=== PATIENT | male | born 1960 | race Caucasian/White ===

== ENCOUNTER 2023-06-22 14:09 | Outpatient (OUT) | payer OTHER, SELFPAY ==
--- NOTE | 2023-06-22 | XR_ITS ---
The [address] [address] Patient Name: DELBERT SANTOS MRN: [id number] date: 1960 Sex: M Assigned Patient Location: [facility] Current Patient Location: Accession/Order Number: [id number] Exam Date: 06/22/2023 14:00 Report Date: 06/25/2023 06:06 At the request of: DEANGELO MARTINEZ Procedure: XR foot LT min 3V PROCEDURE: XR foot LT min 3V, XR ankle LT min 3V HISTORY: LEFT FOOT PAIN COMPARISON: XR foot left 05/27/2022 FINDINGS: BONES:Prior mechanical fusion of the hindfoot and proximal midfoot. No evidence of hardware fracture or loosening. No bone fracture dislocation. Prior bone marrow harvesting from distal tibia. SOFT TISSUES:Mild distal dorsal soft tissue swelling. Atherosclerotic disease. EFFUSION:None visible. OTHER: Negative. XR/XR foot LT min 3V IMPRESSION: 1. Stable surgical changes without evidence of hardware failure or change in alignment. Electronically authenticated by: MOSHE MATTHEW Date: 06/25/2023 06:06
--- NOTE | 2023-06-22 | XR_ITS ---
The [address] [address] Patient Name: DELBERT SANTOS MRN: [id number] date: 1960 Sex: M Assigned Patient Location: [facility] Current Patient Location: Accession/Order Number: [id number] Exam Date: 06/22/2023 14:00 Report Date: 06/25/2023 06:06 At the request of: DEANGELO MARTINEZ Procedure: XR ankle LT min 3V PROCEDURE: XR foot LT min 3V, XR ankle LT min 3V HISTORY: LEFT FOOT PAIN COMPARISON: XR foot left 05/27/2022 FINDINGS: BONES:Prior mechanical fusion of the hindfoot and proximal midfoot. No evidence of hardware fracture or loosening. No bone fracture dislocation. Prior bone marrow harvesting from distal tibia. SOFT TISSUES:Mild distal dorsal soft tissue swelling. Atherosclerotic disease. EFFUSION:None visible. OTHER: Negative. XR/XR ankle LT min 3V IMPRESSION: 1. Stable surgical changes without evidence of hardware failure or change in alignment. Electronically authenticated by: MOSHE MATTHEW Date: 06/25/2023 06:06
== END 2023-06-22 14:10 | disposition home or self-care (01) ==
PROVIDERS: Visit Provider Podiatrist Foot & Ankle Surgery
DX: M79.672 Pain in left foot (principal); M25.572 Pain in left ankle and joints of left foot
CPT/HCPCS: 73610; 73630

== ENCOUNTER 2023-11-11 10:27 | Outpatient (OUT) | payer SELFPAY ==
--- OUTSIDE RECORDS SUMMARY | 2023-11-11 10:57 | XMS_ITS | CCD ---
Author Organization [facility] Care Team Providers Care Nurse Practitioner Per Diem Name Role Phone Hema Pratt Unavailable Unavailable Unavailable Primary Care Provider Unavailabl Aidan Medina MD Unavailable [phone] James HUSTON-Willow LAWRENCE Unavailable Alice Waters MD Unavailable Bj Hodge MD Unavailable Hema Pratt MD Primary Care Provider Bj Hodge MD Unavailable Dr. Kemar Lee Primary Care Provider Dr. Tien Peter Attending Provider DR MOSHE MATTHEW Consulting Unavailable DEANGELO MARTINEZ Attending Unavailable DEANGELO MARTINEZ Admitting Unavailable DEANGELO MARTINEZ Consulting Unavailable Dr. Kemar Lee Primary Care Provider Dr. Kemar Lee Referring Provider Dr. Tien Peter Attending Provider Aidan Pedro MD Unavailable [phone] Willow Whitney Unavailable Evelin HILL, Alice L Unavailable Bj Hodge MD Unavailable Hema Pratt MD Primary Care Provider Aidan Pedro MD Unavailable Willow Whitney Unavailable Evelin HILL, Alice L Unavailable [phone] Ayesha HILL, Bj M Unavailable Hema Pratt MD Primary Care Provider Kemar Lee MD Primary Care Provider KEMAR LEE Primary Care Unavailable KEMAR NAVARRO Attending Unavailable KEMAR NAVARRO Referring Unavailable HEMA PRATT Primary Care Unavailable LYNNETTE ANGELO Attending Unavailable LYNNETTE ANGELO Referring Unavailable BENSON GOTTLIEB Referring Unavailable HEMA PRATT Primary Care Unavailable LYNNETTE ANGELO Attending Unavailable ROSA, KEMAR Colón Primary Care Unavailable SELF, SELF Referring Unavailable AKASH, LUCRECIA Mitchell Attending Unavailable LEE, KEMAR Colón Primary Care Unavailable AKASH, LUCRECIA Mitchell Attending Unavailable LUCRECIA BUSTOS Referring Unavailable HEMA PRATT Primary Care Unavailable SELF, SELF Referring Unavailable LUCRECIA BUSTOS Attending Unavailable LEE, KEMAR Colón Primary Care Unavailable AKASH, LUCRECIA Mitchell Attending Unavailable AKASHLUCRECIA CARTER Referring Unavailable LEE, KEMAR Colón Primary Care Unavailable SELF, SELF Referring Unavailable AKASH, LUCRECIA Mitchell Attending Unavailable LEE, KEMAR Colón Primary Care Unavailable SELF, SELF Referring Unavailable LUCRECIA BUSTOS S Attending Unavailable LEE, KEMAR Colón Primary Care Unavailable HARDYTONY Attending Unavailable CONSULT, CARDIOLOGY Consulting Unavailable SELF, SELF Referring Unavailable ROSA, KEMAR Colón Primary Care Unavailable KEMAR NAVARRO Attending Unavailable Lee, Kemar Primary Care Unavailable Vellanki, Alice Attending Unavailable Vellanki, Alice Referring Unavailable Lee, Kemar Primary Care Unavailable Vellanki, Alice Attending Unavailable Lee, Kemar Primary Care Unavailable Vellanki, Alice Attending Unavailable Vellanobie, Alice Referring Unavailable Lee, Kemar Primary Care Unavailable Rosa, Kemar Consulting Unavailable Vellanki, Alice Attending Unavailable Vellanki, Alice Referring Unavailable Vellanki, Alice Consulting Unavailable Lee, Kemar Primary Care Unavailable Lee, Kemar Attending Unavailable Lee, Kemar Referring Unavailable Allergies Allergy Classification Reported Allergen(s) Allergy Type Date of Onset Reaction(s) Facility (6 sources) Penicillin V Drug Allergy 4 Unknown [facility] (6 sources) Penicillins Propensity to adverse reactions 06-02-200 9 [facility] (1 source) Penicillins Drug allergy (disorder) 7 [facility] (7 sources) Penicillins Propensity to adverse reactions to drug 1 [facility] (1 source) Penicillin Drug Allergy 4 [facility] Medications Current Medications Medication Drug Class(es) Dates Sig (Normalized) Sig (Original) acetaminophen 325 mg / oxyCODONE hydrochloride 5 mg oral tablet (6 sources) Opioid Agonist Start: 05-29-2014 take 1 tablet by mouth every four hours as needed Oxycodone-Acetamin ophen Active 1 - 2 TABLET PO EVERY 4 HOURS NEEDED 60 May 28, 2014 11:00pm Mild to moderate pain atorvastatin 40 mg oral tablet (19 sources) HMG-CoA Reductase Inhibitor Start: 04-04-2019 End: 06-24-2023 take 1 tablet by mouth once daily atorvastatin 40 MG Tab tablet Take 1 tablet by mouth daily. 90 tablet 3 04/04/2019 Active Start: 05-28-2014 take 20 mg by mouth every other day Atorvastatin Active 20 MG PO EVERY OTHER DAY May 27, 2014 11:00pm 12 hr buPROPion hydrochloride 90 mg / naltrexone hydrochloride 8 mg extended release oral tablet (4 sources) Opioid Antagonist, Aminoketone take 2 tablets by mouth twice daily Naltrexone-buPROPion HCl ER (Contrave) 8-90 MG Tab SR 12 HR Take 2 tablets by mouth 2 times daily. 0 Active carvedilol 6.25 mg oral tablet (7 sources) alpha-Adrenergic Jyoti, beta-Adrenergic Jyoti Start: 2022 End: 2023 take 1 tablet by mouth twice daily at mealtime carveDILOL 6.25 MG tablet Indications: 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, unspecified whether shoalwater or transplanted heart , Essential hypertension , Hyperlipidemia, unspecified hyperlipidemia type , Aortic root dilatation Take 1 tablet by mouth 2 times daily with meals. 180 tablet 3 08/05/2023 Active diclofenac sodium 75 mg delayed release oral tablet (6 sources) Nonsteroidal Anti-inflammatory Drug Start: 2022 take 1 tablet by mouth twice daily diclofenac EC [address] tablet Take 1 tablet by mouth 2 times daily. 60 tablet 3 05/18/2023 Active docusate sodium 100 mg oral capsule (6 sources) Start: 2013 take 1 capsule by mouth twice daily Docusate Sodium (Dok) 100 MG capsule Active 100 MG PO TWICE A DAY May 28, 2014 11:00pm 0.4 ml enoxaparin sodium 100 mg/ml prefilled syringe (6 sources) Low Molecular Weight Heparin Start: 2013 Enoxaparin Active 40 MG SC DAILY@0600 May 28, 2014 11:00pm Begin AM of 05/30/14 esomeprazole 20 mg delayed release oral capsule (6 sources) Proton Pump Inhibitor Start: 2013 take 1 capsule by mouth once daily Esomeprazole Magnesium (Nexium) 20 MG capsule Active 20 MG PO DAILY May 27, 2014 11:00pm Fluticasone Propion-Salmeterol (14 sources) Corticosteroid, beta2-Adrenergic Agonist Start: 2013 take 1 puff(s) by inhalation once daily Fluticasone Propion-Salmeterol (Advair Diskus) 1 PUFF inhaler Active 1 PUFF INHALATION DAILY May 28, 2014 2:28pm Start: 05-28-2014 take 1 puff(s) by in halation once daily Fluticasone Propion-Salmeterol (Advair Diskus) 1 PUFF inhaler Active 1 PUFF INHALATION DAILY May 27, 2014 11:00pm Start: 05-28-2014 take 1 puff(s) by in halation once daily Fluticasone Propion-Salmeterol (Advair Diskus) 1 PUFF inhaler Active 1 PUFF INHALATION DAILY May 28, 2014 12:00am End: 06-23-2023 take 1 puff(s) by inhalation once daily fluticasone-salmeterol 100-50 MCG/DOSE Aerosol Powder, breath activated inhaler take 1 Puff by inhalation daily. 0 06/23/2023 Discontinued folic acid 1 mg oral tablet (9 sources) Start: 04-30-2022 take 2 tablets by mouth once daily folic acid 1 MG tablet Take 2 tablets by mouth daily. 0 04/30/2022 Active Start: 04-30-2022 folic acid 1 M G tablet gabapentin 300 mg oral capsule (12 sources) Anti-epileptic Agent Start: 05-28-2014 End: 05-29-2014 take 300 mg by mouth three times daily at mealtime Gabapentin Active 300 MG PO 3 TIMES DAILY WITH MEALS May 29, 2014 10:06am HYDROmorphone hydrochloride 2 mg oral tablet (6 sources) Opioid Agonist Start: 05-29-2014 take 2 mg by mouth every four hours as needed Hydromorphone Active 2 MG PO EVERY 4 HOURS NEEDED May 28, 2014 11:00pm losartan potassium 50 mg oral tablet (19 sources) Angiotensin 2 Receptor Jyoti Start: 07-08-2018 take 1.5 tablets by mouth once daily losartan (COZAAR) 50 MG Tab tablet Take 1.5 tablets by mouth daily. 135 tablet 3 07/08/2018 Active Start: 05-28-2014 End: 06-24-2023 Losartan (COZAAR) tablet 50 mg methotrexate 2.5 mg oral tablet (9 sources) Folate Analog Metabolic Inhibitor Start: 04-30-2022 methotrexate 2.5 MG tablet Take 7 tablets by mouth every 7 days. 0 04/30/2022 Active Start: 04-30-2022 methotrexate 2 .5 MG tablet predniSONE 10 mg oral tablet (12 sources) Start: 01-28-2022 predniSONE 10 MG tablet prn 0 01/28/2022 Active terazosin 2 mg oral capsule (19 sources) alpha-Adrenergic Jyoti Start: 05-28-2014 take 2 mg by mouth once daily Terazosin Active 2 MG PO DAILY May 27, 2014 11:00pm Start: 02-12-2012 End: 06-24-2023 take 1 capsule by mouth twice daily terazosin 2 MG PO CAPS Indications: Edema , Vasospasm take 1 Cap by mouth 2 times daily. 180 Cap 3 02/12/2012 Active Completed/Discontinued Medications Medication Drug Class(es) Dates Sig (Normalized) Sig (Original) acetaminophen 325 mg oral tablet (1 source) Start: 06-23-2023 End: 06-24-2023 take 1 tablet by mouth every six hours as needed Acetaminophen (TYLENOL) tablet 650 mg acetaminophen 325 mg / HYDROcodone bitartrate 5 mg oral tablet (6 sources) Opioid Agonist Start: 05-14-2014 End: 05-29-2014 take 1 tablet by mouth every four hours as needed Hydrocodone-Acetam inophen Discontinued 1 TABLET PO EVERY 4 HOURS NEEDED May 13, 2014 11:00pm May 29, 2014 10:06am aluminum hydroxide 40 mg/ml / magnesium hydroxide 40 mg/ml / simethicone 4 mg/ml oral suspension (1 source) Start: 06-23-2023 End: 06-24-2023 take 30 mL by mouth every six hours as needed alum/mag hydrox.-simethicon e oral suspension 30 mL amLODIPine 10 mg / benazepril hydrochloride 20 mg oral capsule (1 source) Dihydropyridine Calcium Channel Jyoti, Angiotensin Converting Enzyme Inhibitor Start: 12-27-2009 amlodipine besylate/benazepri l(LOTREL 10 MG-20 MG CAP) Indications: Unspecified essential hypertension Take one(1) tablet daily. 90 3 12/27/2009 Active Comment on above: Take one(1) tablet d aily. aspirin 81 mg chewable tablet (13 sources) Platelet Aggregation Inhibitor, Nonsteroidal Anti-inflammatory Drug Start: 06-24-2023 End: 06-24-2023 aspirin chewable tablet 81 mg Start: 06-23-2023 End: 06-23-2023 aspirin chewable tablet 243 mg Start: 05-28-2014 take 81 mg by mouth once daily Aspirin Active 81 MG PO DAILY@0800 May 27, 2014 11:00pm Start: 01-01-2009 aspirin(ASPIR- LOW 81 MG TAB) Take two (2) tablets every morning. 0 01/01/2009 Active Comment on above: Take two (2) tablets every morning. 10 ml atropine sulfate 0.1 mg/ml prefilled syringe (1 source) Anticholinergic, Cholinergic Muscarinic Antagonist Start: 2022 End: 2022 Atropine injection 0.5 mg 250 ml DOBUTamine 1 mg/ml injection (1 source) beta-Adrenergic Agonist Start: 2022 End: 2022 DOBUTamine (DOBUTREX) 1 MG/ML premix infusion hydroCHLOROthiazide 25 mg oral tablet (9 sources) Thiazide Diuretic Start: 2022 End: 2022 take 25 mg by mouth once daily 25 mg, Oral, DAILY, First dose on Wed06/23/23 at 1315, Until Discontinued hydroxychloroquine sulfate 200 mg oral tablet (13 sources) Antimalarial, Antirheumatic Agent Start: 2022 End: 2022 Hydroxychloroquine (PLAQUENIL) tablet 200 mg magnesium oxide 400 mg oral tablet (1 source) Start: 2022 End: 2022 magnesium oxide (MAG-OX) tablet 400 mg meloxicam 15 mg oral tablet (5 sources) Nonsteroidal Anti-inflammatory Drug Start: 2019 End: 2022 take 1 tablet by mouth once daily meloxicam 15 MG Tab tablet Take 1 tablet by mouth daily. Please provide capsules rather than tablets. 30 tablet 3 09/01/2019 09/17/2022 Discontinued (Therapy completed) Perflutren Lipid Microsphere (DEFINITY) 1.5 mL in Normal saline flush 0.9% 8.5 mL (2 sources) Start: 2023 End: 2023 Perflutren Lipid Microsphere (DEFINITY) 1.5 mL in Normal saline flush 0.9% 8.5 mL Start: 06-23-2023 End: 06-23-2023 Perflutren Lipid Microsphere (DEFINITY) 1.5 mL in Normal saline flush 0.9% 8.5 mL 1000 ml sodium chloride 9 mg /ml injection (1 source) Start: 06-23-2023 End: 06-24-2023 Sodium chloride 0.9% IV solution Problems Active Problems Problem Classification Problem Date Documented Da te Episodic/Chronic Acquired foot deformities (3 sources) Hammer toe; Translations: [Other hammer toe(s) (acquired), left foot] Onset: 09-16-2023 05-18-2023 Chronic Aortic; peripheral; and visceral artery aneurysms (8 sources) Aortic root dilatation; Translations: [Thoracic aortic ectasia] Onset: 08-05-2023 08-05-2023 Chronic Coronary atherosclerosis and other heart disease (16 sources) Coronary atherosclerosis; Translations: [Atherosclerotic heart disease of [place] coronary artery without angina pectoris] Onset: 05-02-2018 05-02-2018 Chronic Disorders of lipid metabolism (9 sources) Hyperlipidemia; Translations: [Hyperlipidemia, unspecified] Onset: 01-01-2009 04-04-2009 Chronic Essential hypertension (9 sources) Essential hypertension; Translations: [Essential (primary) hypertension] Onset: 01-01-2009 01-01-2009 Chronic Fracture of lower limb (10 sources) Closed fracture calcaneus, intra-articular ; Translations: [Displaced intraarticular fracture of left calcaneus, initial encounter for closed fracture] Onset: 09-16-2023 Episodic Immunizations and screening for infectious disease (13 sources) Scl 70 antibody positive; Translations: [Other specified abnormal immunological findings in serum] Onset: 08-24-2011 08-24-2011 Episodic Joint disorders and dislocations; trauma-related (8 sources) Traumatic arthropathy of the ankle and/or foot; Translations: [Traumatic arthropathy, left ankle and foot] Onset: 05-27-2022 Chronic Osteoarthritis (7 sources) Traumatic arthropathy-ankle; Translations: [Post-traumatic osteoarthritis, left ankle and foot] Onset: 09-16-2023 Chronic Other aftercare (1 source) Other snf (current) drug therapy; Translations: [Other exterminator termite (current) drug therapy] Onset: 11-10-2023 Episodic Other bone disease and musculoskeletal deformities (3 sources) Segmental and somatic dysfunction; Translations: [Segmental and somatic dysfunction of thoracic region] Episodic Other circulatory disease (12 sources) Raynaud's disease; Translations: [Raynaud's syndrome without gangrene] Onset: 01-23-2011 01-23-2011 Chronic Other ear and sense organ disorders (1 source) Asymmetrical hearing loss; Translations: [Other specified hearing loss, unspecified ear] Chronic Other ear and sense organ disorders (16 sources) Sensorineural hearing loss, bilateral; Translations: [Sensorineural hearing loss, bilateral] Onset: 10-25-2013 10-25-2013 Chronic Other ear and sense organ disorders (1 source) Sensorineural hearing loss, bilateral; Translations: [Sensorineural hearing loss, bilateral] Onset: 10-25-2013 Chronic Other nutritional; endocrine; and metabolic disorders (1 source) Obesity; Translations: [Obesity, unspecified] Onset: 01-01-2009 01-01-2009 Chronic Other nutritional; endocrine; and metabolic disorders (12 sources) Body mass index 40+ - severely obese; Translations: [Morbid (severe) obesity due to excess calories] Onset: 07-02-2017 07-02-2017 Chronic Other nutritional; endocrine; and metabolic disorders (12 sources) Severe obesity; Translations: [Morbid (severe) obesity due to excess calories] Onset: 05-01-2018 05-01-2018 Chronic Other upper respiratory disease (1 source) Allergic rhinitis; Translations: [Allergic rhinitis, unspecified] Onset: 01-01-2009 01-01-2009 Chronic Residual codes; unclassified (12 sources) Obstructive sleep apnea syndrome; Translations: [Obstructive sleep apnea (adult) (pediatric)] Onset: 07-03-2013 07-03-2013 Chronic Rheumatoid arthritis and related disease (9 sources) Rheumatoid arthritis of multiple joints; Translations: [Rheumatoid arthritis, unspecified] Onset: 06-23-2023 Chronic Unclassified (1 source) Unknown / UNK(Unknown) Onset: 08-23-2017 Unclassified (12 sources) Reflux; Translations: [Reflux] Onset: 01-15-2012 01-15-2012 Past or Other Problems Problem Classification Problem Date Documented Da te Episodic/Chronic Nonspecific chest pain (18 sources) Chest pain; Translations: [Chest pain, unspecified] Onset: 04-30-2018 04-30-2018 Episodic Other connective tissue disease (12 sources) Swelling of finger ; Translations: [Other specified soft tissue disorders] Onset: 01-23-2011 01-23-2011 Episodic Other connective tissue disease (12 sources) Full thickness rotator cuff tear; Translations: [Complete rotator cuff tear or rupture of unspecified shoulder, not specified as traumatic] Onset: 04-09-2014 04-09-2014 Episodic Other ear and sense organ disorders (12 sources) Presbycusis; Translations: [Presbycusis, unspecified ear] Onset: 10-19-2013 10-19-2013 Episodic Residual codes; unclassified (12 sources) Sleep apnea; Translations: [Sleep apnea, unspecified] Onset: 01-15-2012 Resolved: 06-20-2012 06-20-2012 Chronic Residual codes; unclassified (1 source) Edema; Translations: [Edema, unspecified] Onset: 12-27-2009 12-27-2009 Episodic Sprains and strains (3 sources) Sprain of left ankle; Translations: [Sprain of unspecified ligament of left ankle, initial encounter] Onset: 07-29-2023 05-18-2023 Episodic Unclassified (1 source) E78.00,I10 HYPERCHOLESTROLEMIA ,HYPERTENSIO Onset: 08-23-2017 Results Test Name Value Interpretation Reference Range Facility CBC W/Diff, Automatedon 10-31 Absolute Lymph 0.84 X10 3/uL Normal 0.83-4.51 [facility] Comment on above: Performed By: #### L [id number], L501.9985, L100.0100 #### [facility] [address] [place], [address] Absolute Neut 4.2 X10 3/uL Normal 2.0-7.7 [facility] Comment on above: Performed By: #### L [id number], [id number], L100.0100 #### [facility] [address] [place], [address] Basophils/100 WBC (Bld) 0.5 % Normal 0-1 [facility] Comment on above: Performed By: #### L 500.4050, [id number], L100.0100 #### [facility] [address] [place], [address] Eosinophils/100 WBC (Bld) 4.0 % Normal 0-5 [facility] Comment on above: Performed By: #### L 500.4050, [id number], L100.0100 #### [facility] [address] [place], [address] Erythrocyte distribution width (RBC) [Ratio] 12.2 % Normal 11.6-14.6 [facility] Comment on above: Performed By: #### L 500.4050, L501.9985, L100.0100 #### [facility] [address] [place], [address] Hematocrit (Bld) [Volume fraction] 41.6 % Normal 40-54 [facility] Comment on above: Performed By: #### L 500.4050, [id number], L100.0100 #### [facility] [address] [place], [address] Hemoglobin (Bld) [Mass/Vol] 14.2 g/dL Normal 13.0-16.5 [facility] Comment on above: Performed By: #### L 500.4050, [id number], L100.0100 #### [facility] [address] [place], [address] IG% 0.200 Normal 0.0-0.9 [facility] Comment on above: Result Comment: IG% - Immature Granulocytes (promyelocytes, myelocytes and metamyelocytes) > 1% indicates that a LEFT SHIFT is Present. Performed By: #### L 500.4050, L501.9985, L100.0100 #### [facility] [address] [place], [address] Lymphocytes/100 WBC (Bld) 14.6 % Low 19-41 [facility] Comment on above: Performed By: #### L 500.4050, [id number], L100.0100 #### [facility] [address] [place], [address] MCH (RBC) [Entitic mass] 33.3 pg High 27.0-32.0 [facility] Comment on above: Performed By: #### L 500.4050, [id number], L100.0100 #### [facility] [address] [place], [address] MCHC (RBC) [Mass/Vol] 34.1 g/dL Normal 32-36 [facility] Comment on above: Performed By: #### L 500.4050, [id number], L100.0100 #### [facility] [address] [place], [address] MCV (RBC) [Entitic vol] 97.7 fL High 80-94 [facility] Comment on above: Performed By: #### L 500.4050, [id number], L100.0100 #### [facility] [address] [place], [address] Monocytes/100 WBC (Bld) 7.3 % Normal 0-10 [facility] Comment on above: Performed By: #### L 500.4050, [id number], L100.0100 #### [facility] [address] [place], [address] Neutrophils/100 WBC (Bld) 73.4 % High 47-70 [facility] Comment on above: Performed By: #### L 500.4050, [id number], L100.0100 #### [facility] [address] [place], [address] Nucleated RBC (Bld) [#/Vol] 0 10*3/uL Normal 0-5 [facility] Comment on above: Performed By: #### L 500.4050, [id number], L100.0100 #### [facility] [address] [place], [address] Platelet mean volume (Bld) [Entitic vol] 11.5 fL Normal 6.2-12.0 [facility] Comment on above: Performed By: #### L 500.4050, [id number], L100.0100 #### [facility] [address] [place], [address] Platelets (Bld) [#/Vol] 155 10*3/uL Normal 150-450 [facility] Comment on above: Performed By: #### L 500.4050, [id number], L100.0100 #### [facility] [address] [place], [address] RBC (Bld) [#/Vol] 4.26 10*6/uL Low 4.6-6.2 [facility] Comment on above: Performed By: #### L 500.4050, [id number], L100.0100 #### [facility] [address] [place], [address] RDW SD 43.6 fl Normal 35.1-43.9 [facility] Comment on above: Performed By: #### L 500.4050, [id number], L100.0100 #### [facility] [address] [place], [address] WBC (Bld) [#/Vol] 5.8 10*3/uL Normal 4.4-11.0 [facility] Comment on above: Performed By: #### L 500.4050, [id number], L100.0100 #### [facility] [address] [place], [address] Comprehensive Metabolic Prof ilon 11-10-2023 Albumin [Mass/Vol] 3.4 g/dL Normal 3.2-5.0 [facility] Comment on above: Performed By: #### L 500.4050, [id number], L100.0100 #### [facility] [address] [place], [address] Albumin/Globulin [Mass ratio] 1.2 {ratio} Normal 0.9-2.4 [facility] Comment on above: Performed By: #### L 500.4050, [id number], L100.0100 #### [facility] [address] [place], [address] ALK P 59 U/L Normal 45-117 [facility] Comment on above: Performed By: #### L 500.4050, [id number], L100.0100 #### [facility] [address] [place], [address] ALT [Catalytic activity/Vol] 67 U/L High 16-61 [facility] Comment on above: Performed By: #### L 500.4050, [id number], L100.0100 #### [facility] [address] [place], [address] AST [Catalytic activity/Vol] 28 U/L Normal 15-37 [facility] Comment on above: Performed By: #### L 500.4050, [id number], L100.0100 #### [facility] [address] [place], [address] Bilirubin [Mass/Vol] 1.00 mg/dL Normal 0.20-1.00 [facility] Comment on above: Result Comment: For patients on eltrombopag therapy, use of Dimension [place] TBIL is not recommended. Performed By: #### L 500.4050, [id number], L100.0100 #### [facility] [address] [place], [address] BUN/CRE 15.2 RATIO Normal 10-20 [facility] Comment on above: Performed By: #### L 500.4050, [id number], L100.0100 #### [facility] [address] [place], [address] CA,Total 8.9 mg/dL Normal 8.5-10.1 [facility] Comment on above: Performed By: #### L 500.4050, [id number], L100.0100 #### [facility] [address] [place], [address] Chloride [Moles/Vol] 108 mmol/L High 98-107 [facility] Comment on above: Performed By: #### L 500.4050, [id number], L100.0100 #### [facility] [address] [place], [address] CO2 [Moles/Vol] 29.0 mmol/L Normal 21.0-32.0 [facility] Comment on above: Performed By: #### L 500.4050, [id number], L100.0100 #### [facility] [address] [place], [address] Creatinine [Mass/Vol] 0.99 mg/dL Normal 0.70-1.30 [facility] Comment on above: Result Comment: The validity of the calculated GFR GFRAA in patients over 70 years has not been determined. Clinical correlation is essential. Performed By: #### L 500.4050, [id number], L100.0100 #### [facility] [address] [place], [address] EST GFR - AA 98 mL/min Normal >60 [facility] Comment on above: Result Comment: Afri can Japanese GFR Calc Performed By: #### L 500.4050, [id number], L100.0100 #### [facility] [address] [place], [address] GAP 3 Low 5-15 [facility] System Comment on above: Performed By: #### L 500.4050, L501.9985, L100.0100 #### [facility] [address] [place], [address] GFR/1.73 sq M.predicted among non-blacks MDRD (S/P/Bld) [Vol rate/Area] 81 mL/min/{1.73_m2} Normal >60 [facility] Comment on above: Result Comment: Non- GFR Calc Performed By: #### L 500.4050, L501.9985, L100.0100 #### [facility] [address] [place], [address] Globulin (S) [Mass/Vol] 2.9 g/dL Normal 2.2-4.2 [facility] Comment on above: Performed By: #### L 500.4050, L501.9985, L100.0100 #### [facility] [address] [place], [address] Glucose [Mass/Vol] 125 mg/dL High 74-106 [facility] Comment on above: Result Comment: Fast ing Glucose result from 100 to 125 mg/dL suggests IMPAIRED HOMEOSTASIS per A.D.A. criteria. Performed By: #### L 500.4050, L501.9985, L100.0100 #### [facility] [address] [place], [address] Potassium [Moles/Vol] 4.2 mmol/L Normal 3.5-5.1 [facility] Comment on above: Performed By: #### L 500.4050, L501.9985, L100.0100 #### [facility] [address] [place], [address] Sodium [Moles/Vol] 140 mmol/L Normal 136-145 [facility] Comment on above: Performed By: #### L 500.4050, L501.9985, L100.0100 #### [facility] [address] [place], [address] T PROT 6.3 g/dL Low 6.4-8.2 [facility] Comment on above: Performed By: #### L 500.4050, L501.9985, L100.0100 #### [facility] [address] [place], [address] Urea nitrogen [Mass/Vol] 15 mg/dL Normal 7-18 [facility] Comment on above: Performed By: #### L 500.4050, L501.9985, L100.0100 #### [facility] [address] [place], [address] Cardiac echo study Procedure Ordered By: Rodrigue Pérez on 08-19-2023 Ao ASC index 1.48 cm/m2 [facility] Work Phone: Ao peak gera 1.20 m/s [facility] Work Phone: Ao SOV index 1.50 cm/m2 [facility] Work Phone: Ao STJ index 1.10 cm/m2 [facility] Work Phone: Ao VTI 24.21 cm [facility] Work Phone: Ascending [facility] 3.[facility] AV LVOT peak gradient 4 mmHg [facility] Work Phone: AV mean gradient 3 [facility] Work Phone: AV peak gradient 6 mmHG [facility] Work Phone: AV valve area 3.36 cm2 [facility] Work Phone: AV Velocity Ratio 0.79 [facility] Work Phone: VAMSHI (continuity Vmax) 3.37 cm2 [facility] Work Phone: VAMSHI (continuity VTI) 3.36 cm2 [facility] Work Phone: VAMSHI index (continuity Vmax) 1.29 m/s [facility] Work Phone: VAMSHI index (continuity VTI) 1.29 cm2/m2 [facility] Work Phone: Avg e' pk gera 0.06 m/s [facility] Work Phone: Avg E/e' ratio 10.79 [facility] Work Phone: Body surface area Derived from formula 2.61 m2 [facility] Work Phone: BP EF 55 % [facility] Work Phone: DI (Vmax) 0.79 [facility] Work Phone: DI (VTI) 0.79 m/2 [facility] Work Phone: E wave decelartion time 200.64 msec [facility] Work Phone: e' lateral pk gera 0.0694 m/s [facility] Work Phone: e' lateral pk gera 0.07 m/s [facility] Work Phone: e' septal pk gera 0.0518 m/s [facility] Work Phone: e' septal pk gera 0.05 m/s [facility] Work Phone: E/A ratio 0.80 [facility] Work Phone: E/e' lateral ratio 9.22 [facility] Work Phone: E/e' septal ratio 12.36 [facility] Work Phone: EF SP 2CH 57 [facility] Work Phone: EF SP 4[facility] Work [facility]: EST RAP 3.00 [facility] Work [facility]: FS 31 % 28 - 44 % [facility] Work Phone: IVC ostium 1.35 cm [facility] Work Phone: IVS 0.93 cm [facility] Work Phone: LA AREA 2CH 22.75 cm2 [facility] Work Phone: LA area 4CH 20.42 cm2 [facility] Work Phone: LA ESV BP (MOD) 60 mL [facility] Work Phone: LA ESV BP (MOD) index 23 mL/m2 [facility] Work Phone: LA ESV SP 2CH (MOD) 66 mL [facility] Work Phone: LA ESV SP 4CH (MOD) 54 [facility] Work Phone: LV EDV BP 134 [facility] Work Phone: LV EDV SP 2CH 118 [facility] Work Phone: LV EDV SP 4CH 146 [facility] Work Phone: LV ESV BP 60 mL [facility] Work Phone: LV ESV SP 2CH 51 mL [facility] Work Phone: LV ESV SP 4CH 66 mL [facility] Work Phone: LV mass 137.82 g [facility] Work Phone: LV Mass Index 52.8 g/m2 [facility] Work Phone: LV RWT 0.42 [facility] Work Phone: LV stroke volume BP (ml) 74 mL [facility] Work Phone: LV stroke volume index BP 28.35 mL/m2 [facility] Work Phone: LVIDD 4.48 cm [facility] Work Phone: LVIDS 3.08 cm [facility] Work Phone: LVOT area 4.26 cm2 [facility] Work Phone: LVOT diameter 2.33 cm [facility] Work Phone: LVOT peak gera 0.95 m/s [facility] Work Phone: LVOT peak VTI 19.10 cm [facility] Work Phone: LVOT stroke volume 81 cm3 [facility] Work Phone: LVOT stroke volume index 31.19 ml/m2 [facility] Work Phone: MV pk A gera 0.80 m/s [facility] Work Phone: MV pk E gera 0.64 m/s [facility] Work Phone: MV stenosis pressure 1/2 time 58.19 ms [facility] Work Phone: MV valve area p 1/2 method 3.78 cm2 [facility] Work Phone: [facility] AV VTI RATIO PRE STRESS 0.79 [facility] Work Phone: [facility] ECHO LV BIPLANE SYSTOLIC VOLUME INDEX 22.99 mL/m2 [facility] Work Phone: [facility] ECHO LV BP DIASTOLIC VOLUME INDEX 51.34 mL/m2 [facility] Work Phone: [facility] RVOT VTI RATIO 0.81 [facility] Work Phone: PV mean gradient 1 mmHg [facility] Work Phone: PV peak gradient 2 mmHg [facility] Work Phone: PV PK GERA 0.77 m/s [facility] Work Phone: PV VTI 17.32 cm [facility] Work Phone: PW 0.93 cm [facility] Work Phone: RA vol index 4CH (MOD) 21.46 mL/m2 [facility] Work Phone: Right atrium volume 4 chamber method of disks 56 mL [facility] Work Phone: RV Area diastolic 26.21 cm2 [facility] Work Phone: RV Area systolic 16.76 cm2 [facility] Work Phone: RV basal diam 5.14 cm [facility] Work Phone: RV Fractional area change 36.1 % [facility] Work Phone: RV long diam 8.17 cm [facility] Work Phone: RV mid diam 2.79 cm [facility] Work Phone: RV S' 10.76 cm/s [facility] Work Phone: RVOT peak gradient 2 mmHg [facility] Work Phone: RVOT peak gera 0.62 m/s [facility] Work Phone: RVOT peak VTI 13.97 cm [facility] Work Phone: Sinus 3.91 cm [facility] Work Phone: STJ 2.87 cm [facility] Work Phone: Stroke Volume 81 cm/mL [facility] Work Phone: Stroke volume index 31 [facility] Work Phone: TAPSE 2.24 cm [facility] Work Phone: [facility] Work Phone: Cardiac echo study Procedure on 08-19-2023 Technically difficul t study Left Ventricle: Chamber size is normal. Normal wall thickness. Ejection fraction is normal (55 - 60%). Right Ventricle: Chamber size is normal. Systolic function is normal. Left Atrium: Chamber size is normal. No significant valvular abnormality seen The aorta measures 3.9 cm at the SOV and 3.9 cm at the level of the ascending aorta Left Ventricle Chamber size is normal. Normal wall thickness. Ejection fraction is normal (55 - 60%). Diastolic function is normal for age. Right Ventricle Chamber size is normal. Systolic function is normal. Left Atrium Chamber size is normal. Right Atrium Chamber size is normal. IVC/SVC The inferior vena cava is normal in size. The inferior vena cava structure has a diameter <21 mm and decreases >50% during inspiration. Mitral Valve Normal appearing leaflets. Leaflet mobility is normal. No regurgitation. No valve stenosis. Tricuspid Valve Normal leaflets. Leaflet mobility is normal. Trace regurgitation. No stenosis. Aortic Valve Trileaflet valve. Leaflet mobility is normal. No regurgitation. No stenosis. Pulmonic Valve Normal structure. No regurgitation. No stenosis. Pericardium Appears normal. No pericardial effusion. Septum The atrial septum is normal. Aorta No dilation to extent seen. Study Details A complete 2D echocardiography study (including color flow Doppler, spectral Doppler and microbubbles) was performed. Contrast indication: evaluation of left ventricle contiguous segments. Study limitations include patient body habitus and technically difficult study. Imaging system used: Siemens. Indications Indications for study: chest pain, CAD and hypertension. [facility] Radiology Study observation (narrative) [facility] ECHOCARDIOGRAMon 08-19-2023 Echocardiography ? Technically diffic ult study ? Left Ventricle: Chamber size is normal. Normal wall thickness. Ejection fraction is normal (55 - 60%). ? Right Ventricle: Chamber size is normal. Systolic function is normal. ? Left Atrium: Chamber size is normal. ? No significant valvular abnormality seen ? The aorta measures 3.9 cm at the SOV and 3.9 cm at the level of the ascending aorta Table formatting from the original result was not included. Images from the original result were not included. Patient Information Patient Name Delbert Szymanski Legal Sex Male Indication for Exam Priority: Routine Dx: 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, unspecified whether shoalwater or transplanted heart [I25.10 (ICD-10-CM)]; Essential hypertension [I10 (ICD-10-CM)]; Hyperlipidemia, unspecified hyperlipidemia type [E78.5 (ICD-10-CM)]; Aortic root dilatation [I77.810 (ICD-10-CM)] Comments: Aortic Root Dilatation (echocardiogram: 2018) HTN; HLD Chest Pain Interpretation Summary ? Technically difficult study ? Left Ventricle: Chamber size is normal. Normal wall thickness. Ejection fraction is normal (55 - 60%). ? Right Ventricle: Chamber size is normal. Systolic function is normal. ? Left Atrium: Chamber size is normal. ? No significant valvular abnormality seen ? The aorta measures 3.9 cm at the SOV and 3.9 cm at the level of the ascending aorta Findings Left Ventricle Chamber size is normal. Normal wall thickness. Ejection fraction is normal (55 - 60%). Diastolic function is normal for age. Right Ventricle Chamber size is normal. Systolic function is normal. Left Atrium Chamber size is normal. Right Atrium Chamber size is normal. Septum The atrial septum is normal. Mitral Valve Normal appearing leaflets. Leaflet mobility is normal. No regurgitation. No valve stenosis. Aortic Valve Trileaflet valve. Leaflet mobility is normal. No regurgitation. No stenosis. Tricuspid Valve Normal leaflets. Leaflet mobility is normal. Trace regurgitation. No stenosis. Pulmonic Valve Normal structure. No regurgitation. No stenosis. Aorta No dilation to extent seen. Pericardium Appears normal. No pericardial effusion. IVC/SVC The inferior vena cava is normal in size. The inferior vena cava structure has a diameter <21 mm and decreases >50% during inspiration. Reading Providers Reading Role Read Date Rodrigue Pérez MD Echo [place], [employer] 08/19/2023 Left Heart Measurements LV - Systole LVIDD 4.48 cm IVS 0.93 cm LVIDS 3.08 cm PW 0.93 cm LV RWT 0.42 LV Mass Index 52.8 g/m2 LV EDV BP 134 mL LV ESV BP 60 mL BP EF 55 % LV stroke volume BP (ml) 74 mL LV stroke volume index BP 28.35 mL/m2 LV - Diastole MV pk E gera 0.64 m/s MV pk A gera 0.8 m/s E/A ratio 0.8 e' septal pk gera 0.05 m/s e' lateral pk gera 0.07 m/s Avg e' pk gera 0.06 m/s E/e' septal ratio 12.36 E/e' lateral ratio 9.22 Avg E/e' ratio 10.79 LV - HCM AV LVOT peak gradient 4 mmHg Left Atrium LA ESV SP 4CH (MOD) 54 mL LA ESV SP 2CH (MOD) 66 mL LA ESV BP (MOD) index 23 mL/m2 Right Heart Measurements RV - 2D RV basal diam 5.14 cm RV mid diam 2.79 cm RV long diam 8.17 cm RV Area diastolic 26.21 cm2 RV Area systolic 16.76 cm2 RV Fractional area change 36.1 % RV - Doppler TAPSE 2.24 cm RV S' 10.76 cm/s Right Atrium RA vol index 4CH (MOD) 21.46 mL/m2 EST RAP 3 mmHg [facility] Aortic Root - End Diastolic Sinus 3.91 cm STJ 2.87 cm Ascending aorta 3.87 cm Inferior Vena Cava IVC ostium 1.35 cm Doppler Measurements - Aortic Valve Stenosis LVOT diameter 2.33 cm LVOT area 4.26 cm2 LVOT peak gera 0.95 m/s LVOT peak VTI 19.1 cm Stroke Volume 81 cm/mL Stroke volume index 31 Ao peak gera 1.2 m/s Ao VTI 24.21 cm AV peak gradient 6 mmHG AV mean gradient 3 mmHg DI (VTI) 0.79 m/2 DI (Vmax) 0.79 VAMSHI (continuity Vmax) 3.37 cm2 VAMSHI index (continuity Vmax) 1.29 m/s VAMSHI (continuity VTI) 3.36 cm2 VAMSHI index (continuity VTI) 1.29 cm2/m2 LVOT stroke volume 81 cm3 LVOT stroke volume index 31.19 ml/m2 Doppler Measurements - Mitral Valve Stenosis MV pk E gera 0.64 m/s MV pk A gera 0.8 m/s E/A ratio 0.8 MV stenosis pressure 1/2 time 58.19 ms MV valve area p 1/2 method 3.78 cm2 PISA-MS MV pk E gera 0.64 m/s Doppler Measurements - Tricuspid Valve Stenosis IVC ostium 1.35 cm Regurgitation EST RAP 3 mmHg Doppler Measurements - Pulmonic Valve Stenosis PV PK GERA 0.77 m/s PV VTI 17.32 cm PV peak gradient 2 mmHg PV mean gradient 1 mmHg RVOT peak gera 0.62 m/s RVOT peak VTI 13.97 cm RVOT peak gradient 2 mmHg (more content not included)... Normal [facility] CT ANKLE LEFT WITHOUT CONTRA STon 08-13-2023 CT ANKLE LEFT WITHOUT CONTRAST EXAM: CT ANKLE LEFT WITHOUT CONTRAST, CT FOOT LEFT WITHOUT CONTRAST, 08/13/2023 15:39 PM (accession [id number]), 08/13/2023 15:43 PM (accession [id number]) COMPARISON: No prior studies available for comparison. 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 ;;[facility] claim # [id number];DOI 05/14/14;(L ankle injury);C-9 dated 07/08/[address] of Left Ankle x 1 from 07/09/23 to 09/29/23. ;C-9 has been scanned into IHIS. ;Allowed condition(s): M19.172, S92.012A;POR is Dr Bustos at [facility] Occupational Medicine (non-clinical contact: demi vera TECHNIQUE: Contiguous 0.625 x 0.3125 mm transaxial images were performed through the ankle joint without the use of intravenous contrast. The images were then reconstructed in the coronal, sagittal, and axial planes at 2-2.5 mm intervals. FINDINGS: CT LEFT ANKLE: Effusion: There is no joint effusion. Soft Tissue: Soft tissue swelling is present laterally. Diffuse muscular atrophy. Bone: There is a rounded lucent lesion with a small anterior cortical defect of predominantly of fat at the distal tibial metaphysis which is likely a graft harvest site. Status post ORIF of remote comminuted calcaneal fracture. Fixation hardware includes 3 intact screws traversing the calcaneus into the talus. There is partial fusion at the posterior subtalar joint. There is fusion of the calcaneocuboid with intact screws. There is an intact dorsal fixation plate and screws traversing the talus and navicular with the joint fused. The middle navicular screw projects into the sinus tarsi. No evidence of loosening or hardware failure. Diffuse osteopenia is noted. Calcaneal enthesopathy at the insertion of the plantar fascia. Tarsus: There are portions of the anterior, middle, and posterior facets that are still visualized. The talonavicular and calcaneocuboid joints are completely fused. Joint: Osteoarthritic changes of the midfoot and first metatarsal joint. Additionally, there are osteoarthritic changes at the talonavicular joint. There is widening of the ankle mortise with associated intra-articular body. Remote ligamentous injury is noted at the medial and lateral malleoli. CT LEFT FOOT: Bones: No fractures, Diffuse osteopenia is noted. Cartilage: No chondral defects. No intra-articular bodies. First metatarsophalangeal joint: The tibial and fibular sesamoids are intact. The intersesamoid, sesamoid-phalangeal, and sesamoid-metatarsal ligaments are intact. Osteoarthritic changes at the first metatarsal joint. Tendons: Intact. Muscles: There is disc diffuse muscular atrophy. Soft tissues: No abnormality of the neurovascular structures. IMPRESSION: 1. Status post ORIF of a comminuted calcaneal fracture with intact hardware. 2. Status post subtalar fusion with portions of the joint still visualized 3. Talonavicular fusion with the middle navicular screw projecting into the sinus Tarsi 4. Status post calcaneocuboid fusion 5. 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 6. Remote ligamentous injury at the medial and lateral malleoli. 7. Chronic plantar fasciitis. 8. Diffuse muscle atrophy and osteopenia. I personally viewed and interpreted these images and I have reviewed and approved this report. Normal [facility] CT Ankle - left WO contrasto n 08-13-2023 Radiology Study observation (narrative) [facility] CT FOOT LEFT WITHOUT CONTRAS Ton 08-13-2023 CT FOOT LEFT WITHOUT CONTRAST EXAM: CT ANKLE LEFT WITHOUT CONTRAST, CT FOOT LEFT WITHOUT CONTRAST, 08/13/2023 15:39 PM (accession [id number]), 08/13/2023 15:43 PM (accession [id number]) COMPARISON: No prior studies available for comparison. 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 ;;[facility] claim # [id number];DOI 05/14/14;(L ankle injury);C-9 dated 07/08/[address] of Left Ankle x 1 from 07/09/23 to 09/29/23. ;C-9 has been scanned into IS. ;Allowed condition(s): M19.172, S92.012A;POR is Dr Bustos at [facility] Occupational Medicine (non-clinical contact: demi vera TECHNIQUE: Contiguous 0.625 x 0.3125 mm transaxial images were performed through the ankle joint without the use of intravenous contrast. The images were then reconstructed in the coronal, sagittal, and axial planes at 2-2.5 mm intervals. FINDINGS: CT LEFT ANKLE: Effusion: There is no joint effusion. Soft Tissue: Soft tissue swelling is present laterally. Diffuse muscular atrophy. Bone: There is a rounded lucent lesion with a small anterior cortical defect of predominantly of fat at the distal tibial metaphysis which is likely a graft harvest site. Status post ORIF of remote comminuted calcaneal fracture. Fixation hardware includes 3 intact screws traversing the calcaneus into the talus. There is partial fusion at the posterior subtalar joint. There is fusion of the calcaneocuboid with intact screws. There is an intact dorsal fixation plate and screws traversing the talus and navicular with the joint fused. The middle navicular screw projects into the sinus tarsi. No evidence of loosening or hardware failure. Diffuse osteopenia is noted. Calcaneal enthesopathy at the insertion of the plantar fascia. Tarsus: There are portions of the anterior, middle, and posterior facets that are still visualized. The talonavicular and calcaneocuboid joints are completely fused. Joint: Osteoarthritic changes of the midfoot and first metatarsal joint. Additionally, there are osteoarthritic changes at the talonavicular joint. There is widening of the ankle mortise with associated intra-articular body. Remote ligamentous injury is noted at the medial and lateral malleoli. CT LEFT FOOT: Bones: No fractures, Diffuse osteopenia is noted. Cartilage: No chondral defects. No intra-articular bodies. First metatarsophalangeal joint: The tibial and fibular sesamoids are intact. The intersesamoid, sesamoid-phalangeal, and sesamoid-metatarsal ligaments are intact. Osteoarthritic changes at the first metatarsal joint. Tendons: Intact. Muscles: There is disc diffuse muscular atrophy. Soft tissues: No abnormality of the neurovascular structures. IMPRESSION: 1. Status post ORIF of a comminuted calcaneal fracture with intact hardware. 2. Status post subtalar fusion with portions of the joint still visualized 3. Talonavicular fusion with the middle navicular screw projecting into the sinus Tarsi 4. Status post calcaneocuboid fusion 5. 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 6. Remote ligamentous injury at the medial and lateral malleoli. 7. Chronic plantar fasciitis. 8. Diffuse muscle atrophy and osteopenia. I personally viewed and interpreted these images and I have reviewed and approved this report. Normal [facility] CT Foot - left WO contraston 08-13-2023 Radiology Study observation (narrative) [facility] No Panel Informationon 08-13 IMPRESSION: 1. Status post ORIF of a comminuted calcaneal fracture with intact hardware. 2. Status post subtalar fusion with portions of the joint still visualized 3. Talonavicular fusion with the middle navicular screw projecting into the sinus Tarsi 4. Status post calcaneocuboid fusion 5. 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 6. Remote ligamentous injury at the medial and lateral malleoli. 7. Chronic plantar fasciitis. 8. Diffuse muscle atrophy and osteopenia. I personally viewed and interpreted these images and I have reviewed and approved this report. OLOGY EXAM: CT ANKLE LEFT WITHOUT CONTRAST, CT FOOT LEFT WITHOUT CONTRAST, 08/13/2023 15:39 PM (accession [id number]), 08/13/2023 15:43 PM (accession [id number]) COMPARISON: No prior studies available for comparison. 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 ;;[facility] claim # [id number];DOI 05/14/14;(L ankle injury);C-9 dated 07/08/[address] of Left Ankle x 1 from 07/09/23 to 09/29/23. ;C-9 has been scanned into IHIS. ;Allowed condition(s): M19.172, S92.012A;POR is Dr Bustos at [facility] Occupational Medicine (non-clinical contact: demi vera TECHNIQUE: Contiguous 0.625 x 0.3125 mm transaxial images were performed through the ankle joint without the use of intravenous contrast. The images were then reconstructed in the coronal, sagittal, and axial planes at 2-2.5 mm intervals. FINDINGS: CT LEFT ANKLE: Effusion: There is no joint effusion. Soft Tissue: Soft tissue swelling is present laterally. Diffuse muscular atrophy. Bone: There is a rounded lucent lesion with a small anterior cortical defect of predominantly of fat at the distal tibial metaphysis which is likely a graft harvest site. Status post ORIF of remote comminuted calcaneal fracture. Fixation hardware includes 3 intact screws traversing the calcaneus into the talus. There is partial fusion at the posterior subtalar joint. There is fusion of the calcaneocuboid with intact screws. There is an intact dorsal fixation plate and screws traversing the talus and navicular with the joint fused. The middle navicular screw projects into the sinus tarsi. No evidence of loosening or hardware failure. Diffuse osteopenia is noted. Calcaneal enthesopathy at the insertion of the plantar fascia. Tarsus: There are portions of the anterior, middle, and posterior facets that are still visualized. The talonavicular and calcaneocuboid joints are completely fused. Joint: Osteoarthritic changes of the midfoot and first metatarsal joint. Additionally, there are osteoarthritic changes at the talonavicular joint. There is widening of the ankle mortise with associated intra-articular body. Remote ligamentous injury is noted at the medial and lateral malleoli. CT LEFT FOOT: Bones: No fractures, Diffuse osteopenia is noted. Cartilage: No chondral defects. No intra-articular bodies. First metatarsophalangeal joint: The tibial and fibular sesamoids are intact. The intersesamoid, sesamoid-phalangeal, and sesamoid-metatarsal ligaments are intact. Osteoarthritic changes at the first metatarsal joint. Tendons: Intact. Muscles: There is disc diffuse muscular atrophy. Soft tissues: No abnormality of the neurovascular structures. RADIOLOGY Mercy Bonilla D O - 08/13/2023 EXAM: CT ANKLE LEFT WITHOUT CONTRAST, CT FOOT LEFT WITHOUT CONTRAST, 08/13/2023 15:39 PM (accession [id number]), 08/13/2023 15:43 PM (accession [id number]) COMPARISON: No prior studies available for comparison. 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 ;;[facility] claim # [id number];DOI 05/14/14;(L ankle injury);C-9 dated 07/08/[address] of Left Ankle x 1 from 07/09/23 to 09/29/23. ;C-9 has been scanned into IS. ;Allowed condition(s): M19.172, S92.012A;POR is Dr Bustos at [facility] Occup[facility] Medicine (non-clinical contact: demi vera TECHNIQUE: Contiguous 0.625 x 0.3125 mm transaxial images were performed through the ankle joint without the use of intravenous contrast. The images were then reconstructed in the coronal, sagittal, and axial planes at 2-2.5 mm intervals. FINDINGS: CT LEFT ANKLE: Effusion: There is no joint effusion. Soft Tissue: Soft tissue swelling is present laterally. Diffuse muscular atrophy. Bone: There is a rounded lucent lesion with a small anterior cortical defect of predominantly of fat at the distal tibial metaphysis which is likely a graft harvest site. Status post ORIF of remote comminuted calcaneal fracture. Fixation hardware includes 3 intact screws traversing the calcaneus into the talus. There is partial fusion at the posterior subtalar joint. There is fusion of the calcaneocuboid with intact screws. There is an intact dorsal fixation plate and screws traversing the talus and navicular with the joint fused. The middle navicular screw projects into the sinus tarsi. No evidence of loosening or hardware failure. Diffuse osteopenia is noted. Calcaneal enthesopathy at the insertion of the plantar fascia. Tarsus: There are portions of the anterior, middle, and posterior facets that are still visualized. The talonavicular and calcaneocuboid joints are completely fused. Joint: Osteoarthritic changes of the midfoot and first metatarsal joint. Additionally, there are osteoarthritic changes at the talonavicular joint. There is widening of the ankle mortise with associated intra-articular body. Remote ligamentous injury is noted at the medial and lateral malleoli. CT LEFT FOOT: Bones: No fractures, Diffuse osteopenia is noted. Cartilage: No chondral defects. No intra-articular bodies. First metatarsophalangeal joint: The tibial and fibular sesamoids are intact. The intersesamoid, sesamoid-phalangeal, and sesamoid-metatarsal ligaments are intact. Osteoarthritic changes at the first metatarsal joint. Tendons: Intact. Muscles: There is disc diffuse muscular atrophy. Soft tissues: No abnormality of the neurovascular structures. IMPRESSION IMPRESSION: 1. Status post ORIF of a comminuted calcaneal fracture with intact hardware. 2. Status post subtalar fusion with portions of the joint still visualized 3. Talonavicular fusion with the middle navicular screw projecting into the sinus Tarsi 4. Status post calcaneocuboid fusion 5. 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 6. Remote ligamentous injury at the medial and lateral malleoli. 7. Chronic plantar fasciitis. 8. Diffuse muscle atrophy and osteopenia. I personally viewed and interpreted these images and I have reviewed and approved this report. [facility] No Panel InformationOrdered By: Mercy Bonilla on 08-13-2023 [facility] Work Phone: Absolute lymphocyte countOrd ered By: Kemar Lee on 08-10-2023 Lymphocytes Auto (Unsp spec) [#/Vol] 0.76 10*3/uL 0.83-4.51 [facility] Basophil percentageOrdered B y: Kemar Lee on 08-10-2023 Basophils/100 WBC (Bld) 0.4 % 0-1 [facility] Bilirubin [Mass/Vol] 1.00 mg/dL 0.20-1.00 [facility] Comment on above: For patients on eltr ombopag therapy, use of Dimension [place] TBIL is not recommended. Chloride [Moles/Vol] 111 mmol/L 98-107 [facility] Eosinophils/100 WBC (Bld) 3.6 % 0-5 [facility] Glucose [Mass/Vol] 118 mg/dL 74-106 [facility] Comment on above: Fasting Glucose resu lt from 100 to 125 mg/dL suggests IMPAIRED HOMEOSTASIS per A.D.A. criteria. Neutrophils (Bld) [#/Vol] 3.9 10*3/uL 2.0-7.7 [facility] Neutrophils/100 WBC (Bld) 75.0 % 47-70 [facility] Potassium [Moles/Vol] 4.0 mmol/L 3.5-5.1 [facility] Protein [Mass/Vol] 6.6 g/dL 6.4-8.2 [facility] Sodium [Moles/Vol] 142 mmol/L 136-145 [facility] WBC (Bld) [#/Vol] 5.2 10*3/uL 4.4-11.0 [facility] Blood erythrocytes count (nu mber/volume)Ordered By: Kemar Lee on 08-10-2023 RBC (Bld) [#/Vol] 4.50 10*6/uL 4.6-6.2 [facility] Blood hemoglobin measurement (mass/volume)Ordered By: Kemar Lee on 08-10-2023 Hemoglobin (Bld) [Mass/Vol] 15.3 g/dL 13.0-16.5 [facility] Blood lymphocytes/100 leukoc ytesOrdered By: Kemar Lee on 08-10-2023 Lymphocytes/100 WBC (Bld) 14.5 % 19-41 [facility] Blood monocytes/100 leukocyt esOrdered By: Kemar Lee on 08-10-2023 Monocytes/100 WBC (Bld) 6.3 % 0-10 [facility] Blood platelet mean volumeOr dered By: Kemar Lee on 08-10-2023 Platelet mean volume (Bld) [Entitic vol] 11.1 fL 6.2-12.0 [facility] CBC W/Diff, Automatedon -0 Absolute Lymph 0.76 X10 3/uL Low 0.83-4.51 [facility] Comment on above: Performed By: #### L 500.4050, L501.9985, L100.0100 #### [facility] [address] [place], [address] Absolute Neut 3.9 X10 3/uL Normal 2.0-7.7 [facility] Comment on above: Performed By: #### L 500.4050, L501.9985, L100.0100 #### [facility] [address] [place], [address] Basophils/100 WBC (Bld) 0.4 % Normal 0-1 [facility] Comment on above: Performed By: #### L 500.4050, L501.9985, L100.0100 #### [facility] [address] [place], [address] Eosinophils/100 WBC (Bld) 3.6 % Normal 0-5 [facility] Comment on above: Performed By: #### L 500.4050, L501.9985, L100.0100 #### [facility] [address] [place], [address] Erythrocyte distribution width (RBC) [Ratio] 13.0 % Normal 11.6-14.6 [facility] Comment on above: Performed By: #### L 500.4050, L501.9985, L100.0100 #### [facility] [address] [place], [address] Hematocrit (Bld) [Volume fraction] 44.0 % Normal 40-54 [facility] Comment on above: Performed By: #### L 500.4050, L501.9985, L100.0100 #### [facility] [address] [place], [address] Hemoglobin (Bld) [Mass/Vol] 15.3 g/dL Normal 13.0-16.5 [facility] Comment on above: Performed By: #### L 500.4050, L501.9985, L100.0100 #### [facility] [address] [place], [address] IG% 0.200 Normal 0.0-0.9 [facility] Comment on above: Result Comment: IG% - Immature Granulocytes (promyelocytes, myelocytes and metamyelocytes) > 1% indicates that a LEFT SHIFT is Present. Performed By: #### L 500.4050, L501.9985, L100.0100 #### [facility] [address] [place], [address] Lymphocytes/100 WBC (Bld) 14.5 % Low 19-41 [facility] Comment on above: Performed By: #### L 500.4050, L501.9985, L100.0100 #### [facility] [address] [place], [address] MCH (RBC) [Entitic mass] 34.0 pg High 27.0-32.0 [facility] Comment on above: Performed By: #### L 500.4050, L501.9985, L100.0100 #### [facility] [address] [place], [address] MCHC (RBC) [Mass/Vol] 34.8 g/dL Normal 32-36 [facility] Comment on above: Performed By: #### L 500.4050, L501.9985, L100.0100 #### [facility] [address] [place], [address] MCV (RBC) [Entitic vol] 97.8 fL High 80-94 [facility] Comment on above: Performed By: #### L 500.4050, L501.9985, L100.0100 #### [facility] [address] [place], [address] Monocytes/100 WBC (Bld) 6.3 % Normal 0-10 [facility] Comment on above: Performed By: #### L 500.4050, L501.9985, L100.0100 #### [facility] [address] [place], [address] Neutrophils/100 WBC (Bld) 75.0 % High 47-70 [facility] Comment on above: Performed By: #### L 500.4050, L501.9985, L100.0100 #### [facility] [address] [place], [address] Nucleated RBC (Bld) [#/Vol] 0 10*3/uL Normal 0-5 [facility] Comment on above: Performed By: #### L 500.4050, L501.9985, L100.0100 #### [facility] [address] [place], [address] Platelet mean volume (Bld) [Entitic vol] 11.1 fL Normal 6.2-12.0 [facility] Comment on above: Performed By: #### L 500.4050, L501.9985, L100.0100 #### [facility] [address] [place], [address] Platelets (Bld) [#/Vol] 170 10*3/uL Normal 150-450 [facility] Comment on above: Performed By: #### L 500.4050, L501.9985, L100.0100 #### [facility] [address] [place], [address] RBC (Bld) [#/Vol] 4.50 10*6/uL Low 4.6-6.2 [facility] Comment on above: Performed By: #### L 500.4050, L501.9985, L100.0100 #### [facility] [address] [place], [address] RDW SD 46.3 fl High 35.1-43.9 [facility] Comment on above: Performed By: #### L 500.4050, L501.9985, L100.0100 #### [facility] [address] [place], [address] WBC (Bld) [#/Vol] 5.2 10*3/uL Normal 4.4-11.0 [facility] Comment on above: Performed By: #### L 500.4050, L501.9985, L100.0100 #### [facility] [address] [place], [address] Comprehensive Metabolic Prof [facility] 08-10-2023 Albumin [Mass/Vol] 3.7 g/dL Normal 3.2-5.0 [facility] Comment on above: Performed By: #### L 500.4050, L501.9985, L100.0100 #### [facility] [address] [place], [address] Albumin/Globulin [Mass ratio] 1.3 {ratio} Normal 0.9-2.4 [facility] Comment on above: Performed By: #### L 500.4050, L501.9985, L100.0100 #### [facility] [address] [place], [address] ALK P 68 U/L Normal 45-117 [facility] Comment on above: Performed By: #### L 500.4050, L501.9985, L100.0100 #### [facility] [address] [place], [address] ALT [Catalytic activity/Vol] 59 U/L Normal 16-61 [facility] Comment on above: Performed By: #### L 500.4050, L501.9985, L100.0100 #### [facility] [address] [place], [address] AST [Catalytic activity/Vol] 27 U/L Normal 15-37 [facility] Comment on above: Performed By: #### L 500.4050, L501.9985, L100.0100 #### [facility] [address] [place], [address] Bilirubin [Mass/Vol] 1.00 mg/dL Normal 0.20-1.00 [facility] Comment on above: Result Comment: For patients on eltrombopag therapy, use of Dimension [place] TBIL is not recommended. Performed By: #### L 500.4050, L501.9985, L100.0100 #### [facility] [address] [place], [address] BUN/CRE 14.9 RATIO Normal 10-20 [facility] Comment on above: Performed By: #### L 500.4050, L501.9985, L100.0100 #### [facility] [address] [place], [address] CA,Total 8.7 mg/dL Normal 8.5-10.1 [facility] Comment on above: Performed By: #### L 500.4050, L501.9985, L100.0100 #### [facility] [address] [place], [address] Chloride [Moles/Vol] 111 mmol/L High 98-107 [facility] Comment on above: Performed By: #### L 500.4050, L501.9985, L100.0100 #### [facility] [address] [place], [address] CO2 [Moles/Vol] 26.0 mmol/L Normal 21.0-32.0 [facility] Comment on above: Performed By: #### L 500.4050, L501.9985, L100.0100 #### [facility] [address] [place], [address] Creatinine [Mass/Vol] 1.14 mg/dL Normal 0.70-1.30 [facility] Comment on above: Result Comment: The validity of the calculated GFR GFRAA in patients over 70 years has not been determined. Clinical correlation is essential. Performed By: #### L 500.4050, L501.9985, L100.0100 #### [facility] [address] [place], [address] EST GFR - AA 84 mL/min Normal >60 [facility] Comment on above: Result Comment: Afri can Japanese GFR Calc Performed By: #### L 500.4050, L501.9985, L100.0100 #### [facility] [address] [place], [address] GAP 5 Normal 5-15 [facility] Comment on above: Performed By: #### L 500.4050, L501.9985, L100.0100 #### [facility] [address] [place], [address] GFR/1.73 sq M.predicted among non-blacks MDRD (S/P/Bld) [Vol rate/Area] 69 mL/min/{1.73_m2} Normal >60 [facility] Comment on above: Result Comment: Non- GFR Calc Performed By: #### L 500.4050, L501.9985, L100.0100 #### [facility] [address] [place], [address] Globulin (S) [Mass/Vol] 2.9 g/dL Normal 2.2-4.2 [facility] Comment on above: Performed By: #### L 500.4050, L501.9985, L100.0100 #### [facility] [address] [place], [address] Glucose [Mass/Vol] 118 mg/dL High 74-106 [facility] Comment on above: Result Comment: Fast ing Glucose result from 100 to 125 mg/dL suggests IMPAIRED HOMEOSTASIS per A.D.A. criteria. Performed By: #### L 500.4050, L501.9985, L100.0100 #### [facility] [address] [place], [address] Potassium [Moles/Vol] 4.0 mmol/L Normal 3.5-5.1 [facility] Comment on above: Performed By: #### L 500.4050, L501.9985, L100.0100 #### [facility] [address] [place], [address] Sodium [Moles/Vol] 142 mmol/L Normal 136-145 [facility] Comment on above: Performed By: #### L 500.4050, L501.9985, L100.0100 #### [facility] [address] [place], [address] T PROT 6.6 g/dL Normal 6.4-8.2 [facility] Comment on above: Performed By: #### L 500.4050, L501.9985, L100.0100 #### [facility] [address] [place], [address] Urea nitrogen [Mass/Vol] 17 mg/dL Normal 7-18 [facility] Comment on above: Performed By: #### L 500.4050, L501.9985, L100.0100 #### [facility] [address] [place], [place], [address] Determination of erythrocyte mean corpuscular volume (MCV)Ordered By: Kemar Lee on 08-10-2023 MCV (RBC) [Entitic vol] 97.8 fL 80-94 [facility] Hematocrit Auto (Bld) [Volum e fraction]Ordered By: Kemar Lee on 08-10-2023 Hematocrit (Bld) [Volume fraction] 44.0 % 40-54 [facility] Hemoglobin A1con 08-10-2023 HbA1c (Bld) [Mass fraction] 5.2 % Normal 3.8-5.6 [facility] Comment on above: Result Comment: Norm al < 5.7 % Prediabetic 5.7 - 6.4 % Diabetic >or= 6.5 % Please note range changes. Performed By: #### L 500.4050, L501.9985, L100.0100 #### [facility] [address] [place], [address] Laboratory - Chemistry and C hemistry - challengeOrdered By: Kemar Lee on 08-10-2023 ALP [Catalytic activity/Vol] 68 U/L 45-117 [facility] ALT [Catalytic activity/Vol] 59 U/L 16-61 [facility] CO2 [Moles/Vol] 26.0 mmol/L 21.0-32.0 [facility] Globulin (S) [Mass/Vol] 2.9 g/dL 2.2-4.2 [facility] Urea nitrogen/Creatinine [Mass ratio] 14.9 mg/mg 10-20 [facility] - Hematology and Cell countsOrdered By: Kemar Lee on 08-10-2023 Erythrocyte distribution width (RBC) [Entitic vol] 46.3 fL 35.1-43.9 [facility] Erythrocyte distribution width (RBC) [Ratio] 13.0 % 11.6-14.6 [facility] Immature granulocytes/100 WBC (Bld) 0.200 % 0.0-0.9 [facility] Comment on above: IG% - Immature Granu locytes (promyelocytes, myelocytes and metamyelocytes) > 1% indicates that a LEFT SHIFT is Present. MCH (RBC) [Entitic mass] 34.0 pg 27.0-32.0 [facility] Nucleated RBC/100 WBC (Bld) [Ratio] 0 % 0-5 [facility] MCHC Auto (RBC) [Mass/Vol]Or dered By: Kemar Lee on 08-10-2023 MCHC (RBC) [Mass/Vol] 34.8 g/dL 32-36 [facility] No Panel InformationOrdered By: Kemar Lee on 08-10-2023 Estimated GFR (MDRD) Amer 84 mL/min >60 [facility] Comment on above: GFR Calc Estimated GFR (MDRD) Non-Af Amer 69 mL/min >60 [facility] Comment on above: Non- GFR Calc Platelets bldOrdered By: Comfort Lee on 08-10-2023 Platelets (Bld) [#/Vol] 170 10*3/uL 150-450 [facility] Serum or plasma albumin geovanna urement (mass/volume)Ordered By: Kemar Lee on 08-10-2023 Albumin [Mass/Vol] 3.7 g/dL 3.2-5.0 [facility] Serum or plasma albumin/glob ulin mass ratioOrdered By: Kemar Lee on 08-10-2023 Albumin/Globulin [Mass ratio] 1.3 {ratio} 0.9-2.4 [facility] Serum or plasma calcium geovanna urement (mass/volume)Ordered By: Kemar Lee on 08-10-2023 Calcium [Mass/Vol] 8.7 mg/dL 8.5-10.1 [facility] Serum or plasma creatinine m easurement (mass/volume)Ordered By: Kemar Lee on 08-10-2023 Creatinine [Mass/Vol] 1.14 mg/dL 0.70-1.30 [facility] Comment on above: The validity of the calculated GFR & GFRAA in patients over 70 years has not been determined. Clinical correlation is essential. Serum or plasma urea nitroge n measurement (mass/volume)Ordered By: Kemar Lee on 08-10-2023 Urea nitrogen [Mass/Vol] 17 mg/dL 7-18 [facility] Thin prep Papanicolaou smear with manual screeningOrdered By: Kemar Lee on 08-10-2023 Thin prep Papanicolaou smear with manual screening 27 U/L 15-37 [facility] Thin prep Papanicolaou smear with manual screening 5 5-15 [facility] Whole blood hemoglobin A1c/t otal hemoglobin ratio (mass fraction)Ordered By: Kemar Lee on 08-10-2023 HbA1c (Bld) [Mass fraction] 5.2 % 3.8-5.6 [facility] Comment on above: Normal < 5.7 % Predi abetic 5.7 - 6.4 % Diabetic >or= 6.5 % Please note range changes. LT BLUE TOP TUBEon [facility] B-TYPE NATRIURETIC PEPTIDE ( BRAIN)on 06-23-2023 Natriuretic peptide B (Bld) [Mass/Vol] 12 pg/mL Normal 0-100 [facility] Comment on above: Order Comment: If hi story of congestive heart failure. Performed By: #### B [employer] #### [facility] (DEFAULT) [address] [address] Interpretation and review of laboratory results Normal [facility] Natriuretic peptide B (Bld) [Mass/Vol] 12 pg/mL 0 - 100 pg/mL [facility] CALCIUMon 06-23-2023 Calcium [Mass/Vol] 9.2 mg/dL Normal 8.6-10.5 [facility] Comment on above: Performed By: #### I PB, LABHSTI1, CA, MGO, CHM7 #### [facility] (DEFAULT) [address] [address] Calcium [Mass/Vol] 9.2 mg/dL 8.6 - 10. 5 mg/dL [facility] CBC AND ELECTRONIC DIFFon Abs Baso Auto < Normal 0.00-0.09 [facility] Comment on above: Performed By: #### A 1CB, [id number] ####[facility] (DEFAULT)[address] [place] [address] Abs Eos Auto < Normal 0.00-0.48 [facility] Comment on above: Performed By: #### A 1CB, [id number] ####[facility] (DEFAULT)[address] [facility] [address] Basophils/100 WBC (Bld) 0.1 % Normal [facility] Comment on above: Performed By: #### A 1CB, [id number] ####[facility] (DEFAULT)[address] [facility] [place] [place] [address] DIFF STATUS Electronic Differential Normal [facility] Comment on above: Performed By: #### A 1CB, [id number] ####[facility] (DEFAULT)[address] [facility] [place] [address] Eosinophils/100 WBC (Bld) 0.0 % Normal [facility] Comment on above: Performed By: #### A 1CB, [id number] ####[facility] (DEFAULT)[address] [place] [address] Hematocrit (Bld) [Volume fraction] 45.0 % Normal 39.6-48.8 [facility] Comment on above: Performed By: #### A 1CB, [id number] ####[facility] (DEFAULT)[address] [place] [address] Hemoglobin (Bld) [Mass/Vol] 15.8 g/dL Normal 13.4-16.8 [facility] Comment on above: Performed By: #### A 1CB, [id number] ####[facility] (DEFAULT)[address] [facility] [place] [place] [address] Immature Grans % 0.3 % Normal [facility] Comment on above: Performed By: #### A 1CB, [id number] ####[facility] (DEFAULT)[address] [facility] [place] [place] [address] Immature Grans Absolute < Normal <=0.07 [facility] Comment on above: Performed By: #### A 1CB, [id number] ####[facility] (DEFAULT)[address] [place] [address] Lymphocytes (Bld) [#/Vol] 0.62 10*3/uL Low 0.83-3.57 [facility] Comment on above: Performed By: #### A 1CB, [id number] ####[facility] (DEFAULT)[address] [place] [address] Lymphocytes/100 WBC (Bld) 5.6 % Normal [facility] Comment on above: Performed By: #### A 1CB, [id number] ####[facility] (DEFAULT)[address] [facility] [place] [place] [address] MCV (RBC) [Entitic vol] 93.9 fL Normal 79.0-94.5 [facility] Comment on above: Performed By: #### A 1CB, [id number] ####[facility] (DEFAULT)[address] [facility] [place] [place] [address] Mean Cell Hgb 33.0 pg Normal 26.1-33.3 [facility] Comment on above: Performed By: #### A 1CB, [id number] ####[facility] (DEFAULT)[address] [facility] [place] [address] Mean Cell Hgb Conc 35.1 g/dL Normal 31.9-36.5 [facility] Comment on above: Performed By: #### A 1CB, [id number] ####[facility] (DEFAULT)[address] [facility] [place] [address] Monocytes (Bld) [#/Vol] 0.52 10*3/uL Normal 0.24-0.93 [facility] Comment on above: Performed By: #### A 1CB, [id number] ####[facility] (DEFAULT)[address] [facility] [place] [address] Monocytes/100 WBC (Bld) 4.7 % Normal [facility] Comment on above: Performed By: #### A 1CB, [id number] ####[facility] (DEFAULT)[address] [place] [address] Nucleated RBC 0.0 /100 WBC Normal <=0.2 [facility] Comment on above: Performed By: #### Khushbu SALAZAR, [id number] ####[facility] (DEFAULT)[address] [place] [address] Platelet mean volume (Bld) [Entitic vol] 11.1 fL Normal 8.7-12.3 [facility] Comment on above: Performed By: #### Khushbu SALAZAR, [id number] ####[facility] (DEFAULT)[address] [place] [address] Platelets (Bld) [#/Vol] 189 10*3/uL Normal 146-337 [facility] Comment on above: Performed By: #### Khushbu SALAZAR, [id number] ####[facility] (DEFAULT)[address] [facility] [place] [place] [address] RBC (Bld) [#/Vol] 4.79 10*6/uL Normal 4.38-5.83 [facility] Comment on above: Performed By: #### Khushbu SALAZAR, [id number] ####[facility] (DEFAULT)[address] [place] [address] RBC Distribution 11.6 % Normal 10.9-14.3 [facility] Comment on above: Performed By: #### Khushbu SALAZAR, [id number] ####[facility] (DEFAULT)[address] [place] [address] Segs + Bands Auto 89.3 % Normal [facility] Comment on above: Performed By: #### Khushbu SALAZAR, [id number] ####[facility] (DEFAULT)[address] [place] [address] Segs + Bands,Absolute Auto 9.82 K/uL High 1.57-6.19 [facility] Comment on above: Performed By: #### Khushbu SALAZAR, [id number] ####[facility] (DEFAULT)[address] [place] [address] WBC (Bld) [#/Vol] 11.00 10*3/uL High 3.73-10.10 [facility] Comment on above: Performed By: #### A 1CB, [id number] ####[facility] (DEFAULT)[address] [place] [address] Basophils (Bld) [#/Vol] K/uL 0.00 - 0.09 K/uL [facility] Basophils/100 WBC (Bld) 0.1 % [facility] Differential cell count method Nom (Bld) Electronic Differential [facility] Eosinophils (Bld) [#/Vol] K/uL 0.00 - 0.48 K/uL [facility] Eosinophils/100 WBC (Bld) 0.0 % [facility] Erythrocyte distribution width (RBC) [Ratio] 11.6 % 10.9 - 14.3 % [facility] Hematocrit (Bld) [Volume fraction] 45.0 % 39.6 - 48.8 % [facility] Hemoglobin (Bld) [Mass/Vol] 15.8 g/dL 13.4 - 16.8 g/dL [facility] Immature granulocytes (Bld) [#/Vol] K/uL NINF - 0.07 K/uL [facility] Immature granulocytes/100 WBC (Bld) 0.3 % [facility] Interpretation and review of laboratory results Abnormal [facility] Lymphocytes (Bld) [#/Vol] 0.62 10*3/uL Low 0.83 - 3.57 K/uL [facility] Lymphocytes/100 WBC (Bld) 5.6 % [facility] MCH (RBC) [Entitic mass] 33.0 pg 26.1 - 33.3 pg [facility] MCHC (RBC) [Mass/Vol] 35.1 g/dL 31.9 - 36.5 g/dL [facility] MCV (RBC) [Entitic vol] 93.9 fL 79.0 - 94.5 fL [facility] Monocytes (Bld) [#/Vol] 0.52 10*3/uL 0.24 - 0.93 K/uL [facility] Monocytes/100 WBC (Bld) 4.7 % [facility] Neutrophils (Bld) [#/Vol] 9.82 10*3/uL High 1.57 - 6.19 K/uL [facility] Nucleated RBC/100 WBC (Bld) [Ratio] 0.0 % NINF [facility] Platelet mean volume (Bld) [Entitic vol] 11.1 fL 8.7 - 12.3 fL [facility] Platelets (Bld) [#/Vol] 189 10*3/uL 146 - 337 K/uL [facility] RBC (Bld) [#/Vol] 4.79 10*6/uL [facility] Segmented neutrophils/100 WBC (Bld) 89.3 % [facility] WBC (Bld) [#/Vol] 11.00 10*3/uL High 3.73 - 10 .10 K/uL [facility] CHEM 7 (LYTES,BUN,CREA,GLUC) on 06-23-2023 Anion gap [Moles/Vol] 13 mmol/L Normal 7-17 [facility] Comment on above: Performed By: #### I PB, LABHSTI1, CA, MGO, CHM7 #### [facility] (DEFAULT) [address] [address] Chloride [Moles/Vol] 104 mmol/L Normal 98-108 [facility] Comment on above: Performed By: #### I PB, LABHSTI1, CA, MGO, CHM7 #### [facility] (DEFAULT) [address] [place] [address] CO2 [Moles/Vol] 25 mmol/L Normal 21-31 [facility] Comment on above: Performed By: #### I PB, LABHSTI1, CA, MGO, CHM7 #### [facility] (DEFAULT) [address] [place] [address] Creatinine [Mass/Vol] 0.93 mg/dL Normal 0.70-1.30 [facility] Comment on above: Performed By: #### I PB, LABHSTI1, CA, MGO, CHM7 #### [facility] (DEFAULT) [address] [place] [address] eGFR, CKD-EPI, Male > Normal >=60 [facility] Comment on above: Result Comment: Repo rted eGFR is based on the CKD-EPI 2020 equation using creatinine, age, and sex. Performed By: #### I PB, LABHSTI1, CA, MGO, CHM7 #### [facility] (DEFAULT) [address] [place] [address] Glucose [Mass/Vol] 158 mg/dL High 70-99 [facility] Comment on above: Performed By: #### I PB, LABHSTI1, CA, MGO, CHM7 #### [facility] (DEFAULT) [address] [place] [address] Osmolality [Osmolality] 293 mosm/kg Normal 278-305 [facility] Comment on above: Performed By: #### I PB, LABHSTI1, CA, MGO, CHM7 #### [facility] (DEFAULT) [address] [place] [address] Potassium [Moles/Vol] 3.7 mmol/L Normal 3.5-5.0 [facility] Comment on above: Performed By: #### I PB, LABHSTI1, CA, MGO, CHM7 #### [facility] (DEFAULT) [address] [place] [address] Sodium [Moles/Vol] 138 mmol/L Normal 135-145 [facility] Comment on above: Performed By: #### I PB, LABHSTI1, CA, MGO, CHM7 #### [facility] (DEFAULT) [address] [place] [address], [place] [address] Urea nitrogen [Mass/Vol] 16 mg/dL Normal 7-25 [facility] Comment on above: Performed By: #### I PB, LABHSTI1, CA, MGO, CHM7 #### [facility] (DEFAULT) [address] [place] [address] Urea nitrogen/Creatinine [Mass ratio] 17 mg/mg Normal [facility] Comment on above: Performed By: #### I PB, LABHSTI1, CA, MGO, CHM7 #### [facility] (DEFAULT) [address] [place] [address] Anion gap [Moles/Vol] 13 mmol/L 7 - 17 [facility]L [facility] Chloride [Moles/Vol] 104 mmol/L 98 - 10 8 mmol/L [facility] CO2 [Moles/Vol] 25 mmol/L 21 - 31 mmol/L [facility] Creatinine [Mass/Vol] 0.93 mg/dL 0.70 - 1.30 mg/dL [facility] eGFR, CKD-EPI, Male - PINF [facility] Comment on above: Reported eGFR is bas ed on the CKD-EPI 2020 equation using creatinine, age, and sex. Glucose [Mass/Vol] 158 mg/dL High 70 - 99 mg/dL [facility] Interpretation and review of laboratory results Abnormal [facility] Osmolality Calc [Osmolality] 293 [facility] Potassium [Moles/Vol] 3.7 mmol/L 3.5 - 5.0 mmol/L [facility] Sodium [Moles/Vol] 138 mmol/L 135 - 145 mmol/L [facility] Urea nitrogen [Mass/Vol] 16 mg/dL 7 - 25 mg/dL [facility] Urea nitrogen/Creatinine [Mass ratio] 17 mg/mg [facility] Cardiac echo study Procedure stress methodOrdered By: Aida Shields on 06-23-2023 % APHRMAX 97 % [facility] Work Phone: APHRMAX 158 bpm [facility] Work Phone: Baseline DBP 74 mmHg [facility] Work Phone: Baseline HR 81 bpm [facility] Work Phone: Baseline SBP 132 mmHg [facility] Work Phone: Body surface area Derived from formula 2.63 m2 [facility] Work Phone: Exercise duration (min) 8 min [facility] Work Phone: Exercise duration (sec) 30 sec [facility] Work Phone: Peak DBP 56 mmHg [facility] Work Phone: Peak HR 153 bpm [facility] Work Phone: Peak SBP 157 mmHg [facility] Work Phone: Rate Pressure Product [phone] [facility] Work Phone: [facility] Work Phone: Cardiac echo study Procedure stress methodon 06-23-2023 Impression: Normal dobutamine stress echocardiogram without evidence of ischemia. Echocardiographic portion of the exam: Rest echocardiogram demonstrated normal left ventricular size and systolic function. Estimated ejection fraction 60-65%. Stress echocardiogram demonstrated appropriate augmentation of LV function. Estimated ejection fraction >70%. No regional wall abnormalities detected at rest or with stress. Unable to estimate RVSP due to poor TR jet. ECG portion of the exam: Baseline ECG: sinus rhythm Pharmacologic stress induced with dobutamine 20 mcg/kg/min. He achieved peak heart rate 153 and reached 96% of age-predicted maximum heart rate. He denied chest pain. There were no diagnostic ST changes to indicate ischemia. No significant arrhythmias. Frequent PVCs with stress. Left Ventricle Chamber size is normal. End-diastolic volume is normal and end-systolic volume is normal. Normal global systolic function. Regional wall motion is normal. Ejection fraction is normal (60 - 65%). Diastolic function is normal. Left Ventricle - Stress End-diastolic volume is decreased and end-systolic volume is decreased. Normal global systolic function. Regional wall motion is normal. Ejection fraction normal (65 - 70%). Left Ventricle - Peak Stress Chamber size is normal. End-diastolic volume is decreased and end-systolic volume is decreased. Normal global systolic function. Regional wall motion is normal. Ejection fraction is hyperdynamic (>70%). Diastolic function is normal. LV Response to Stress - Low-Dose Normal contractility to all segments. . Cavity size appropriately decreases with stress. LV Response to Stress - Peak-Dose Normal contractility to all segments. Cavity size appropriately decreases with stress. Study Details A stress echocardiography study (Including limited spectral Doppler) was performed. Overall study quality was good. Contrast indication: evaluation of left ventricle contiguous segments. Contrast was administered. Indications for study: chest pain. Stress Findings A pharmacological stress test was performed using dobutamine. The patient reported no symptoms prior to the stress test. The patient reported no symptoms during the stress test. The patient achieved the target heart rate. ECG Baseline ECG is normal with normal sinus rhythm. QRS duration is normal (80-100ms). Stress ECG is unchanged from baseline. There was no ST segment deviation noted during stress. Arrhythmias during stress: frequent premature ventricular contractions.Stress QRS duration is normal (80-100ms). Recovery ECG returned to baseline. Arrhythmias during recovery: rare premature ventricular contractions. Recovery QRS duration is normal (80-100ms). Negative pharm stress test. Arrhythmias were not significant. Wall Scoring Resting Score Index: 1.00 The left ventricular wall motion is normal. Wall Scoring Stress Score Index: 1.00 The left ventricular wall motion is globally hyperkinetic. [facility] Radiology Study observation (narrative) [facility] ECHOCARDIOGRAM PHARMACOLOGIC AL STRESS TESTon 06-23-2023 ECHOCARDIOGRAM PHARMACOLOGICAL STRESS TEST Impression: Normal dobutamine stress echocardiogram without evidence of ischemia. Echocardiographic portion of the exam: Rest echocardiogram demonstrated normal left ventricular size and systolic function. Estimated ejection fraction 60-65%. Stress echocardiogram demonstrated appropriate augmentation of LV function. Estimated ejection fraction >70%. No regional wall abnormalities detected at rest or with stress. Unable to estimate RVSP due to poor TR jet. ECG portion of the exam: Baseline ECG: sinus rhythm Pharmacologic stress induced with dobutamine 20 mcg/kg/min. He achieved peak heart rate 153 and reached 96% of age-predicted maximum heart rate. He denied chest pain. There were no diagnostic ST changes to indicate ischemia. No significant arrhythmias. Frequent PVCs with stress. Table formatting from the original result was not included. Images from the original result were not included. Facility [facility] Patient Information Patient Name Delbert Szymanski Legal Sex Male Indication for Exam Priority: Routine Dx: Atypical chest pain [R07.89 (ICD-10-CM)] Order Question Reason for Exam cp Interpretation Summary Impression: Normal dobutamine stress echocardiogram without evidence of ischemia. Echocardiographic portion of the exam: Rest echocardiogram demonstrated normal left ventricular size and systolic function. Estimated ejection fraction 60-65%. Stress echocardiogram demonstrated appropriate augmentation of LV function. Estimated ejection fraction >70%. No regional wall abnormalities detected at rest or with stress. Unable to estimate RVSP due to poor TR jet. ECG portion of the exam: Baseline ECG: sinus rhythm Pharmacologic stress induced with dobutamine 20 mcg/kg/min. He achieved peak heart rate 153 and reached 96% of age-predicted maximum heart rate. He denied chest pain. There were no diagnostic ST changes to indicate ischemia. No significant arrhythmias. Frequent PVCs with stress. Stress Findings ECG Baseline ECG is normal with normal sinus rhythm. QRS duration is normal (80-100ms). Stress ECG is unchanged from baseline. There was no ST segment deviation noted during stress. Arrhythmias during stress: frequent premature ventricular contractions.Stress QRS duration is normal (80-100ms). Recovery ECG returned to baseline. Arrhythmias during recovery: rare premature ventricular contractions. Recovery QRS duration is normal (80-100ms). Negative pharm stress test. Arrhythmias were not significant. Stress Findings A pharmacological stress test was performed using dobutamine. The patient reported no symptoms prior to the stress test. The patient reported no symptoms during the stress test. The patient achieved the target heart rate. Resting Echo Findings Left Ventricle Chamber size is normal. End-diastolic volume is normal and end-systolic volume is normal. Normal global systolic function. Regional wall motion is normal. Ejection fraction is normal (60 - 65%). Diastolic function is normal. Low-Dose Stress Echo Findings Left Ventricle - Stress End-diastolic volume is decreased and end-systolic volume is decreased. Normal global systolic function. Regional wall motion is normal. Ejection fraction normal (65 - 70%). LV Response to Stress - Low-Dose Normal contractility to all segments. . Cavity size appropriately decreases with stress. Peak Stress Echo Findings Left Ventricle - Peak Stress Chamber size is normal. End-diastolic volume is decreased and end-systolic volume is decreased. Normal global systolic function. Regional wall motion is normal. Ejection fraction is hyperdynamic (>70%). Diastolic function is normal. LV Response to Stress - Peak-Dose Normal contractility to all segments. Cavity size appropriately decreases with stress. Reading Providers Reading Role Read Date Josue Chapman MD Fellow - Performing, Fellow - Reading 06/23/2023 Evert Lozano MD Fellow - Performing, Fellow - Reading 06/23/2023 Aida Shields DO Echo [place], Test [employer] 06/23/2023 Stress Measurements Baseline Vitals-Supine Baseline HR 81 bpm Baseline SBP 132 mmHg Baseline DBP 74 mmHg Peak Stress Vitals Peak HR 153 bpm Peak SBP 157 mmHg Peak DBP 56 mmHg Rate Pressure Product 24,021 Exercise Data APHRMAX 158 bpm % APHRMAX 97 % Exercise duration (min) 8 min Exercise duration (sec) 30 sec Wall Scoring Resting Score Index: 1.00 The left ventricular wall motion is normal. Stress Score Index: 1.00 The left ventricular wall motion is globally hyperkinetic. Stage Data 1 2 3 4 5 Stage Stress Stress Recovery Recovery Recovery Stage Details 1 2 1 2 3 Time in stage (min:sec) 3:30 5:00 1:00 3:00 5:00 Heart Rate 90 153 137 115 100 Blood Pressure 129/61 157/56 137/52 152/62 132/57 O2 Sat % Metabolic Equivalents RPE Cox Dobutamine (mc (more content not included)... Normal [facility] HEMOGLOBIN A1Con 06-23-2023 Average glucose Estimated from glycated hemoglobin (Bld) [Mass/Vol] 114 mg/dL [facility] HbA1c (Bld) [Mass fraction] 5.6 % 4.7 - 5.6 % [facility] Glucose [Mass/Vol] 114 mg/dL Normal [facility] Comment on above: Performed By: #### A 1CB, [id number] ####[facility] (DEFAULT)[address] [place] [address] Hemoglobin A1C HPLC 5.6 % Normal 4.7-5.6 [facility] Comment on above: Performed By: #### A 1CB, [id number] ####[facility] (DEFAULT)[address] [place] [address] HIGH SENSITIVITY TROPONIN I - SINGLE ORDERon 06-23-2023 hs-Troponin I 4 ng/L Normal <53 [facility] Comment on above: Order Comment: Acute Coronary Syndrome (ACS): Initial Evaluation and Management: [email or web address] Performed By: #### H MARCELLA, LABHSTI1 #### [facility] (DEFAULT) [address] [place] [address] Interpretation and review of laboratory results Normal [facility] Troponin I.cardiac High sensitivity method [Mass/Vol] 4 ng/L NINF - 53 ng/L [facility] hs-Troponin I 3 ng/L Normal <53 [facility] Comment on above: Order Comment: Acute Coronary Syndrome (ACS): Initial Evaluation and Management: [email or web address] Performed By: #### I PB, LABHSTI1, CA, MGO, CHM7 #### [facility] (DEFAULT) [address] [place] [address] Interpretation and review of laboratory results Normal [facility] Troponin I.cardiac High sensitivity method [Mass/Vol] 3 ng/L NINF - 53 ng/L [facility] LIPID PANEL W CALCULATED LDL on 06-23-2023 Cholesterol [Mass/Vol] 134 mg/dL NINF - 200 mg/dL [facility] Comment on above: [<200 mg/dL: Desirab le] [200-239 mg/dL: Borderline High] [>239 mg/dL: High] Cholesterol in HDL [Mass/Vol] 55 mg/dL 40 - PINF mg/dL [facility] Comment on above: [<40 mg/dL: Low (Hig h Risk)] [>59 mg/dL: High (Low Risk)] Cholesterol in HDL [Mass/Vol] 79 mg/dL NINF - 130 mg/dL [facility] Cholesterol in LDL [Mass/Vol] 66 mg/dL 0 - 99 mg/dL [facility] Comment on above: [<100 mg/dL: Optimal ] [100-129 mg/dL: Near Optimal] [130-159 mg/dL: Borderline High] [160-189 mg/dL: High] [>189 mg/dL: Very High] Cholesterol.total/Chol esterol in HDL [Mass ratio] 2.4 {ratio} NINF - 4.5 [facility] Interpretation and review of laboratory results Normal [facility] Triglyceride [Mass/Vol] 66 mg/dL NINF - 150 mg/dL [facility] Comment on above: [<150 mg/dL: Desirab le] [150-199 mg/dL: Borderline] [200-499 mg/dL: High] [>500 mg/dL: Very High] [facility] Calculated LDL Cholesterol 66 mg/dL Normal 0-99 [facility] Comment on above: Result Comment: [<10 0 mg/dL: Optimal] [100-129 mg/dL: Near Optimal] [130-159 mg/dL: Borderline High] [160-189 mg/dL: High] [>189 mg/dL: Very High] Performed By: #### H MARCELLA, LABHSTI1 ####[facility] (DEFAULT)[address] [place] [address] Cholesterol [Mass/Vol] 134 mg/dL Normal <200 [facility] Comment on above: Result Comment: [<20 0 mg/dL: Desirable] [200-239 mg/dL: Borderline High] [>239 mg/dL: High] Performed By: #### H MARCELLA, LABHSTI1 ####[facility] (DEFAULT)[address] [place] [address] Cholesterol in HDL [Mass/Vol] 55 mg/dL Normal >=40 [facility] Comment on above: Result Comment: [<40 mg/dL: Low (High Risk)] [>59 mg/dL: High (Low Risk)] Performed By: #### H MARCELLA, LABHSTI1 ####[facility] (DEFAULT)[address] [place] [address] Non HDL Cholesterol 79 mg/dL Normal <130 [facility] Comment on above: Performed By: #### H MARCELLA, LABHSTI1 ####[facility] (DEFAULT)[address] [place] [address] Total Cholesterol/HDL Ratio 2.4 Normal <4.5 [facility] Comment on above: Performed By: #### H MARCELLA, LABHSTI1 ####[facility] (DEFAULT)[address] [place] [address] Triglyceride [Mass/Vol] 66 mg/dL Normal <150 [facility] Comment on above: Result Comment: [<15 0 mg/dL: Desirable] [150-199 mg/dL: Borderline] [200-499 mg/dL: High] [>500 mg/dL: Very High] Performed By: #### H MARCELLA, LABHSTI1 ####[facility] (DEFAULT)[address] [place] [address] MAGNESIUMon 06-23-2023 Magnesium [Mass/Vol] 1.8 mg/dL Normal 1.6-2.6 [facility] Comment on above: Performed By: #### I PB, LABHSTI1, CA, MGO, CHM7 #### [facility] (DEFAULT) [address] [place] [address] Magnesium [Mass/Vol] 1.8 mg/dL 1.6 - 2 .6 mg/dL [facility] No Panel Informationon 06-23 Interpretation and review of laboratory results Normal [facility] PHOSPHATE, INORGANICon 06-23 Phosphorous 2.5 mg/dL Normal 2.2-4.6 [facility] Comment on above: Performed By: #### I PB, LABHSTI1, CA, MGO, CHM7 #### [facility] (DEFAULT) [address] [place] [address] Phosphate [Mass/Vol] 2.5 mg/dL 2.2 - 4 .6 mg/dL [facility] XR CHEST PA AND LATERALon XR CHEST PA AND LATERAL EXAM: XR CHEST PA AND LATERAL, 06/23/2023 10:58 AM COMPARISON: Chest radiograph, April 30, 2018. CLINICAL INDICATIONS: patient with chest pain FINDINGS: (Adequate technique) Implanted Devices: None Lungs: Stable blunting of the right costophrenic angle. Similar reticular interstitial lung markings in the bilateral central, mid, and lower lung zones Pleural Spaces: No pleural effusion. No pneumothorax. Mediastinum and Chayo: Normal Cardiac silhouette and great vessels: Normal heart size. Unremarkable aorta. Chest Wall: Prominent pericardial fat pad. IMPRESSION: 1. No acute cardiopulmonary abnormality. 2. Similar scarring and interstitial changes throughout the lungs without new focal opacity or consolidation. I personally viewed and interpreted these images and I have reviewed and approved this report. Normal [facility] XR Chest PA and Lateralon IMPRESSION: 1. No acute cardiopulmonary abnormality. 2. Similar scarring and interstitial changes throughout the lungs without new focal opacity or consolidation. I personally viewed and interpreted these images and I have reviewed and approved this report. OLOGY EXAM: XR CHEST PA AN D LATERAL, 06/23/2023 10:58 AM COMPARISON: Chest radiograph, April 30, 2018. CLINICAL INDICATIONS: patient with chest pain FINDINGS: (Adequate technique) Implanted Devices: None Lungs: Stable blunting of the right costophrenic angle. Similar reticular interstitial lung markings in the bilateral central, mid, and lower lung zones Pleural Spaces: No pleural effusion. No pneumothorax. Mediastinum and Chayo: Normal Cardiac silhouette and great vessels: Normal heart size. Unremarkable aorta. Chest Wall: Prominent pericardial fat pad. RADIOLOGY Angela Fisher M D - 06/23/2023 EXAM: XR CHEST PA AND LATERAL, 06/23/2023 10:58 AM COMPARISON: Chest radiograph, April 30, 2018. CLINICAL INDICATIONS: patient with chest pain FINDINGS: (Adequate technique) Implanted Devices: None Lungs: Stable blunting of the right costophrenic angle. Similar reticular interstitial lung markings in the bilateral central, mid, and lower lung zones Pleural Spaces: No pleural effusion. No pneumothorax. Mediastinum and Chayo: Normal Cardiac silhouette and great vessels: Normal heart size. Unremarkable aorta. Chest Wall: Prominent pericardial fat pad. IMPRESSION IMPRESSION: 1. No acute cardiopulmonary abnormality. 2. Similar scarring and interstitial changes throughout the lungs without new focal opacity or consolidation. I personally viewed and interpreted these images and I have reviewed and approved this report. [facility] Radiology Study observation (narrative) [facility] XR Chest PA and LateralOrder ed By: Angela Fisher on 06-23-2023 [facility] Work Phone: Absolute lymphocyte countOrd ered By: Alice Waters on 04-28-2023 Lymphocytes Auto (Unsp spec) [#/Vol] 1.07 10*3/uL 0.83-4.51 [facility] Basophil percentageOrdered B y: Alice Waters on 04-28-2023 Basophils/100 WBC (Bld) 0.4 % 0-1 [facility] Bilirubin [Mass/Vol] 0.90 mg/dL 0.20-1.00 [facility] Comment on above: For patients on eltr ombopag therapy, use of Dimension [place] TBIL is not recommended. Chloride [Moles/Vol] 108 mmol/L 98-107 [facility] Cholesterol [Mass/Vol] 106 mg/dL <200 [facility] Comment on above: <200 mg/dL Desirable 200-240 mg/dL Borderline >240 mg/dL High Risk Eosinophils/100 WBC (Bld) 3.6 % 0-5 [facility] Glucose [Mass/Vol] 131 mg/dL 74-106 [facility] Comment on above: Fasting Glucose resu lt greater than or equal to 126 mg/dL suggests DIABETES MELLITUS per A.D.A. criteria. Neutrophils (Bld) [#/Vol] 3.8 10*3/uL 2.0-7.7 [facility] Neutrophils/100 WBC (Bld) 68.1 % 47-70 [facility] Potassium [Moles/Vol] 3.6 mmol/L 3.5-5.1 [facility] Protein [Mass/Vol] 6.5 g/dL 6.4-8.2 [facility] Sodium [Moles/Vol] 140 mmol/L 136-145 [facility] Triglyceride [Mass/Vol] 59 mg/dL <199 [facility] Comment on above: The drugs N-Acetylcy steine and Metamizole may falsely depress this assay.Serum Triglycerides Reference Interval Normal <150 mg/dL Borderline high 150 - 199 mg/dL High 200 - 499 mg/dL Very High > or = 500 mg/dL WBC (Bld) [#/Vol] 5.5 10*3/uL 4.4-11.0 [facility] Blood erythrocytes count (nu mber/volume)Ordered By: Alice Waters on 04-28-2023 RBC (Bld) [#/Vol] 4.41 10*6/uL 4.6-6.2 [facility] Blood hemoglobin measurement (mass/volume)Ordered By: Alice Waters on 04-28-2023 Hemoglobin (Bld) [Mass/Vol] 14.6 g/dL 13.0-16.5 [facility] Blood lymphocytes/100 leukoc ytesOrdered By: Alice Waters on 04-28-2023 Lymphocytes/100 WBC (Bld) 19.4 % 19-41 [facility] Blood monocytes/100 leukocyt esOrdered By: Alice Waters on 04-28-2023 Monocytes/100 WBC (Bld) 8.3 % 0-10 [facility] Blood platelet mean volumeOr dered By: Alice Waters on 04-28-2023 Platelet mean volume (Bld) [Entitic vol] 11.6 fL 6.2-12.0 [facility] CBC W/Diff, Automatedon 09-2 -2022 Absolute Lymph 1.07 X10 3/uL Normal 0.83-4.51 [facility] Comment on above: Order Comment: DR. Shahbaz BOOTH GETS CBCD AND CMP DR. BURTON GETS CMP AND LIPID Performed By: #### L 500.4100, L500.4050, L100.0100 #### [facility] [address] [place], [address] Absolute Neut 3.8 X10 3/uL Normal 2.0-7.7 [facility] Comment on above: Order Comment: DR. Shahbaz BOOTH GETS CBCD AND CMP DR. BURTON GETS CMP AND LIPID Performed By: #### L 500.4100, L500.4050, L100.0100 #### [facility] [address] [place], [address] Basophils/100 WBC (Bld) 0.4 % Normal 0-1 [facility] Comment on above: Order Comment: DR. Shahbaz BOOTH GETS CBCD AND CMP DR. BURTON GETS CMP AND LIPID Performed By: #### L 500.4100, L500.4050, L100.0100 #### [facility] [address] [place], [address] Eosinophils/100 WBC (Bld) 3.6 % Normal 0-5 [facility] Comment on above: Order Comment: DR. Shahbaz BOOTH GETS CBCD AND CMP DR. BURTON GETS CMP AND LIPID Performed By: #### L 500.4100, L500.4050, L100.0100 #### [facility] [address] [place], [address] Erythrocyte distribution width (RBC) [Ratio] 12.0 % Normal 11.6-14.6 [facility] Comment on above: Order Comment: DR. Shahbaz BOOTH GETS CBCD AND CMP DR. BURTON GETS CMP AND LIPID Performed By: #### L 500.4100, L500.4050, L100.0100 #### [facility] [address] [place], [address] Hematocrit (Bld) [Volume fraction] 43.1 % Normal 40-54 [facility] Comment on above: Order Comment: DR. Shahbaz BOOTH GETS CBCD AND CMP DR. BURTON GETS CMP AND LIPID Performed By: #### L 500.4100, L500.4050, L100.0100 #### [facility] [address] [place], [address] Hemoglobin (Bld) [Mass/Vol] 14.6 g/dL Normal 13.0-16.5 [facility] Comment on above: Order Comment: DR. Shahbaz BOOTH GETS CBCD AND CMP DR. BURTON GETS CMP AND LIPID Performed By: #### L 500.4100, L500.4050, L100.0100 #### [facility] [address] [place], [address] IG% 0.200 Normal 0.0-0.9 [facility] Comment on above: Order Comment: DR. Shahbaz BOOTH GETS CBCD AND CMP DR. BURTON GETS CMP AND LIPID Result Comment: IG% - Immature Granulocytes (promyelocytes, myelocytes and metamyelocytes) > 1% indicates that a LEFT SHIFT is Present. Performed By: #### L 500.4100, L500.4050, L100.0100 #### [facility] [address] [place], [address] Lymphocytes/100 WBC (Bld) 19.4 % Normal 19-41 [facility] Comment on above: Order Comment: DR. Shahbaz BOOTH GETS CBCD AND CMP DR. BURTON GETS CMP AND LIPID Performed By: #### L 500.4100, L500.4050, L100.0100 #### [facility] [address] [place], [address] MCH (RBC) [Entitic mass] 33.1 pg High 27.0-32.0 [facility] Comment on above: Order Comment: DR. Shahbaz BOOTH GETS CBCD AND CMP DR. BURTON GETS CMP AND LIPID Performed By: #### L 500.4100, L500.4050, L100.0100 #### [facility] [address] [place], [address] MCHC (RBC) [Mass/Vol] 33.9 g/dL Normal 32-36 [facility] Comment on above: Order Comment: DR. Shahbaz BOOTH GETS CBCD AND CMP DR. BURTON GETS CMP AND LIPID Performed By: #### L 500.4100, L500.4050, L100.0100 #### [facility] [address] [place], [address] MCV (RBC) [Entitic vol] 97.7 fL High 80-94 [facility] Comment on above: Order Comment: DR. Shahbaz BOOTH GETS CBCD AND CMP DR. BURTON GETS CMP AND LIPID Performed By: #### L 500.4100, L500.4050, L100.0100 #### [facility] [address] [place], [address] Monocytes/100 WBC (Bld) 8.3 % Normal 0-10 [facility] Comment on above: Order Comment: DR. Shahbaz BOOTH GETS CBCD AND CMP DR. BURTON GETS CMP AND LIPID Performed By: #### L 500.4100, L500.4050, L100.0100 #### [facility] [address] [place], [address] Neutrophils/100 WBC (Bld) 68.1 % Normal 47-70 [facility] Comment on above: Order Comment: DR. Shahbaz BOOTH GETS CBCD AND CMP DR. BURTON GETS CMP AND LIPID Performed By: #### L 500.4100, L500.4050, L100.0100 #### [facility] [address] [place], [address] Nucleated RBC (Bld) [#/Vol] 0 10*3/uL Normal 0-5 [facility] Comment on above: Order Comment: DR. Shahbaz BOOTH GETS CBCD AND CMP DR. BURTON GETS CMP AND LIPID Performed By: #### L 500.4100, L500.4050, L100.0100 #### [facility] [address] [place], [address] Platelet mean volume (Bld) [Entitic vol] 11.6 fL Normal 6.2-12.0 [facility] Comment on above: Order Comment: DR. Shahbaz BOOTH GETS CBCD AND CMP DR. BURTON GETS CMP AND LIPID Performed By: #### L 500.4100, L500.4050, L100.0100 #### [facility] [address] [place], [address] Platelets (Bld) [#/Vol] 165 10*3/uL Normal 150-450 [facility] Comment on above: Order Comment: DR. Shahbaz BOOTH GETS CBCD AND CMP DR. BURTON GETS CMP AND LIPID Performed By: #### L 500.4100, L500.4050, L100.0100 #### [facility] [address] [place], [address] RBC (Bld) [#/Vol] 4.41 10*6/uL Low 4.6-6.2 [facility] Comment on above: Order Comment: DR. Shahbaz BOOTH GETS CBCD AND CMP DR. BURTON GETS CMP AND LIPID Performed By: #### L 500.4100, L500.4050, L100.0100 #### [facility] [address] [place], [address] RDW SD 42.8 fl Normal 35.1-43.9 [facility] Comment on above: Order Comment: DR. Shahbaz BOOTH GETS CBCD AND CMP DR. BURTON GETS CMP AND LIPID Performed By: #### L 500.4100, L500.4050, L100.0100 #### [facility] [address] [place], [address] WBC (Bld) [#/Vol] 5.5 10*3/uL Normal 4.4-11.0 [facility] Comment on above: Order Comment: DR. Shahbaz BOOTH GETS CBCD AND CMP DR. BURTON GETS CMP AND LIPID Performed By: #### L 500.4100, L500.4050, L100.0100 #### [facility] [address] [place], [address] Comprehensive Metabolic Prof ilon 04-28-2023 Albumin [Mass/Vol] 3.5 g/dL Normal 3.2-5.0 [facility] Comment on above: Order Comment: DR. Shahbaz BOOTH GETS CBCD AND CMP DR. BURTON GETS CMP AND LIPID Performed By: #### L 500.4100, L500.4050, L100.0100 #### [facility] [address] [place], [address] Albumin/Globulin [Mass ratio] 1.2 {ratio} Normal 0.9-2.4 [facility] Comment on above: Order Comment: DR. Shahbaz BOOTH GETS CBCD AND CMP DR. BURTON GETS CMP AND LIPID Performed By: #### L 500.4100, L500.4050, L100.0100 #### [facility] [address] [place], [address] ALK P 73 U/L Normal 45-117 [facility] Comment on above: Order Comment: DR. Shahbaz BOOTH GETS CBCD AND CMP DR. BURTON GETS CMP AND LIPID Performed By: #### L 500.4100, L500.4050, L100.0100 #### [facility] [address] [place], [address] ALT [Catalytic activity/Vol] 59 U/L Normal 16-61 [facility] Comment on above: Order Comment: DR. Shahbaz BOOTH GETS CBCD AND CMP DR. BURTON GETS CMP AND LIPID Performed By: #### L 500.4100, L500.4050, L100.0100 #### [facility] [address] [place], [address] AST [Catalytic activity/Vol] 24 U/L Normal 15-37 [facility] Comment on above: Order Comment: DR. Shahbaz BOOTH GETS CBCD AND CMP DR. BURTON GETS CMP AND LIPID Performed By: #### L 500.4100, L500.4050, L100.0100 #### [facility] [address] [place], [address] Bilirubin [Mass/Vol] 0.90 mg/dL Normal 0.20-1.00 [facility] Comment on above: Order Comment: DR. Shahbaz BOOTH GETS CBCD AND CMP DR. BURTON GETS CMP AND LIPID Result Comment: For patients on eltrombopag therapy, use of Dimension [place] TBIL is not recommended. Performed By: #### L 500.4100, L500.4050, L100.0100 #### [facility] [address] [place], [address] BUN/CRE 16.4 RATIO Normal 10-20 [facility] Comment on above: Order Comment: DR. Shahbaz BOOTH GETS CBCD AND CMP DR. BURTON GETS CMP AND LIPID Performed By: #### L 500.4100, L500.4050, L100.0100 #### [facility] [address] [place], [address] CA,Total 8.7 mg/dL Normal 8.5-10.1 [facility] Comment on above: Order Comment: DR. Shahbaz BOOTH GETS CBCD AND CMP DR. BURTON GETS CMP AND LIPID Performed By: #### L 500.4100, L500.4050, L100.0100 #### [facility] [address] [place], [address] Chloride [Moles/Vol] 108 mmol/L High 98-107 [facility] Comment on above: Order Comment: DR. Shahbaz BOOTH GETS CBCD AND CMP DR. BURTON GETS CMP AND LIPID Performed By: #### L 500.4100, L500.4050, L100.0100 #### [facility] [address] [place], [address] CO2 [Moles/Vol] 26.0 mmol/L Normal 21.0-32.0 [facility] Comment on above: Order Comment: DR. Shahbaz BOOTH GETS CBCD AND CMP DR. BURTON GETS CMP AND LIPID Performed By: #### L 500.4100, L500.4050, L100.0100 #### [facility] [address] [place], [address] Creatinine [Mass/Vol] 0.86 mg/dL Normal 0.70-1.30 [facility] Comment on above: Order Comment: DR. Shahbaz BOOTH GETS CBCD AND CMP DR. BURTON GETS CMP AND LIPID Result Comment: The validity of the calculated GFR GFRAA in patients over 70 years has not been determined. Clinical correlation is essential. Performed By: #### L 500.4100, L500.4050, L100.0100 #### [facility] [address] [place], [address] EST GFR - AA 116 mL/min Normal >60 [facility] Comment on above: Order Comment: DR. Shahbaz BOOTH GETS CBCD AND CMP DR. BURTON GETS CMP AND LIPID Result Comment: Afri can Japanese GFR Calc Performed By: #### L 500.4100, L500.4050, L100.0100 #### [facility] [address] [place], [address] GAP 6 Normal 5-15 [facility] Comment on above: Order Comment: DR. Shahbaz BOOTH GETS CBCD AND CMP DR. BURTON GETS CMP AND LIPID Performed By: #### L 500.4100, L500.4050, L100.0100 #### [facility] [address] [place], [address] GFR/1.73 sq M.predicted among non-blacks MDRD (S/P/Bld) [Vol rate/Area] 96 mL/min/{1.73_m2} Normal >60 [facility] Comment on above: Order Comment: DR. Shahbaz BOOTH GETS CBCD AND CMP DR. BURTON GETS CMP AND LIPID Result Comment: Non- GFR Calc Performed By: #### L 500.4100, L500.4050, L100.0100 #### [facility] [address] [place], [address] Globulin (S) [Mass/Vol] 3.0 g/dL Normal 2.2-4.2 [facility] Comment on above: Order Comment: DR. Shahbaz BOOTH GETS CBCD AND CMP DR. BURTON GETS CMP AND LIPID Performed By: #### L 500.4100, L500.4050, L100.0100 #### [facility] [address] [place], [address] Glucose [Mass/Vol] 131 mg/dL High 74-106 [facility] Comment on above: Order Comment: DR. Shahbaz BOOTH GETS CBCD AND CMP DR. BURTON GETS CMP AND LIPID Result Comment: Fast ing Glucose result greater than or equal to 126 mg/dL suggests DIABETES MELLITUS per A.D.A. criteria. Performed By: #### L 500.4100, L500.4050, L100.0100 #### [facility] [address] [place], [address] Potassium [Moles/Vol] 3.6 mmol/L Normal 3.5-5.1 [facility] Comment on above: Order Comment: DR. Shahbaz BOOTH GETS CBCD AND CMP DR. BURTON GETS CMP AND LIPID Performed By: #### L 500.4100, L500.4050, L100.0100 #### [facility] [address] [place], [address] Sodium [Moles/Vol] 140 mmol/L Normal 136-145 [facility] Comment on above: Order Comment: DR. Shahbaz BOOTH GETS CBCD AND CMP DR. BURTON GETS CMP AND LIPID Performed By: #### L 500.4100, L500.4050, L100.0100 #### [facility] [address] [place], [address] T PROT 6.5 g/dL Normal 6.4-8.2 [facility] Comment on above: Order Comment: DR. Shahbaz BOOTH GETS CBCD AND CMP DR. BURTON GETS CMP AND LIPID Performed By: #### L 500.4100, L500.4050, L100.0100 #### [facility] [address] [place], [address] Urea nitrogen [Mass/Vol] 14 mg/dL Normal 7-18 [facility] Comment on above: Order Comment: DR. Shahbaz BOOTH GETS CBCD AND CMP DR. BURTON GETS CMP AND LIPID Performed By: #### L 500.4100, L500.4050, L100.0100 #### [facility] [address] [place], [address] Determination of erythrocyte mean corpuscular volume (MCV)Ordered By: Alice Waters on 04-28-2023 MCV (RBC) [Entitic vol] 97.7 fL 80-94 [facility] Hematocrit Auto (Bld) [Volum e fraction]Ordered By: Alice Waters on 04-28-2023 Hematocrit (Bld) [Volume fraction] 43.1 % 40-54 [facility] - Chemistry and C hemistry - challengeOrdered By: Alice Waters on 04-28-2023 ALP [Catalytic activity/Vol] 73 U/L 45-117 [facility] ALT [Catalytic activity/Vol] 59 U/L 16-61 [facility] CO2 [Moles/Vol] 26.0 mmol/L 21.0-32.0 [facility] Globulin (S) [Mass/Vol] 3.0 g/dL 2.2-4.2 [facility] Urea nitrogen/Creatinine [Mass ratio] 16.4 mg/mg 10-20 [facility] - Hematology and Cell countsOrdered By: Alice Waters on 04-28-2023 Erythrocyte distribution width (RBC) [Entitic vol] 42.8 fL 35.1-43.9 [facility] Erythrocyte distribution width (RBC) [Ratio] 12.0 % 11.6-14.6 [facility] Immature granulocytes/100 WBC (Bld) 0.200 % 0.0-0.9 [facility] Comment on above: IG% - Immature Granu locytes (promyelocytes, myelocytes and metamyelocytes) > 1% indicates that a LEFT SHIFT is Present. MCH (RBC) [Entitic mass] 33.1 pg 27.0-32.0 [facility] Nucleated RBC/100 WBC (Bld) [Ratio] 0 % 0-5 [facility] Lipid Profileon 04-28-2023 Cholesterol [Mass/Vol] 106 mg/dL Normal 200 [facility] Comment on above: Order Comment: DR. Shahbaz BOOTH GETS CBCD AND CMP DR. BURTON GETS CMP AND LIPID Result Comment: <200 mg/dL Desirable 200-240 mg/dL Borderline >240 mg/dL High Risk Performed By: #### L 500.4100, L500.4050, L100.0100 #### [facility] [address] [place], [address] Cholesterol in HDL [Mass/Vol] 63 mg/dL Normal [facility] Comment on above: Order Comment: DR. Shahbaz BOOTH GETS CBCD AND CMP DR. BURTON GETS CMP AND LIPID Result Comment: The drugs N-Acetylcysteine and Metamizole may falsely depress this assay. Reference Range HDL <40 mg/dL Low HDL Cholesterol HDL >or= 60 mg/dL High HDL Cholesterol Performed By: #### L 500.4100, L500.4050, L100.0100 #### [facility] [address] [place], [address] Cholesterol in LDL [Mass/Vol] 31 mg/dL Normal 0-130 [facility] Comment on above: Order Comment: DR. Shahbaz BOOTH GETS CBCD AND CMP DR. BURTON GETS CMP AND LIPID Performed By: #### L 500.4100, L500.4050, L100.0100 #### [facility] [address] [place], [address] Cholesterol in VLDL [Mass/Vol] 12 mg/dL Normal 5-40 [facility] Comment on above: Order Comment: DR. Shahbaz BOOTH GETS CBCD AND CMP DR. BURTON GETS CMP AND LIPID Performed By: #### L 500.4100, L500.4050, L100.0100 #### [facility] [address] [place], [address] Triglyceride [Mass/Vol] 59 mg/dL Normal [facility] Comment on above: Order Comment: DR. Shahbaz BOOTH GETS CBCD AND CMP DR. BURTON GETS CMP AND LIPID Result Comment: The drugs N-Acetylcysteine and Metamizole may falsely depress this assay. Serum Triglycerides Reference Interval Normal <150 mg/dL Borderline high 150 - 199 mg/dL High 200 - 499 mg/dL Very High > or = 500 mg/dL Performed By: #### L 500.4100, L500.4050, L100.0100 #### [facility] [address] [place], [address] MCHC Auto (RBC) [Mass/Vol]Or dered By: Alice Waters on 04-28-2023 MCHC (RBC) [Mass/Vol] 33.9 g/dL 32-36 [facility] No Panel InformationOrdered By: Alice Waters on 04-28-2023 Estimated GFR (MDRD) Amer 116 mL/min >60 [facility] Comment on above: GFR Calc Estimated GFR (MDRD) Non-Af Amer 96 mL/min >60 [facility] Comment on above: Non- GFR Calc Platelets bldOrdered By: Barney Waters on 04-28-2023 Platelets (Bld) [#/Vol] 165 10*3/uL 150-450 [facility] Serum or plasma albumin geovanna urement (mass/volume)Ordered By: Alice Waters on 04-28-2023 Albumin [Mass/Vol] 3.5 g/dL 3.2-5.0 [facility] Serum or plasma albumin/glob ulin mass ratioOrdered By: Alice Waters on 04-28-2023 Albumin/Globulin [Mass ratio] 1.2 {ratio} 0.9-2.4 [facility] Serum or plasma calcium geovanna urement (mass/volume)Ordered By: Alice Waters on 04-28-2023 Calcium [Mass/Vol] 8.7 mg/dL 8.5-10.1 [facility] Serum or plasma cholesterol in HDL measurement (mass/volume)Ordered By: Alice Waters on 04-28-2023 Cholesterol in HDL [Mass/Vol] 63 mg/dL >40 [facility] Comment on above: The drugs N-Acetylcy steine and Metamizole may falsely depress this assay. Reference Range HDL <40 mg/dL Low HDL Cholesterol HDL >or= 60 mg/dL High HDL Cholesterol Serum or plasma cholesterol in VLDL measurement (mass/volume)Ordered By: Alice Waters on 04-28-2023 Cholesterol in VLDL [Mass/Vol] 12 mg/dL 5-40 [facility] Serum or plasma creatinine m easurement (mass/volume)Ordered By: Alice Waters on 04-28-2023 Creatinine [Mass/Vol] 0.86 mg/dL 0.70-1.30 [facility] Comment on above: The validity of the calculated GFR & GFRAA in patients over 70 years has not been determined. Clinical correlation is essential. Serum or plasma low density lipoprotein (LDL) cholesterol measurement (mass/volume)Ordered By: Alice Waters on 04-28-2023 Cholesterol in LDL [Mass/Vol] 31 mg/dL 0-130 [facility] Serum or plasma urea nitroge n measurement (mass/volume)Ordered By: Alice Waters on 04-28-2023 Urea nitrogen [Mass/Vol] 14 mg/dL 7-18 [facility] Thin prep Papanicolaou smear with manual screeningOrdered By: Alice Waters 04-28-2023 Thin prep Papanicolaou smear with manual screening 24 U/L 15-37 [facility] Thin prep Papanicolaou smear with manual screening 6 5-15 [facility] CBC W/Diff, Automatedon 07-2 0-2023 Absolute Lymph 1.08 X10 3/uL Normal 0.83-4.51 [facility] Comment on above: Performed By: #### L 100.0100, L500.4050 #### [facility] [address] [place], [address] Absolute Neut 4.8 X10 3/uL Normal 2.0-7.7 [facility] Comment on above: Performed By: #### L 100.0100, L500.4050 #### [facility] [address] [place], [address] Basophils/100 WBC (Bld) 0.6 % Normal 0-1 [facility] Comment on above: Performed By: #### L 100.0100, L500.4050 #### [facility] [address] [place], [address] Eosinophils/100 WBC (Bld) 2.5 % Normal 0-5 [facility] Comment on above: Performed By: #### L 100.0100, L500.4050 #### [facility] [address] [place], [address] Erythrocyte distribution width (RBC) [Ratio] 12.4 % Normal 11.6-14.6 [facility] Comment on above: Performed By: #### L 100.0100, L500.4050 #### [facility] [address] [place], [address] Hematocrit (Bld) [Volume fraction] 42.4 % Normal 40-54 [facility] Comment on above: Performed By: #### L 100.0100, L500.4050 #### [facility] [address] [place], [address] Hemoglobin (Bld) [Mass/Vol] 14.2 g/dL Normal 13.0-16.5 [facility] Comment on above: Performed By: #### L 100.0100, L500.4050 #### [facility] [address] [place], [address] IG% 0.200 Normal 0.0-0.9 [facility] Comment on above: Result Comment: IG% - Immature Granulocytes (promyelocytes, myelocytes and metamyelocytes) > 1% indicates that a LEFT SHIFT is Present. Performed By: #### L 100.0100, L500.4050 #### [facility] [address] [place], [address] Lymphocytes/100 WBC (Bld) 16.5 % Low 19-41 [facility] Comment on above: Performed By: #### L 100.0100, L500.4050 #### [facility] [address] [place], [address] MCH (RBC) [Entitic mass] 32.2 pg High 27.0-32.0 [facility] Comment on above: Performed By: #### L 100.0100, L500.4050 #### [facility] [address] [place], [address] MCHC (RBC) [Mass/Vol] 33.5 g/dL Normal 32-36 [facility] Comment on above: Performed By: #### L 100.0100, L500.4050 #### [facility] [address] [place], [address] MCV (RBC) [Entitic vol] 96.1 fL High 80-94 [facility] Comment on above: Performed By: #### L 100.0100, L500.4050 #### [facility] [address] [place], [address] Monocytes/100 WBC (Bld) 6.9 % Normal 0-10 [facility] Comment on above: Performed By: #### L 100.0100, L500.4050 #### [facility] [address] [place], [address] Neutrophils/100 WBC (Bld) 73.3 % High 47-70 [facility] Comment on above: Performed By: #### L 100.0100, L500.4050 #### [facility] [address] [place], [address] Nucleated RBC (Bld) [#/Vol] 0 10*3/uL Normal 0-5 [facility] Comment on above: Performed By: #### L 100.0100, L500.4050 #### [facility] [address] [place], [address] Platelet mean volume (Bld) [Entitic vol] 11.2 fL Normal 6.2-12.0 [facility] Comment on above: Performed By: #### L 100.0100, L500.4050 #### [facility] [address] [place], [address] Platelets (Bld) [#/Vol] 186 10*3/uL Normal 150-450 [facility] Comment on above: Performed By: #### L 100.0100, L500.4050 #### [facility] [address] [place], [address] RBC (Bld) [#/Vol] 4.41 10*6/uL Low 4.6-6.2 [facility] Comment on above: Performed By: #### L 100.0100, L500.4050 #### [facility] [address] [place], [address] RDW SD 42.9 fl Normal 35.1-43.9 [facility] Comment on above: Performed By: #### L 100.0100, L500.4050 #### [facility] [address] [place], [address] WBC (Bld) [#/Vol] 6.5 10*3/uL Normal 4.4-11.0 [facility] Comment on above: Performed By: #### L 100.0100, L500.4050 #### [facility] [address] [place], [address] Comprehensive Metabolic Prof ilon 02-18-2023 Albumin [Mass/Vol] 3.5 g/dL Normal 3.2-5.0 [facility] Comment on above: Performed By: #### L 100.0100, L500.4050 #### [facility] [address] [place], [address] Albumin/Globulin [Mass ratio] 1.2 {ratio} Normal 0.9-2.4 [facility] Comment on above: Performed By: #### L 100.0100, L500.4050 #### [facility] [facility] [address] [place], [address] ALK P 79 U/L Normal 45-117 [facility] Comment on above: Performed By: #### L 100.0100, L500.4050 #### [facility] [address] [place], [address] ALT [Catalytic activity/Vol] 64 U/L High 16-61 [facility] Comment on above: Performed By: #### L 100.0100, L500.4050 #### [facility] [address] [place], [address] AST [Catalytic activity/Vol] 22 U/L Normal 15-37 [facility] Comment on above: Performed By: #### L 100.0100, L500.4050 #### [facility] [address] [place], [address] Bilirubin [Mass/Vol] 0.60 mg/dL Normal 0.20-1.00 [facility] Comment on above: Result Comment: For patients on eltrombopag therapy, use of Dimension [place] TBIL is not recommended. Performed By: #### L 100.0100, L500.4050 #### [facility] [address] [place], [address] BUN/CRE 14.9 RATIO Normal 10-20 [facility] Comment on above: Performed By: #### L 100.0100, L500.4050 #### [facility] [address] [place], [address] CA,Total 8.9 mg/dL Normal 8.5-10.1 [facility] Comment on above: Performed By: #### L 100.0100, L500.4050 #### [facility] [address] [place], [address] Chloride [Moles/Vol] 108 mmol/L High 98-107 [facility] Comment on above: Performed By: #### L 100.0100, L500.4050 #### [facility] [address] [place], [address] CO2 [Moles/Vol] 28.0 mmol/L Normal 21.0-32.0 [facility] Comment on above: Performed By: #### L 100.0100, L500.4050 #### [facility] [address] [place], [address] Creatinine [Mass/Vol] 1.01 mg/dL Normal 0.70-1.30 [facility] Comment on above: Result Comment: The validity of the calculated GFR GFRAA in patients over 70 years has not been determined. Clinical correlation is essential. Performed By: #### L 100.0100, L500.4050 #### [facility] [address] [place], [address] EST GFR - AA 96 mL/min Normal >60 [facility] Comment on above: Result Comment: Afri can Japanese GFR Calc Performed By: #### L 100.0100, L500.4050 #### [facility] [address] [place], [address] GAP 5 Normal 5-15 [facility] Comment on above: Performed By: #### L 100.0100, L500.4050 #### [facility] [address] [place], [address] GFR/1.73 sq M.predicted among non-blacks MDRD (S/P/Bld) [Vol rate/Area] 80 mL/min/{1.73_m2} Normal >60 [facility] Comment on above: Result Comment: Non- GFR Calc Performed By: #### L 100.0100, L500.4050 #### [facility] [address] [place], [address] Globulin (S) [Mass/Vol] 2.9 g/dL Normal 2.2-4.2 [facility] Comment on above: Performed By: #### L 100.0100, L500.4050 #### [facility] [address] [place], [address] Glucose [Mass/Vol] 132 mg/dL High 74-106 [facility] Comment on above: Result Comment: Fast ing Glucose result greater than or equal to 126 mg/dL suggests DIABETES MELLITUS per A.D.A. criteria. Performed By: #### L 100.0100, L500.4050 #### [facility] [address] [place], [address] Potassium [Moles/Vol] 3.9 mmol/L Normal 3.5-5.1 [facility] Comment on above: Performed By: #### L 100.0100, L500.4050 #### [facility] [address] [place], [address] Sodium [Moles/Vol] 141 mmol/L Normal 136-145 [facility] Comment on above: Performed By: #### L 100.0100, L500.4050 #### [facility] [address] [place], [address] T PROT 6.4 g/dL Normal 6.4-8.2 [facility] Comment on above: Performed By: #### L 100.0100, L500.4050 #### [facility] [address] [place], [address] Urea nitrogen [Mass/Vol] 15 mg/dL Normal 7-18 [facility] Comment on above: Performed By: #### L 100.0100, L500.4050 #### [facility] [address] [place], [address] CBC W/Diff, Automatedon 05- Absolute Lymph 1.16 X10 3/uL Normal 0.83-4.51 [facility] Comment on above: Performed By: #### L 100.0100, L500.4050 #### [facility] [address] [place], [address] Absolute Neut 4.5 X10 3/uL Normal 2.0-7.7 [facility] Comment on above: Performed By: #### L 100.0100, L500.4050 #### [facility] [address] [place], [address] Basophils/100 WBC (Bld) 0.5 % Normal 0-1 [facility] Comment on above: Performed By: #### L 100.0100, L500.4050 #### [facility] [address] [place], [address] Eosinophils/100 WBC (Bld) 1.7 % Normal 0-5 [facility] Comment on above: Performed By: #### L 100.0100, L500.4050 #### [facility] [address] [place], [address] Erythrocyte distribution width (RBC) [Ratio] 12.0 % Normal 11.6-14.6 [facility] Comment on above: Performed By: #### L 100.0100, L500.4050 #### [facility] [address] [place], [address] Hematocrit (Bld) [Volume fraction] 43.0 % Normal 40-54 [facility] Comment on above: Performed By: #### L 100.0100, L500.4050 #### [facility] [address] [place], [address] Hemoglobin (Bld) [Mass/Vol] 14.9 g/dL Normal 13.0-16.5 [facility] Comment on above: Performed By: #### L 100.0100, L500.4050 #### [facility] [address] [place], [address] IG% 0.300 Normal 0.0-0.9 [facility] Comment on above: Result Comment: IG% - Immature Granulocytes (promyelocytes, myelocytes and metamyelocytes) > 1% indicates that a LEFT SHIFT is Present. Performed By: #### L 100.0100, L500.4050 #### [facility] [address] [place], [address] Lymphocytes/100 WBC (Bld) 17.9 % Low 19-41 [facility] Comment on above: Performed By: #### L 100.0100, L500.4050 #### [facility] [address] [place], [address] MCH (RBC) [Entitic mass] 33.3 pg High 27.0-32.0 [facility] Comment on above: Performed By: #### L 100.0100, L500.4050 #### [facility] [address] [place], [address] MCHC (RBC) [Mass/Vol] 34.7 g/dL Normal 32-36 [facility] Comment on above: Performed By: #### L 100.0100, L500.4050 #### [facility] [address] [place], [address] MCV (RBC) [Entitic vol] 96.0 fL High 80-94 [facility] Comment on above: Performed By: #### L 100.0100, L500.4050 #### [facility] [address] [place], [address] Monocytes/100 WBC (Bld) 9.6 % Normal 0-10 [facility] Comment on above: Performed By: #### L 100.0100, L500.4050 #### [facility] [address] [place], [address] Neutrophils/100 WBC (Bld) 70.0 % Normal 47-70 [facility] Comment on above: Performed By: #### L 100.0100, L500.4050 #### [facility] [address] [place], [address] Nucleated RBC (Bld) [#/Vol] 0 10*3/uL Normal 0-5 [facility] Comment on above: Performed By: #### L 100.0100, L500.4050 #### [facility] [address] [place], [address] Platelet mean volume (Bld) [Entitic vol] 11.4 fL Normal 6.2-12.0 [facility] Comment on above: Performed By: #### L 100.0100, L500.4050 #### [facility] [address] [place], [address] Platelets (Bld) [#/Vol] 185 10*3/uL Normal 150-450 [facility] Comment on above: Performed By: #### L 100.0100, L500.4050 #### [facility] [address] [place], [address] RBC (Bld) [#/Vol] 4.48 10*6/uL Low 4.6-6.2 [facility] Comment on above: Performed By: #### L 100.0100, L500.4050 #### [facility] [address] [place], [address] RDW SD 42.1 fl Normal 35.1-43.9 [facility] Comment on above: Performed By: #### L 100.0100, L500.4050 #### [facility] [address] [place], [address] WBC (Bld) [#/Vol] 6.5 10*3/uL Normal 4.4-11.0 [facility] Comment on above: Performed By: #### L 100.0100, L500.4050 #### [facility] [address] [place], [address] Comprehensive Metabolic Prof [facility] 12-16-2022 Albumin [Mass/Vol] 3.7 g/dL Normal 3.2-5.0 [facility] Comment on above: Performed By: #### L 100.0100, L500.4050 #### [facility] [address] [place], [address] Albumin/Globulin [Mass ratio] 1.2 {ratio} Normal 0.9-2.4 [facility] Comment on above: Performed By: #### L 100.0100, L500.4050 #### [facility] [address] [place], [address] ALK P 74 U/L Normal 45-117 [facility] Comment on above: Performed By: #### L 100.0100, L500.4050 #### [facility] [address] [place], [address] ALT [Catalytic activity/Vol] 60 U/L Normal 16-61 [facility] Comment on above: Performed By: #### L 100.0100, L500.4050 #### [facility] [address] [place], [address] AST [Catalytic activity/Vol] 32 U/L Normal 15-37 [facility] Comment on above: Performed By: #### L 100.0100, L500.4050 #### [facility] [address] [place], [address] Bilirubin [Mass/Vol] 0.70 mg/dL Normal 0.20-1.00 [facility] Comment on above: Result Comment: For patients on eltrombopag therapy, use of Dimension [place] TBIL is not recommended. Performed By: #### L 100.0100, L500.4050 #### [facility] [address] [place], [address] BUN/CRE 12.9 RATIO Normal 10-20 [facility] Comment on above: Performed By: #### L 100.0100, L500.4050 #### [facility] [address] [place], [address] CA,Total 9.3 mg/dL Normal 8.5-10.1 [facility] Comment on above: Performed By: #### L 100.0100, L500.4050 #### [facility] [address] [place], [address] Chloride [Moles/Vol] 106 mmol/L Normal 98-107 [facility] Comment on above: Performed By: #### L 100.0100, L500.4050 #### [facility] [address] [place], [address] CO2 [Moles/Vol] 26.0 mmol/L Normal 21.0-32.0 [facility] Comment on above: Performed By: #### L 100.0100, L500.4050 #### [facility] [address] [place], [address] Creatinine [Mass/Vol] 1.01 mg/dL Normal 0.70-1.30 [facility] Comment on above: Result Comment: The validity of the calculated GFR GFRAA in patients over 70 years has not been determined. Clinical correlation is essential. Performed By: #### L 100.0100, L500.4050 #### [facility] [address] [place], [address] EST GFR - AA 96 mL/min Normal >60 [facility] Comment on above: Result Comment: Afri can Japanese GFR Calc Performed By: #### L 100.0100, L500.4050 #### [facility] [address] [place], [address] GAP 7 Normal 5-15 [facility] Comment on above: Performed By: #### L 100.0100, L500.4050 #### [facility] [address] [place], [address] GFR/1.73 sq M.predicted among non-blacks MDRD (S/P/Bld) [Vol rate/Area] 80 mL/min/{1.73_m2} Normal >60 [facility] Comment on above: Result Comment: Non- GFR Calc Performed By: #### L 100.0100, L500.4050 #### [facility] [address] [place], [address] Globulin (S) [Mass/Vol] 3.2 g/dL Normal 2.2-4.2 [facility] Comment on above: Performed By: #### L 100.0100, L500.4050 #### [facility] [address] [place], [address] Glucose [Mass/Vol] 96 mg/dL Normal 74-106 [facility] Comment on above: Performed By: #### L 100.0100, L500.4050 #### [facility] [address] [place], [address] Potassium [Moles/Vol] 3.6 mmol/L Normal 3.5-5.1 [facility] Comment on above: Performed By: #### L 100.0100, L500.4050 #### [facility] [address] [place], [address] Sodium [Moles/Vol] 139 mmol/L Normal 136-145 [facility] Comment on above: Performed By: #### L 100.0100, L500.4050 #### [facility] [address] [place], [address] T PROT 6.9 g/dL Normal 6.4-8.2 [facility] Comment on above: Performed By: #### L 100.0100, L500.4050 #### [facility] [address] [place], [address] Urea nitrogen [Mass/Vol] 13 mg/dL Normal 7-18 [facility] Comment on above: Performed By: #### L 100.0100, L500.4050 #### [facility] [address] [place], [address] Absolute lymphocyte countOrd ered By: Dr. Waters on 09-16-2022 Lymphocytes Auto (Unsp spec) [#/Vol] 1.12 10*3/uL 0.83-4.51 [facility] Basophil percentageOrdered B y: Dr. Waters on 09-16-2022 Basophils/100 WBC (Bld) 0.4 % 0-1 [facility] Bilirubin [Mass/Vol] 0.80 mg/dL 0.20-1.00 [facility] Comment on above: For patients on eltr ombopag therapy, use of Dimension [place] TBIL is not recommended. Chloride [Moles/Vol] 108 mmol/L 98-107 [facility] Eosinophils/100 WBC (Bld) 1.5 % 0-5 [facility] Glucose [Mass/Vol] 153 mg/dL 74-106 [facility] Comment on above: Fasting Glucose resu lt greater than or equal to 126 mg/dL suggests DIABETES MELLITUS per A.D.A. criteria. Neutrophils (Bld) [#/Vol] 5.3 10*3/uL 2.0-7.7 [facility] Neutrophils/100 WBC (Bld) 74.7 % 47-70 [facility] Potassium [Moles/Vol] 3.7 mmol/L 3.5-5.1 [facility] Protein [Mass/Vol] 6.2 g/dL 6.4-8.2 [facility] Sodium [Moles/Vol] 143 mmol/L 136-145 [facility] WBC (Bld) [#/Vol] 7.1 10*3/uL 4.4-11.0 [facility] Blood erythrocytes count (nu mber/volume)Ordered By: Dr. Waters on 09-16-2022 RBC (Bld) [#/Vol] 4.29 10*6/uL 4.6-6.2 [facility] Blood hemoglobin measurement (mass/volume)Ordered By: Dr. Waters on 09-16-2022 Hemoglobin (Bld) [Mass/Vol] 14.1 g/dL 13.0-16.5 [facility] Blood lymphocytes/100 leukoc ytesOrdered By: Dr. Waters on 09-16-2022 Lymphocytes/100 WBC (Bld) 15.8 % 19-41 [facility] Blood monocytes/100 leukocyt esOrdered By: Dr. Waters on 09-16-2022 Monocytes/100 WBC (Bld) 7.3 % 0-10 [facility] Blood platelet mean volumeOr dered By: Dr. Waters on 09-16-2022 Platelet mean volume (Bld) [Entitic vol] 10.9 fL 6.2-12.0 [facility] Determination of erythrocyte mean corpuscular volume (MCV)Ordered By: Dr. Waters on 09-16-2022 MCV (RBC) [Entitic vol] 96.0 fL 80-94 [facility] Hematocrit Auto (Bld) [Volum e fraction]Ordered By: Dr. Waters on 09-16-2022 Hematocrit (Bld) [Volume fraction] 41.2 % 40-54 [facility] - Chemistry and C hemistry - challengeOrdered By: Dr. Waters on 09-16-2022 ALP [Catalytic activity/Vol] 70 U/L 45-117 [facility] ALT [Catalytic activity/Vol] 47 U/L 16-61 [facility] CO2 [Moles/Vol] 27.0 mmol/L 21.0-32.0 [facility] Globulin (S) [Mass/Vol] 2.8 g/dL 2.2-4.2 [facility] Urea nitrogen/Creatinine [Mass ratio] 15.6 mg/mg 10-20 [facility] - Hematology and Cell countsOrdered By: Dr. Waters on 09-16-2022 Erythrocyte distribution width (RBC) [Entitic vol] 42.5 fL 35.1-43.9 [facility] Erythrocyte distribution width (RBC) [Ratio] 12.1 % 11.6-14.6 [facility] Immature granulocytes/100 WBC (Bld) 0.300 % 0.0-0.9 [facility] Comment on above: IG% - Immature Granu locytes (promyelocytes, myelocytes and metamyelocytes) > 1% indicates that a LEFT SHIFT is Present. MCH (RBC) [Entitic mass] 32.9 pg 27.0-32.0 [facility] Nucleated RBC/100 WBC (Bld) [Ratio] 0 % 0-5 [facility] MCHC Auto (RBC) [Mass/Vol]Or dered By: Dr. Waters on 09-16-2022 MCHC (RBC) [Mass/Vol] 34.2 g/dL 32-36 [facility] No Panel InformationOrdered By: Dr. Waters on 09-16-2022 Estimated GFR (MDRD) Amer 88 mL/min >60 [facility] Comment on above: GFR Calc Estimated GFR (MDRD) Non-Af Amer 73 mL/min >60 [facility] Comment on above: Non- GFR Calc Platelets bldOrdered By: Dr. Waters on 09-16-2022 Platelets (Bld) [#/Vol] 163 10*3/uL 150-450 [facility] Serum or plasma albumin geovanna urement (mass/volume)Ordered By: Dr. Waters on 09-16-2022 Albumin [Mass/Vol] 3.4 g/dL 3.2-5.0 [facility] Serum or plasma albumin/glob ulin mass ratioOrdered By: Dr. Waters on 09-16-2022 Albumin/Globulin [Mass ratio] 1.2 {ratio} 0.9-2.4 [facility] Serum or plasma calcium geovanna urement (mass/volume)Ordered By: Dr. Waters on 09-16-2022 Calcium [Mass/Vol] 8.7 mg/dL 8.5-10.1 [facility] Serum or plasma creatinine m easurement (mass/volume)Ordered By: Dr. Waters on 09-16-2022 Creatinine [Mass/Vol] 1.09 mg/dL 0.70-1.30 [facility] Comment on above: The validity of the calculated GFR & GFRAA in patients over 70 years has not been determined. Clinical correlation is essential. Serum or plasma urea nitroge n measurement (mass/volume)Ordered By: Dr. Waters on 09-16-2022 Urea nitrogen [Mass/Vol] 17 mg/dL 7-18 [facility] Thin prep Papanicolaou smear with manual screeningOrdered By: Dr. Waters on 09-16-2022 Thin prep Papanicolaou smear with manual screening 18 U/L 15-37 [facility] Thin prep Papanicolaou smear with manual screening 8 5-15 [facility] Absolute lymphocyte countOrd ered By: Dr. Waters on 07-22-2022 Lymphocytes Auto (Unsp spec) [#/Vol] 1.21 10*3/uL 0.83-4.51 [facility] Basophil percentageOrdered B y: Dr. Waters on 07-22-2022 Basophils/100 WBC (Bld) 0.3 % 0-1 [facility] Bilirubin [Mass/Vol] 0.60 mg/dL 0.20-1.00 [facility] Comment on above: For patients on eltr ombopag therapy, use of Dimension [place] TBIL is not recommended. Chloride [Moles/Vol] 105 mmol/L 98-107 [facility] Eosinophils/100 WBC (Bld) 2.0 % 0-5 [facility] Glucose [Mass/Vol] 106 mg/dL 74-106 [facility] Comment on above: Fasting Glucose resu lt from 100 to 125 mg/dL suggests IMPAIRED HOMEOSTASIS per A.D.A. criteria. Neutrophils (Bld) [#/Vol] 5.8 10*3/uL 2.0-7.7 [facility] Neutrophils/100 WBC (Bld) 73.7 % 47-70 [facility] Potassium [Moles/Vol] 3.8 mmol/L 3.5-5.1 [facility] Protein [Mass/Vol] 6.3 g/dL 6.4-8.2 [facility] Sodium [Moles/Vol] 140 mmol/L 136-145 [facility] WBC (Bld) [#/Vol] 7.9 10*3/uL 4.4-11.0 [facility] Blood erythrocytes count (nu mber/volume)Ordered By: Dr. Waters on 07-22-2022 RBC (Bld) [#/Vol] 4.50 10*6/uL 4.6-6.2 [facility] Blood hemoglobin measurement (mass/volume)Ordered By: Dr. Waters on 07-22-2022 Hemoglobin (Bld) [Mass/Vol] 15.1 g/dL 13.0-16.5 [facility] Blood lymphocytes/100 leukoc ytesOrdered By: Dr. Waters on 07-22-2022 Lymphocytes/100 WBC (Bld) 15.4 % 19-41 [facility] Blood monocytes/100 leukocyt esOrdered By: Dr. Waters on 07-22-2022 Monocytes/100 WBC (Bld) 8.3 % 0-10 [facility] Blood platelet mean volumeOr dered By: Dr. Waters on 07-22-2022 Platelet mean volume (Bld) [Entitic vol] 11.6 fL 6.2-12.0 [facility] Determination of erythrocyte mean corpuscular volume (MCV)Ordered By: Dr. Waters on 07-22-2022 MCV (RBC) [Entitic vol] 92.9 fL 80-94 [facility] Hematocrit Auto (Bld) [Volum e fraction]Ordered By: Dr. Waters on 07-22-2022 Hematocrit (Bld) [Volume fraction] 41.8 % 40-54 [facility] - Chemistry and C hemistry - challengeOrdered By: Dr. Waters on 07-22-2022 ALP [Catalytic activity/Vol] 76 U/L 45-117 [facility] ALT [Catalytic activity/Vol] 49 U/L 16-61 [facility] CO2 [Moles/Vol] 28.0 mmol/L 21.0-32.0 [facility] Globulin (S) [Mass/Vol] 2.6 g/dL 2.2-4.2 [facility] Urea nitrogen/Creatinine [Mass ratio] 13.5 mg/mg 10-20 [facility] - Hematology and Cell countsOrdered By: Dr. Waters on 07-22-2022 Erythrocyte distribution width (RBC) [Entitic vol] 40.8 fL 35.1-43.9 [facility] Erythrocyte distribution width (RBC) [Ratio] 11.9 % 11.6-14.6 [facility] Immature granulocytes/100 WBC (Bld) 0.300 % 0.0-0.9 [facility] Comment on above: IG% - Immature Granu locytes (promyelocytes, myelocytes and metamyelocytes) > 1% indicates that a LEFT SHIFT is Present. MCH (RBC) [Entitic mass] 33.6 pg 27.0-32.0 [facility] Nucleated RBC/100 WBC (Bld) [Ratio] 0 % 0-5 [facility] MCHC Auto (RBC) [Mass/Vol]Or dered By: Dr. Waters on 07-22-2022 MCHC (RBC) [Mass/Vol] 36.1 g/dL 32-36 [facility] No Panel InformationOrdered By: Dr. Waters on 07-22-2022 Estimated GFR (MDRD) Amer 102 mL/min >60 [facility] Comment on above: GFR Calc Estimated GFR (MDRD) Non-Af Amer 84 mL/min >60 [facility] Comment on above: Non- GFR Calc Platelets bldOrdered By: Dr. Waters on 07-22-2022 Platelets (Bld) [#/Vol] 166 10*3/uL 150-450 [facility] Serum or plasma albumin geovanna urement (mass/volume)Ordered By: Dr. Waters on 07-22-2022 Albumin [Mass/Vol] 3.7 g/dL 3.2-5.0 [facility] Serum or plasma albumin/glob ulin mass ratioOrdered By: Dr. Waters on 07-22-2022 Albumin/Globulin [Mass ratio] 1.4 {ratio} 0.9-2.4 [facility] Serum or plasma calcium geovanna urement (mass/volume)Ordered By: Dr. Waters on 07-22-2022 Calcium [Mass/Vol] 8.9 mg/dL 8.5-10.1 [facility] Serum or plasma creatinine m easurement (mass/volume)Ordered By: Dr. Waters on 07-22-2022 Creatinine [Mass/Vol] 0.96 mg/dL 0.70-1.30 [facility] Comment on above: The validity of the calculated GFR & GFRAA in patients over 70 years has not been determined. Clinical correlation is essential. Serum or plasma urea nitroge n measurement (mass/volume)Ordered By: Dr. Waters on 07-22-2022 Urea nitrogen [Mass/Vol] 13 mg/dL 7-18 [facility] Thin prep Papanicolaou smear with manual screeningOrdered By: Dr. Waters on 07-22-2022 Thin prep Papanicolaou smear with manual screening 19 U/L 15-37 [facility] Thin prep Papanicolaou smear with manual screening 7 5-15 [facility] Absolute lymphocyte counton 05-19-2022 Lymphocytes Auto (Unsp spec) [#/Vol] 0.97 10*3/uL 0.83-4.51 [facility] Work Phone: Basophil percentageon 2021 Basophils/100 WBC (Bld) 0.3 % 0-1 [facility] Work Phone: Bilirubin [Mass/Vol] 1.00 mg/dL 0.20-1.00 [facility] Work Phone: [phone] Comment on above: For patients on eltr ombopag therapy, use of Dimension [place] TBIL is not recommended. Chloride [Moles/Vol] 107 mmol/L 98-107 [facility] Work Phone: [phone] Eosinophils/100 WBC (Bld) 1.9 % 0-5 [facility] Work Phone: [phone] Glucose [Mass/Vol] 129 mg/dL 74-106 [facility] Work Phone: Comment on above: Fasting Glucose resu lt greater than or equal to 126 mg/dL suggests DIABETES MELLITUS per A.D.A. criteria. Neutrophils (Bld) [#/Vol] 4.3 10*3/uL 2.0-7.7 [facility] Work Phone: [phone] Neutrophils/100 WBC (Bld) 73.9 % 47-70 [facility] Work Phone: [phone] Potassium [Moles/Vol] 3.7 mmol/L 3.5-5.1 [facility] Work Phone: [phone] Protein [Mass/Vol] 6.4 g/dL 6.4-8.2 [facility] Work Phone: [phone] Sodium [Moles/Vol] 141 mmol/L 136-145 [facility] Work Phone: WBC (Bld) [#/Vol] 5.8 10*3/uL 4.4-11.0 [facility] Work Phone: [phone] Blood erythrocytes count (nu mber/volume)on 05-19-2022 RBC (Bld) [#/Vol] 4.65 10*6/uL 4.6-6.2 [facility] Work Phone: [phone] Blood hemoglobin measurement (mass/volume)on 05-19-2022 Hemoglobin (Bld) [Mass/Vol] 15.0 g/dL 13.0-16.5 [facility] Work Phone: [phone] Blood lymphocytes/100 leukoc yteson 05-19-2022 Lymphocytes/100 WBC (Bld) 16.8 % 19-41 [facility] Work Phone: Blood monocytes/100 leukocyt eson 05-19-2022 Monocytes/100 WBC (Bld) 7.1 % 0-10 [facility] Work Phone: Blood platelet mean volumeon 05-19-2022 Platelet mean volume (Bld) [Entitic vol] 11.3 fL 6.2-12.0 [facility] Work Phone: Determination of erythrocyte mean corpuscular volume (MCV)on 05-19-2022 MCV (RBC) [Entitic vol] 93.5 fL 80-94 [facility] Work Phone: Hematocrit Auto (Bld) [Volum e fraction]on 05-19-2022 Hematocrit (Bld) [Volume fraction] 43.5 % 40-54 [facility] Work Phone: Laboratory - Chemistry and C hemistry - challengeon 05-19-2022 ALP [Catalytic activity/Vol] 75 U/L 45-117 [facility] Work Phone: ALT [Catalytic activity/Vol] 51 U/L 16-61 [facility] Work Phone: CO2 [Moles/Vol] 28.0 mmol/L 21.0-32.0 [facility] Work Phone: Globulin (S) [Mass/Vol] 2.9 g/dL 2.2-4.2 [facility] Work Phone: Urea nitrogen/Creatinine [Mass ratio] 14.4 mg/mg 10-20 [facility] Work Phone: Laboratory - Hematology and Cell countson 05-19-2022 Erythrocyte distribution width (RBC) [Entitic vol] 40.9 fL 35.1-43.9 [facility] Work Phone: Erythrocyte distribution width (RBC) [Ratio] 11.9 % 11.6-14.6 [facility] Work Phone: Immature granulocytes/100 WBC (Bld) 0.000 % 0.0-0.9 [facility] Work Phone: Comment on above: IG% - Immature Granu locytes (promyelocytes, myelocytes and metamyelocytes) > 1% indicates that a LEFT SHIFT is Present. MCH (RBC) [Entitic mass] 32.3 pg 27.0-32.0 [facility] Work Phone: Nucleated RBC/100 WBC (Bld) [Ratio] 0 % 0-5 [facility] Work Phone: MCHC Auto (RBC) [Mass/Vol]on 05-19-2022 MCHC (RBC) [Mass/Vol] 34.5 g/dL 32-36 [facility] Work Phone: No Panel Informationon 05-19 Estimated GFR (MDRD) Amer 101 mL/min >60 [facility] Work Phone: Comment on above: GFR Calc Estimated GFR (MDRD) Non-Af Amer 84 mL/min >60 [facility] Work Phone: Comment on above: Non- GFR Calc Platelets bldon 05-19-2022 Platelets (Bld) [#/Vol] 168 10*3/uL 150-450 [facility] Work Phone: Serum or plasma albumin geovanna urement (mass/volume)on 05-19-2022 Albumin [Mass/Vol] 3.5 g/dL 3.2-5.0 [facility] Work Phone: Serum or plasma albumin/glob ulin mass ratioon 05-19-2022 Albumin/Globulin [Mass ratio] 1.2 {ratio} 0.9-2.4 [facility] Work Phone: Serum or plasma calcium geovanna urement (mass/volume)on 05-19-2022 Calcium [Mass/Vol] 8.9 mg/dL 8.5-10.1 [facility] Work Phone: Serum or plasma creatinine m easurement (mass/volume)on 05-19-2022 Creatinine [Mass/Vol] 0.97 mg/dL 0.70-1.30 [facility] Work Phone: Comment on above: The validity of the calculated GFR & GFRAA in patients over 70 years has not been determined. Clinical correlation is essential. Serum or plasma urea nitroge n measurement (mass/volume)on 05-19-2022 Urea nitrogen [Mass/Vol] 14 mg/dL - [facility] Work Phone: Thin prep Papanicolaou smear with manual screeningon 05-19-2022 Thin prep Papanicolaou smear with manual screening 26 U/L 15-37 [facility] Work Phone: Thin prep Papanicolaou smear with manual screening 6 5-15 [facility] Work Phone: Absolute lymphocyte counton 03-24-2022 Lymphocytes Auto (Unsp spec) [#/Vol] 1.25 10*3/uL 0.83-4.51 [facility] Work Phone: Basophil percentageon 2021 Basophils/100 WBC (Bld) 0.4 % 0-1 [facility] Work Phone: Bilirubin [Mass/Vol] 0.50 mg/dL 0.20-1.00 [facility] Work Phone: Comment on above: For patients on eltr ombopag therapy, use of Dimension [place] TBIL is not recommended. Chloride [Moles/Vol] 108 mmol/L 98-107 [facility] Work Phone: Eosinophils/100 WBC (Bld) 2.7 % 0-5 [facility] Work Phone: Glucose [Mass/Vol] 95 mg/dL 74-106 [facility] Work Phone: Neutrophils (Bld) [#/Vol] 5.2 10*3/uL 2.0-7.7 [facility] Work Phone: Neutrophils/100 WBC (Bld) 70.5 % 47-70 [facility] Work Phone: Potassium [Moles/Vol] 4.0 mmol/L 3.5-5.1 [facility] Work [facility]: Protein [Mass/Vol] 6.8 g/dL 6.4-8.2 [facility]: [phone] Sodium [Moles/Vol] 142 mmol/L 136-145 [facility] Work Phone: WBC (Bld) [#/Vol] 7.3 10*3/uL 4.4-11.0 [facility] Work Phone: Blood erythrocytes count (nu mber/volume)on 03-24-2022 RBC (Bld) [#/Vol] 4.65 10*6/uL 4.6-6.2 [facility]: Blood hemoglobin measurement (mass/volume)on 03-24-2022 Hemoglobin (Bld) [Mass/Vol] 15.0 g/dL 13.0-16.5 [facility] Work Phone: Blood lymphocytes/100 leukoc yteson 03-24-2022 Lymphocytes/100 WBC (Bld) 17.1 % 19-41 [facility] Work Phone: Blood monocytes/100 leukocyt eson 03-24-2022 Monocytes/100 WBC (Bld) 9.0 % 0-10 [facility] Work Phone: Blood platelet mean volumeon 03-24-2022 Platelet mean volume (Bld) [Entitic vol] 12.0 fL 6.2-12.0 [facility] Work Phone: Determination of erythrocyte mean corpuscular volume (MCV)on 03-24-2022 MCV (RBC) [Entitic vol] 93.1 fL 80-94 [facility] Work Phone: Hematocrit Auto (Bld) [Volum e fraction]on 03-24-2022 Hematocrit (Bld) [Volume fraction] 43.3 % 40-54 [facility] Work Phone: Laboratory - Chemistry and C hemistry - challengeon 03-24-2022 ALP [Catalytic activity/Vol] 69 U/L 45-117 [facility] Work Phone: [phone] ALT [Catalytic activity/Vol] 53 U/L 16-61 [facility] Work Phone: [phone] CO2 [Moles/Vol] 29.0 mmol/L 21.0-32.0 [facility] Work Phone: [phone] Globulin (S) [Mass/Vol] 3.1 g/dL 2.2-4.2 [facility] Work Phone: [phone] Urea nitrogen/Creatinine [Mass ratio] 15.2 mg/mg 10-20 [facility] Work Phone: [phone] Laboratory - Hematology and Cell countson 03-24-2022 Erythrocyte distribution width (RBC) [Entitic vol] 38.9 fL 35.1-43.9 [facility] Work Phone: [phone] Erythrocyte distribution width (RBC) [Ratio] 11.6 % 11.6-14.6 [facility] Work Phone: [phone] Immature granulocytes/100 WBC (Bld) 0.300 % 0.0-0.9 [facility] Work Phone: Comment on above: IG% - Immature Granu locytes (promyelocytes, myelocytes and metamyelocytes) > 1% indicates that a LEFT SHIFT is Present. MCH (RBC) [Entitic mass] 32.3 pg 27.0-32.0 [facility] Work Phone: [phone] Nucleated RBC/100 WBC (Bld) [Ratio] 0 % 0-5 [facility] Work Phone: [phone] MCHC Auto (RBC) [Mass/Vol]on 03-24-2022 MCHC (RBC) [Mass/Vol] 34.6 g/dL 32-36 [facility] Work Phone: No Panel Informationon 03-24 Estimated GFR (MDRD) Amer 92 mL/min >60 [facility] Work Phone: Comment on above: GFR Calc Estimated GFR (MDRD) Non-Af Amer 76 mL/min >60 [facility] Work Phone: Comment on above: Non- GFR Calc Platelets bldon 03-24-2022 Platelets (Bld) [#/Vol] 177 10*3/uL 150-450 [facility] Work Phone: Serum or plasma albumin geovanna urement (mass/volume)on 03-24-2022 Albumin [Mass/Vol] 3.7 g/dL 3.2-5.0 [facility] Work Phone: Serum or plasma albumin/glob ulin mass ratioon 03-24-2022 Albumin/Globulin [Mass ratio] 1.2 {ratio} 0.9-2.4 [facility] Work Phone: Serum or plasma calcium geovanna urement (mass/volume)on 03-24-2022 Calcium [Mass/Vol] 8.9 mg/dL 8.5-10.1 [facility] Work Phone: Serum or plasma creatinine m easurement (mass/volume)on 03-24-2022 Creatinine [Mass/Vol] 1.05 mg/dL 0.70-1.30 [facility] Work Phone: Comment on above: The validity of the calculated GFR & GFRAA in patients over 70 years has not been determined. Clinical correlation is essential. Serum or plasma urea nitroge n measurement (mass/volume)on 03-24-2022 Urea nitrogen [Mass/Vol] 16 mg/dL 7-18 [facility] Work Phone: Thin prep Papanicolaou smear with manual screeningon 03-24-2022 Thin prep Papanicolaou smear with manual screening 25 U/L 15-37 [facility] Work Phone: Thin prep Papanicolaou smear with manual screening 5 5-15 [facility] Work Phone: [phone] Absolute lymphocyte counton 01-07-2022 Lymphocytes Auto (Unsp spec) [#/Vol] 1.71 10*3/uL 0.83-4.51 [facility] Work Phone: Basophil percentageon 2021 Basophils/100 WBC (Bld) 0.2 % 0-1 [facility] Work Phone: [phone] Bilirubin [Mass/Vol] 0.60 mg/dL 0.20-1.00 [facility] Work Phone: Comment on above: For patients on eltr ombopag therapy, use of Dimension [place] TBIL is not recommended. Chloride [Moles/Vol] 105 mmol/L 98-107 [facility] Work Phone: [phone] Eosinophils/100 WBC (Bld) 2.1 % 0-5 [facility] Work Phone: Glucose [Mass/Vol] 108 mg/dL 74-106 [facility] Work Phone: Comment on above: Fasting Glucose resu lt from 100 to 125 mg/dL suggests IMPAIRED HOMEOSTASIS per A.D.A. criteria. Neutrophils (Bld) [#/Vol] 5.4 10*3/uL 2.0-7.7 [facility] Work Phone: [phone] Neutrophils/100 WBC (Bld) 67.2 % 47-70 [facility] Work Phone: [phone] Potassium [Moles/Vol] 3.7 mmol/L 3.5-5.1 [facility] Work Phone: [phone] Protein [Mass/Vol] 7.0 g/dL 6.4-8.2 [facility] Work Phone: [phone] Sodium [Moles/Vol] 139 mmol/L 136-145 [facility] Work Phone: [phone] WBC (Bld) [#/Vol] 8.0 10*3/uL 4.4-11.0 [facility] Work Phone: Blood erythrocytes count (nu mber/volume)on 01-07-2022 RBC (Bld) [#/Vol] 4.79 10*6/uL 4.6-6.2 [facility] Work [facility]: Blood hemoglobin measurement (mass/volume)on 01-07-2022 Hemoglobin (Bld) [Mass/Vol] 15.2 g/dL 13.0-16.5 [facility] Work Phone: Blood lymphocytes/100 leukoc yteson 01-07-2022 Lymphocytes/100 WBC (Bld) 21.3 % 19-41 [facility] Work Phone: Blood monocytes/100 leukocyt eson 01-07-2022 Monocytes/100 WBC (Bld) 9.0 % 0-10 [facility] Work Phone: Blood platelet mean volumeon 01-07-2022 Platelet mean volume (Bld) [Entitic vol] 11.3 fL 6.2-12.0 [facility] Work Phone: Determination of erythrocyte mean corpuscular volume (MCV)on 01-07-2022 MCV (RBC) [Entitic vol] 91.4 fL 80-94 [facility] Work Phone: Erythrocyte sedimentation ra shana 01-07-2022 ESR (Bld) [Velocity] 3 mm/h 0-20 [facility] Work Phone: Hematocrit Auto (Bld) [Volum e fraction]on 01-07-2022 Hematocrit (Bld) [Volume fraction] 43.8 % 40-54 [facility] Work Phone: Laboratory - Chemistry and C hemistry - challengeon 01-07-2022 ALP [Catalytic activity/Vol] 65 U/L 45-117 [facility] Work Phone: ALT [Catalytic activity/Vol] 59 U/L 16-61 [facility] Work Phone: CO2 [Moles/Vol] 29.0 mmol/L 21.0-32.0 [facility] Work Phone: Globulin (S) [Mass/Vol] 3.1 g/dL 2.2-4.2 [facility] Work Phone: Urea nitrogen/Creatinine [Mass ratio] 19.0 mg/mg 10-20 [facility] Work Phone: Laboratory - Hematology and Cell countson 01-07-2022 Erythrocyte distribution width (RBC) [Entitic vol] 39.8 fL 35.1-43.9 [facility] Work Phone: Erythrocyte distribution width (RBC) [Ratio] 11.8 % 11.6-14.6 [facility] Work Phone: Immature granulocytes/100 WBC (Bld) 0.200 % 0.0-0.9 [facility] Work Phone: Comment on above: IG% - Immature Granu locytes (promyelocytes, myelocytes and metamyelocytes) > 1% indicates that a LEFT SHIFT is Present. MCH (RBC) [Entitic mass] 31.7 pg 27.0-32.0 [facility] Work Phone: Nucleated RBC/100 WBC (Bld) [Ratio] 0 % 0-5 [facility] Work Phone: MCHC Auto (RBC) [Mass/Vol]on 01-07-2022 MCHC (RBC) [Mass/Vol] 34.7 g/dL 32-36 [facility] Work Phone: No Panel Informationon 01-07 Estimated GFR (MDRD) Amer 104 mL/min >60 [facility] Work Phone: Comment on above: GFR Calc Estimated GFR (MDRD) Non-Af Amer 86 mL/min >60 [facility] Work Phone: Comment on above: Non- GFR Calc Platelets bldon 01-07-2022 Platelets (Bld) [#/Vol] 175 10*3/uL 150-450 [facility] Work Phone: Serum or plasma C reactive p rotein measurement (mass/volume)on 01-07-2022 CRP [Mass/Vol] mg/L 0.0-3.0 [facility] Work Phone: Comment on above: C-Reactive Protein ( CRP) provides useful information for thediagnosis, therapy and monitoring of inflammatory processesand associated diseases. For the evaluation of Relative Riskfor Cardiovascular Disease, a High Sensitivity CRP (HSCRP)should be ordered. Serum or plasma albumin geovanna urement (mass/volume)on 01-07-2022 Albumin [Mass/Vol] 3.9 g/dL 3.2-5.0 [facility] Work Phone: Serum or plasma albumin/glob ulin mass ratioon 01-07-2022 Albumin/Globulin [Mass ratio] 1.3 {ratio} 0.9-2.4 [facility] Work Phone: Serum or plasma calcium geovanna urement (mass/volume)on 01-07-2022 Calcium [Mass/Vol] 9.2 mg/dL 8.5-10.1 [facility] Work Phone: Serum or plasma creatinine m easurement (mass/volume)on 01-07-2022 Creatinine [Mass/Vol] 0.95 mg/dL 0.70-1.30 [facility] Work Phone: Comment on above: The validity of the calculated GFR & GFRAA in patients over 70 years has not been determined. Clinical correlation is essential. Serum or plasma urea nitroge n measurement (mass/volume)on 01-07-2022 Urea nitrogen [Mass/Vol] 18 mg/dL 7-18 [facility] Work Phone: Thin prep Papanicolaou smear with manual screeningon 01-07-2022 Thin prep Papanicolaou smear with manual screening 25 U/L 15-37 [facility] Work Phone: Thin prep Papanicolaou smear with manual screening 5 5-15 [facility] Work Phone: BMPon 08-23-2017 Anion gap 8 mmol/L Normal 5-16 [facility] Comment on above: Performed By: #### L 500.95348, L500.56455, L500.94903, L500.25548 ####[facility] [id number] [place], [place] [address]Er# [phone] BUN/Creatinine Ratio 12 mg/mg Low 15-24 [facility] Comment on above: Performed By: #### L 500.07951, L500.10428, L500.13707, L500.06339 ####[facility] [id number] [place], [place] [address]Qc# [phone] Calcium 8.8 mg/dL Normal 8.5-10.1 [facility] Comment on above: Performed By: #### L 500.81979, L500.86501, L500.75365, L500.50008 ####[facility] [id number] [place], [place] [address]Yo# [phone] Chloride 107 mmol/L Normal 98-107 [facility] Comment on above: Performed By: #### L 500.57016, L500.91131, L500.22334, L500.38840 ####[facility] [id number] [place], [place] [address]Wa# [phone] CO2 28 mmol/L Normal 21-32 [facility] Comment on above: Performed By: #### L 500.45618, L500.75112, L500.75590, L500.63317 ####[facility] [id number] [place], [place] [address]Ih# [phone] Creatinine 0.882 mg/dL Normal 0.670-1.170 [facility] Comment on above: Result Comment: Freda ents receiving either N-Acetylcysteine (NAC) orMetamizole prior to venipuncture, may have falsely depressedresults. Performed By: #### L 500.37279, L500.05633, L500.22302, L500.58537 ####[facility] [id number] [place], [place] [address]Tx# [phone] Glucose mass conc 104 mg/dL High 70-100 [facility] Comment on above: Result Comment: 70-1 00- Normal Fasting; 100-125 Impaired Fasting; greaterthan 126 on more than one result- Diabetes. ADA guidelines.Results may be falsely elevated after the administration ofSulfapyridine.Results may be falsely depressed after the administration ofSulfasalazine. Performed By: #### L 500.05973, L500.68133, L500.36914, L500.80764 ####[facility] [id number] [place], [place] [address]Du# [phone] Potassium molar conc 4.4 mmol/L Normal 3.5-5.1 [facility] Comment on above: Performed By: #### L 500.34994, L500.15794, L500.43994, L500.43276 ####[facility] [id number] [place], [place] [address]Bc# [phone] Sodium 143 mmol/L Normal 136-145 [facility] Comment on above: Performed By: #### L 500.06239, L500.47412, L500.67045, L500.97273 ####[facility] [id number] [place], [place] [address]Vv# [phone] Urea nitrogen 11 mg/dL Normal 7-26 [facility] Comment on above: Performed By: #### L 500.68271, L500.23372, L500.23367, L500.58020 ####[facility] [id number] [place], [place] [address]Td# [phone] GFR ESTon 08-23-2017 IF AMER Greater than 60 Normal [facility] Comment on above: Performed By: #### L 500.37769, L500.03127, L500.55634, L500.69602 ####[facility] [id number] [place], [place] [address]Kh# [phone] IF non-AFR AMER Greater than 60 Normal [facility] Comment on above: Performed By: #### L 500.83457, L500.46095, L500.98279, L500.70159 ####[facility] [id number] [place], [place] [address]Mz# [phone] LIPIDon 08-23-2017 Cholesterol 129 mg/dL Normal 0-199 [facility] Comment on above: Performed By: #### L 500.81751, L500.44970, L500.85392, L500.49386 ####[facility] [id number] [place], [place] [address]Al# [phone] HDL Cholesterol 51 mg/dL Normal [place] 40 [facility] Comment on above: Result Comment: Freda ents receiving Metamizole prior to venipuncture, mayhave falsely depressed results. Performed By: #### L 500.04735, L500.19213, L500.72110, L500.09497 ####[facility] [id number] [place], [place] [address]Uu# [phone] LDL Cholesterol 60 MG/DL Normal 0-129 [facility] Comment on above: Result Comment: ___C HOLESTEROL/HDL RATIO RISK___ CHD RISK = Total CHOL LDL HDL (CHOL/HDL) -------Recommended <200 <130 >35 <3.4 -Borderline 200-239 130-159 3.4-4.99 -----High >240 >160 >5.0 - Performed By: #### L 500.24764, L500.78359, L500.63625, L500.81748 ####[facility] [id number] [place], [place] [address]Fb# [phone] Triglyceride 92 mg/dL Normal 30-149 [facility] Comment on above: Result Comment: Freda ents receiving either N-Acetylcysteine (NAC) orMetamizole prior to venipuncture, may have falsely depressedresults. Performed By: #### L 500.83236, L500.63711, L500.77574, L500.97650 ####[facility] [id number] [place], [place] [address]Rd# [phone] LIVERon 08-23-2017 Alanine aminotransferase (ALT) 40 U/L Normal 13-61 [facility] Comment on above: Result Comment: RESU LTS MAY BE FALSELY DEPRESSED AFTER THE ADMINISTRATION OFSULFASALAZINE AND/OR SULFAPYRIDINE. Performed By: #### L 500.48804, L500.24627, L500.70070, L500.96363 ####[facility] [id number] [place], [place] [address]Hu# [phone] Albumin 3.9 g/dL Normal 3.2-5.0 [facility] Comment on above: Performed By: #### L 500.22614, L500.89743, L500.33460, L500.10164 ####[facility] [id number] [place], [place] [address]Nk# [phone] Albumin/Globulin Ratio 1.4 {ratio} Normal 0.8-2.0 [facility] Comment on above: Performed By: #### L 500.07817, L500.58197, L500.56202, L500.91266 ####[facility] [id number] [place] [id number]# [phone] ALK PHOS 65 U/L Normal 45-117 [facility] Comment on above: Performed By: #### L 500.98263, L500.31018, L500.36022, L500.06676 ####[facility] [id number] [place] [id number]# [phone] BILI DIRECT 0.13 MG/DL Normal 0.00-0.20 [facility] Comment on above: Performed By: #### L 500.76966, L500.16067, L500.92144, L500.33675 ####[facility] [id number] [place] [id number]# [phone] BILI TOTAL 0.4 MG/DL Normal 0.2-1.0 [facility] Comment on above: Performed By: #### L 500.08171, L500.08946, L500.42810, L500.92552 ####[facility] [id number] [place], [place] [address]Hd# [phone] Globulin 2.8 g/dL Normal 2.2-4.2 [facility] Comment on above: Performed By: #### L 500.43550, L500.91574, L500.02983, L500.53428 ####[facility] [id number] [place], [place] [address]So# [phone] Protein 6.7 g/dL Normal 6.0-8.5 [facility] Comment on above: Performed By: #### L 500.68367, L500.46954, L500.71975, L500.48045 ####[facility] [id number] [place] [id number]# [phone] SGOT (AST) 17 U/L Normal 8-34 [facility] Comment on above: Result Comment: RESU LTS MAY BE FALSELY DEPRESSED AFTER THE ADMINISTRATION OFSULFASALAZINE AND/OR SULFAPYRIDINE. Performed By: #### L 500.30086, L500.06771, L500.91755, L500.38041 ####[facility] [id number] [place], [place] [address]Yh# [phone] Vital Signs Date Time Vital Sign Value Performing Clinician Faci lity 08-19-2023 11:50-0500 Body height 182.9 cm Kemar Navarro MD Work Phone: [facility] 08-19-2023 11:50-0500 Body mass index (BMI) [Ratio] 43.53 kg/m2 Kemar Navarro MD Work Phone: [phone] [address] 08-19-2023 11:50-0500 Body weight 145.6 kg Kemar Navarro MD Work Phone: [phone] [address] 08-19-2023 11:50-0500 Diastolic blood pressure 90 mm[Hg] Kemar Navarro MD Work Phone: [facility] 08-19-2023 11:50-0500 Systolic blood pressure 150 mm[Hg] Kemar Navarro MD Work Phone: [facility] 08-05-2023 09:39-0500 Body height 182.9 cm Kemar Navarro MD Work Phone: [facility] 08-05-2023 09:39-0500 Body mass index (BMI) [Ratio] 43.55 kg/m2 Kemar Navarro MD Work Phone: [facility] 08-05-2023 09:39-0500 Body weight 145.65 kg Kemar Navarro MD Work Phone: [facility] 08-05-2023 09:39-0500 Diastolic blood pressure 90 mm[Hg] Kemar Navarro MD Work Phone: [facility] 08-05-2023 09:39-0500 Heart rate 72 /min Kemar Navarro MD Work Phone: [facility] 08-05-2023 09:39-0500 Systolic blood pressure 150 mm[Hg] Kemar Navarro MD Work Phone: [facility] 06-24-2023 10:50-0500 Diastolic blood pressure 57 mm[Hg] Jesse Trent MD Work Phone: [facility] 06-24-2023 10:50-0500 Heart rate 81 /min Jesse Trent MD Work Phone: [facility] 06-24-2023 10:50-0500 Respiratory rate 18 /min Jesse Trent MD Work Phone: [phone] [place] [address] 06-24-2023 10:50-0500 SaO2% (BldA) [Mass fraction] 94 % Jesse Trent MD Work Phone: [phone] [place] [address] 06-24-2023 10:50-0500 Systolic blood pressure 119 mm[Hg] Jesse Trent MD Work Phone: [facility] 06-24-2023 06:48-0500 Body temperature 97.7 [degF] Jesse Trent MD Work Phone: [phone] [place] [address] 06-23-2023 10:24-0500 Body height 182.9 cm Jesse Trent MD Work Phone: [phone] [address] 06-23-2023 10:24-0500 Body mass index (BMI) [Ratio] 44.35 kg/m2 Jesse Trent MD Work Phone: [facility] 06-23-2023 10:24-0500 Body weight 148.33 kg Jesse Trent MD Work Phone: [facility] 05-18-2023 14:06-0400 Body height 182.9 cm Lucrecia Bustos MD Work Phone: [facility] 05-18-2023 14:06-0400 Body mass index (BMI) [Ratio] 44.35 kg/m2 Lucrecia Bustos MD Work Phone: [facility] 05-18-2023 14:06-0400 Body temperature 98.6 [degF] Lucrecia Bustos MD Work Phone: [facility] 05-18-2023 14:06-0400 Body weight 148.33 kg Lucrecia Bustos MD Work Phone: [facility] 05-18-2023 14:06-0400 Diastolic blood pressure 74 mm[Hg] Lucrecia Bustos MD Work Phone: [facility] 05-18-2023 14:06-0400 Heart rate 88 /min Lucrecia Bustos MD Work Phone: [facility] 05-18-2023 14:06-0400 Respiratory rate 16 /min Lucrecia Bustos MD Work Phone: [facility] 05-18-2023 14:06-0400 Systolic blood pressure 157 mm[Hg] Lucrecia Bustos MD Work Phone: [facility] 09-17-2022 11:28-0500 Body height 182.9 cm Hema Batista DO Work Phone: [facility] 09-17-2022 11:28-0500 Body mass index (BMI) [Ratio] 43.4 kg/m2 Hema Pongonis DO Work Phone: [facility] 09-17-2022 11:28-0500 Body weight 145.15 kg Hema Pongonis DO Work Phone: [facility] 05-01-2022 11:16-0400 Body height 182.9 cm Lucrecia Bustos MD Work Phone: [facility] 05-01-2022 11:16-0400 Body mass index (BMI) [Ratio] 44.35 kg/m2 Lucrecia Bustos MD Work Phone: [facility] 05-01-2022 11:16-0400 Body temperature 98.4 [degF] Lucrecia Bustos MD Work Phone: [facility] 05-01-2022 11:16-0400 Body weight 148.33 kg Lucrecia Bustos MD Work Phone: [facility] 05-01-2022 11:16-0400 Diastolic blood pressure 70 mm[Hg] Lucrecia Bustos MD Work Phone: [facility] 05-01-2022 11:16-0400 Heart rate 72 /min Lucrecia Bustos MD Work Phone: [facility] 05-01-2022 11:16-0400 Respiratory rate 16 /min Lucrecia Bustos MD Work Phone: [facility] 05-01-2022 11:16-0400 Systolic blood pressure 112 mm[Hg] Lucrecia Bustos MD Work Phone: [facility] 02-09-2022 10:06-0400 Body height 182.9 cm Tom Polk MD Work Phone: [facility] 02-09-2022 10:06-0400 Body mass index (BMI) [Ratio] 45.43 kg/m2 Tom Polk MD Work Phone: [facility] 02-09-2022 10:06-0400 Body weight 151.96 kg Tom Polk MD Work Phone: [facility] 02-09-2022 10:06-0400 Heart rate 68 /min Tom Polk MD Work Phone: [facility] 02-09-2022 10:06-0400 SaO2% (BldA) [Mass fraction] 94 % Tom Polk MD Work Phone: [facility] Encounters Encounter Date Encounter Type Care Provider Facility Start: 11-10-2023 ambulatory Kemar Lee Facility:[facility] Start: 10-28-2023 ambulatory KEMAR LEE Facility :[facility] Start: 09-16-2023 ambulatory KEMAR LEE Facility :[facility] Start: 08-19-2023 ambulatory KEMAR LEE Facility :[facility] Start: 08-19-2023 End: 08-19-2023 Subsequent hospital visit by physician Kemar Navarro MD Work Phone: [facility] [place] Start: 08-13-2023 ambulatory KEMAR LEE Facility :[facility] Start: 08-13-2023 End: 08-13-2023 Subsequent hospital visit by physician Lucrecia Bustos MD Work Phone: [facility] Comment on above: Arrived Start: 08-10-2023 End: 08-10-2023 ambulatory [facility] Work Phone: Start: 08-10-2023 End: 08-10-2023 Patient encounter procedure [facility] Work Phone: Start: 08-05-2023 ambulatory SELF SELF Facility:[facility] Start: 08-05-2023 End: 08-05-2023 Office outpatient visit 25 minutes Kemar Navarro MD Work Phone: [facility] [place] Comment on above: 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 Start: 06-23-2023 End: 06-24-2023 ambulatory KEMAR LEE Facility:[facility] Start: 06-23-2023 End: 06-24-2023 Emergency department patient visit Jesse Trent MD Work Phone: [facility] Comment on above: Rheumatoid arthritis involving multiple sites with positive rheumatoid factor Start: 05-18-2023 ambulatory HEMA Mills y:[facility] Start: 05-18-2023 End: 05-18-2023 Office outpatient visit 25 minutes Lucrecia Bustos MD Work Phone: Occupational Medicine [facility] Comment on above: Post-traumatic arthr itis of ankle, left (Primary Dx); Closed displaced intra-articular fracture of left calcaneus, initial encounter; Displaced fracture of body of left calcaneus, sequela; Hammer toe of second toe of left foot; Traumatic arthropathy, left ankle and foot; Sprain of left ankle, unspecified ligament, initial encounter Start: 04-28-2023 End: 04-28-2023 ambulatory Kemar Lee Facility:[facility] Start: 04-28-2023 End: 04-28-2023 Patient encounter procedure [facility] [place] Work Phone: Start: 03-12-2023 ambulatory HEMA [place] y:[facility] Start: 03-12-2023 End: 03-12-2023 Patient encounter procedure Lynnette Ryan Luciensujit Cher Work Phone: [facility] [place] Comment on above: Sensorineural hearin g loss, bilateral (Primary Dx) Start: 02-19-2023 ambulatory BENSON GOTTLIEB Facility: [facility] Start: 02-18-2023 End: 02-18-2023 ambulatory Kemar Lee Facility:[facility] Start: 12-16-2022 End: 12-16-2022 ambulatory Kemar Lee Facility:[facility] Start: 09-17-2022 End: 09-17-2022 Office outpatient visit 15 minutes Hema Batista DO Work Phone: [facility] [place] Comment on above: Rheumatoid arthritis involving multiple sites, unspecified whether rheumatoid factor present (Primary Dx); Segmental and somatic dysfunction of thoracic region; Segmental and somatic dysfunction of lumbar region; Segmental and somatic dysfunction of sacral region Start: 09-16-2022 End: 09-16-2022 ambulatory [facility] Work Phone: Start: 09-16-2022 End: 09-16-2022 Patient encounter procedure [facility] Start: 07-22-2022 End: 07-22-[address] Kemar Lee Work Phone: [facility] Work Phone: Start: 07-22-2022 End: 07-22-[address] Kemar Lee Work Phone: [facility] Start: 05-27-2022 End: 05-28-[address] MOSHE MATTHEW Facility: Start: 05-19-2022 Non-patient / Non-visit Dr. Ravinder Lee Work Phone: [facility] Start: 05-19-2022 End: 05-19-[address] Kemar Lee Work Phone: [facility] Work Phone: Start: 05-19-2022 End: 05-19-[address] Kemar Lee Work Phone: [facility] Start: 05-01-2022 End: 05-01-2022 Office outpatient visit 15 minutes Lucrecia Bustos MD Work Phone: Occupational Medicine [facility] Comment on above: Post-traumatic arthr itis of ankle, left (Primary Dx); Closed displaced intra-articular fracture of left calcaneus, initial encounter; Displaced fracture of body of left calcaneus, sequela; Traumatic degenerative joint disease of foot, left; Traumatic arthropathy, left ankle and foot Start: 04-17-2022 End: 04-17-2022 Patient encounter procedure Lynnette Kwon Work Phone: [facility] [place] Comment on above: Sensorineural hearin g loss, bilateral (Primary Dx) Start: 04-03-2022 End: 04-03-2022 Patient encounter procedure Lynnette Angelo Cher Work Phone: [facility] [place] Comment on above: Sensorineural hearin g loss, bilateral (Primary Dx) Start: 03-24-2022 End: 03-24-2022 ambulatory [facility] Work Phone: Start: 03-24-2022 End: 03-24-2022 Patient encounter procedure [facility] Start: 02-09-2022 Patient encounter procedure [facility] Provider [facility] Start: 02-09-2022 End: 02-09-2022 Office outpatient new 30 minutes Tom Polk MD Work Phone: [facility] [place] Comment on above: Asymmetrical hearing loss (Primary Dx) Start: 01-07-2022 End: 01-07-2022 Patient encounter procedure [facility] Start: 08-23-2017 Ambulatory Hema Pratt Facilit y:[facility] Procedures Date Procedure Procedure Detail Performing Clinician Start: 08-19-2023 Echo tthrc r-t 2d w/wom-mode compl spec&colr d Kemar Navarro MD Work Phone: Start: 08-13-2023 End: 08-13-2023 Ct lower extremity w/o contrast material Lucrecia Bustos MD Work Phone: Start: 06-23-2023 Echo tthrc r-t 2d w/ wo m-mode complete rest&st Estrella Flores [employer]ELOPER[employer] V[employer]OR Work Phone: Start: 06-23-2023 Assay of troponin quantitative Jesse Trent MD Work Phone: Start: 06-23-2023 Lipid panel Estrella murphy [employer] DEVELOPER[employer]ER VENDOR Work Phone: Start: 06-23-2023 Radiologic exam ches t 2 views Rainer Burns MD Work Phone: Start: 06-23-2023 CBC AND ELECTRONIC DIFF Rainer Burns MD Work Phone: Start: 06-23-2023 Complete blood count with white cell differential, automated Rainer Burns MD Work Phone: Start: 06-23-2023 Hemoglobin glycosyla rubens a1c Estrella Flores JAVA XML DEVELOPER-NEWSPAPER VENDOR Work Phone: Start: 06-23-2023 LT BLUE TOP TUBE Shelia Burns MD Work Phone: Start: 06-23-2023 MINT GREEN TOP TUBE Dominic anabella Burns MD Work Phone: Start: 06-23-2023 Lipid 1996 panel - S demetrius or Plasma Jesse Trent MD Work Phone: Plan of Treatment Date Care Activity Detail Author Start: 09-28-2028 Tetanus vaccination TETANUS [facility] Start: 06-23-2028 Lipid panel LIPID SCREENING [facility] Start: 06-23-2024 Potassium [Moles/volume] in Serum or Plasma POTASSIUM [facility] Start: 02-08-2024 End: 02-08-2024 Patient encounter procedure 02/08/2024 1:30 PM EDT Office Visit [facility] [address] [address] Kemar Navarro MD [address] [place] [id number] [facility] [place] Start: 08-19-2023 End: 08-19-2023 Patient encounter procedure 08/19/2023 11:00 AM EST Appointment [facility] [address] [address] Kemar Navarro MD [address] [place] [id number] [facility] [place] Start: 08-13-2023 End: 08-13-2023 Patient encounter procedure [facility] Start: 08-05-2023 End: 08-05-2024 Echocardiography ECHOCARDIOGRAM Echocardiography Routine 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, unspecified whether shoalwater or transplanted heart Essential hypertension Hyperlipidemia, unspecified hyperlipidemia type Aortic root dilatation Expected: 08/05/2023, Expires: 08/05/2024 [facility] Comment on above: Expected: 08/05/2023, Expires: Start: 04-02-2023 COVID-19 VACCINE () COVID-19 VACCINE () [facility] Start: 04-02-2023 Influenza vaccination INFLUENZA VACCINE (#1) [facility] Start: 04-17-2022 End: 04-17-2022 Patient encounter procedure 04/17/2022 Office Visit Audiology Lynnette Angelo, AuD [address] [facility] [address] [place] [id number] [facility] [place] Start: 04-02-2022 Influenza vaccination [facility] Start: 02-23-2022 End: 02-23-2022 Patient encounter procedure 02/23/2022 Office Visit Audiology Bing Bonilla, AuD [address] [address] [facility] [place] Start: 10-31-2021 COVID-19 VACCINE (4 - Booster for Pfizer series) COVID-19 VACCINE (4 - Booster for Pfizer series) [facility] Start: 08-27-2021 COVID-19 VACCINE (4 - Booster for Pfizer series) COVID-19 VACCINE (4 - Booster for Pfizer series) [facility] Start: 08-27-2021 COVID-19 VACCINE (4 - Pfizer series) COVID-19 VACCINE (4 - Pfizer series) [facility] Start: 05-02-2019 Potassium [Moles/volume] in Serum or Plasma POTASSIUM [facility] Start: 01-01-2019 Urine microalbumin profile DTAP,TDAP,TD (2 - Td or Tdap) [facility] Start: 01-10-2016 PROSTATE CANCER SCREENING DISCUSSION PROSTATE CANCER SCREENING DISCUSSION [facility] Start: 01-01-2014 LIPID SCREEN LIPID SCREEN [facility] Start: 01-02-2012 DIABETES SCREEN DIABETES SCREEN [facility] Start: 2011 Prostate specific antigen measurement PROSTATE CANCER SCREENING DISCUSSION [facility] Start: 2011 SHINGRIX VACCINE (1 of 2) SHINGRIX VACCINE (1 of 2) [facility] Start: 2011 Zoster vaccine hzv live for subcutaneous use ZOSTER (SHINGLES) VACCINE (1 of 2) [facility] Start: 2006 COLOGUARD (FIT-DNA) COLOGUARD (FIT-DNA) [facility] Start: 2006 Colonoscopy [facility] Start: 2006 COLORECTAL CANCER SCREENING COLORECTAL CANCER SCREENING [facility] Start: [address] COLONOGRAPHY [facility] Start: 2006 FECAL OCCULT BLOOD FECAL OCCULT BLOOD [facility] Start: 2006 Screening for malignant neoplasm of colon COLORECTAL CANCER SCREENING DISCUSSION [facility] Start: 2006 SIGMOIDOSCOPY SIGMOIDOSCOPY [facility] Start: 2001 Fasting lipid profile LIPID SCREENING [facility] Start: 2001 Lipid panel LIPID SCREENING [facility] Start: 01-10-1980 Third diphtheria, tetanus and acellular pertussis (DTaP) vaccination TDAP (ADULT) [facility] Start: 1979 HEPATITIS C SCREENING HEPATITIS C SCREENING [facility] Start: 1979 HIV SCREENING HIV SCREENING [facility] Start: 1979 Tetanus vaccination TETANUS [facility] Start: 01-10-1976 HIV screening HIV SCREENING DISCUSSION [facility] Start: 1973 Adult depression screening assessment DEPRESSION SCREENING [facility] Start: 1967 PNEUMOCOCCAL VACCINE SERIES (1 - PCV) PNEUMOCOCCAL VACCINE SERIES (1 - PCV) [facility] Start: 1961 COVID-19 VACCINE (#1) COVID-19 VACCINE (#1) [facility] End: 06-23-2023 GOLD TOP TUBE [facility] Comment on above: Once for 1 Occurrences starting 06/23/20 until 06/23/2023 End: 06-23-2023 LAVENDER TOP TUBE [facility] Comment on above: Once for 1 Occurrences starting 06/23/20 until 06/23/2023 Osteopathic manipula tive tx 1-2 body regions VT OSTEOPATHIC MANIP,1-2 BODY REGN VT Charge Routine Segmental and somatic dysfunction of thoracic region Segmental and somatic dysfunction of lumbar region Segmental and somatic dysfunction of sacral region Ordered: 09/17/2022 [facility] Comment on above: Ordered: 09/17/2022 End: 06-23-2023 RAINBOW DRAW [facility] Work Phone: Comment on above: One Time for 1 Occurrences starting 06/03 until 06/23/2023 End: 06-23-2023 Standard ECG ECG ECG STAT One Time for 1 Occurrences starting 06/23/2023 until 06/23/2023 [facility] Comment on above: One Time for 1 Occurrences starting 06/03 until 06/23/2023 Immunizations Immunization Date Immunization Notes Care Provider Ashleigh villa 05-12-2022 influenza virus vaccine, unspecified formulation Lynnette Kwon Work Phone: [facility] 05-02-2021 influenza virus vaccine, unspecified formulation Tom Polk MD Work Phone: [facility] 05-01-2018 influenza, injectabl e, quadrivalent, preservative free Tom Polk MD Work Phone: [facility] 07-06-2016 influenza, injectabl e, quadrivalent, contains preservative Tom Polk MD Work Phone: [facility] 07-02-2014 influenza, seasonal, injectable Tom Polk MD Work Phone: [facility] 07-03-2013 influenza virus vaccine, whole virus Tom Polk MD Work Phone: [facility] 01-01-2009 tetanus toxoid, redu lin diphtheria toxoid, and acellular pertussis vaccine, adsorbed [facility] Provider [facility] Payers Date Payer Category Payer Self-pay [id number] 2022 Unknown [id number] 2014 Unknown [id number] 2012 Unknown [id number] 2012 Unknown [id number] 2008 Unknown [employer] BENEFITS [id number] 2008-Present [address] [place] [address] Indemnity [id number] 1961 Unknown [id number] 1961 Unknown [id number] 1961 Unknown [id number] [id number] 1961 Unknown [id number] 1961 Unknown [id number] [id number] 1961 Unknown [id number] 1961 Unknown [id number] 1961 Unknown [id number] [id number] 1961 Unknown [id number] [id number] 1961 Unknown [id number] [id number] 1961 Unknown [id number] 1961 Unknown [id number] 1959 Unknown [id number] SI Unknown [id number] Unknown [id number] Unknown [id number] Unknown [id number] Unknown [id number] Social History Date Type Detail Facility Start: 05-28-2014 End: 05-28-2014 Tobacco smoking status NYIS Unknown if ever smoked [facility] Start: 1960 Sex Assigned At Male [facility] End: 08-02-1998 History of tobacco use Chews Tobacco [facility] Start: 12-27-2009 End: 08-05-2023 Alcohol intake Current drinker of alcohol (finding) [facility] Start: 12-27-2009 End: 08-05-2023 Alcohol intake [facility] Start: 1960 Sex Assigned At Not on file [facility] Start: 01-16-2011 End: 08-05-2023 Tobacco smoking status NHIS Never smoked tobacco [facility] Start: 01-16-2011 End: 08-05-2023 Tobacco use and exposure Former smokeless tobacco user [facility] Start: 09-07-2022 End: 09-17-2022 Exposure to SARS-CoV-2 (event) Not sure [facility] Start: 09-17-2022 End: 08-05-2023 Tobacco use panel [facility] Gender identity Identifies as pritesh oliveira gender (finding) [facility] Start: 08-05-2023 Tobacco Comment chewed loose l eaf years ago [facility] Medical Equipment Procedure Code Equipment Code Equipment Origin al Text Equipment Identifier Dates Suture [place] [employer] Pushlock 4.5 X28mm [id number] Start: 10-05-2013 Clinical Notes 02-09-2022 to 08-19-2023 Isamar Iverson RN - 08/19/2023 11:00 AM ESTAssessment & Plan Note - Kemar Navarro MD - 08/05/2023 12:46 PM ESTAssessment & Plan Note - Kemar Navarro MD - 08/05/2023 12:46 PM EST Note Date & Type Note Facility 08-19-2023 History of Present illness Narrative Definity Risk Screening: Explained Definity use to patient including potential side effects with emphasis on patient informing the RN/technologist if they develop any symptoms after administration. status: N/A Medication list reviewed. Known sensitivity to Perflutren or Polyethylene Glycol (PEG-containing products such as bowel preparations or laxatives): No Definity dose: 1.5 ml diluted with 8.5 ml saline (start with 1-2 ml, additional doses as needed) Total dose given: 3 ml After administration of Definity contrast, the patient experienced no side effects and was without complaints. IV removed and intact. Adequate hemostasis achieved. documented in this encounter [facility] 08-05-2023 Evaluation + Plan note Associated Problem(s): Hyperlipidemia He will continue his atorvastatin at the 40 mg p.o. q.day at this time. He states that his primary care physician has been monitoring this. [facility] 08-05-2023 Evaluation + Plan note Associated Problem(s): Essential hypertension Again he states his blood pressure is usually better than what it is in the office today. He was asked to continue his medical therapy and monitor his blood pressure. If his blood pressure trends are found to be elevating over time then he may need further adjustment of his antihypertensive regimen. [facility] 08-05-2023 Miscellaneous Notes Associated Problem(s): Hyperlipidemia He will continue his atorvastatin at the 40 mg p.o. q.day at this time. He states that his primary care physician has been monitoring this. Associated Problem(s): Essential hypertension Again he states his blood pressure is usually better than what it is in the office today. He was asked to continue his medical therapy and monitor his blood pressure. If his blood pressure trends are found to be elevating over time then he may need further adjustment of his antihypertensive regimen. Associated Problem(s): Aortic root dilatation His previous echocardiogram suggested an element of aortic root dilatation-mild. Thus would be prudent to obtain a formal echocardiogram to reassess his aortic root size, etc. and how it needs to be further followed over time. 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 This has been evaluated in the past noninvasively with additional cardiovascular studies such as stress myocardial perfusion studies and his recent dobutamine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 Procedures CT ANKLE LEFT WITHOUT CONTRAST VT CT SCAN,LOWER EXTREMITY,W/O CONTRAST Lucrecia Bustos MD [address] [place] [address] Referral ID Status Reason Start Date Expiration Date Visits Re quested Visits Authorized [id number] Closed 07/29/2023 08/22/2024 1 1 Specialty Diagnoses / Procedures Referred By Ramana t Referred To Contact Diagnoses 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, unspecified whether shoalwater or transplanted heart Essential hypertension Hyperlipidemia, unspecified hyperlipidemia type Aortic root dilatation Procedures ECHOCARDIOGRAM VT ECHO HEART XTHORACIC,COMPLETE W DOPPLER Kemar Navarro MD [address] [facility] [address] [place] [address] Referral ID Status Reason Start Date Expiration Date Visits Re quested Visits Authorized [id number] Closed 08/05/2023 08/29/2024 1 1 Care Teams (unrecognized sec tion and content) Nurse Practitioner Per Diem Relationship Specialty Start Date End Date Aidan Pedro MD PCP - Referring 1 Pulmonary Disease 05/02/18 Willow Ramirez, JAVA XML DEVELOPER-NEWSPAPER VENDOR [address] [facility] [address] [place] [address] PCP - Referring 2 Certified Nurse Practitioner 05/02/18 Alice Waters MD [address] [facility] [address] [place] [address] PCP - Referring 3 Rheumatology 05/02/18 Bj Hodge MD [address] [place] [phone] PCP - Referring 4 Cardiovascular Medicine 05/02/18 Hema Pratt MD [address] [place] [address] PCP - General Family Medicine 05/02/18 Nurse Practitioner Per Diem Relationship Specialty Start Date End Date Aidan Pedro MD PCP - Referring 1 Pulmonary Disease 05/02/18 Willow Ramirez, JAVA XML DEVELOPER-NEWSPAPER VENDOR [address] [facility] [address] [place] [address] PCP - Referring 2 Certified Nurse Practitioner 05/02/18 Alice Watres MD [address] [facility] [address] [place] [phone] PCP - Referring 3 Rheumatology 05/02/18 Bj Hodge MD [address] [place] [phone] PCP - Referring 4 Cardiovascular Disease 05/02/18 Hema Pratt MD [address] [place] [phone] PCP - General Family Medicine 05/02/18 Nurse Practitioner Per Diem Relationship Specialty Start Date End Date Aidan Pedro MD PCP - Referring 1 Pulmonary Disease 05/02/18 Willow Ramirez, JAVA XML DEVELOPER-NEWSPAPER VENDOR [address] [facility] [address] [place] [address] PCP - Referring 2 Certified Nurse Practitioner 05/02/18 Alice Waters MD [address] [facility] [address] [place] [address] PCP - Referring 3 Rheumatology 05/02/18 Bj Hodge MD [address] [place] [phone] PCP - Referring 4 Cardiovascular Disease 05/02/18 Hema Pratt MD [address] [place] [phone] PCP - General Family Medicine 05/02/18 Nurse Practitioner Per Diem Relationship Specialty Start Date End Date Aidan Pedro MD PCP - Referring 1 Pulmonary Disease 05/02/18 Willow Ramirez, JAVA XML DEVELOPER-NEWSPAPER VENDOR 2049 [facility] [address] [place] [phone] PCP - Referring 2 Certified Nurse Practitioner 05/02/18 Alice Waters MD [address] [facility] [address] [place] [address] PCP - Referring 3 Rheumatology 05/02/18 Bj Hodge MD [address] [place] [phone] PCP - Referring 4 Cardiovascular Disease 05/02/18 Hema Pratt MD [address] [place] [phone] PCP - General Family Medicine 05/02/18 Nurse Practitioner Per Diem Relationship Specialty Start Date End Date Aidan Pedro MD PCP - Referring 1 Pulmonary Disease 05/02/18 Willow Ramirez, JAVA XML DEVELOPER-NEWSPAPER VENDOR [address] [facility] [address] [place] [address] PCP - Referring 2 Certified Nurse Practitioner 05/02/18 Alice Waters MD [address] [facility] [address] [place] [address] PCP - Referring 3 Rheumatology 05/02/18 Bj Hodeg MD [address] [place] [address] PCP - Referring 4 Cardiovascular Disease 05/02/18 Hema Pratt MD [address] [place] [address] PCP - General Family Medicine 05/02/18 Team Status: Active Member Role Status Dates Dr. Kemar Lee MD Family Provider Active Dr. Kemar Lee MD Primary Care Provider Active Team Status: Inactive Member Role Status Dates Dr. Kemar Lee MD Primary Care Provider Active Dr. Alice Waters MD Attending Provider Active Nurse Practitioner Per Diem Relationship Specialty Start Date End Date Aidan Pedro MD PCP - Referring 1 Pulmonary Disease 05/02/18 Willow Ramirez, JAVA XML DEVELOPER-NEWSPAPER VENDOR 2049 [facility] [address] [place] [phone] PCP - Referring 2 Certified Nurse Practitioner 05/02/18 Alice Waters MD [address] [facility] [address] [place] [phone] PCP - Referring 3 Rheumatology 05/02/18 Bj Hodge MD [address] [place] [address] PCP - Referring 4 Cardiovascular Disease 05/02/18 Hema Pratt MD [address] [place] [phone] PCP - General Family Medicine 05/02/18 Nurse Practitioner Per Diem Relationship Specialty Start Date End Date Aidan Pedro MD PCP - Referring 1 Pulmonary Disease 05/02/18 Willow Ramirez APRN-NEWSPAPER VENDOR 2049 [facility] [address] [place] [address] PCP - Referring 2 Certified Nurse Practitioner 05/02/18 Alice Waters MD [address] [facility] [address] [place] [address] PCP - Referring 3 Rheumatology 05/02/18 Bj oHdge MD [address] [place] [address] PCP - Referring 4 Cardiovascular Disease 05/02/18 Hema Pratt MD [address] [place] [address] PCP - General Family Medicine 05/02/18 Nurse Practitioner Per Diem Relationship Specialty Start Date End Date Aidan Pedro MD PCP - Referring 1 Pulmonary Disease 05/02/18 Willow Ramirez JAVA XML DEVELOPER-NEWSPAPER VENDOR [address]49 [facility] [facility] [address] [place] [address] PCP - Referring 2 Certified Nurse Practitioner 05/02/18 Alice Waters MD [address] [place] [phone] PCP - Referring 3 Rheumatology 05/02/18 Bj Hodge MD [address] [place] [address] PCP - Referring 4 Cardiovascular Disease 05/02/18 Kemar Lee MD [address] [place], [place] [phone] PCP - General Family Medicine 06/23/23 Nurse Practitioner Per Diem Relationship Specialty Start Date End Date Aidan Pedro MD PCP - Referring 1 Pulmonary Disease 05/02/18 Willow Ramirez, JAVA XML DEVELOPER-NEWSPAPER VENDOR 2049 [facility] [address] [place] [address] PCP - Referring 2 Certified Nurse Practitioner 05/02/18 Alice Waters MD [address] [place] [address] PCP - Referring 3 Rheumatology 05/02/18 Bj Hodge MD [address] [facility] [address] PCP - Referring 4 Cardiovascular Disease 05/02/18 Kemar Lee MD [address] [place], [place] [phone] PCP - General Family Medicine 06/23/23 Team Status: Inactive Member Role Status Dates Dr. Kemar Lee MD Primary Care Provi donovan, Attending Provider, Referring Provider Active Dr. Alice Waters MD Other Provider Active Team Status: Inactive Member Role Status Dates Dr. Kemar Lee MD Primary Care Provider, Other Pro vider Active Dr. Alice Waters MD Attending Provider, Referring Provider Active Nurse Practitioner Per Diem Relationship Specialty Start Date End Date Aidan Pedro MD PCP - Referring 1 Pulmonary Disease 05/02/18 Willow Ramirez, JAVA XML DEVELOPER-[facility] 0 [facility] [address] [place] [address] PCP - Referring 2 Certified Nurse Practitioner 05/02/18 Alice Waters MD [address] [facility] [address] [place] [phone] PCP - Referring 3 Rheumatology 05/02/18 Bj Hodge MD [address] [place] [address] PCP - Referring 4 Cardiovascular Disease 05/02/18 Kemar Lee MD [address] [facility] [address] [place], [place] [phone] PCP - General Family Medicine 06/23/23 Nurse Practitioner Per Diem Relationship Specialty Start Date End Date Aidan Pedro MD PCP - Referring 1 Pulmonary Disease 05/02/18 Willow Ramirez, JAVA XML DEVELOPER-NEWSPAPER VENDOR [address] [facility] [address] [place] [address] PCP - Referring 2 Certified Nurse Practitioner 05/02/18 Alice Waters MD [address] [facility] [address] [place] [address] PCP - Referring 3 Rheumatology 05/02/18 Bj Hodge MD [address] [place] [address] PCP - Referring 4 Cardiovascular Disease 05/02/18 Kemar Lee MD [address] [place], [place] [phone] PCP - General Family Medicine 06/23/23 Scheduled Active and Recently Administ ered Medications (unrecognized section and content) Medication Order 06/22/2023 06/23/2023 06/24/2023 aspirin chewable tablet 243 mg (COMPLETED) 243 mg, Oral, ONCE, 1 dose, On Wed06/23/23 at 1245 1244 (Given - Provider: Princess Lew RN) aspirin chewable tablet 81 mg 81 mg, Oral, DAILY, First dose on Wed06/24/23 at 0900, Until Discontinued 813 (Given - Provid er: Princess Lew RN) Atorvastatin (LIPITOR) tablet 40 mg 40 mg, Oral, DAILY AT BEDTIME, First dose (after last modification) on Wed06/23/23 at 2100, Until Discontinued 2008 (Given - Provider: Gabriela Ray RN) hydroCHLOROthiazide (HYDRODIURIL) tablet 25 mg 25 mg, Oral, DAILY, First dose on Wed06/23/23 at 1315, Until Discontinued 1244 (Not Given - Provider: Princess Lew RN - Reason: Other) 0814 (Given - Provider: Princess Lew RN) Hydroxychloroquine (PLAQUENIL) tablet 200 mg 200 mg, Oral, 2 TIMES DAILY, First dose (after last modification) on Wed06/23/23 at 2015, Until Discontinued 2102 (Given - Provider: Gabriela Ray RN) 814 (Given - Provider: Princess Lew RN) Losartan (COZAAR) tablet 50 mg 50 mg, Oral, DAILY, First dose (after last modification) on Wed06/24/23 at 0900, Until Discontinued 813 (Given - Provid er: Princess Lew RN) magnesium oxide (MAG-OX) tablet 400 mg (COMPLETED) 400 mg, Oral, ONCE, 1 dose, On Wed06/23/23 at 1830 1839 (Given - Provider: Princess Lew RN) Perflutren Lipid Microsphere (DEFINITY) 1.5 mL in Normal saline flush 0.9% 8.5 mL (COMPLETED) 1-10 mL, Intravenous, ONCE, 1 dose, On Wed06/23/23 at 1430, FOR ECHO PROCEDURE ONLY Dilute 1.3 mL of Definity with 8.7 mL of 0.9% sodium chloride and draw up in a 10 mL syringe. Administration during procedure as directed by physician. Recorded MAR dose is cumulative amount given during procedure., Echo Procedure 1416 (Given - Radiology - Provider: Carlene Hart RN - Comment: lot#[id number] exp 06/2024) Terazosin (HYTRIN) capsule 2 mg 2 mg, Oral, 2 TIMES DAILY, First dose (after last reorder) on Wed06/23/23 at 2100, Until Discontinued 2102 (Given - Provider: Gabriela Ray RN) 814 (Given - Provider: Princess Lew RN) Continuous Medication Order 06/22/2023 06/23/2023 06/24/2023 DOBUTamine (DOBUTREX) 1 MG/ML premix infusion 10-40 mcg/kg/min 148.3 kg Order-specific weight (88.98-355.92 mL/hr, rounded to 89-355.9 mL/hr), Intravenous, CONTINUOUS, Starting on Wed06/23/23 at 1415, Until Wed06/24/23 at 1359, Initiate at 10mcg/kg/min and titrate to increase by 10 mcg/kg/min every 3 minutes to a maximum dose of 40 mcg/kg/min as directed by physician. , Intra-op/Intra-Proc 1408 ($$New Bag$$ - Provider : Carlene Hart, JEANNETTE)1412 (Rate/Dose Change - Provider: Carlene Hart, RN)1417 (Stopped - Provider: Carlene Hart, RN) Sodium chloride 0.9% IV solution Intravenous, at 20 mL/hr, CONTINUOUS, Starting on Wed06/23/23 at 1415, Until Aileen 06/24/23 at 1359, Pre-op/Pre-Proc 1401 ($$New Bag$$ - Provider : Carlene Hatr, JEANNETTE)1424 (Stopped - Provider: Carlene Hart RN) PRN Medication Order 06/22/2023 06/23/2023 06/24/2023 Acetaminophen (TYLENOL) tablet 650 mg 650 mg, Oral, EVERY 6 HOURS NEEDED, Starting on Wed06/23/23 at 1733, Until Aileen 06/24/23 at 1359, Mild Pain, Oral temp > 100.4 F, Maximum dose of acetaminophen is 4000 mg from all sources in 24 hours. alum/mag hydrox.-simethicone oral suspension 30 mL 30 mL, Oral, EVERY 6 HOURS NEEDED, Starting on Wed06/23/23 at 1733, Until Aileen 06/24/23 at 1359, Indigestion, Per 5 mL is equivalent to: (Alum-Mag Hydroxide 200-225 mg and Simethicone 20 mg) and (Alum-Mag Hydroxide 200-200 mg and Simethicone 20 mg) Atropine injection 0.5 mg 0.5 mg, Intravenous, ADMINISTER DIRECTED, 4 doses, Starting on Wed06/23/23 at 1400, Until Aileen 06/24/23 at 1359, Bradycardia, Up to maximum dose of 2 mg., Intra-op/Intra-Proc FOR RECORDS PERTAINING TO PATIENTS WHO ARE OR HAVE BEEN ENROLLED IN A CHEMICAL DEPENDENCY/SUBSTANCEABUSE PROGRAM, SOME INFORMATION MAY BE OMITTED. This clinical summary was aggregated from multiple sources. Caution should be exercised in using it in the provision of clinical care. This summary normalizes information from multiple sources, and as a consequence, information in this document may materially change the coding, format and clinical context of patient data. In addition, data may be omitted in some cases. CLINICAL DECISIONS SHOULD BE BASED ON THE PRIMARY CLINICAL RECORDS. [facility] [employer] [facility]. provides no warranty or guarantee of the accuracy or completeness of information in this document.
--- NOTE | 2023-11-11 11:48 | P.GSHP_ITS ---
History of Present Illness History of Present Illness Chief complaint: post traumatic arthritis left ankle Narrative: Patient presents for preadmission testing. The patient has a long history of left foot and ankle pain. He underwent ORIF of calcaneal fracture in 2013, followed by subtalar joint arthrodesis and talonavicular and calcaneocuboid joint fusions. The patient states he continues to have discomfort in the ankle and he also has a diagnosis of Rheumatoid arthritis. The patient states his pain is worse when he walks on uneven surfaces. He does take meloxicam which helps give some relief. He denies numbness, tingling, weakness, or any other complaints. Review of Systems ROS Narrative REVIEW OF SYSTEMS: Negative except as stated in HPI, ten or more systems reviewed. Constitutional: No fever , chills, weakness ENT: No sore throat or epistaxis Cardiovascular: No edema, chest pain, palpitations, or activity intolerance Respiratory: No shortness of breath, cough, or wheezing Gastrointestinal: No abdominal pain, constipation, diarrhea, or vomiting Genitourinary: No dysuria or hematuria Neurological: No numbness, tingling, weakness, or headache Psychiatric: No mood changes [facility] Medical History (Updated 11/11/23 @ 11:46 by Malinda Blankenship NP) Arthritis of ankle joint ?M19.079 - Primary osteoarthritis, unspecified ankle and foot (ICD-10) Ankle instability ?M25.373 - Other instability, unspecified ankle (ICD-10) Calcaneal fracture ?S92.009A - Unspecified fracture of unspecified calcaneus, initial encounter for closed fracture (ICD-10) Post-traumatic arthritis of left ankle ?M19.172 - Post-traumatic osteoarthritis, left ankle and foot (ICD-10) Back pain ?M54.9 - Dorsalgia, unspecified (ICD-10) Arthritis ?M19.90 - Unspecified osteoarthritis, unspecified site (ICD-10) Sleep apnea ?G47.30 - Sleep apnea, unspecified (ICD-10) Rheumatoid arthritis ?M06.9 - Rheumatoid arthritis, unspecified (ICD-10) High cholesterol ?E78.00 - Pure hypercholesterolemia, unspecified (ICD-10) Hypertension ?I10 - Essential (primary) hypertension (ICD-10) Surgical History (Updated 11/11/23 @ 11:23 by Malinda Blankenship, FIRE TRUCK DRIVER) History of ankle surgery ?Z98.890 - Other specified postprocedural states (ICD-10) History of ankle surgery ?Z98.890 - Other specified postprocedural states (ICD-10) History of wisdom tooth extraction ?K08.409 - Partial loss of teeth, unspecified cause, unspecified class (ICD- 10) History of arthroscopy of knee ?Z98.890 - Other specified postprocedural states (ICD-10) History of repair of rotator cuff ?Z98.890 - Other specified postprocedural states (ICD-10) History of ankle surgery ?Z98.890 - Other specified postprocedural states (ICD-10) Family History (Updated 11/11/23 @ 11:23 by Malinda Blankenship NP) Other Family history of myocardial infarction Family history of stroke Sepsis Social History (Updated 11/11/23 @ 11:14 by Malinda Blankenship NP) Within the past year, how often did you have a drink containing alcohol: 4 or more times a week Within the past year, how many standard drinks containing alcohol did you have on a typical day: 3 or 4 Smoking status: Never smoker Non-prescribed substance use: denies use Previous occupational history: Instructor [employer] Highest level of school completed/degree received: Master's degree Meds Home Medications and Allergies Home Medications ?Medication ?Instructions ?Recorded ?Confirmed ?Type aspirin 81 mg tablet,delayed 81 mg PO DAILY 11/11/23 11/11/23 History release (Adult Aspirin Regimen) atorvastatin 40 mg tablet 40 mg PO DAILY 11/11/23 11/11/23 History carvedilol 6.25 mg tablet 6.25 mg PO Q12H 11/11/23 11/11/23 History folic acid 1 mg tablet 2 mg PO DAILY 11/11/23 11/11/23 History hydroxychloroquine 200 mg tablet 200 mg PO BID 11/11/23 11/11/23 History losartan 50 mg tablet 75 mg PO DAILY 11/11/23 11/11/23 History meloxicam 15 mg tablet 15 mg PO DAILY 11/11/23 11/11/23 History methotrexate sodium 2.5 mg tablet 17.5 mg PO QWEEK 11/11/23 11/11/23 History terazosin 2 mg capsule 2 mg PO Q12H 11/11/23 11/11/23 History Allergies Allergy/AdvReac Type Severity Reaction Status Date / Time Penicillins Allergy Unknown Verified 11/11/23 11:04 Exam Narrative Exam Narrative: Constitutional: Awake, alert, comfortable, well-appearing, nontoxic, interactive, vital signs as charted Head: Normocephalic, atraumatic Neck: Supple, normal appearance, normal range of motion, no meningeal signs, no lymphadenopathy Respiratory: No respiratory distress, breath sounds clear Cardiovascular: Regular rate and rhythm, strong and regular heart tones Musculoskeletal: Ambulates with an antalgic gait, diffuse left ankle tenderness with palpation, limited range of motion, good capillary refill, sensation intact Skin: No rashes or induration, no lesions, only visible skin inspected Neuro: No neurological deficits, normal sensation Psychiatric: Oriented ?3, normal affect Assessment and Plan Assessment and Plan (1) Post-traumatic arthritis of left ankle: (2) Calcaneal fracture: (3) Ankle instability: (4) Arthritis of ankle joint: Plan Left ankle arthroscopy with lateral gutter debridement and possible arthroplasty, stress exam under fluoroscopy, lateral ankle stabilization, hardware removal, peroneal tendon repair scheduled with Dr. Rea 12/02/2023.
== END 2023-11-11 10:28 | disposition home or self-care (01) ==
LOC: PST 10:31
PROVIDERS: Visit Provider Podiatrist Foot & Ankle Surgery
DX: Z01.812 Encounter for preprocedural laboratory examination (principal); Z01.818 Encounter for other preprocedural examination; M19.172 Post-traumatic osteoarthritis, left ankle and foot; S72.012A Unspecified intracapsular fracture of left femur, initial encounter for closed fracture
CPT/HCPCS: 80048; G0463

== ENCOUNTER 2023-12-02 06:12 | Day surgery (SDC) | payer OTHER, SELFPAY ==
[2023-11-11 11:43] VITALS: BP 166/99; PULSE 71; TEMP 36.5; O2SAT 96; BMI 44.0
[2023-12-02] VITALS (14 sets, daily range): BP systolic 139–154; BP diastolic 77–95; PULSE 73–89; TEMP 36.1–36.9; O2SAT 91–97
--- NOTE | 2023-12-02 | FL_ITS ---
[address] [address] Patient Name: DELBERT SANTOS MRN: [id number] date: 1960 Sex: M Assigned Patient Location: [facility] Current Patient Location: Accession/Order Number: [id number] Exam Date: 12/02/2023 09:28 Report Date: 12/06/2023 10:05 At the request of: DEANGELO MARTINEZ Procedure: FL fluoroscopy <1hr NON-READ EXAM: FL fluoroscopy <1hr NON-READ HISTORY: TECHNIQUE: FINDINGS: Please see Operative Report. Electronically authenticated by: RADIOLOGIST NO Date: 12/06/2023 10:05
--- OUTSIDE RECORDS SUMMARY | 2023-12-02 06:16 | XMS_ITS | CCD ---
Author Organization [facility] Care Team Providers Care Ship Worker Name Role Phone Hema Pratt Unavailable Unavailable Unavailable Primary Care Provider Unavailabl Aidan Medina MD Unavailable [phone] James HUSTON-Willow LAWRENCE Unavailable Alice Waters MD Unavailable Bj Hodge MD Unavailable [phone] Hema Pratt MD Primary Care Provider [phone] Bj Hodge MD Unavailable Dr. Kemar Lee Primary Care Provider Dr. Tien Peter Attending Provider DR MOSHE MATTHEW Consulting Unavailable DEANGELO MARTINEZ Attending Unavailable DEANGELO MARTINEZ Admitting Unavailable DEANGELO MARTINEZ Consulting Unavailable Dr. Kemar Lee Primary Care Provider Dr. Kemar Lee Referring Provider Dr. Tien Peter Attending Provider Aidan Pedro MD Unavailable [phone] Willow Whitney Unavailable Evelin HILL, Alice L Unavailable [phone] Bj Hodge MD Unavailable [phone] Hema Pratt MD Primary Care Provider Aidan Pedro MD Unavailable Willow Whitney Unavailable Evelin HILL, Alice L Unavailable [phone] Ayesha HILL, Bj M Unavailable Hema Pratt MD Primary Care Provider Kemar Lee MD Primary Care Provider KEMAR LEE Primary Care Unavailable KEMAR NAVARRO Attending Unavailable KEMAR NAVARRO Referring Unavailable HEMA PRATT Primary Care Unavailable LYNNETTE ANGELO Attending Unavailable LYNNETTE ANGELO Referring Unavailable BENSON GOTTLIEB Referring Unavailable HEMA PRATT Primary Care Unavailable LYNNETTE ANGELO Attending Unavailable ROSE, KEMAR Colón Primary Care Unavailable SELF, SELF [...] CARDIOLOGY Consulting Unavailable SELF, SELF Referring Unavailable LEE, KEMAR Colón Primary Care Unavailable KEMAR NAVARRO Attending Unavailable Lee, Kemar Primary Care Unavailable Lee, Kemar Consulting Unavailable Vellanki, Alice Attending Unavailable Vellanki, Alice Referring Unavailable Lee, Kemar Primary Care Unavailable Lee, Kemar Attending Unavailable Lee, Kemar Referring Unavailable Vellanki, Alice Consulting Unavailable Lee, Kemar Primary Care Unavailable Vellanki, Alice Referring Unavailable Vellanki, Alice Attending Unavailable Lee, Kemar Primary Care Unavailable Vellanki, Alice Attending Unavailable Vellanki, Alice Referring Unavailable Lee, Kemar Primary Care Unavailable Vellanki, Alice Referring Unavailable Vellanki, Alice Attending Unavailable Lee, Kemar Primary Care Unavailable Vellanki, Alice Attending Unavailable Allergies Allergy Classification Reported Allergen(s) Allergy Type Date of Onset Reaction(s) Facility (8 sources) Penicillin V Drug Allergy 4 Unknown [facility] (6 sources) Penicillins Propensity to adverse reactions 9 [facility] (1 source) Penicillins Drug allergy (disorder) 7 [facility] (8 sources) Penicillins Propensity to adverse reactions to drug 1 [facility] (1 source) Penicillin Drug Allergy 4 [facility] Medications Current Medications Medication Drug Class(es) Dates Sig (Normalized) Sig (Original) acetaminophen 325 mg / oxyCODONE hydrochloride 5 mg oral tablet (8 sources) Opioid Agonist Start: 05-29-2014 take 1 tablet by mouth every four hours as needed Oxycodone-Acetamin ophen Active 1 - 2 TABLET PO EVERY 4 HOURS NEEDED 60 May 29, 2014 12:00am Mild to moderate pain atorvastatin 40 mg oral tablet (20 sources) HMG-CoA Reductase Inhibitor Start: 04-04-2019 End: 06-24-2023 take 1 tablet by mouth once daily atorvastatin 40 MG Tab tablet Take 1 tablet by mouth daily. 90 tablet 3 04/04/2019 Active Start: 05-28-2014 take 20 mg by mouth every other day Atorvastatin Active 20 MG PO EVERY OTHER DAY May 28, 2014 12:00am 12 hr buPROPion hydrochloride 90 mg / naltrexone hydrochloride 8 mg extended release oral tablet (5 sources) Opioid Antagonist, Aminoketone take 2 tablets by mouth twice daily Naltrexone-buPROPion HCl ER (Contrave) 8-90 MG Tab SR 12 HR Take 2 tablets by mouth 2 times daily. Active carvedilol 6.25 mg oral tablet (8 sources) alpha-Adrenergic Jyoti, beta-Adrenergic Jyoti Start: 2022 End: 2023 take 1 tablet by mouth twice daily at mealtime carveDILOL 6.25 MG tablet Indications: 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, unspecified whether [place] or transplanted heart , Essential hypertension , [...] Active docusate sodium 100 mg oral capsule (8 sources) Start: 2013 take 1 capsule by mouth twice daily Docusate Sodium (Dok) 100 MG capsule Active 100 MG PO TWICE A DAY May 29, 2014 12:00am 0.4 ml enoxaparin sodium 100 mg/ml prefilled syringe (8 sources) Low Molecular Weight Heparin Start: 2013 Enoxaparin Active 40 MG SC DAILY@0600 May 29, 2014 12:00am Begin AM of 05/30/14 esomeprazole 20 mg delayed release oral capsule (8 sources) Proton Pump Inhibitor Start: 2013 take 1 capsule by mouth once daily Esomeprazole Magnesium (Nexium) 20 MG capsule Active 20 MG PO DAILY May 28, 2014 12:00am Fluticasone Propion-Salmeterol (16 sources) Corticosteroid, beta2-Adrenergic Agonist Start: 2013 take [...] Discontinued folic acid 1 mg oral tablet (10 sources) Start: 04-30-2022 take 2 tablets by mouth once daily folic acid 1 MG tablet Take 2 tablets by mouth daily. 04/30/2022 Active Start: 04-30-2022 folic acid 1 M G tablet gabapentin 300 mg oral capsule (16 sources) Anti-epileptic Agent Start: 05-28-2014 End: 05-29-2014 take 300 mg by mouth three times daily at mealtime Gabapentin Active 300 MG PO 3 TIMES DAILY WITH MEALS May 29, 2014 11:06am HYDROmorphone hydrochloride 2 mg oral tablet (8 sources) Opioid Agonist Start: 05-29-2014 take 2 mg by mouth every four hours as needed Hydromorphone Active 2 MG PO EVERY 4 HOURS NEEDED May 29, 2014 12:00am losartan potassium 50 mg oral tablet (20 sources) Angiotensin 2 Receptor Jyoti Start: 07-08-2018 take 1.5 tablets by mouth once daily losartan (COZAAR) 50 MG Tab tablet Take 1.5 tablets by mouth daily. 135 tablet 3 07/08/2018 Active Start: 05-28-2014 End: 06-24-2023 take 50 mg by mouth once daily Losartan Active 50 MG P O DAILY May 28, 2014 12:00am meloxicam 15 mg oral tablet (6 sources) Nonsteroidal Anti-inflammatory Drug Start: 09-16-2023 take 1 tablet by mouth once daily Meloxicam 15 MG tablet Take 1 tablet by mouth daily. 30 tablet 3 09/16/2023 Active Start: 09-01-2019 End: 09-17-2022 take 1 tablet by mouth once daily meloxicam 15 MG Tab tablet Take 1 tablet by mouth daily. Please provide capsules rather than tablets. 30 tablet 3 09/01/2019 09/17/2022 Discontinued (Therapy completed) methotrexate 2.5 mg oral tablet (10 sources) Folate Analog Metabolic Inhibitor Start: 04-30-2022 methotrexate 2.5 MG tablet Take 7 tablets by mouth every 7 days. 04/30/2022 Active Start: 04-30-2022 methotrexate 2 .5 MG tablet predniSONE 10 mg oral tablet (13 sources) Start: 01-28-2022 predniSONE 10 MG tablet prn 01/28/2022 Active terazosin 2 mg oral capsule (20 sources) alpha-Adrenergic Jyoti Start: 05-28-2014 take 2 mg by mouth once daily Terazosin Active 2 MG PO DAILY May 28, 2014 12:00am Start: 02-12-2012 End: 06-24-2023 take 1 capsule [...] / HYDROcodone bitartrate 5 mg oral tablet (8 sources) Opioid Agonist Start: 05-14-2014 End: 05-29-2014 take 1 tablet by mouth every four hours as needed Hydrocodone-Acetam inophen Discontinued 1 TABLET PO EVERY 4 HOURS NEEDED May 14, 2014 12:00am May 29, 2014 11:06am aluminum hydroxide 40 mg/ml / magnesium hydroxide [...] d aily. aspirin 81 mg chewable tablet (16 sources) Platelet Aggregation Inhibitor, Nonsteroidal Anti-inflammatory Drug Start: 06-24-2023 End: 06-24-2023 aspirin chewable tablet 81 mg Start: 06-23-2023 End: 06-23-2023 aspirin chewable tablet 243 mg Start: 05-28-2014 take 81 mg by mouth once daily Aspirin Active 81 MG PO DAILY@0800 May 28, 2014 12:00am Start: 01-01-2009 aspirin(ASPIR- LOW 81 MG TAB) [...] Discontinued hydroxychloroquine sulfate 200 mg oral tablet (14 sources) Antimalarial, Antirheumatic Agent Start: 2022 End: 2022 Hydroxychloroquine (PLAQUENIL) tablet 200 mg magnesium oxide 400 mg oral tablet (1 source) Start: 2022 End: 2022 magnesium oxide (MAG-OX) tablet 400 mg Perflutren Lipid Microsphere (DEFINITY) 1.5 mL in [...] Chronic Aortic; peripheral; and visceral artery aneurysms (9 sources) Aortic root dilatation; Translations: [Thoracic aortic ectasia] Onset: 08-05-2023 08-05-2023 Chronic Coronary atherosclerosis and other heart disease (17 sources) Coronary atherosclerosis; Translations: [Atherosclerotic heart disease of [place] coronary artery without angina pectoris] Onset: 05-02-2018 05-02-2018 Chronic Disorders of lipid metabolism (10 sources) Hyperlipidemia; Translations: [Hyperlipidemia, unspecified] Onset: 01-01-2009 04-04-2009 Chronic Essential hypertension (10 sources) Essential hypertension; Translations: [Essential (primary) hypertension] Onset: 01-01-2009 01-01-2009 Chronic Fracture of lower limb (10 sources) Closed fracture calcaneus, intra-articular ; Translations: [Displaced intraarticular fracture of left calcaneus, initial encounter for closed fracture] Onset: 09-16-2023 Episodic Joint disorders and dislocations; trauma-related (8 sources) Traumatic arthropathy of the ankle and/or foot; Translations: [Traumatic arthropathy, left ankle and foot] Onset: 05-27-2022 Chronic Osteoarthritis (7 sources) Traumatic arthropathy-ankle; Translations: [Post-traumatic osteoarthritis, left ankle and foot] Onset: 09-16-2023 Chronic Other aftercare (1 source) Other senior living (current) drug therapy; Translations: [Other marine oil terminal superintendent (current) drug therapy] Onset: 11-25-2023 Episodic Other bone disease and musculoskeletal deformities (3 sources) Segmental and somatic dysfunction; Translations: [Segmental and somatic dysfunction of thoracic region] Episodic Other circulatory disease (13 sources) Raynaud's disease; Translations: [Raynaud's syndrome without gangrene] Onset: 01-23-2011 01-23-2011 Chronic Other ear and sense organ disorders (1 source) Asymmetrical hearing loss; Translations: [Other specified hearing loss, unspecified ear] Chronic Other ear and sense organ disorders (17 sources) Sensorineural hearing loss, bilateral; Translations: [Sensorineural hearing loss, bilateral] Onset: 10-25-2013 10-25-2013 Chronic Other ear and sense organ disorders (1 source) Sensorineural hearing loss, bilateral; Translations: [Sensorineural hearing loss, bilateral] Onset: 10-25-2013 Chronic Other nutritional; endocrine; and metabolic disorders (1 source) Obesity; Translations: [Obesity, unspecified] Onset: 01-01-2009 01-01-2009 Chronic Other nutritional; endocrine; and metabolic disorders (13 sources) Body mass index 40+ - severely obese; Translations: [Morbid (severe) obesity due to excess calories] Onset: 07-02-2017 07-02-2017 Chronic Other nutritional; endocrine; and metabolic disorders (13 sources) Severe obesity; Translations: [Morbid (severe) obesity due to excess calories] Onset: 05-01-2018 05-01-2018 Chronic Other upper respiratory disease (1 source) Allergic rhinitis; Translations: [Allergic rhinitis, unspecified] Onset: 01-01-2009 01-01-2009 Chronic Residual codes; unclassified (13 sources) Obstructive sleep apnea syndrome; Translations: [Obstructive sleep apnea (adult) (pediatric)] Onset: 07-03-2013 07-03-2013 Chronic Rheumatoid arthritis and related disease (10 sources) Rheumatoid arthritis of multiple joints; Translations: [Rheumatoid arthritis, unspecified] Onset: 06-23-2023 Chronic Unclassified (1 source) Unknown / UNK(Unknown) Onset: 08-23-2017 Unclassified (13 sources) Reflux; Translations: [Reflux] Onset: 01-15-2012 01-15-2012 Past or Other Problems Problem Classification Problem Date Documented Date Episodic/Chronic Immunizations and screening for infectious disease (13 sources) Scl 70 antibody positive; Translations: [Other specified abnormal immunological findings in serum] Onset: 08-24-2011 08-24-2011 Episodic Nonspecific chest pain (19 sources) Chest pain; Translations: [Chest pain, unspecified] Onset: 04-30-2018 04-30-2018 Episodic Other connective tissue disease (13 sources) Swelling of finger ; Translations: [Other specified soft tissue disorders] Onset: 01-23-2011 01-23-2011 Episodic Other connective tissue disease (13 sources) Full thickness rotator cuff tear; Translations: [Complete rotator cuff tear or rupture of unspecified shoulder, not specified as traumatic] Onset: 04-09-2014 04-09-2014 Episodic Other ear and sense organ disorders (13 sources) Presbycusis; Translations: [Presbycusis, unspecified ear] Onset: 10-19-2013 10-19-2013 Episodic Residual codes; unclassified (13 sources) Sleep apnea; Translations: [Sleep apnea, unspecified] Onset: 01-15-2012 Resolved: 06-20-2012 06-20-2012 Chronic Residual codes; unclassified (1 source) Edema; Translations: [Edema, unspecified] Onset: 12-27-2009 12-27-2009 Episodic Sprains and strains (3 sources) Sprain of left ankle; Translations: [Sprain of unspecified ligament of left ankle, initial encounter] Onset: 07-29-2023 05-18-2023 Episodic Unclassified (1 source) E78.00,I10 HYPERCHOLESTROLEMIA, HYPERTENSIO Onset: 08-23-2017 Results Test Name Value Interpretation Reference Range Facility [facility] 11-25-2023 Liver [facility] Imaging Services [address] [place] [address] Liver MR#: [id number] Acct: [id number] Name: DELBERT SZYMANSKI Rep #: [id number] : 1960 M 63 From: Rene Grace DO PCP: Dr. Kemar Lee MD Status: REG CLI Study: Liver Date of Exam: 11/25/23 Exam# [id number] Ordering [place]: [place] [id number] INDICATION: ELEVATED LIVER ENZYMES EXAMINATION: Ultrasound US Abdomen Limited (quadrant) TECHNIQUE: Rodriguez scale and color doppler imaging was performed of the right upper quadrant. COMPARISON: FINDINGS: LIVER: There is fatty echotexture measuring 17.6 cm. No focal hepatic lesion. There is no free fluid. GALLBLADDER AND BILIARY TREE: Cholelithiasis. No pericholecystic fluid or gallbladder wall thickening is demonstrated. The proximal common bile duct measures 4.0 mm, which is within normal limits for the patient''s age. Songraphic Jeffers''s sign: Negative. PANCREAS: Limited visualization of the pancreas. No pancreatic ductal dilatation. RIGHT KIDNEY: 13.5 x 5.9 x 5.0 cm. The cortex is 14 mm. No hydronephrosis. No shadowing calculi. US/Liver IMPRESSION: Fatty liver. Cholelithiasis. Electronically Signed: Rene Grace DO at 19:23 EDT , CC: Dr. Alice Waters MD; Dr. Kemar Lee MD Renewable Energy Project Manager: Signed Normal [facility] Absolute lymphocyte countOrd ered By: Alice Waters on 11-10-2023 Lymphocytes Auto (Unsp spec) [#/Vol] 0.84 10*3/uL 0.83-4.51 [facility] Automated lymphocyte count a s percentage of total leukocytesOrdered By: Alice Waters on 11-10-2023 Lymphocytes/100 WBC Auto (Unsp spec) 14.6 % 19-41 [facility] Basophil percentageOrdered B y: Alice Waters on 11-10-2023 Basophils/100 WBC (Bld) 0.5 % 0-1 [facility] Bilirubin [Mass/Vol] 1.00 mg/dL 0.20-1.00 [facility] Comment on above: For patients on eltr ombopag therapy, use of Dimension [place] TBIL is not recommended. Chloride [Moles/Vol] 108 mmol/L 98-107 [facility] Eosinophils/100 WBC (Bld) 4.0 % 0-5 [facility] Glucose [Mass/Vol] 125 mg/dL 74-106 [facility] Comment on above: Fasting Glucose resu lt from 100 to 125 mg/dL suggests IMPAIRED HOMEOSTASIS per A.D.A. criteria. Hemoglobin (Bld) [Mass/Vol] 14.2 g/dL 13.0-16.5 [facility] Monocytes/100 WBC (Bld) 7.3 % 0-10 [facility] Neutrophils (Bld) [#/Vol] 4.2 10*3/uL 2.0-7.7 [facility] Neutrophils/100 WBC (Bld) 73.4 % 47-70 [facility] Potassium [Moles/Vol] 4.2 mmol/L 3.5-5.1 [facility] Protein [Mass/Vol] 6.3 g/dL 6.4-8.2 [facility] Sodium [Moles/Vol] 140 mmol/L 136-145 [facility] WBC (Bld) [#/Vol] 5.8 10*3/uL 4.4-11.0 [facility] CBC W/Diff, Automatedon 10-31 Absolute Lymph 0.84 X10 3/uL Normal 0.83-4.51 [facility] Comment on above: Performed By: #### L 500.4050, L100.0100 #### [facility] [address] [place], [address] Absolute Neut 4.2 X10 3/uL Normal 2.0-7.7 [facility] Comment on above: Performed By: #### L 500.4050, L100.0100 #### [facility] [address] [place], [address] Basophils/100 WBC (Bld) 0.5 % Normal 0-1 [facility] Comment on above: Performed By: #### L 500.4050, L100.0100 #### [facility] [address] [place], [address] Eosinophils/100 WBC (Bld) 4.0 % Normal 0-5 [facility] Comment on above: Performed By: #### L 500.4050, L100.0100 #### [facility] [address] [place], [address] Erythrocyte distribution width (RBC) [Ratio] 12.2 % Normal 11.6-14.6 [facility] Comment on above: Performed By: #### L 500.4050, L100.0100 #### [facility] [address] [place], [address] Hematocrit (Bld) [Volume fraction] 41.6 % Normal 40-54 [facility] Comment on above: Performed By: #### L 500.4050, L100.0100 #### [facility] [address] [place], [address] Hemoglobin (Bld) [Mass/Vol] 14.2 g/dL Normal 13.0-16.5 [facility] Comment on above: Performed By: #### L 500.4050, L100.0100 #### [facility] [address] [place], [address] IG% 0.200 Normal 0.0-0.9 [facility] Comment on above: Result Comment: IG% - Immature Granulocytes (promyelocytes, myelocytes and metamyelocytes) > 1% indicates that a LEFT SHIFT is Present. Performed By: #### L 500.4050, L100.0100 #### [facility] [address] [place], [address] Lymphocytes/100 WBC (Bld) 14.6 % Low 19-41 [facility] Comment on above: Performed By: #### L 500.4050, L100.0100 #### [facility] [address] [place], [address] MCH (RBC) [Entitic mass] 33.3 pg High 27.0-32.0 [facility] Comment on above: Performed By: #### L 500.4050, L100.0100 #### [facility] [address] [place], [address] MCHC (RBC) [Mass/Vol] 34.1 g/dL Normal 32-36 [facility] Comment on above: Performed By: #### L 500.4050, L100.0100 #### [facility] [address] [place], [address] MCV (RBC) [Entitic vol] 97.7 fL High 80-94 [facility] Comment on above: Performed By: #### L 500.4050, L100.0100 #### [facility] [address] [place], [address] Monocytes/100 WBC (Bld) 7.3 % Normal 0-10 [facility] Comment on above: Performed By: #### L 500.4050, L100.0100 #### [facility] [address] [place], [address] Neutrophils/100 WBC (Bld) 73.4 % High 47-70 [facility] Comment on above: Performed By: #### L 500.4050, L100.0100 #### [facility] [address] [place], [address] Nucleated RBC (Bld) [#/Vol] 0 10*3/uL Normal 0-5 [facility] Comment on above: Performed By: #### L 500.4050, L100.0100 #### [facility] [address] [place], [address] Platelet mean volume (Bld) [Entitic vol] 11.5 fL Normal 6.2-12.0 [facility] Comment on above: Performed By: #### L 500.4050, L100.0100 #### [facility] [address] [place], [address] Platelets (Bld) [#/Vol] 155 10*3/uL Normal 150-450 [facility] Comment on above: Performed By: #### L 500.4050, L100.0100 #### [facility] [address] [place], [address] RBC (Bld) [#/Vol] 4.26 10*6/uL Low 4.6-6.2 [facility] Comment on above: Performed By: #### L 500.4050, L100.0100 #### [facility] [address] [place], [address] RDW SD 43.6 fl Normal 35.1-43.9 [facility] Comment on above: Performed By: #### L 500.4050, L100.0100 #### [facility] [address] [place], [address] WBC (Bld) [#/Vol] 5.8 10*3/uL Normal 4.4-11.0 [facility] Comment on above: Performed By: #### L 500.4050, L100.0100 #### [facility] [address] [place], [address] Comprehensive Metabolic Prof ilon 11-10-2023 Albumin [Mass/Vol] 3.4 g/dL Normal 3.2-5.0 [facility] Comment on above: Performed By: #### L 500.4050, L100.0100 #### [facility] [address] [place], [address] Albumin/Globulin [Mass ratio] 1.2 {ratio} Normal 0.9-2.4 [facility] Comment on above: Performed By: #### L 500.4050, L100.0100 #### [facility] [address] [place], [address] ALK P 59 U/L Normal 45-117 [facility] Comment on above: Performed By: #### L 500.4050, L100.0100 #### [facility] [address] [place], [address] ALT [Catalytic activity/Vol] 67 U/L High 16-61 [facility] Comment on above: Performed By: #### L 500.4050, L100.0100 #### [facility] [address] [place], [address] AST [Catalytic activity/Vol] 28 U/L Normal 15-37 [facility] Comment on above: Performed By: #### L 500.4050, L100.0100 #### [facility] [address] [place], [address] Bilirubin [Mass/Vol] 1.00 mg/dL Normal 0.20-1.00 [facility] Comment on above: Result Comment: For patients on eltrombopag therapy, use of Dimension [place] TBIL is not recommended. Performed By: #### L 500.4050, L100.0100 #### [facility] [address] [place], [address] BUN/CRE 15.2 RATIO Normal 10-20 [facility] Comment on above: Performed By: #### L 500.4050, L100.0100 #### [facility] [address] [place], [address] CA,Total 8.9 mg/dL Normal 8.5-10.1 [facility] Comment on above: Performed By: #### L 500.4050, L100.0100 #### [facility] [address] [place], [address] Chloride [Moles/Vol] 108 mmol/L High 98-107 [facility] Comment on above: Performed By: #### L 500.4050, L100.0100 #### [facility] [address] [place], [address] CO2 [Moles/Vol] 29.0 mmol/L Normal 21.0-32.0 [facility] Comment on above: Performed By: #### L 500.4050, L100.0100 #### [facility] [address] [place], [address] Creatinine [Mass/Vol] 0.99 mg/dL Normal 0.70-1.30 [facility] Comment on above: Result Comment: The validity of the calculated GFR GFRAA in patients over 70 years has not been determined. Clinical correlation is essential. Performed By: #### L 500.4050, L100.0100 #### [facility] [address] [place], [address] EST GFR - AA 98 mL/min Normal >60 [facility] Comment on above: Result Comment: Afri can [place] GFR Calc Performed By: #### L 500.4050, L100.0100 #### [facility] [address] [place], [address] GAP 3 Low 5-15 [facility] Comment on above: Performed By: #### L 500.4050, L100.0100 #### [facility] [address] [place], [address] GFR/1.73 sq M.predicted among non-blacks MDRD (S/P/Bld) [Vol rate/Area] 81 mL/min/{1.73_m2} Normal >60 [facility] Comment on above: Result Comment: Non- GFR Calc Performed By: #### L 500.4050, L100.0100 #### [facility] [address] [place], [address] Globulin (S) [Mass/Vol] 2.9 g/dL Normal 2.2-4.2 [facility] Comment on above: Performed By: #### L 500.4050, L100.0100 #### [facility] [address] [place], [address] Glucose [Mass/Vol] 125 mg/dL High 74-106 [facility] Comment on above: Result Comment: Fast ing Glucose result from 100 to 125 mg/dL suggests IMPAIRED HOMEOSTASIS per A.D.A. criteria. Performed By: #### L 500.4050, L100.0100 #### [facility] [address] [place], [address] Potassium [Moles/Vol] 4.2 mmol/L Normal 3.5-5.1 [facility] Comment on above: Performed By: #### L 500.4050, L100.0100 #### [facility] [address] [place], [address] Sodium [Moles/Vol] 140 mmol/L Normal 136-145 [facility] Comment on above: Performed By: #### L 500.4050, L100.0100 #### [facility] [address] [place], [address] T PROT 6.3 g/dL Low 6.4-8.2 [facility] Comment on above: Performed By: #### L 500.4050, L100.0100 #### [facility] [address] [place], [place], [id number] Urea nitrogen [Mass/Vol] 15 mg/dL Normal 7-18 [facility] Comment on above: Performed By: #### L 500.4050, L100.0100 #### [facility] [address] [place], [address] Determination of erythrocyte mean corpuscular volume (MCV)Ordered By: Alice Waters on 11-10-2023 MCV (RBC) [Entitic vol] 97.7 fL 80-94 [facility] Erythrocyte distribution wid th ratioOrdered By: Alice Waters on 11-10-2023 Erythrocyte distribution width (RBC) [Ratio] 12.2 % 11.6-14.6 [facility] Erythrocyte distribution wid th standard deviationOrdered By: Alice Waters on 11-10-2023 Erythrocyte distribution width (RBC) [Entitic vol] 43.6 fL 35.1-43.9 [facility] Hematocrit Auto (Bld) [Volum e fraction]Ordered By: Alice Waters on 11-10-2023 Hematocrit (Bld) [Volume fraction] 41.6 % 40-54 [facility] Immature granulocytes/100 WB C Auto (Bld)Ordered By: Alice Waters on 11-10-2023 Immature granulocytes/100 WBC (Bld) 0.200 % 0.0-0.9 [facility] Comment on above: IG% - Immature Granu locytes (promyelocytes, myelocytes and metamyelocytes) > 1% indicates that a LEFT SHIFT is Present. Laboratory - Chemistry and C hemistry - challengeOrdered By: Alice Waters on 11-10-2023 Albumin/Globulin [Mass ratio] 1.2 {ratio} 0.9-2.4 [facility] ALP [Catalytic activity/Vol] 59 U/L 45-117 [facility] ALT [Catalytic activity/Vol] 67 U/L 16-61 [facility] CO2 [Moles/Vol] 29.0 mmol/L 21.0-32.0 [facility] Globulin (S) [Mass/Vol] 2.9 g/dL 2.2-4.2 [facility] Urea nitrogen/Creatinine [Mass ratio] 15.2 mg/mg 10-20 [facility] - Hematology and Cell countsOrdered By: Alice Waters on 11-10-2023 MCH (RBC) [Entitic mass] 33.3 pg 27.0-32.0 [facility] MCHC (RBC) [Mass/Vol] 34.1 g/dL 32-36 [facility] Nucleated RBC/100 WBC (Bld) [Ratio] 0 % 0-5 [facility] Platelet mean volume (Bld) [Entitic vol] 11.5 fL 6.2-12.0 [facility] Platelets (Bld) [#/Vol] 155 10*3/uL 150-450 [facility] No Panel InformationOrdered By: Alice Waters on 11-10-2023 Estimated GFR (MDRD) Amer 98 mL/min >60 [facility] Comment on above: GFR Calc Estimated GFR (MDRD) Non-Af Amer 81 mL/min >60 [facility] Comment on above: Non- GFR Calc RBC Auto (Bld) [#/Vol]Ordere d By: Alice Waters on 11-10-2023 RBC (Bld) [#/Vol] 4.26 10*6/uL 4.6-6.2 [facility] Serum or plasma calcium geovanna urement (mass/volume)Ordered By: Alice Waters on 11-10-2023 Calcium [Mass/Vol] 8.9 mg/dL 8.5-10.1 [facility] Serum or plasma creatinine m easurement (mass/volume)Ordered By: Alice Waters on 11-10-2023 Creatinine [Mass/Vol] 0.99 mg/dL 0.70-1.30 [facility] Comment on above: The validity of the calculated GFR & GFRAA in patients over 70 years has not been determined. Clinical correlation is essential. Serum or plasma urea nitroge n measurement (mass/volume)Ordered By: Alice Waters on 11-10-2023 Urea nitrogen [Mass/Vol] 15 mg/dL 7-18 [facility] Thin prep Papanicolaou smear with manual screeningOrdered By: Alice Waters on 11-10-2023 Thin prep Papanicolaou smear with manual screening 3.4 g/dL 3.2-5.0 [facility] Thin prep Papanicolaou smear with manual screening 28 U/L 15-37 [facility] Thin prep Papanicolaou smear with manual screening 3 5-15 [facility] Cardiac echo study Procedure Ordered By: Rodrigue Pérez on 08-19-2023 Ao ASC index 1.48 cm/m2 [facility] Work Phone: Ao peak gera 1.20 m/s [facility] Work Phone: Ao SOV index 1.50 cm/m2 [facility] Work Phone: Ao STJ index 1.10 cm/m2 [facility] Work Phone: Ao VTI 24.21 cm [facility] Work Phone: Ascending [facility] 3.[facility]: AV LVOT peak gradient 4 mmHg [facility] Work Phone: AV mean gradient 3 mmHg [facility] Work Phone: AV peak gradient 6 mmHG [facility] Work Phone: AV valve area 3.36 cm2 [facility] Work Phone: AV Velocity Ratio 0.79 [facility] Work Phone: VAMSHI (continuity Vmax) 3.37 cm2 [facility] Work Phone: VAMSHI (continuity VTI) 3.36 cm2 [facility] Work Phone: VAMSHI index (continuity Vmax) 1.29 m/s [facility] Work Phone: VAMSHI index (continuity VTI) 1.29 cm2/m2 [facility] Work Phone: Avg e' pk gera 0.06 m/s [facility] Work Phone: Avg E/e' ratio 10.79 [facility] Work Phone: Body surface area Derived from formula 2.61 m2 [facility] Work Phone: BP EF 55 % [facility] Work Phone: DI (Vmax) 0.79 [facility] Work Phone: DI (VTI) 0.79 m/2 [facility] Work Phone: E wave decelartion time 200.64 msec [facility] Work Phone: e' lateral pk gera 0.0694 m/s [facility] Work Phone: e' lateral pk gera 0.07 m/s [facility]: e' septal pk gera 0.0518 m/s [facility] Work Phone: e' septal pk gera 0.05 [facility]: E/A ratio 0.80 [facility] Work Phone: E/e' lateral ratio 9.22 [facility]: E/e' septal [facility] 12.36 [facility]: EF SP 2CH 57 [facility] Work Phone: EF SP 4CH 55 [facility] Work Phone: EST RAP 3.00 mmHg [facility] Work Phone: FS 31 % 28 - 44 % [facility] Work Phone: IVC ostium 1.35 cm [facility] Work Phone: IVS 0.93 cm [facility] Work Phone: LA AREA 2CH 22.75 cm2 [facility] Work Phone: LA area 4CH 20.42 cm2 [facility] Work Phone: LA ESV BP (MOD) 60 mL [facility] Work Phone: LA ESV BP (MOD) index 23 mL/m2 [facility] Work Phone: LA ESV SP 2CH (MOD) 66 [facility] Work [facility]: LA ESV SP 4CH (MOD) 54 mL [facility] Work Phone: LV EDV BP 134 mL [facility] Work Phone: LV EDV SP 2CH 118 mL [facility] Work Phone: LV EDV SP 4CH 146 mL [facility] Work Phone: LV ESV BP 60 mL [facility] Work Phone: LV ESV SP 2CH 51 mL [facility] Work Phone: LV ESV SP 4CH 66 mL [facility] Work Phone: LV mass 137.82 g [facility] Work Phone: LV Mass Index 52.8 g/m2 [facility] Work Phone: LV RWT 0.42 [facility] Work Phone: LV stroke volume BP (ml) 74 mL [facility] Work Phone: LV stroke volume index BP 28.35 mL/m2 [facility] Work Phone: LVIDD 4.48 cm [facility] Work Phone: LVIDS 3.08 cm [facility] Work Phone: LVOT area 4.26 cm2 [facility] Work Phone: LVOT diameter 2.33 cm [facility] Work Phone: LVOT peak gera 0.95 m/s [facility] Work Phone: LVOT peak VTI 19.10 cm [facility] Work Phone: LVOT stroke volume 81 cm3 [facility] Work Phone: LVOT stroke volume index 31.19 ml/m2 [facility] Work Phone: MV pk A gera 0.80 m/s [facility] Work Phone: MV pk E gera 0.64 m/s [facility] Work Phone: MV stenosis pressure 1/2 time 58.19 ms [facility] Work Phone: MV valve area p 1/2 method 3.78 cm2 [facility] Work Phone: [facility] AV VTI RATIO PRE STRESS 0.79 [facility] Work Phone: OSU ECHO LV BIPLANE SYSTOLIC VOLUME INDEX 22.99 mL/m2 [facility] Work Phone: OSU ECHO LV BP DIASTOLIC VOLUME INDEX 51.34 mL/m2 [facility] Work Phone: OSU RVOT VTI RATIO 0.81 [facility] Work Phone: PV mean gradient 1 mmHg [facility] Work Phone: PV peak gradient 2 mmHg [facility] Work Phone: PV PK GERA 0.77 m/s [facility] Work Phone: PV VTI 17.32 cm [facility] Work Phone: PW 0.93 cm [facility] Work Phone: RA vol index 4CH (MOD) 21.46 mL/m2 [facility] Work Phone: Right atrium volume 4 chamber method of disks 56 mL [facility] Work Phone: RV Area diastolic 26.[address] [facility] Work Phone: RV Area systolic 16.76 cm2 [facility] Work Phone: RV basal diam 5.14 cm [facility] Work Phone: RV Fractional area change 36.1 % [facility] Work Phone: RV long diam 8.17 cm [facility] Work Phone: RV mid diam 2.79 cm [facility] Work Phone: RV S' 10.76 cm/s [facility] Work Phone: RVOT peak gradient 2 mmHg [facility] Work Phone: RVOT peak gera 0.62 m/s [facility] Work Phone: RVOT peak VTI 13.97 cm [facility] Work Phone: Sinus 3.91 cm [facility] Work Phone: STJ 2.87 cm [facility] Work Phone: Stroke Volume 81 cm/mL [facility] Work Phone: Stroke volume index 31 [facility] Work Phone: TAPSE 2.24 cm [facility] Work Phone: [facility] Work Phone: Cardiac echo study Procedure [...] and technically difficult study. Imaging system used: StudyBlue. Indications Indications for study: chest pain, CAD and hypertension. [facility] Radiology Study observation (narrative) [facility] ECHOCARDIOGRAMon 08-19-2023 Echocardiography ? Technically diffic [...] for Exam Priority: Routine Dx: 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, unspecified whether [place] or transplanted heart [I25.10 (ICD-10-CM)]; Essential hypertension [...] Role Read Date Rodrigue Pérez MD Echo [place], [employer] Management Manager 08/19/2023 Left Heart Measurements LV - Systole [...] 2 mmHg (more content not included)... Normal [facility] CT ANKLE LEFT WITHOUT CONTRA STon 08-13-2023 CT ANKLE LEFT WITHOUT CONTRAST EXAM: CT ANKLE LEFT WITHOUT CONTRAST, CT FOOT LEFT WITHOUT CONTRAST, 08/13/2023 15:39 PM (accession [id number]), 08/13/2023 15:43 PM (accession [id number]) COMPARISON: No prior studies available for comparison. 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 ;;[facility] claim # [id number];DOI 05/14/14;(L ankle injury);C-9 dated 07/08/[address] of Left Ankle x 1 from 07/09/23 to 09/29/23. ;C-9 has been scanned into IS. ;Allowed condition(s): M19.172, S92.012A;POR is Dr Bustos at [facility] (non-clinical contact: demi vera TECHNIQUE: [...] have reviewed and approved this report. Normal [facility] CT Ankle - left WO contrasto n 08-13-2023 Radiology Study observation (narrative[facility]AS Ton 08-13-2023 CT FOOT LEFT WITHOUT CONTRAST EXAM: CT ANKLE LEFT WITHOUT CONTRAST, CT FOOT LEFT WITHOUT CONTRAST, 08/13/2023 15:39 PM (accession [id number]), 08/13/2023 15:43 PM (accession [id number]) COMPARISON: No prior studies available for comparison. 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 ;;[facility] claim # [id number];DOI 05/14/14;(L ankle injury);C-9 dated 07/08/[address] of Left Ankle x 1 from 07/09/23 to 09/29/23. ;C-9 has been scanned into IS. ;Allowed condition(s): M19.172, S92.012A;POR is Dr Bustos at [facility] Occupational Medicine (non-clinical contact: demi vera TECHNIQUE: [...] have reviewed and approved this report. Normal [facility] CT Foot - left WO contraston 08-13-2023 Radiology Study observation (narrative) [facility] No Panel Informationon 08-13 IMPRESSION: 1. Status [...] LEFT WITHOUT CONTRAST, 08/13/2023 15:39 PM (accession [id number]), 08/13/2023 15:43 PM (accession [id number]) COMPARISON: No prior studies available for comparison. 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 ;;[facility] claim # [id number];DOI 05/14/14;(L ankle injury);C-9 dated 07/08/[address] of Left Ankle x 1 from 07/09/23 to 09/29/23. ;C-9 has been scanned into IS. ;Allowed condition(s): M19.172, S92.012A;POR is Dr Bustos at [facility] Occupational Medicine (non-clinical contact: demi vera TECHNIQUE: [...] No abnormality of the neurovascular structures. RADIOLOGY Mecry Bonilla D O - 08/13/2023 EXAM: CT ANKLE LEFT WITHOUT CONTRAST, CT FOOT LEFT WITHOUT CONTRAST, 08/13/2023 15:39 PM (accession [id number]), 08/13/2023 15:43 PM (accession [id number]) COMPARISON: No prior studies available for comparison. 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 ;;[facility] claim # [id number];DOI 10/13/14;(L ankle injury);C-9 dated 07/08/[address] of Left Ankle x 1 from 07/09/23 to 09/29/23. ;C-9 has been scanned into [facility]. ;Allowed condition(s): M19.172, S92.012A;POR is Dr Bustos at [facility] Occupational Medicine (non-clinical contact: demi vera TECHNIQUE: [...] I have reviewed and approved this report. [facility] No Panel InformationOrdered By: Mercy Bonilla on 08-13-2023 [facility] Work Phone: Absolute lymphocyte countOrd ered By: Kemar Lee on 08-10-2023 Lymphocytes Auto (Unsp spec) [#/Vol] 0.76 10*3/uL 0.83-4.51 [facility] Basophil percentageOrdered B y: Kemar Lee on 08-10-2023 Basophils/100 WBC (Bld) 0.4 % 0-1 [facility] Bilirubin [Mass/Vol] 1.00 mg/dL 0.20-1.00 [facility] Comment on above: For patients on eltr ombopag therapy, use of Dimension [place] TBIL is not recommended. Chloride [Moles/Vol] 111 mmol/L 98-107 [facility] Eosinophils/100 WBC (Bld) 3.6 % 0-5 [facility] Glucose [Mass/Vol] 118 mg/dL 74-106 [facility] Comment on above: Fasting Glucose resu lt from 100 to 125 mg/dL suggests IMPAIRED HOMEOSTASIS per A.D.A. criteria. Neutrophils (Bld) [#/Vol] 3.9 10*3/uL 2.0-7.7 [facility] Neutrophils/100 WBC (Bld) 75.0 % 47-70 [facility] Potassium [Moles/Vol] 4.0 mmol/L 3.5-5.1 [facility] Protein [Mass/Vol] 6.6 g/dL 6.4-8.2 [facility] Sodium [Moles/Vol] 142 mmol/L 136-145 [facility] WBC (Bld) [#/Vol] 5.2 10*3/uL 4.4-11.0 [facility] Blood erythrocytes count (nu mber/volume)Ordered By: Kemar Lee on 08-10-2023 RBC (Bld) [#/Vol] 4.50 10*6/uL 4.6-6.2 [facility] Blood hemoglobin measurement (mass/volume)Ordered By: Kemar Lee on 08-10-2023 Hemoglobin (Bld) [Mass/Vol] 15.3 g/dL 13.0-16.5 [facility] Blood lymphocytes/100 leukoc ytesOrdered By: Kemar Lee on 08-10-2023 Lymphocytes/100 WBC (Bld) 14.5 % 19-41 [facility] Blood monocytes/100 leukocyt esOrdered By: Kemar Lee on 08-10-2023 Monocytes/100 WBC (Bld) 6.3 % 0-10 [facility] Blood platelet mean volumeOr dered By: Kemar Lee on 08-10-2023 Platelet mean volume (Bld) [Entitic vol] 11.1 fL 6.2-12.0 [facility] CBC W/Diff, Automatedon Absolute Lymph 0.76 X10 3/uL Low 0.83-4.51 [facility] Comment on above: Performed By: #### L 500.4050, L501.9985, L100.0100 #### [facility] [address] [place], [address] Absolute Neut 3.9 X10 3/uL Normal 2.0-7.7 [facility] Comment on above: Performed By: #### L 500.4050, L501.9985, L100.0100 #### [facility] [address] [place], [address] Basophils/100 WBC (Bld) 0.4 % Normal 0-1 [facility] Comment on above: Performed By: #### L 500.4050, L501.9985, L100.0100 #### [facility] [address] [place], [address] Eosinophils/100 WBC (Bld) 3.6 % Normal 0-5 [facility] Comment on above: Performed By: #### L 500.4050, L501.9985, L100.0100 #### [facility] [address] [place], [address] Erythrocyte distribution width (RBC) [Ratio] 13.0 % Normal 11.6-14.6 [facility] Comment on above: Performed By: #### L 500.4050, L501.9985, L100.0100 #### [facility] [address] [place], [address] Hematocrit (Bld) [Volume fraction] 44.0 % Normal 40-54 [facility] Comment on above: Performed By: #### L 500.4050, L501.9985, L100.0100 #### [facility] [address] [place], [address] Hemoglobin (Bld) [Mass/Vol] 15.3 g/dL Normal 13.0-16.5 [facility] Comment on above: Performed By: #### L 500.4050, L501.9985, L100.0100 #### [facility] [address] [place], [address] IG% 0.200 Normal 0.0-0.9 [facility] Comment on above: Result Comment: IG% - Immature Granulocytes (promyelocytes, myelocytes and metamyelocytes) > 1% indicates that a LEFT SHIFT is Present. Performed By: #### L 500.4050, L501.9985, L100.0100 #### [facility] [address] [place], [address] Lymphocytes/100 WBC (Bld) 14.5 % Low 19-41 [facility] Comment on above: Performed By: #### L 500.4050, L501.9985, L100.0100 #### [facility] [address] [place], [address] MCH (RBC) [Entitic mass] 34.0 pg High 27.0-32.0 [facility] Comment on above: Performed By: #### L 500.4050, L501.9985, L100.0100 #### [facility] [address] [place], [address] MCHC (RBC) [Mass/Vol] 34.8 g/dL Normal 32-36 [facility] Comment on above: Performed By: #### L 500.4050, L501.9985, L100.0100 #### [facility] [address] [place], [address] MCV (RBC) [Entitic vol] 97.8 fL High 80-94 [facility] Comment on above: Performed By: #### L 500.4050, L501.9985, L100.0100 #### [facility] [address] [place], [address] Monocytes/100 WBC (Bld) 6.3 % Normal 0-10 [facility] Comment on above: Performed By: #### L 500.4050, L501.9985, L100.0100 #### [facility] [address] [place], [address] Neutrophils/100 WBC (Bld) 75.0 % High 47-70 [facility] Comment on above: Performed By: #### L 500.4050, L501.9985, L100.0100 #### [facility] [address] [place], [address] Nucleated RBC (Bld) [#/Vol] 0 10*3/uL Normal 0-5 [facility] Comment on above: Performed By: #### L 500.4050, L501.9985, L100.0100 #### [facility] [address] [place], [address] Platelet mean volume (Bld) [Entitic vol] 11.1 fL Normal 6.2-12.0 [facility] Comment on above: Performed By: #### L 500.4050, L501.9985, L100.0100 #### [facility] [address] [place], [address] Platelets (Bld) [#/Vol] 170 10*3/uL Normal 150-450 [facility] Comment on above: Performed By: #### L 500.4050, L501.9985, L100.0100 #### [facility] [address] [place], [address] RBC (Bld) [#/Vol] 4.50 10*6/uL Low 4.6-6.2 [facility] Comment on above: Performed By: #### L 500.4050, L501.9985, L100.0100 #### [facility] [address] [place], [address] RDW SD 46.3 fl High 35.1-43.9 [facility] Comment on above: Performed By: #### L 500.4050, L501.9985, L100.0100 #### [facility] [address] [place], [address] WBC (Bld) [#/Vol] 5.2 10*3/uL Normal 4.4-11.0 [facility] Comment on above: Performed By: #### L 500.4050, L501.9985, L100.0100 #### [facility] [address] [place], [address] Comprehensive Metabolic Prof ilon 08-10-2023 Albumin [Mass/Vol] 3.7 g/dL Normal 3.2-5.0 [facility] Comment on above: Performed By: #### L 500.4050, L501.9985, L100.0100 #### [facility] [address] [place], [address] Albumin/Globulin [Mass ratio] 1.3 {ratio} Normal 0.9-2.4 [facility] Comment on above: Performed By: #### L 500.4050, L501.9985, L100.0100 #### [facility] [address] [place], [address] ALK P 68 U/L Normal 45-117 [facility] Comment on above: Performed By: #### L 500.4050, L501.9985, L100.0100 #### [facility] [address] [place], [address] ALT [Catalytic activity/Vol] 59 U/L Normal 16-61 [facility] Comment on above: Performed By: #### L 500.4050, L501.9985, L100.0100 #### [facility] [address] [place], [address] AST [Catalytic activity/Vol] 27 U/L Normal 15-37 [facility] Comment on above: Performed By: #### L 500.4050, L501.9985, L100.0100 #### [facility] [address] [place], [address] Bilirubin [Mass/Vol] 1.00 mg/dL Normal 0.20-1.00 [facility] Comment on above: Result Comment: For patients on eltrombopag therapy, use of Dimension [place] TBIL is not recommended. Performed By: #### L 500.4050, L501.9985, L100.0100 #### [facility] [address] [place], [address] BUN/CRE 14.9 RATIO Normal 10-20 [facility] Comment on above: Performed By: #### L 500.4050, L501.9985, L100.0100 #### [facility] [address] [place], [address] CA,Total 8.7 mg/dL Normal 8.5-10.1 [facility] Comment on above: Performed By: #### L 500.4050, L501.9985, L100.0100 #### [facility] [address] [place], [address] Chloride [Moles/Vol] 111 mmol/L High 98-107 [facility] Comment on above: Performed By: #### L 500.4050, L501.9985, L100.0100 #### [facility] [address] [place], [address] CO2 [Moles/Vol] 26.0 mmol/L Normal 21.0-32.0 [facility] Comment on above: Performed By: #### L 500.4050, L501.9985, L100.0100 #### [facility] [address] [place], [address] Creatinine [Mass/Vol] 1.14 mg/dL Normal 0.70-1.30 [facility] Comment on above: Result Comment: The validity of the calculated GFR GFRAA in patients over 70 years has not been determined. Clinical correlation is essential. Performed By: #### L 500.4050, L501.9985, L100.0100 #### [facility] [address] [place], [address] EST GFR - AA 84 mL/min Normal >60 [facility] Comment on above: Result Comment: Afri can [place] GFR Calc Performed By: #### L 500.4050, L501.9985, L100.0100 #### [facility] [address] [place], [address] GAP 5 Normal 5-15 [facility] Comment on above: Performed By: #### L 500.4050, L501.9985, L100.0100 #### [facility] [address] [place], [address] GFR/1.73 sq M.predicted among non-blacks MDRD (S/P/Bld) [Vol rate/Area] 69 mL/min/{1.73_m2} Normal >60 [facility] Comment on above: Result Comment: Non- GFR Calc Performed By: #### L 500.4050, L501.9985, L100.0100 #### [facility] [address] [place], [address] Globulin (S) [Mass/Vol] 2.9 g/dL Normal 2.2-4.2 [facility] Comment on above: Performed By: #### L 500.4050, L501.9985, L100.0100 #### [facility] [address] [place], [address] Glucose [Mass/Vol] 118 mg/dL High 74-106 [facility] Comment on above: Result Comment: Fast ing Glucose result from 100 to 125 mg/dL suggests IMPAIRED HOMEOSTASIS per A.D.A. criteria. Performed By: #### L 500.4050, L501.9985, L100.0100 #### [facility] [address] [place], [address] Potassium [Moles/Vol] 4.0 mmol/L Normal 3.5-5.1 [facility] Comment on above: Performed By: #### L 500.4050, L501.9985, L100.0100 #### [facility] [address] [place], [address] Sodium [Moles/Vol] 142 mmol/L Normal 136-145 [facility] Comment on above: Performed By: #### L 500.4050, L501.9985, L100.0100 #### [facility] [address] [place], [address] T PROT 6.6 g/dL Normal 6.4-8.2 [facility] Comment on above: Performed By: #### L 500.4050, L501.9985, L100.0100 #### [facility] [address] [place], [address] Urea nitrogen [Mass/Vol] 17 mg/dL Normal 7-18 [facility] Comment on above: Performed By: #### L 500.4050, L501.9985, L100.0100 #### [facility] [address] [place], [address] Determination of erythrocyte mean corpuscular volume (MCV)Ordered By: Kemar Lee on 08-10-2023 MCV (RBC) [Entitic vol] 97.8 fL 80-94 [facility] Hematocrit Auto (Bld) [Volum e fraction]Ordered By: Kemar Lee on 08-10-2023 Hematocrit (Bld) [Volume fraction] 44.0 % 40-54 [facility] Hemoglobin A1con 08-10-2023 HbA1c (Bld) [Mass fraction] 5.2 % Normal 3.8-5.6 [facility] Comment on above: Result Comment: Norm al < 5.7 % Prediabetic 5.7 - 6.4 % Diabetic >or= 6.5 % Please note range changes. Performed By: #### L 500.4050, L501.9985, L100.0100 #### [facility] [address] [place], [address] Laboratory - Chemistry and C hemistry - challengeOrdered By: Kemar Lee on 08-10-2023 ALP [Catalytic activity/Vol] 68 U/L 45-117 [facility] ALT [Catalytic activity/Vol] 59 U/L 16-61 [facility] CO2 [Moles/Vol] 26.0 mmol/L 21.0-32.0 [facility] Globulin (S) [Mass/Vol] 2.9 g/dL 2.2-4.2 [facility] Urea nitrogen/Creatinine [Mass ratio] 14.9 mg/mg 10-20 [facility] - Hematology and Cell countsOrdered By: Kemar Lee on 08-10-2023 Erythrocyte distribution width (RBC) [Entitic vol] 46.3 fL 35.1-43.9 [facility] Erythrocyte distribution width (RBC) [Ratio] 13.0 % 11.6-14.6 [facility] Immature granulocytes/100 WBC (Bld) 0.200 % 0.0-0.9 [facility] Comment on above: IG% - Immature Granu locytes (promyelocytes, myelocytes and metamyelocytes) > 1% indicates that a LEFT SHIFT is Present. MCH (RBC) [Entitic mass] 34.0 pg 27.0-32.0 [facility] Nucleated RBC/100 WBC (Bld) [Ratio] 0 % 0-5 [facility] MCHC Auto (RBC) [Mass/Vol]Or dered By: Kemar Lee on 08-10-2023 MCHC (RBC) [Mass/Vol] 34.8 g/dL 32-36 [facility] No Panel InformationOrdered By: Kemar Lee on 08-10-2023 Estimated GFR (MDRD) Amer 84 mL/min >60 [facility] Comment on above: GFR Calc Estimated GFR (MDRD) Non-Af Amer 69 mL/min >60 [facility] Comment on above: Non- GFR Calc Platelets bldOrdered By: Comfort Lee on 08-10-2023 Platelets (Bld) [#/Vol] 170 10*3/uL 150-450 [facility] Serum or plasma albumin geovanna urement (mass/volume)Ordered By: Kemar Lee on 08-10-2023 Albumin [Mass/Vol] 3.7 g/dL 3.2-5.0 [facility] Serum or plasma albumin/glob ulin mass ratioOrdered By: Kemar Lee on 08-10-2023 Albumin/Globulin [Mass ratio] 1.3 {ratio} 0.9-2.4 [facility] Serum or plasma calcium geovanna urement (mass/volume)Ordered By: Kemar Lee on 08-10-2023 Calcium [Mass/Vol] 8.7 mg/dL 8.5-10.1 [facility] Serum or plasma creatinine m easurement (mass/volume)Ordered By: Kemar Lee on 08-10-2023 Creatinine [Mass/Vol] 1.14 mg/dL 0.70-1.30 [facility] Comment on above: The validity of the calculated GFR & GFRAA in patients over 70 years has not been determined. Clinical correlation is essential. Serum or plasma urea nitroge n measurement (mass/volume)Ordered By: Kemar Lee on 08-10-2023 Urea nitrogen [Mass/Vol] 17 mg/dL 7-18 [facility] Thin prep Papanicolaou smear with manual screeningOrdered By: Kemar Lee on 08-10-2023 Thin prep Papanicolaou smear with manual screening 27 U/L 15-37 [facility] Thin prep Papanicolaou smear with manual screening 5 5-15 [facility] Whole blood hemoglobin A1c/t otal hemoglobin ratio (mass fraction)Ordered By: Kemar Lee on 08-10-2023 HbA1c (Bld) [Mass fraction] 5.2 % 3.8-5.6 [facility] Comment on above: Normal < 5.7 % Predi abetic 5.7 - 6.4 % Diabetic >or= 6.5 % Please note range changes. LT BLUE TOP TUBEon 3 [facility] B-TYPE NATRIURETIC PEPTIDE ( BRAIN)on 06-23-2023 Natriuretic peptide B (Bld) [Mass/Vol] 12 pg/mL Normal 0-100 [facility] Comment on above: Order Comment: If hi story of congestive heart failure. Performed By: #### B [employer] MERCHANDISER #### [facility] (DEFAULT) [address] [place] [address] Interpretation and review of laboratory results Normal [facility] Natriuretic peptide B (Bld) [Mass/Vol] 12 pg/mL 0 - 100 pg/mL [facility] CALCIUMon 06-23-2023 Calcium [Mass/Vol] 9.2 mg/dL Normal 8.6-10.5 [facility] Comment on above: Performed By: #### I PB, LABHSTI1, CA, MGO, CHM7 #### [facility] (DEFAULT) [address] [place] [address] Calcium [Mass/Vol] 9.2 mg/dL 8.6 - 10. 5 mg/dL [facility] CBC AND ELECTRONIC DIFFon Abs Baso Auto < Normal 0.00-0.09 [facility] Comment on above: Performed By: #### A 1CB, [id number] ####[facility] (DEFAULT)[address] [place] [address] Abs Eos Auto < Normal 0.00-0.48 [facility] Comment on above: Performed By: #### A 1CB, [id number] ####[facility] (DEFAULT)[address] [place] [address] Basophils/100 WBC (Bld) 0.1 % Normal [facility] Comment on above: Performed By: #### A 1CB, [id number] ####[facility] (DEFAULT)[address] [place] [address], [place] [address] DIFF STATUS Electronic Differential Normal [facility] Comment on above: Performed By: #### A 1CB, [id number] ####[facility] (DEFAULT)[address] [place] [address], [place] [address] Eosinophils/100 WBC (Bld) 0.0 % Normal [facility] Comment on above: Performed By: #### A 1CB, [id number] ####[facility] (DEFAULT)[address] [place] [address] Hematocrit (Bld) [Volume fraction] 45.0 % Normal 39.6-48.8 [facility] Comment on above: Performed By: #### Khushbu 1CB, [id number] ####[facility] (DEFAULT)[address] [place] [address] Hemoglobin (Bld) [Mass/Vol] 15.8 g/dL Normal 13.4-16.8 [facility] Comment on above: Performed By: #### Khushbu 1CB, [id number] ####[facility] (DEFAULT)[address] [place] [address] Immature Grans % 0.3 % Normal [facility] Comment on above: Performed By: #### Khushbu 1CB, [id number] ####[facility] (DEFAULT)[address] [place] [address] Immature Grans Absolute < Normal <=0.07 [facility] Comment on above: Performed By: #### Khushbu 1CEndy, [id number] ####[facility] (DEFAULT)[address] [place] [address] Lymphocytes (Bld) [#/Vol] 0.62 10*3/uL Low 0.83-3.57 [facility] Comment on above: Performed By: #### Khushbu 1CB, [id number] ####[facility] (DEFAULT)[address] [place] [address] Lymphocytes/100 WBC (Bld) 5.6 % Normal [facility] Comment on above: Performed By: #### Khushbu 1CB, [id number] ####[facility] (DEFAULT)[address] [place] [address] MCV (RBC) [Entitic vol] 93.9 fL Normal 79.0-94.5 [facility] Comment on above: Performed By: #### Khushbu 1CB, [id number] ####[facility] (DEFAULT)[address] [place] [address] Mean Cell Hgb 33.0 pg Normal 26.1-33.3 [facility] Comment on above: Performed By: #### A 1CB, [id number] ####[facility] (DEFAULT)[address] [place] [address] Mean Cell Hgb Conc 35.1 g/dL Normal 31.9-36.5 [facility] Comment on above: Performed By: #### Khushbu 1CB, [id number] ####[facility] (DEFAULT)[address] [place] [address] Monocytes (Bld) [#/Vol] 0.52 10*3/uL Normal 0.24-0.93 [facility] Comment on above: Performed By: #### Khushbu 1CB, [id number] ####[facility] (DEFAULT)[address] [place] [address] Monocytes/100 WBC (Bld) 4.7 % Normal [facility] Comment on above: Performed By: #### Khushbu 1CEndy, [id number] ####[facility] (DEFAULT)[address] [place] [address] Nucleated RBC 0.0 /100 WBC Normal <=0.2 [facility] Comment on above: Performed By: #### Khushbu 1CB, [id number] ####[facility] (DEFAULT)[address] [place] [address] Platelet mean volume (Bld) [Entitic vol] 11.1 fL Normal 8.7-12.3 [facility] Comment on above: Performed By: #### Khushbu 1CB, [id number] ####[facility] (DEFAULT)[address] [place] [address] Platelets (Bld) [#/Vol] 189 10*3/uL Normal 146-337 [facility] Comment on above: Performed By: #### Khushbu 1CB, [id number] ####[facility] (DEFAULT)[address] [place] [address] RBC (Bld) [#/Vol] 4.79 10*6/uL Normal 4.38-5.83 [facility] Comment on above: Performed By: #### A 1CB, [id number] ####[facility] (DEFAULT)[address] [place] [address] RBC Distribution 11.6 % Normal 10.9-14.3 [facility] Comment on above: Performed By: #### A 1CB, [id number] ####[facility] (DEFAULT)[address] [place] [address] Segs + Bands Auto 89.3 % Normal [facility] Comment on above: Performed By: #### A 1CB, [id number] ####[facility] (DEFAULT)[address] [place] [address] Segs + Bands,Absolute Auto 9.82 K/uL High 1.57-6.19 [facility] Comment on above: Performed By: #### A 1CB, [id number] ####[facility] (DEFAULT)[address] [place] [address] WBC (Bld) [#/Vol] 11.00 10*3/uL High 3.73-10.10 [facility] Comment on above: Performed By: #### Khushbu 1CB, [id number] ####[facility] (DEFAULT)[address] [place] [address] Basophils (Bld) [#/Vol] K/uL 0.00 - 0.09 K/uL [facility] Basophils/100 WBC (Bld) 0.1 % [facility] Differential cell count method Nom (Bld) Electronic Differential O [facility] Eosinophils (Bld) [#/Vol] K/uL 0.00 - 0.48 K/uL [facility] Eosinophils/100 WBC (Bld) 0.0 % [facility] Erythrocyte distribution width (RBC) [Ratio] 11.6 % 10.9 - 14.3 % [facility] Hematocrit (Bld) [Volume fraction] 45.0 % 39.6 - 48.8 % [facility] Hemoglobin (Bld) [Mass/Vol] 15.8 g/dL 13.4 - 16.8 g/dL [facility] Immature granulocytes (Bld) [#/Vol] K/uL NINF - 0.07 K/uL [facility] Immature granulocytes/100 WBC (Bld) 0.3 % [facility] Interpretation and review of laboratory results Abnormal [facility] Lymphocytes (Bld) [#/Vol] 0.62 10*3/uL Low 0.83 - 3.57 K/uL [facility] Lymphocytes/100 WBC (Bld) 5.6 % [facility] MCH (RBC) [Entitic mass] 33.0 pg 26.1 - 33.3 pg [facility] MCHC (RBC) [Mass/Vol] 35.1 g/dL 31.9 - 36.5 g/dL [facility] MCV (RBC) [Entitic vol] 93.9 fL 79.0 - 94.5 fL [facility] Monocytes (Bld) [#/Vol] 0.52 10*3/uL 0.24 - 0.93 K/uL [facility] Monocytes/100 WBC (Bld) 4.7 % [facility] Neutrophils (Bld) [#/Vol] 9.82 10*3/uL High 1.57 - 6.19 K/uL [facility] Nucleated RBC/100 WBC (Bld) [Ratio] 0.0 % [facility] Platelet mean volume (Bld) [Entitic vol] 11.1 fL 8.7 - 12.3 fL [facility] Platelets (Bld) [#/Vol] 189 10*3/uL 146 - 337 K/uL [facility] RBC (Bld) [#/Vol] 4.79 10*6/uL [facility] Segmented neutrophils/100 WBC (Bld) 89.3 % [facility] WBC (Bld) [#/Vol] 11.00 10*3/uL High 3.73 - 10 .10 K/uL [facility] CHEM 7 (LYTES,BUN,CREA,GLUC) on 06-23-2023 Anion gap [Moles/Vol] 13 mmol/L Normal 7-17 [facility] Comment on above: Performed By: #### I PB, LABHSTI1, CA, MGO, CHM7 #### [facility] (DEFAULT) [address] [place] [address] Chloride [Moles/Vol] 104 mmol/L Normal 98-108 [facility] Comment on above: Performed By: #### I PB, LABHSTI1, CA, MGO, CHM7 #### [facility] (DEFAULT) [address] [place] [address] CO2 [Moles/Vol] 25 mmol/L Normal 21-31 [facility] Comment on above: Performed By: #### I PB, LABHSTI1, CA, MGO, CHM7 #### [facility] (DEFAULT) [address] [place] [address] Creatinine [Mass/Vol] 0.93 mg/dL Normal 0.70-1.30 [facility] Comment on above: Performed By: #### I PB, LABHSTI1, CA, MGO, CHM7 #### [facility] (DEFAULT) [address] [place] [address] eGFR, CKD-EPI, Male > Normal >=60 [facility] Comment on above: Result Comment: Repo rted eGFR is based on the CKD-EPI 2020 equation using creatinine, age, and sex. Performed By: #### I PB, LABHSTI1, CA, MGO, CHM7 #### [facility] (DEFAULT) [address] [place] [address] Glucose [Mass/Vol] 158 mg/dL High 70-99 [facility] Comment on above: Performed By: #### I PB, LABHSTI1, CA, MGO, CHM7 #### [facility] (DEFAULT) [address] [place] [address] Osmolality [Osmolality] 293 mosm/kg Normal 278-305 [facility] Comment on above: Performed By: #### I PB, LABHSTI1, CA, MGO, CHM7 #### [facility] (DEFAULT) [address] [place] [address] Potassium [Moles/Vol] 3.7 mmol/L Normal 3.5-5.0 [facility] Comment on above: Performed By: #### I PB, LABHSTI1, CA, MGO, CHM7 #### [facility] (DEFAULT) [address] [place] [address] Sodium [Moles/Vol] 138 mmol/L Normal 135-145 [facility] Comment on above: Performed By: #### I PB, LABHSTI1, CA, MGO, CHM7 #### [facility] (DEFAULT) [address] [place] [address] Urea nitrogen [Mass/Vol] 16 mg/dL Normal 7-25 [facility] Comment on above: Performed By: #### I PB, LABHSTI1, CA, MGO, CHM7 #### [facility] (DEFAULT) [address] [place] [address] Urea nitrogen/Creatinine [Mass ratio] 17 mg/mg Normal [facility] Comment on above: Performed By: #### I PB, LABHSTI1, CA, MGO, CHM7 #### [facility] (DEFAULT) [address] [place] [address] Anion gap [Moles/Vol] 13 mmol/L 7 - 17 mmol/L [facility] Chloride [Moles/Vol] 104 mmol/L 98 - 10 8 mmol/L [facility] CO2 [Moles/Vol] 25 mmol/L 21 - 31 mmol/L [facility] Creatinine [Mass/Vol] 0.93 mg/dL 0.70 - 1.30 mg/dL [facility] eGFR, CKD-EPI, Male - PINF [facility] Comment on above: Reported eGFR is bas ed on the CKD-EPI 2020 equation using creatinine, age, and sex. Glucose [Mass/Vol] 158 mg/dL High 70 - 99 mg/dL [facility] Interpretation and review of laboratory results Abnormal [facility] Osmolality Calc [Osmolality] 293 [facility] Potassium [Moles/Vol] 3.7 mmol/L 3.5 - 5.0 mmol/L [facility] Sodium [Moles/Vol] 138 mmol/L 135 - 145 mmol/L [facility] Urea nitrogen [Mass/Vol] 16 mg/dL 7 - 25 mg/dL [facility] Urea nitrogen/Creatinine [Mass ratio] 17 mg/mg [facility] Cardiac echo study Procedure stress methodOrdered By: Aida Shields on 06-23-2023 % APHRMAX 97 % [facility] Work Phone: APHRMAX 158 bpm [facility] Work Phone: Baseline DBP 74 mmHg [facility] Work Phone: Baseline HR 81 bpm [facility] Work Phone: Baseline SBP 132 mmHg [facility] Work Phone: Body surface area Derived from formula 2.63 m2 [facility] Work Phone: Exercise duration (min) 8 min [facility] Work Phone: Exercise duration (sec) 30 sec [facility] Work Phone: Peak DBP 56 mmHg [facility] Work Phone: Peak HR 153 bpm [facility] Work Phone: Peak SBP 157 mmHg [facility] Work Phone: Rate Pressure Product [phone] [facility] Work Phone: [facility] Work Phone: Cardiac echo study Procedure [...] left ventricular wall motion is globally hyperkinetic. [facility] Radiology Study observation (narrative) [facility] ECHOCARDIOGRAM PHARMACOLOGIC AL STRESS TESTon 06-23-2023 ECHOCARDIOGRAM [...] the original result were not included. 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 Normal [facility] HEMOGLOBIN A1Con 06-23-2023 Average glucose Estimated from glycated hemoglobin (Bld) [Mass/Vol] 114 mg/dL [facility] HbA1c (Bld) [Mass fraction] 5.6 % 4.7 - 5.6 % [facility] Glucose [Mass/Vol] 114 mg/dL Normal [facility] Comment on above: Performed By: #### A 1CB, [id number] ####[facility] (DEFAULT)[address] [place] [address] Hemoglobin A1C HPLC 5.6 % Normal 4.7-5.6 [facility] Comment on above: Performed By: #### A 1CB, [id number] ####[facility] (DEFAULT)[address] [place] [address] HIGH SENSITIVITY TROPONIN I - SINGLE ORDERon 06-23-2023 hs-Troponin I 4 ng/L Normal <53 [facility] Comment on above: Order Comment: Acute Coronary Syndrome (ACS): Initial Evaluation and Management: [email or web address] Performed By: #### H MARCELLA, LABHSTI1 #### [facility] (DEFAULT) [address] [place] [address] Interpretation and review of laboratory results Normal [facility] Troponin I.cardiac High sensitivity method [Mass/Vol] 4 ng/L NINF - 53 ng/L [facility] hs-Troponin I 3 ng/L Normal <53 [facility] Comment on above: Order Comment: Acute Coronary Syndrome (ACS): Initial Evaluation and Management: [email or web address] Performed By: #### I PB, LABHSTI1, CA, MGO, CHM7 #### [facility] (DEFAULT) [address] [place] [address] Interpretation and review of laboratory results Normal [facility] Troponin I.cardiac High sensitivity method [Mass/Vol] 3 ng/L NINF - 53 ng/L [facility] LIPID PANEL W CALCULATED LDL on 06-23-2023 Cholesterol [Mass/Vol] 134 mg/dL NINF - 200 mg/dL [facility] Comment on above: [<200 mg/dL: Desirab le] [200-239 mg/dL: Borderline High] [>239 mg/dL: High] Cholesterol in HDL [Mass/Vol] 55 mg/dL 40 - PINF mg/dL [facility] Comment on above: [<40 mg/dL: Low (Hig h Risk)] [>59 mg/dL: High (Low Risk)] Cholesterol in HDL [Mass/Vol] 79 mg/dL NINF - 130 mg/dL [facility] Cholesterol in LDL [Mass/Vol] 66 mg/dL 0 - 99 mg/dL [facility] Comment on above: [<100 mg/dL: Optimal ] [100-129 mg/dL: Near Optimal] [130-159 mg/dL: Borderline High] [160-189 mg/dL: High] [>189 mg/dL: Very High] Cholesterol.total/Chol esterol in HDL [Mass ratio] 2.4 {ratio} NINF - 4.5 [facility] Interpretation and review of laboratory results Normal [facility] Triglyceride [Mass/Vol] 66 mg/dL NINF - 150 mg/dL [facility] Comment on above: [<150 mg/dL: Desirab le] [150-199 mg/dL: Borderline] [200-499 mg/dL: High] [>500 mg/dL: Very High] [facility] Calculated LDL Cholesterol 66 mg/dL Normal 0-99 [facility] Comment on above: Result Comment: [<10 0 mg/dL: Optimal] [100-129 mg/dL: Near Optimal] [130-159 mg/dL: Borderline High] [160-189 mg/dL: High] [>189 mg/dL: Very High] Performed By: #### H MARCELLA, LABHSTI1 ####[facility] (DEFAULT)[address] [place] [address] Cholesterol [Mass/Vol] 134 mg/dL Normal <200 [facility] Comment on above: Result Comment: [<20 0 mg/dL: Desirable] [200-239 mg/dL: Borderline High] [>239 mg/dL: High] Performed By: #### H MARCELLA, LABHSTI1 ####[facility] (DEFAULT)[address] [place] [address] Cholesterol in HDL [Mass/Vol] 55 mg/dL Normal >=40 [facility] Comment on above: Result Comment: [<40 mg/dL: Low (High Risk)] [>59 mg/dL: High (Low Risk)] Performed By: #### H MARCELLA, LABHSTI1 ####[facility] (DEFAULT)[address] [place] [address] Non HDL Cholesterol 79 mg/dL Normal <130 [facility] Comment on above: Performed By: #### H MARCELLA, LABHSTI1 ####[facility] (DEFAULT)[address] [place] [address], [place] [address] Total Cholesterol/HDL Ratio 2.4 Normal <4.5 [facility] Comment on above: Performed By: #### H MARCELLA, LABHSTI1 ####[facility] (DEFAULT)[address] [place] [address] Triglyceride [Mass/Vol] 66 mg/dL Normal <150 [facility] Comment on above: Result Comment: [<15 0 mg/dL: Desirable] [150-199 mg/dL: Borderline] [200-499 mg/dL: High] [>500 mg/dL: Very High] Performed By: #### H MARCELLA, LABHSTI1 ####[facility] (DEFAULT)[address] [place] [address] MAGNESIUMon 06-23-2023 Magnesium [Mass/Vol] 1.8 mg/dL Normal 1.6-2.6 [facility] Comment on above: Performed By: #### I PB, LABHSTI1, CA, MGO, CHM7 #### [facility] (DEFAULT) [address] [place] [address] Magnesium [Mass/Vol] 1.8 mg/dL 1.6 - 2 .6 mg/dL [facility] No Panel Informationon 06-23 Interpretation and review of laboratory results Normal [facility] PHOSPHATE, INORGANICon 06-23 Phosphorous 2.5 mg/dL Normal 2.2-4.6 [facility] Comment on above: Performed By: #### I PB, LABHSTI1, CA, MGO, CHM7 #### [facility] (DEFAULT) [address] [place] [address] [address] Phosphate [Mass/Vol] 2.5 mg/dL 2.2 - 4 .6 mg/dL [facility] XR CHEST PA AND LATERALon XR [...] have reviewed and approved this report. Normal [facility] XR Chest PA and Lateralon IMPRESSION: 1. [...] I have reviewed and approved this report. [facility] Radiology Study observation (narrative) [facility] XR Chest PA and LateralOrder ed By: Angela Fisher on 06-23-2023 [facility] Work Phone: Absolute lymphocyte countOrd ered By: Alice Waters on 04-28-2023 Lymphocytes Auto (Unsp spec) [#/Vol] 1.07 10*3/uL 0.83-4.51 [facility] Basophil percentageOrdered B y: Alice Waters on 04-28-2023 Basophils/100 WBC (Bld) 0.4 % 0-1 [facility] Bilirubin [Mass/Vol] 0.90 mg/dL 0.20-1.00 [facility] Comment on above: For patients on eltr ombopag therapy, use of Dimension [place] TBIL is not recommended. Chloride [Moles/Vol] 108 mmol/L 98-107 [facility] Cholesterol [Mass/Vol] 106 mg/dL <200 [facility] Comment on above: <200 mg/dL Desirable 200-240 mg/dL Borderline >240 mg/dL High Risk Eosinophils/100 WBC (Bld) 3.6 % 0-5 [facility] Glucose [Mass/Vol] 131 mg/dL 74-106 [facility] Comment on above: Fasting Glucose resu lt greater than or equal to 126 mg/dL suggests DIABETES MELLITUS per A.D.A. criteria. Neutrophils (Bld) [#/Vol] 3.8 10*3/uL 2.0-7.7 [facility] Neutrophils/100 WBC (Bld) 68.1 % 47-70 [facility] Potassium [Moles/Vol] 3.6 mmol/L 3.5-5.1 [facility] Protein [Mass/Vol] 6.5 g/dL 6.4-8.2 [facility] Sodium [Moles/Vol] 140 mmol/L 136-145 [facility] Triglyceride [Mass/Vol] 59 mg/dL <199 [facility] Comment on above: The drugs N-Acetylcy steine and Metamizole may falsely depress this assay.Serum Triglycerides Reference Interval Normal <150 mg/dL Borderline high 150 - 199 mg/dL High 200 - 499 mg/dL Very High > or = 500 mg/dL WBC (Bld) [#/Vol] 5.5 10*3/uL 4.4-11.0 [facility] Blood erythrocytes count (nu mber/volume)Ordered By: Alice Waters on 04-28-2023 RBC (Bld) [#/Vol] 4.41 10*6/uL 4.6-6.2 [facility] Blood hemoglobin measurement (mass/volume)Ordered By: Alice Waters on 04-28-2023 Hemoglobin (Bld) [Mass/Vol] 14.6 g/dL 13.0-16.5 [facility] Blood lymphocytes/100 leukoc ytesOrdered By: Alice Waters on 04-28-2023 Lymphocytes/100 WBC (Bld) 19.4 % 19-41 [facility] Blood monocytes/100 leukocyt esOrdered By: [facility] E[facility] on 04-28-2023 Monocytes/100 WBC (Bld) 8.3 % 0-10 [facility] Blood platelet mean volumeOr dered By: Alicepritesh Waters on 04-28-2023 Platelet mean volume (Bld) [Entitic vol] 11.6 fL 6.2-12.0 [facility] CBC W/Diff, Automatedon 04-03 Absolute Lymph 1.07 X10 3/uL Normal 0.83-4.51 [facility] Comment on above: Order Comment: DR. Shahbaz BOOTH GETS CBCD AND CMPDR. MICHEAL GETS CMP AND LIPID Performed By: #### L 500.4050, L100.0100 #### [facility] [address] [place], [address] Absolute Neut 3.8 X10 3/uL Normal 2.0-7.7 [facility] Comment on above: Order Comment: DR. Shahbaz BOOTH GETS CBCD AND CMPDRJagjit BURTON GETS CMP AND LIPID Performed By: #### L 500.4050, L100.0100 #### [facility] [address] [place], [address] Basophils/100 WBC (Bld) 0.4 % Normal 0-1 [facility] Comment on above: Order Comment: DR. Shahbaz BOOTH GETS CBCD AND CMPDRJagjit BURTON GETS CMP AND LIPID Performed By: #### L 500.4050, L100.0100 #### [facility] [address] [place], [address] Eosinophils/100 WBC (Bld) 3.6 % Normal 0-5 [facility] Comment on above: Order Comment: DR. Shahbaz BOOTH GETS CBCD AND CMPDR. MICHEAL GETS CMP AND LIPID Performed By: #### L 500.4050, L100.0100 #### [facility] [address] [place], [address] Erythrocyte distribution width (RBC) [Ratio] 12.0 % Normal 11.6-14.6 [facility] Comment on above: Order Comment: DR. Shahbaz BOOTH GETS CBCD AND CMPDR. MICHEAL GETS CMP AND LIPID Performed By: #### L 500.4050, L100.0100 #### [facility] [address] [place], [address] Hematocrit (Bld) [Volume fraction] 43.1 % Normal 40-54 [facility] Comment on above: Order Comment: DR. Shahbaz BOOTH GETS CBCD AND CMPDR. MICHEAL GETS CMP AND LIPID Performed By: #### L 500.4050, L100.0100 #### [facility] [address] [place], [address] Hemoglobin (Bld) [Mass/Vol] 14.6 g/dL Normal 13.0-16.5 [facility] Comment on above: Order Comment: DR. Shahbaz BOOTH GETS CBCD AND CMPDR. MICHEAL GETS CMP AND LIPID Performed By: #### L 500.4050, L100.0100 #### [facility] [address] [place], [address] IG% 0.200 Normal 0.0-0.9 [facility] Comment on above: Order Comment: DR. Shahbaz BOOTH GETS CBCD AND CMPDR. MICHEAL GETS CMP AND LIPID Result Comment: IG% - Immature Granulocytes (promyelocytes, myelocytes and metamyelocytes) > 1% indicates that a LEFT SHIFT is Present. Performed By: #### L 500.4050, L100.0100 #### [facility] [address] [place], [address] Lymphocytes/100 WBC (Bld) 19.4 % Normal 19-41 [facility] Comment on above: Order Comment: DR. Shahbaz BOOTH GETS CBCD AND CMPDR. MICHEAL GETS CMP AND LIPID Performed By: #### L 500.4050, L100.0100 #### [facility] [address] [place], [address] MCH (RBC) [Entitic mass] 33.1 pg High 27.0-32.0 [facility] Comment on above: Order Comment: DR. Shahbaz BOOTH GETS CBCD AND CMPDR. MICHEAL GETS CMP AND LIPID Performed By: #### L 500.4050, L100.0100 #### [facility] [address] [place], [address] MCHC (RBC) [Mass/Vol] 33.9 g/dL Normal 32-36 [facility] Comment on above: Order Comment: DR. Shahbaz BOOTH GETS CBCD AND CMPDR. MICHEAL GETS CMP AND LIPID Performed By: #### L 500.4050, L100.0100 #### [facility] [address] [place], [address] MCV (RBC) [Entitic vol] 97.7 fL High 80-94 [facility] Comment on above: Order Comment: DR. Shahbaz BOOTH GETS CBCD AND CMPDR. MICHEAL GETS CMP AND LIPID Performed By: #### L 500.4050, L100.0100 #### [facility] [address] [place], [address] Monocytes/100 WBC (Bld) 8.3 % Normal 0-10 [facility] Comment on above: Order Comment: DR. Shahbaz BOOTH GETS CBCD AND CMPDR. MICHEAL GETS CMP AND LIPID Performed By: #### L 500.4050, L100.0100 #### [facility] [address] [place], [address] Neutrophils/100 WBC (Bld) 68.1 % Normal 47-70 [facility] Comment on above: Order Comment: DR. Shahbaz BOOTH GETS CBCD AND CMPDR. MICHEAL GETS CMP AND LIPID Performed By: #### L 500.4050, L100.0100 #### [facility] [address] [place], [address] Nucleated RBC (Bld) [#/Vol] 0 10*3/uL Normal 0-5 [facility] Comment on above: Order Comment: DR. Shahbaz BOOTH GETS CBCD AND CMPDR. MICHEAL GETS CMP AND LIPID Performed By: #### L 500.4050, L100.0100 #### [facility] [address] [place], [address] Platelet mean volume (Bld) [Entitic vol] 11.6 fL Normal 6.2-12.0 [facility] Comment on above: Order Comment: DR. Shahbaz BOOTH GETS CBCD AND CMPDR. MICHEAL GETS CMP AND LIPID Performed By: #### L 500.4050, L100.0100 #### [facility] [address] [place], [address] Platelets (Bld) [#/Vol] 165 10*3/uL Normal 150-450 [facility] Comment on above: Order Comment: DR. Shahbaz BOOTH GETS CBCD AND CMPDR. MICHEAL GETS CMP AND LIPID Performed By: #### L 500.4050, L100.0100 #### [facility] [address] [place], [address] RBC (Bld) [#/Vol] 4.41 10*6/uL Low 4.6-6.2 [facility] Comment on above: Order Comment: DR. Shahbaz BOOTH GETS CBCD AND CMPDRJagjit BURTON GETS CMP AND LIPID Performed By: #### L 500.4050, L100.0100 #### [facility] [address] [place], [address] RDW SD 42.8 fl Normal 35.1-43.9 [facility] Comment on above: Order Comment: DR. Shahbaz BOOTH GETS CBCD AND CMPDR. MICHEAL GETS CMP AND LIPID Performed By: #### L 500.4050, L100.0100 #### [facility] [address] [place], [address] WBC (Bld) [#/Vol] 5.5 10*3/uL Normal 4.4-11.0 [facility] Comment on above: Order Comment: DR. Shahbaz BOOTH GETS CBCD AND CMPDR. MICHEAL GETS CMP AND LIPID Performed By: #### L 500.4050, L100.0100 #### [facility] [address] [place], [address] Comprehensive Metabolic Prof ilon 04-28-2023 Albumin [Mass/Vol] 3.5 g/dL Normal 3.2-5.0 [facility] Comment on above: Order Comment: DR. Shahbaz BOOTH GETS CBCD AND CMPDR. MICHEAL GETS CMP AND LIPID Performed By: #### L 500.4050, L100.0100 #### [facility] [address] [place], [address] Albumin/Globulin [Mass ratio] 1.2 {ratio} Normal 0.9-2.4 [facility] Comment on above: Order Comment: DR. Shahbaz BOOTH GETS CBCD AND CMPDR. MICHEAL GETS CMP AND LIPID Performed By: #### L 500.4050, L100.0100 #### [facility] [address] [place], [address] ALK P 73 U/L Normal 45-117 [facility] Comment on above: Order Comment: DR. Shahbaz BOOTH GETS CBCD AND CMPDR. IMCHEAL GETS CMP AND LIPID Performed By: #### L 500.4050, L100.0100 #### [facility] [address] [place], [address] ALT [Catalytic activity/Vol] 59 U/L Normal 16-61 [facility] Comment on above: Order Comment: DR. Shahbaz BOOTH GETS CBCD AND CMPDR. MICHEAL GETS CMP AND LIPID Performed By: #### L 500.4050, L100.0100 #### [facility] [address] [place], [address] AST [Catalytic activity/Vol] 24 U/L Normal 15-37 [facility] Comment on above: Order Comment: DR. Shahbaz BOOTH GETS CBCD AND CMPDR. MICHEAL GETS CMP AND LIPID Performed By: #### L 500.4050, L100.0100 #### [facility] [address] [place], [address] Bilirubin [Mass/Vol] 0.90 mg/dL Normal 0.20-1.00 [facility] Comment on above: Order Comment: DR. Shahbaz BOOTH GETS CBCD AND CMPDR. MICHEAL GETS CMP AND LIPID Result Comment: For patients on eltrombopag therapy, use of Dimension [place] TBIL is not recommended. Performed By: #### L 500.4050, L100.0100 #### [facility] [address] [place], [address] BUN/CRE 16.4 RATIO Normal 10-20 [facility] Comment on above: Order Comment: DR. Shahbaz BOOTH GETS CBCD AND CMPDR. MICHEAL GETS CMP AND LIPID Performed By: #### L 500.4050, L100.0100 #### [facility] [address] [place], [address] CA,Total 8.7 mg/dL Normal 8.5-10.1 [facility] Comment on above: Order Comment: DR. Shahbaz BOOTH GETS CBCD AND CMPDR. MICHEAL GETS CMP AND LIPID Performed By: #### L 500.4050, L100.0100 #### [facility] [address] [place], [address] Chloride [Moles/Vol] 108 mmol/L High 98-107 [facility] Comment on above: Order Comment: DR. Shahbaz BOOTH GETS CBCD AND CMPDR. MICHEAL GETS CMP AND LIPID Performed By: #### L 500.4050, L100.0100 #### [facility] [address] [place], [address] CO2 [Moles/Vol] 26.0 mmol/L Normal 21.0-32.0 [facility] Comment on above: Order Comment: DR. Shahbaz BOOTH GETS CBCD AND CMPDR. MICHEAL GETS CMP AND LIPID Performed By: #### L 500.4050, L100.0100 #### [facility] [address] [place], [address] Creatinine [Mass/Vol] 0.86 mg/dL Normal 0.70-1.30 [facility] Comment on above: Order Comment: DR. Shahbaz BOOTH GETS CBCD AND CMPDR. MICHEAL GETS CMP AND LIPID Result Comment: The validity of the calculated GFR GFRAA in patients over 70 years has not been determined. Clinical correlation is essential. Performed By: #### L 500.4050, L100.0100 #### [facility] [address] [place], [address] EST GFR - AA 116 mL/min Normal >60 [facility] Comment on above: Order Comment: DR. Shahbaz BOOTH GETS CBCD AND CMPDR. MICHEAL GETS CMP AND LIPID Result Comment: Afri can [place] GFR Calc Performed By: #### L 500.4050, L100.0100 #### [facility] [address] [place], [address] GAP 6 Normal 5-15 [facility] Comment on above: Order Comment: DR. Shahbaz BOOTH GETS CBCD AND CMPDR. MICHEAL GETS CMP AND LIPID Performed By: #### L 500.4050, L100.0100 #### [facility] [address] [place], [address] GFR/1.73 sq M.predicted among non-blacks MDRD (S/P/Bld) [Vol rate/Area] 96 mL/min/{1.73_m2} Normal >60 [facility] Comment on above: Order Comment: DR. Shahbaz BOOTH GETS CBCD AND CMPDR. MICHEAL GETS CMP AND LIPID Result Comment: Non- GFR Calc Performed By: #### L 500.4050, L100.0100 #### [facility] [address] [place], [address] Globulin (S) [Mass/Vol] 3.0 g/dL Normal 2.2-4.2 [facility] Comment on above: Order Comment: DR. Shahbaz BOOTH GETS CBCD AND CMPDR. MICHEAL GETS CMP AND LIPID Performed By: #### L 500.4050, L100.0100 #### [facility] [address] [place], [address] Glucose [Mass/Vol] 131 mg/dL High 74-106 [facility] Comment on above: Order Comment: DR. Shahbaz BOOTH GETS CBCD AND CMPDR. MICHEAL GETS CMP AND LIPID Result Comment: Fast ing Glucose result greater than or equal to 126 mg/dL suggests DIABETES MELLITUS per A.D.A. criteria. Performed By: #### L 500.4050, L100.0100 #### [facility] [address] [place], [address] Potassium [Moles/Vol] 3.6 mmol/L Normal 3.5-5.1 [facility] Comment on above: Order Comment: DR. Shahbaz BOOTH GETS CBCD AND CMPDR. MICHEAL GETS CMP AND LIPID Performed By: #### L 500.4050, L100.0100 #### [facility] [address] [place], [address] Sodium [Moles/Vol] 140 mmol/L Normal 136-145 [facility] Comment on above: Order Comment: DR. Shahbaz BOOTH GETS CBCD AND CMPDR. MICHEAL GETS CMP AND LIPID Performed By: #### L 500.4050, L100.0100 #### [facility] [address] [place], [address] T PROT 6.5 g/dL Normal 6.4-8.2 [facility] Comment on above: Order Comment: DR. Shahbaz BOOTH GETS CBCD AND CMPDR. MICHEAL GETS CMP AND LIPID Performed By: #### L 500.4050, L100.0100 #### [facility] [address] [place], [address] Urea nitrogen [Mass/Vol] 14 mg/dL Normal 7-18 [facility] Comment on above: Order Comment: DR. Shahbaz BOOTH GETS CBCD AND CMPDR. MICHEAL GETS CMP AND LIPID Performed By: #### L 500.4050, L100.0100 #### [facility] [address] [place], [address] Determination of erythrocyte mean corpuscular volume (MCV)Ordered By: Alice Waters on 04-28-2023 MCV (RBC) [Entitic vol] 97.7 fL 80-94 [facility] Hematocrit Auto (Bld) [Volum e fraction]Ordered By: Alice Waters on 04-28-2023 Hematocrit (Bld) [Volume fraction] 43.1 % 40-54 [facility] - Chemistry and C hemistry - challengeOrdered By: Alice Waters on 04-28-2023 ALP [Catalytic activity/Vol] 73 U/L 45-117 [facility] ALT [Catalytic activity/Vol] 59 U/L 16-61 [facility] CO2 [Moles/Vol] 26.0 mmol/L 21.0-32.0 [facility] Globulin (S) [Mass/Vol] 3.0 g/dL 2.2-4.2 [facility] Urea nitrogen/Creatinine [Mass ratio] 16.4 mg/mg 10-20 [facility] - Hematology and Cell countsOrdered By: Alice Waters on 04-28-2023 Erythrocyte distribution width (RBC) [Entitic vol] 42.8 fL 35.1-43.9 [facility] Erythrocyte distribution width (RBC) [Ratio] 12.0 % 11.6-14.6 [facility] Immature granulocytes/100 WBC (Bld) 0.200 % 0.0-0.9 [facility] Comment on above: IG% - Immature Granu locytes (promyelocytes, myelocytes and metamyelocytes) > 1% indicates that a LEFT SHIFT is Present. MCH (RBC) [Entitic mass] 33.1 pg 27.0-32.0 [facility] Nucleated RBC/100 WBC (Bld) [Ratio] 0 % 0-5 [facility] Lipid Profileon 04-28-2023 Cholesterol [Mass/Vol] 106 mg/dL Normal 200 [facility] Comment on above: Order Comment: DR. Shahbaz BOOTH GETS CBCD AND CMPDR. MICHEAL GETS CMP AND LIPID Result Comment: <200 mg/dL Desirable 200-240 mg/dL Borderline >240 mg/dL High Risk Performed By: #### L 500.4050, L100.0100 #### [facility] [address] [place], [address] Cholesterol in HDL [Mass/Vol] 63 mg/dL Normal [facility] Comment on above: Order Comment: DR. Shahbaz BOOTH GETS CBCD AND CMPDR. BURTON GETS CMP AND LIPID Result Comment: The drugs N-Acetylcysteine and Metamizole may falsely depress this assay. Reference Range HDL <40 mg/dL Low HDL Cholesterol HDL >or= 60 mg/dL High HDL Cholesterol Performed By: #### L 500.4050, L100.0100 #### [facility] [address] [place], [address] Cholesterol in LDL [Mass/Vol] 31 mg/dL Normal 0-130 [facility] Comment on above: Order Comment: DR. Shahbaz BOOTH GETS CBCD AND CMPDR. BURTON GETS CMP AND LIPID Performed By: #### L 500.4050, L100.0100 #### [facility] [address] [place], [address] Cholesterol in VLDL [Mass/Vol] 12 mg/dL Normal 5-40 [facility] Comment on above: Order Comment: DR. Shahbaz BOOTH GETS CBCD AND CMPDR. MICHEAL GETS CMP AND LIPID Performed By: #### L 500.4050, L100.0100 #### [facility] [address] [place], [address] Triglyceride [Mass/Vol] 59 mg/dL Normal [facility] Comment on above: Order Comment: DR. Shahbaz BOOTH GETS CBCD AND CMPDR. MICHEAL GETS CMP AND LIPID Result Comment: The drugs N-Acetylcysteine and Metamizole may falsely depress this assay. Serum Triglycerides Reference Interval Normal <150 mg/dL Borderline high 150 - 199 mg/dL High 200 - 499 mg/dL Very High > or = 500 mg/dL Performed By: #### L 500.4050, L100.0100 #### [facility] [address] [place], [address] MCHC Auto (RBC) [Mass/Vol]Or dered By: Alice Waters on 04-28-2023 MCHC (RBC) [Mass/Vol] 33.9 g/dL 32-36 [facility] No Panel InformationOrdered By: Alice Waters on 04-28-2023 Estimated GFR (MDRD) Amer 116 mL/min >60 [facility] Comment on above: GFR Calc Estimated GFR (MDRD) Non-Af Amer 96 mL/min >60 [facility] Comment on above: Non- GFR Calc Platelets bldOrdered By: Barney Waters on 04-28-2023 Platelets (Bld) [#/Vol] 165 10*3/uL 150-450 [facility] Serum or plasma albumin geovanna urement (mass/volume)Ordered By: Alice Waters on 04-28-2023 Albumin [Mass/Vol] 3.5 g/dL 3.2-5.0 [facility] Serum or plasma albumin/glob ulin mass ratioOrdered By: Alice Waters on 04-28-2023 Albumin/Globulin [Mass ratio] 1.2 {ratio} 0.9-2.4 [facility] Serum or plasma calcium geovanna urement (mass/volume)Ordered By: Alice Waters on 04-28-2023 Calcium [Mass/Vol] 8.7 mg/dL 8.5-10.1 [facility] Serum or plasma cholesterol in HDL measurement (mass/volume)Ordered By: Alice Waters on 04-28-2023 Cholesterol in HDL [Mass/Vol] 63 mg/dL >40 [facility] Comment on above: The drugs N-Acetylcy steine and Metamizole may falsely depress this assay. Reference Range HDL <40 mg/dL Low HDL Cholesterol HDL >or= 60 mg/dL High HDL Cholesterol Serum or plasma cholesterol in VLDL measurement (mass/volume)Ordered By: Alice Waters on 04-28-2023 Cholesterol in VLDL [Mass/Vol] 12 mg/dL 5-40 [facility] Serum or plasma creatinine m easurement (mass/volume)Ordered By: Alice Waters on 04-28-2023 Creatinine [Mass/Vol] 0.86 mg/dL 0.70-1.30 [facility] Comment on above: The validity of the calculated GFR & GFRAA in patients over 70 years has not been determined. Clinical correlation is essential. Serum or plasma low density lipoprotein (LDL) cholesterol measurement (mass/volume)Ordered By: Alice Waters on 04-28-2023 Cholesterol in LDL [Mass/Vol] 31 mg/dL 0-130 [facility] Serum or plasma urea nitroge n measurement (mass/volume)Ordered By: Alice Waters on 04-28-2023 Urea nitrogen [Mass/Vol] 14 mg/dL 7-18 [facility] Thin prep Papanicolaou smear with manual screeningOrdered By: Alice Waters on 04-28-2023 Thin prep Papanicolaou smear with manual screening 24 U/L 15-37 [facility] Thin prep Papanicolaou smear with manual screening 6 5-15 [facility] CBC W/Diff, Automatedon 07-2 Absolute Lymph 1.08 X10 3/uL Normal 0.83-4.51 [facility] Comment on above: Performed By: #### L 100.0100, L500.4050 #### [facility] [address] [place], [address] Absolute Neut 4.8 X10 3/uL Normal 2.0-7.7 [facility] Comment on above: Performed By: #### L 100.0100, L500.4050 #### [facility] [address] [place], [address] Basophils/100 WBC (Bld) 0.6 % Normal 0-1 [facility] Comment on above: Performed By: #### L 100.0100, L500.4050 #### [facility] [address] [place], [address] Eosinophils/100 WBC (Bld) 2.5 % Normal 0-5 [facility] Comment on above: Performed By: #### L 100.0100, L500.4050 #### [facility] [address] [place], [address] Erythrocyte distribution width (RBC) [Ratio] 12.4 % Normal 11.6-14.6 [facility] Comment on above: Performed By: #### L 100.0100, L500.4050 #### [facility] [address] [place], [address] Hematocrit (Bld) [Volume fraction] 42.4 % Normal 40-54 [facility] Comment on above: Performed By: #### L 100.0100, L500.4050 #### [facility] [address] [place], [address] Hemoglobin (Bld) [Mass/Vol] 14.2 g/dL Normal 13.0-16.5 [facility] Comment on above: Performed By: #### L 100.0100, L500.4050 #### [facility] [address] [place], [address] IG% 0.200 Normal 0.0-0.9 [facility] Comment on above: Result Comment: IG% - Immature Granulocytes (promyelocytes, myelocytes and metamyelocytes) > 1% indicates that a LEFT SHIFT is Present. Performed By: #### L 100.0100, L500.4050 #### [facility] [address] [place], [address] Lymphocytes/100 WBC (Bld) 16.5 % Low 19-41 [facility] Comment on above: Performed By: #### L 100.0100, L500.4050 #### [facility] [address] [place], [address] MCH (RBC) [Entitic mass] 32.2 pg High 27.0-32.0 [facility] Comment on above: Performed By: #### L 100.0100, L500.4050 #### [facility] [address] [place], [address] MCHC (RBC) [Mass/Vol] 33.5 g/dL Normal 32-36 [facility] Comment on above: Performed By: #### L 100.0100, L500.4050 #### [facility] [address] [place], [address] MCV (RBC) [Entitic vol] 96.1 fL High 80-94 [facility] Comment on above: Performed By: #### L 100.0100, L500.4050 #### [facility] [address] [place], [address] Monocytes/100 WBC (Bld) 6.9 % Normal 0-10 [facility] Comment on above: Performed By: #### L 100.0100, L500.4050 #### [facility] [address] [place], [address] Neutrophils/100 WBC (Bld) 73.3 % High 47-70 [facility] Comment on above: Performed By: #### L 100.0100, L500.4050 #### [facility] [address] [place], [address] Nucleated RBC (Bld) [#/Vol] 0 10*3/uL Normal 0-5 [facility] Comment on above: Performed By: #### L 100.0100, L500.4050 #### [facility] [address] [place], [address] Platelet mean volume (Bld) [Entitic vol] 11.2 fL Normal 6.2-12.0 [facility] Comment on above: Performed By: #### L 100.0100, L500.4050 #### [facility] [address] [place], [address] Platelets (Bld) [#/Vol] 186 10*3/uL Normal 150-450 [facility] Comment on above: Performed By: #### L 100.0100, L500.4050 #### [facility] [address] [place], [address] RBC (Bld) [#/Vol] 4.41 10*6/uL Low 4.6-6.2 [facility] Comment on above: Performed By: #### L 100.0100, L500.4050 #### [facility] [address] [place], [address] RDW SD 42.9 fl Normal 35.1-43.9 [facility] Comment on above: Performed By: #### L 100.0100, L500.4050 #### [facility] [address] [place], [address] WBC (Bld) [#/Vol] 6.5 10*3/uL Normal 4.4-11.0 [facility] Comment on above: Performed By: #### L 100.0100, L500.4050 #### [facility] [address] [place], [address] Comprehensive Metabolic Prof ilon 02-18-2023 Albumin [Mass/Vol] 3.5 g/dL Normal 3.2-5.0 [facility] Comment on above: Performed By: #### L 100.0100, L500.4050 #### [facility] [address] [place], [address] Albumin/Globulin [Mass ratio] 1.2 {ratio} Normal 0.9-2.4 [facility] Comment on above: Performed By: #### L 100.0100, L500.4050 #### [facility] [address] [place], [address] ALK P 79 U/L Normal 45-117 [facility] Comment on above: Performed By: #### L 100.0100, L500.4050 #### [facility] [address] [place], [address] ALT [Catalytic activity/Vol] 64 U/L High 16-61 [facility] Comment on above: Performed By: #### L 100.0100, L500.4050 #### [facility] [address] [place], [address] AST [Catalytic activity/Vol] 22 U/L Normal 15-37 [facility] Comment on above: Performed By: #### L 100.0100, L500.4050 #### [facility] [address] [place], [address] Bilirubin [Mass/Vol] 0.60 mg/dL Normal 0.20-1.00 [facility] Comment on above: Result Comment: For patients on eltrombopag therapy, use of Dimension [place] TBIL is not recommended. Performed By: #### L 100.0100, L500.4050 #### [facility] [address] [place], [address] BUN/CRE 14.9 RATIO Normal 10-20 [facility] Comment on above: Performed By: #### L 100.0100, L500.4050 #### [facility] [address] [place], [address] CA,Total 8.9 mg/dL Normal 8.5-10.1 [facility] Comment on above: Performed By: #### L 100.0100, L500.4050 #### [facility] [address] [place], [address] Chloride [Moles/Vol] 108 mmol/L High 98-107 [facility] Comment on above: Performed By: #### L 100.0100, L500.4050 #### [facility] [address] [place], [address] CO2 [Moles/Vol] 28.0 mmol/L Normal 21.0-32.0 [facility] Comment on above: Performed By: #### L 100.0100, L500.4050 #### [facility] [address] [place], [address] Creatinine [Mass/Vol] 1.01 mg/dL Normal 0.70-1.30 [facility] Comment on above: Result Comment: The validity of the calculated GFR GFRAA in patients over 70 years has not been determined. Clinical correlation is essential. Performed By: #### L 100.0100, L500.4050 #### [facility] [address] [place], [address] EST GFR - AA 96 mL/min Normal >60 [facility] Comment on above: Result Comment: Afri can [place] GFR Calc Performed By: #### L 100.0100, L500.4050 #### [facility] [address] [place], [address] GAP 5 Normal 5-15 [facility] Comment on above: Performed By: #### L 100.0100, L500.4050 #### [facility] [address] [place], [address] GFR/1.73 sq M.predicted among non-blacks MDRD (S/P/Bld) [Vol rate/Area] 80 mL/min/{1.73_m2} Normal >60 [facility] Comment on above: Result Comment: Non- GFR Calc Performed By: #### L 100.0100, L500.4050 #### [facility] [address] [place], [address] Globulin (S) [Mass/Vol] 2.9 g/dL Normal 2.2-4.2 [facility] Comment on above: Performed By: #### L 100.0100, L500.4050 #### [facility] [address] [place], [address] Glucose [Mass/Vol] 132 mg/dL High 74-106 [facility] Comment on above: Result Comment: Fast ing Glucose result greater than or equal to 126 mg/dL suggests DIABETES MELLITUS per A.D.A. criteria. Performed By: #### L 100.0100, L500.4050 #### [facility] [address] [place], [address] Potassium [Moles/Vol] 3.9 mmol/L Normal 3.5-5.1 [facility] Comment on above: Performed By: #### L 100.0100, L500.4050 #### [facility] [address] [place], [address] Sodium [Moles/Vol] 141 mmol/L Normal 136-145 [facility] Comment on above: Performed By: #### L 100.0100, L500.4050 #### [facility] [address] [place], [address] T PROT 6.4 g/dL Normal 6.4-8.2 [facility] Comment on above: Performed By: #### L 100.0100, L500.4050 #### [facility] [address] [place], [address] Urea nitrogen [Mass/Vol] 15 mg/dL Normal 7-18 [facility] Comment on above: Performed By: #### L 100.0100, L500.4050 #### [facility] [address] [place], [address] CBC W/Diff, Automatedon 05- Absolute Lymph 1.16 X10 3/uL Normal 0.83-4.51 [facility] Comment on above: Performed By: #### L 100.0100, L500.4050 #### [facility] [address] [place], [address] Absolute Neut 4.5 X10 3/uL Normal 2.0-7.7 [facility] Comment on above: Performed By: #### L 100.0100, L500.4050 #### [facility] [address] [place], [address] Basophils/100 WBC (Bld) 0.5 % Normal 0-1 [facility] Comment on above: Performed By: #### L 100.0100, L500.4050 #### [facility] [address] [place], [address] Eosinophils/100 WBC (Bld) 1.7 % Normal 0-5 [facility] Comment on above: Performed By: #### L 100.0100, L500.4050 #### [facility] [address] [place], [address] Erythrocyte distribution width (RBC) [Ratio] 12.0 % Normal 11.6-14.6 [facility] Comment on above: Performed By: #### L 100.0100, L500.4050 #### [facility] [address] [place], [address] Hematocrit (Bld) [Volume fraction] 43.0 % Normal 40-54 [facility] Comment on above: Performed By: #### L 100.0100, L500.4050 #### [facility] [address] [place], [address] Hemoglobin (Bld) [Mass/Vol] 14.9 g/dL Normal 13.0-16.5 [facility] Comment on above: Performed By: #### L 100.0100, L500.4050 #### [facility] [address] [place], [address] IG% 0.300 Normal 0.0-0.9 [facility] Comment on above: Result Comment: IG% - Immature Granulocytes (promyelocytes, myelocytes and metamyelocytes) > 1% indicates that a LEFT SHIFT is Present. Performed By: #### L 100.0100, L500.4050 #### [facility] [address] [place], [address] Lymphocytes/100 WBC (Bld) 17.9 % Low 19-41 [facility] Comment on above: Performed By: #### L 100.0100, L500.4050 #### [facility] [address] [place], [address] MCH (RBC) [Entitic mass] 33.3 pg High 27.0-32.0 [facility] Comment on above: Performed By: #### L 100.0100, L500.4050 #### [facility] [address] [place], [address] MCHC (RBC) [Mass/Vol] 34.7 g/dL Normal 32-36 [facility] Comment on above: Performed By: #### L 100.0100, L500.4050 #### [facility] [address] [place], [address] MCV (RBC) [Entitic vol] 96.0 fL High 80-94 [facility] Comment on above: Performed By: #### L 100.0100, L500.4050 #### [facility] [address] [place], [address] Monocytes/100 WBC (Bld) 9.6 % Normal 0-10 [facility] Comment on above: Performed By: #### L 100.0100, L500.4050 #### [facility] [address] [place], [address] Neutrophils/100 WBC (Bld) 70.0 % Normal 47-70 [facility] Comment on above: Performed By: #### L 100.0100, L500.4050 #### [facility] [address] [place], [address] Nucleated RBC (Bld) [#/Vol] 0 10*3/uL Normal 0-5 [facility] Comment on above: Performed By: #### L 100.0100, L500.4050 #### [facility] [address] [place], [address] Platelet mean volume (Bld) [Entitic vol] 11.4 fL Normal 6.2-12.0 [facility] Comment on above: Performed By: #### L 100.0100, L500.4050 #### [facility] [address] [place], [address] Platelets (Bld) [#/Vol] 185 10*3/uL Normal 150-450 [facility] Comment on above: Performed By: #### L 100.0100, L500.4050 #### [facility] [address] [place], [address] RBC (Bld) [#/Vol] 4.48 10*6/uL Low 4.6-6.2 [facility] Comment on above: Performed By: #### L 100.0100, L500.4050 #### [facility] [address] [place], [address] RDW SD 42.1 fl Normal 35.1-43.9 [facility] Comment on above: Performed By: #### L 100.0100, L500.4050 #### [facility] [address] [place], [address] WBC (Bld) [#/Vol] 6.5 10*3/uL Normal 4.4-11.0 [facility] Comment on above: Performed By: #### L 100.0100, L500.4050 #### [facility] [address] [place], [address] Comprehensive Metabolic Prof [facility] 12-16-2022 Albumin [Mass/Vol] 3.7 g/dL Normal 3.2-5.0 [facility] Comment on above: Performed By: #### L 100.0100, L500.4050 #### [facility] [address] [place], [address] Albumin/Globulin [Mass ratio] 1.2 {ratio} Normal 0.9-2.4 [facility] Comment on above: Performed By: #### L 100.0100, L500.4050 #### [facility] [address] [place], [address] ALK P 74 U/L Normal 45-117 [facility] Comment on above: Performed By: #### L 100.0100, L500.4050 #### [facility] [address] [place], [address] ALT [Catalytic activity/Vol] 60 U/L Normal 16-61 [facility] Comment on above: Performed By: #### L 100.0100, L500.4050 #### [facility] [address] [place], [address] AST [Catalytic activity/Vol] 32 U/L Normal 15-37 [facility] Comment on above: Performed By: #### L 100.0100, L500.4050 #### [facility] [address] [place], [address] Bilirubin [Mass/Vol] 0.70 mg/dL Normal 0.20-1.00 [facility] Comment on above: Result Comment: For patients on eltrombopag therapy, use of Dimension [place] TBIL is not recommended. Performed By: #### L 100.0100, L500.4050 #### [facility] [address] [place], [address] BUN/CRE 12.9 RATIO Normal 10-20 [facility] Comment on above: Performed By: #### L 100.0100, L500.4050 #### [facility] [address] [place], [address] CA,Total 9.3 mg/dL Normal 8.5-10.1 [facility] Comment on above: Performed By: #### L 100.0100, L500.4050 #### [facility] [address] [place], [address] Chloride [Moles/Vol] 106 mmol/L Normal 98-107 [facility] Comment on above: Performed By: #### L 100.0100, L500.4050 #### [facility] [address] [place], [address] CO2 [Moles/Vol] 26.0 mmol/L Normal 21.0-32.0 [facility] Comment on above: Performed By: #### L 100.0100, L500.4050 #### [facility] [address] [place], [address] Creatinine [Mass/Vol] 1.01 mg/dL Normal 0.70-1.30 [facility] Comment on above: Result Comment: The validity of the calculated GFR GFRAA in patients over 70 years has not been determined. Clinical correlation is essential. Performed By: #### L 100.0100, L500.4050 #### [facility] [address] [place], [address] EST GFR - AA 96 mL/min Normal >60 [facility] Comment on above: Result Comment: Afri can [place] GFR Calc Performed By: #### L 100.0100, L500.4050 #### [facility] [address] [place], [address] GAP 7 Normal 5-15 [facility] Comment on above: Performed By: #### L 100.0100, L500.4050 #### [facility] [address] [place], [address] GFR/1.73 sq M.predicted among non-blacks MDRD (S/P/Bld) [Vol rate/Area] 80 mL/min/{1.73_m2} Normal >60 [facility] Comment on above: Result Comment: Non- GFR Calc Performed By: #### L 100.0100, L500.4050 #### [facility] [address] [place], [address] Globulin (S) [Mass/Vol] 3.2 g/dL Normal 2.2-4.2 [facility] Comment on above: Performed By: #### L 100.0100, L500.4050 #### [facility] [address] [place], [address] Glucose [Mass/Vol] 96 mg/dL Normal 74-106 [facility] Comment on above: Performed By: #### L 100.0100, L500.4050 #### [facility] [address] [place], [address] Potassium [Moles/Vol] 3.6 mmol/L Normal 3.5-5.1 [facility] Comment on above: Performed By: #### L 100.0100, L500.4050 #### [facility] [address] [place], [address] Sodium [Moles/Vol] 139 mmol/L Normal 136-145 [facility] Comment on above: Performed By: #### L 100.0100, L500.4050 #### [facility] [address] [place], [address] T PROT 6.9 g/dL Normal 6.4-8.2 [facility] Comment on above: Performed By: #### L 100.0100, L500.4050 #### [facility] [address] [place], [address] Urea nitrogen [Mass/Vol] 13 mg/dL Normal 7-18 [facility] Comment on above: Performed By: #### L 100.0100, L500.4050 #### [facility] [address] [place], [address] Absolute lymphocyte countOrd ered By: Dr. Waters on 09-16-2022 Lymphocytes Auto (Unsp spec) [#/Vol] 1.12 10*3/uL 0.83-4.51 [facility] Basophil percentageOrdered B y: Dr. Waters on 09-16-2022 Basophils/100 WBC (Bld) 0.4 % 0-1 [facility] Bilirubin [Mass/Vol] 0.80 mg/dL 0.20-1.00 [facility] Comment on above: For patients on eltr ombopag therapy, use of Dimension [place] TBIL is not recommended. Chloride [Moles/Vol] 108 mmol/L 98-107 [facility] Eosinophils/100 WBC (Bld) 1.5 % 0-5 [facility] Glucose [Mass/Vol] 153 mg/dL 74-106 [facility] Comment on above: Fasting Glucose resu lt greater than or equal to 126 mg/dL suggests DIABETES MELLITUS per A.D.A. criteria. Neutrophils (Bld) [#/Vol] 5.3 10*3/uL 2.0-7.7 [facility] Neutrophils/100 WBC (Bld) 74.7 % 47-70 [facility] Potassium [Moles/Vol] 3.7 mmol/L 3.5-5.1 [facility] Protein [Mass/Vol] 6.2 g/dL 6.4-8.2 [facility] Sodium [Moles/Vol] 143 mmol/L 136-145 [facility] WBC (Bld) [#/Vol] 7.1 10*3/uL 4.4-11.0 [facility] Blood erythrocytes count (nu mber/volume)Ordered By: Dr. Waters on 09-16-2022 RBC (Bld) [#/Vol] 4.29 10*6/uL 4.6-6.2 [facility] Blood hemoglobin measurement (mass/volume)Ordered By: Dr. Waters on 09-16-2022 Hemoglobin (Bld) [Mass/Vol] 14.1 g/dL 13.0-16.5 [facility] Blood lymphocytes/100 leukoc ytesOrdered By: Dr. Waters on 09-16-2022 Lymphocytes/100 WBC (Bld) 15.8 % 19-41 [facility] Blood monocytes/100 leukocyt esOrdered By: Dr. Waters on 09-16-2022 Monocytes/100 WBC (Bld) 7.3 % 0-10 [facility] Blood platelet mean volumeOr dered By: Dr. Waters on 09-16-2022 Platelet mean volume (Bld) [Entitic vol] 10.9 fL 6.2-12.0 [facility] Determination of erythrocyte mean corpuscular volume (MCV)Ordered By: Dr. Waters on 09-16-2022 MCV (RBC) [Entitic vol] 96.0 fL 80-94 [facility] Hematocrit Auto (Bld) [Volum e fraction]Ordered By: Dr. Waters on 09-16-2022 Hematocrit (Bld) [Volume fraction] 41.2 % 40-54 [facility] - Chemistry and C hemistry - challengeOrdered By: Dr. Waters on 09-16-2022 ALP [Catalytic activity/Vol] 70 U/L 45-117 [facility] ALT [Catalytic activity/Vol] 47 U/L 16-61 [facility] CO2 [Moles/Vol] 27.0 mmol/L 21.0-32.0 [facility] Globulin (S) [Mass/Vol] 2.8 g/dL 2.2-4.2 [facility] Urea nitrogen/Creatinine [Mass ratio] 15.6 mg/mg 10-20 [facility] - Hematology and Cell countsOrdered By: Dr. Waters on 09-16-2022 Erythrocyte distribution width (RBC) [Entitic vol] 42.5 fL 35.1-43.9 [facility] Erythrocyte distribution width (RBC) [Ratio] 12.1 % 11.6-14.6 [facility] Immature granulocytes/100 WBC (Bld) 0.300 % 0.0-0.9 [facility] Comment on above: IG% - Immature Granu locytes (promyelocytes, myelocytes and metamyelocytes) > 1% indicates that a LEFT SHIFT is Present. MCH (RBC) [Entitic mass] 32.9 pg 27.0-32.0 [facility] Nucleated RBC/100 WBC (Bld) [Ratio] 0 % 0-5 [facility] MCHC Auto (RBC) [Mass/Vol]Or dered By: Dr. Waters on 09-16-2022 MCHC (RBC) [Mass/Vol] 34.2 g/dL 32-36 [facility] No Panel InformationOrdered By: Dr. Watres on 09-16-2022 Estimated GFR (MDRD) Amer 88 mL/min >60 [facility] Comment on above: GFR Calc Estimated GFR (MDRD) Non-Af Amer 73 mL/min >60 [facility] Comment on above: Non- GFR Calc Platelets bldOrdered By: Dr. Waters on 09-16-2022 Platelets (Bld) [#/Vol] 163 10*3/uL 150-450 [facility] Serum or plasma albumin geovanna urement (mass/volume)Ordered By: Dr. Waters on 09-16-2022 Albumin [Mass/Vol] 3.4 g/dL 3.2-5.0 [facility] Serum or plasma albumin/glob ulin mass ratioOrdered By: Dr. Waters on 09-16-2022 Albumin/Globulin [Mass ratio] 1.2 {ratio} 0.9-2.4 [facility] Serum or plasma calcium geovanna urement (mass/volume)Ordered By: Dr. Waters on 09-16-2022 Calcium [Mass/Vol] 8.7 mg/dL 8.5-10.1 [facility] Serum or plasma creatinine m easurement (mass/volume)Ordered By: Dr. Waters on 09-16-2022 Creatinine [Mass/Vol] 1.09 mg/dL 0.70-1.30 [facility] Comment on above: The validity of the calculated GFR & GFRAA in patients over 70 years has not been determined. Clinical correlation is essential. Serum or plasma urea nitroge n measurement (mass/volume)Ordered By: Dr. Waters on 09-16-2022 Urea nitrogen [Mass/Vol] 17 mg/dL 7-18 [facility] Thin prep Papanicolaou smear with manual screeningOrdered By: Dr. Waters on 09-16-2022 Thin prep Papanicolaou smear with manual screening 18 U/L 15-37 [facility] Thin prep Papanicolaou smear with manual screening 8 5-15 [facility] Absolute lymphocyte countOrd ered By: Dr. Waters on 07-22-2022 Lymphocytes Auto (Unsp spec) [#/Vol] 1.21 10*3/uL 0.83-4.51 [facility] Basophil percentageOrdered B y: Dr. Waters on 07-22-2022 Basophils/100 WBC (Bld) 0.3 % 0-1 [facility] Bilirubin [Mass/Vol] 0.60 mg/dL 0.20-1.00 [facility] Comment on above: For patients on eltr ombopag therapy, use of Dimension [place] TBIL is not recommended. Chloride [Moles/Vol] 105 mmol/L 98-107 [facility] Eosinophils/100 WBC (Bld) 2.0 % 0-5 [facility] Glucose [Mass/Vol] 106 mg/dL 74-106 [facility] Comment on above: Fasting Glucose resu lt from 100 to 125 mg/dL suggests IMPAIRED HOMEOSTASIS per A.D.A. criteria. Neutrophils (Bld) [#/Vol] 5.8 10*3/uL 2.0-7.7 [facility] Neutrophils/100 WBC (Bld) 73.7 % 47-70 [facility] Potassium [Moles/Vol] 3.8 mmol/L 3.5-5.1 [facility] Protein [Mass/Vol] 6.3 g/dL 6.4-8.2 [facility] Sodium [Moles/Vol] 140 mmol/L 136-145 [facility] WBC (Bld) [#/Vol] 7.9 10*3/uL 4.4-11.0 [facility] Blood erythrocytes count (nu mber/volume)Ordered By: Dr. Waters on 07-22-2022 RBC (Bld) [#/Vol] 4.50 10*6/uL 4.6-6.2 [facility] Blood hemoglobin measurement (mass/volume)Ordered By: Dr. Waters on 07-22-2022 Hemoglobin (Bld) [Mass/Vol] 15.1 g/dL 13.0-16.5 [facility] Blood lymphocytes/100 leukoc ytesOrdered By: Dr. Waters on 07-22-2022 Lymphocytes/100 WBC (Bld) 15.4 % 19-41 [facility] Blood monocytes/100 leukocyt esOrdered By: Dr. Waters on 07-22-2022 Monocytes/100 WBC (Bld) 8.3 % 0-10 [facility] Blood platelet mean volumeOr dered By: Dr. Waters on 07-22-2022 Platelet mean volume (Bld) [Entitic vol] 11.6 fL 6.2-12.0 [facility] Determination of erythrocyte mean corpuscular volume (MCV)Ordered By: Dr. Waters on 07-22-2022 MCV (RBC) [Entitic vol] 92.9 fL 80-94 [facility] Hematocrit Auto (Bld) [Volum e fraction]Ordered By: Dr. Waters on 07-22-2022 Hematocrit (Bld) [Volume fraction] 41.8 % 40-54 [facility] - Chemistry and C hemistry - challengeOrdered By: Dr. Waters on 07-22-2022 ALP [Catalytic activity/Vol] 76 U/L 45-117 [facility] ALT [Catalytic activity/Vol] 49 U/L 16-61 [facility] CO2 [Moles/Vol] 28.0 mmol/L 21.0-32.0 [facility] Globulin (S) [Mass/Vol] 2.6 g/dL 2.2-4.2 [facility] Urea nitrogen/Creatinine [Mass ratio] 13.5 mg/mg 10-20 [facility] - Hematology and Cell countsOrdered By: Dr. Waters on 07-22-2022 Erythrocyte distribution width (RBC) [Entitic vol] 40.8 fL 35.1-43.9 [facility] Erythrocyte distribution width (RBC) [Ratio] 11.9 % 11.6-14.6 [facility] Immature granulocytes/100 WBC (Bld) 0.300 % 0.0-0.9 [facility] Comment on above: IG% - Immature Granu locytes (promyelocytes, myelocytes and metamyelocytes) > 1% indicates that a LEFT SHIFT is Present. MCH (RBC) [Entitic mass] 33.6 pg 27.0-32.0 [facility] Nucleated RBC/100 WBC (Bld) [Ratio] 0 % 0-5 [facility] MCHC Auto (RBC) [Mass/Vol]Or dered By: Dr. Waters on 07-22-2022 MCHC (RBC) [Mass/Vol] 36.1 g/dL 32-36 [facility] No Panel InformationOrdered By: Dr. Waters on 07-22-2022 Estimated GFR (MDRD) Amer 102 mL/min >60 [facility] Comment on above: GFR Calc Estimated GFR (MDRD) Non-Af Amer 84 mL/min >60 [facility] Comment on above: Non- GFR Calc Platelets bldOrdered By: Dr. Waters on 07-22-2022 Platelets (Bld) [#/Vol] 166 10*3/uL 150-450 [facility] Serum or plasma albumin geovanna urement (mass/volume)Ordered By: Dr. Waters on 07-22-2022 Albumin [Mass/Vol] 3.7 g/dL 3.2-5.0 [facility] Serum or plasma albumin/glob ulin mass ratioOrdered By: Dr. Waters on 07-22-2022 Albumin/Globulin [Mass ratio] 1.4 {ratio} 0.9-2.4 [facility] Serum or plasma calcium geovanna urement (mass/volume)Ordered By: Dr. Waters on 07-22-2022 Calcium [Mass/Vol] 8.9 mg/dL 8.5-10.1 [facility] Serum or plasma creatinine m easurement (mass/volume)Ordered By: Dr. Waters on 07-22-2022 Creatinine [Mass/Vol] 0.96 mg/dL 0.70-1.30 [facility] Comment on above: The validity of the calculated GFR & GFRAA in patients over 70 years has not been determined. Clinical correlation is essential. Serum or plasma urea nitroge n measurement (mass/volume)Ordered By: Dr. Waters on 07-22-2022 Urea nitrogen [Mass/Vol] 13 mg/dL 7-18 [facility] Thin prep Papanicolaou smear with manual screeningOrdered By: Dr. Waters on 07-22-2022 Thin prep Papanicolaou smear with manual screening 19 U/L 15-37 [facility] Thin prep Papanicolaou smear with manual screening 7 5-15 [facility] Absolute lymphocyte counton 05-19-2022 Lymphocytes Auto (Unsp spec) [#/Vol] 0.97 10*3/uL 0.83-4.51 [facility] Work Phone: Basophil percentageon 2021 Basophils/100 WBC (Bld) 0.3 % 0-1 [facility] Work Phone: Bilirubin [Mass/Vol] 1.00 mg/dL 0.20-1.00 [facility] Work Phone: Comment on above: For patients on eltr ombopag therapy, use of Dimension [place] TBIL is not recommended. Chloride [Moles/Vol] 107 mmol/L 98-107 [facility]: Eosinophils/100 WBC (Bld) 1.9 % 0-5 [facility] Work Phone: [phone] Glucose [Mass/Vol] 129 mg/dL 74-106 [facility] Work Phone: Comment on above: Fasting Glucose resu lt greater than or equal to 126 mg/dL suggests DIABETES MELLITUS per A.D.A. criteria. Neutrophils (Bld) [#/Vol] 4.3 10*3/uL 2.0-7.7 [facility] Work Phone: [phone] Neutrophils/100 WBC (Bld) 73.9 % 47-70 [facility] Work Phone: [phone] Potassium [Moles/Vol] 3.7 mmol/L 3.5-5.1 [facility] Work Phone: [phone] Protein [Mass/Vol] 6.4 g/dL 6.4-8.2 [facility] Work Phone: Sodium [Moles/Vol] 141 mmol/L 136-145 [facility] Work Phone: [phone] WBC (Bld) [#/Vol] 5.8 10*3/uL 4.4-11.0 [facility] Work Phone: [phone] Blood erythrocytes count (nu mber/volume)on 05-19-2022 RBC (Bld) [#/Vol] 4.65 10*6/uL 4.6-6.2 [facility] Work Phone: Blood hemoglobin measurement (mass/volume)on 05-19-2022 Hemoglobin (Bld) [Mass/Vol] 15.0 g/dL 13.0-16.5 [facility] Work Phone: Blood lymphocytes/100 leukoc yteson 05-19-2022 Lymphocytes/100 WBC (Bld) 16.8 % 19-41 [facility] Work Phone: Blood monocytes/100 leukocyt eson 05-19-2022 Monocytes/100 WBC (Bld) 7.1 % 0-10 [facility] Work Phone: Blood platelet mean volumeon 05-19-2022 Platelet mean volume (Bld) [Entitic vol] 11.3 fL 6.2-12.0 [facility] Work Phone: Determination of erythrocyte mean corpuscular volume (MCV)on 05-19-2022 MCV (RBC) [Entitic vol] 93.5 fL 80-94 [facility] Work Phone: Hematocrit Auto (Bld) [Volum e fraction]on 05-19-2022 Hematocrit (Bld) [Volume fraction] 43.5 % 40-54 [facility] Work Phone: Laboratory - Chemistry and C hemistry - challengeon 05-19-2022 ALP [Catalytic activity/Vol] 75 U/L 45-117 [facility] Work Phone: ALT [Catalytic activity/Vol] 51 U/L 16-61 [facility] Work Phone: CO2 [Moles/Vol] 28.0 mmol/L 21.0-32.0 [facility] Work Phone: Globulin (S) [Mass/Vol] 2.9 g/dL 2.2-4.2 [facility] Work Phone: Urea nitrogen/Creatinine [Mass ratio] 14.4 mg/mg 10-20 [facility] Work Phone: Laboratory - Hematology and Cell countson 05-19-2022 Erythrocyte distribution width (RBC) [Entitic vol] 40.9 fL 35.1-43.9 [facility] Work Phone: Erythrocyte distribution width (RBC) [Ratio] 11.9 % 11.6-14.6 [facility] Work Phone: Immature granulocytes/100 WBC (Bld) 0.000 % 0.0-0.9 [facility] Work Phone: Comment on above: IG% - Immature Granu locytes (promyelocytes, myelocytes and metamyelocytes) > 1% indicates that a LEFT SHIFT is Present. MCH (RBC) [Entitic mass] 32.3 pg 27.0-32.0 [facility] Work Phone: Nucleated RBC/100 WBC (Bld) [Ratio] 0 % 0-5 [facility] Work Phone: MCHC Auto (RBC) [Mass/Vol]on 05-19-2022 MCHC (RBC) [Mass/Vol] 34.5 g/dL 32-36 [facility] Work Phone: No Panel Informationon 05-19 Estimated GFR (MDRD) Amer 101 mL/min >60 [facility] Work Phone: Comment on above: GFR Calc Estimated GFR (MDRD) Non-Af Amer 84 mL/min >60 [facility] Work Phone: Comment on above: Non- GFR Calc Platelets bldon 05-19-2022 Platelets (Bld) [#/Vol] 168 10*3/uL 150-450 [facility] Work Phone: Serum or plasma albumin geovanna urement (mass/volume)on 05-19-2022 Albumin [Mass/Vol] 3.5 g/dL 3.2-5.0 [facility] Work Phone: Serum or plasma albumin/glob ulin mass ratioon 05-19-2022 Albumin/Globulin [Mass ratio] 1.2 {ratio} 0.9-2.4 [facility] Work Phone: Serum or plasma calcium geovanna urement (mass/volume)on 05-19-2022 Calcium [Mass/Vol] 8.9 mg/dL 8.5-10.1 [facility] Work Phone: Serum or plasma creatinine m easurement (mass/volume)on 05-19-2022 Creatinine [Mass/Vol] 0.97 mg/dL 0.70-1.30 [facility] Work Phone: Comment on above: The validity of the calculated GFR & GFRAA in patients over 70 years has not been determined. Clinical correlation is essential. Serum or plasma urea nitroge n measurement (mass/volume)on 05-19-2022 Urea nitrogen [Mass/Vol] 14 mg/dL 7-18 [facility] Work Phone: Thin prep Papanicolaou smear with manual screeningon 05-19-2022 Thin prep Papanicolaou smear with manual screening 26 U/L 15-37 [facility] Work Phone: Thin prep Papanicolaou smear with manual screening 6 5-15 [facility] Work Phone: Absolute lymphocyte counton 03-24-2022 Lymphocytes Auto (Unsp spec) [#/Vol] 1.25 10*3/uL 0.83-4.51 [facility] Work Phone: Basophil percentageon 2021 Basophils/100 WBC (Bld) 0.4 % 0-1 [facility] Work Phone: Bilirubin [Mass/Vol] 0.50 mg/dL 0.20-1.00 [facility] Work Phone: Comment on above: For patients on eltr ombopag therapy, use of Dimension [place] TBIL is not recommended. Chloride [Moles/Vol] 108 mmol/L 98-107 [facility] Work Phone: Eosinophils/100 WBC (Bld) 2.7 % 0-5 [facility] Work Phone: [phone] Glucose [Mass/Vol] 95 mg/dL 74-106 [facility] Work Phone: Neutrophils (Bld) [#/Vol] 5.2 10*3/uL 2.0-7.7 [facility] Work Phone: Neutrophils/100 WBC (Bld) 70.5 % 47-70 [facility] Work Phone: Potassium [Moles/Vol] 4.0 mmol/L 3.5-5.1 [facility] Work [facility]: Protein [Mass/Vol] 6.8 g/dL 6.4-8.2 [facility]: Sodium [Moles/Vol] 142 mmol/L 136-145 [facility] Work Phone: WBC (Bld) [#/Vol] 7.3 10*3/uL 4.4-11.0 [facility] Work Phone: Blood erythrocytes count (nu mber/volume)on 03-24-2022 RBC (Bld) [#/Vol] 4.65 10*6/uL 4.6-6.2 [facility] Work Phone: Blood hemoglobin measurement (mass/volume)on 03-24-2022 Hemoglobin (Bld) [Mass/Vol] 15.0 g/dL 13.0-16.5 [facility] Work Phone: Blood lymphocytes/100 leukoc yteson 03-24-2022 Lymphocytes/100 WBC (Bld) 17.1 % 19-41 [facility] Work Phone: Blood monocytes/100 leukocyt eson 03-24-2022 Monocytes/100 WBC (Bld) 9.0 % 0-10 [facility] Work Phone: Blood platelet mean volumeon 03-24-2022 Platelet mean volume (Bld) [Entitic vol] 12.0 fL 6.2-12.0 [facility] Work Phone: Determination of erythrocyte mean corpuscular volume (MCV)on 03-24-2022 MCV (RBC) [Entitic vol] 93.1 fL 80-94 [facility] Work Phone: Hematocrit Auto (Bld) [Volum e fraction]on 03-24-2022 Hematocrit (Bld) [Volume fraction] 43.3 % 40-54 [facility] Work Phone: Laboratory - Chemistry and C hemistry - challengeon 03-24-2022 ALP [Catalytic activity/Vol] 69 U/L 45-117 [facility] Work Phone: ALT [Catalytic activity/Vol] 53 U/L 16-61 [facility] Work Phone: CO2 [Moles/Vol] 29.0 mmol/L 21.0-32.0 [facility] Work Phone: Globulin (S) [Mass/Vol] 3.1 g/dL 2.2-4.2 [facility] Work Phone: Urea nitrogen/Creatinine [Mass ratio] 15.2 mg/mg 10-20 [facility] Work Phone: Laboratory - Hematology and Cell countson 03-24-2022 Erythrocyte distribution width (RBC) [Entitic vol] 38.9 fL 35.1-43.9 [facility] Work Phone: Erythrocyte distribution width (RBC) [Ratio] 11.6 % 11.6-14.6 [facility] Work Phone: Immature granulocytes/100 WBC (Bld) 0.300 % 0.0-0.9 [facility] Work Phone: Comment on above: IG% - Immature Granu locytes (promyelocytes, myelocytes and metamyelocytes) > 1% indicates that a LEFT SHIFT is Present. MCH (RBC) [Entitic mass] 32.3 pg 27.0-32.0 [facility] Work Phone: Nucleated RBC/100 WBC (Bld) [Ratio] 0 % 0-5 [facility] Work Phone: MCHC Auto (RBC) [Mass/Vol]on 03-24-2022 MCHC (RBC) [Mass/Vol] 34.6 g/dL 32-36 [facility] Work Phone: No Panel Informationon 03-24 Estimated GFR (MDRD) Amer 92 mL/min >60 [facility] Work Phone: Comment on above: GFR Calc Estimated GFR (MDRD) Non-Af Amer 76 mL/min >60 [facility] Work Phone: Comment on above: Non- GFR Calc Platelets bldon 03-24-2022 Platelets (Bld) [#/Vol] 177 10*3/uL 150-450 [facility] Work Phone: Serum or plasma albumin geovanna urement (mass/volume)on 03-24-2022 Albumin [Mass/Vol] 3.7 g/dL 3.2-5.0 [facility] Work Phone: Serum or plasma albumin/glob ulin mass ratioon 03-24-2022 Albumin/Globulin [Mass ratio] 1.2 {ratio} 0.9-2.4 [facility] Work Phone: Serum or plasma calcium geovanna urement (mass/volume)on 03-24-2022 Calcium [Mass/Vol] 8.9 mg/dL 8.5-10.1 [facility] Work Phone: Serum or plasma creatinine m easurement (mass/volume)on 03-24-2022 Creatinine [Mass/Vol] 1.05 mg/dL 0.70-1.30 [facility] Work Phone: Comment on above: The validity of the calculated GFR & GFRAA in patients over 70 years has not been determined. Clinical correlation is essential. Serum or plasma urea nitroge n measurement (mass/volume)on 03-24-2022 Urea nitrogen [Mass/Vol] 16 mg/dL 7-18 [facility] Work Phone: Thin prep Papanicolaou smear with manual screeningon 03-24-2022 Thin prep Papanicolaou smear with manual screening 25 U/L 15-37 [facility] Work Phone: Thin prep Papanicolaou smear with manual screening 5 5-15 [facility] Work Phone: Absolute lymphocyte counton 01-07-2022 Lymphocytes Auto (Unsp spec) [#/Vol] 1.71 10*3/uL 0.83-4.51 [facility] Work Phone: Basophil percentageon 2021 Basophils/100 WBC (Bld) 0.2 % 0-1 [facility] Work Phone: [phone] Bilirubin [Mass/Vol] 0.60 mg/dL 0.20-1.00 [facility] Work Phone: [phone] Comment on above: For patients on eltr ombopag therapy, use of Dimension [place] TBIL is not recommended. Chloride [Moles/Vol] 105 mmol/L 98-107 [facility] Work Phone: [phone] Eosinophils/100 WBC (Bld) 2.1 % 0-5 [facility] Work Phone: Glucose [Mass/Vol] 108 mg/dL 74-106 [facility] Work Phone: Comment on above: Fasting Glucose resu lt from 100 to 125 mg/dL suggests IMPAIRED HOMEOSTASIS per A.D.A. criteria. Neutrophils (Bld) [#/Vol] 5.4 10*3/uL 2.0-7.7 [facility] Work Phone: [phone] Neutrophils/100 WBC (Bld) 67.2 % 47-70 [facility] Work Phone: [phone] Potassium [Moles/Vol] 3.7 mmol/L 3.5-5.1 [facility] Work Phone: Protein [Mass/Vol] 7.0 g/dL 6.4-8.2 [facility] Work Phone: [phone] Sodium [Moles/Vol] 139 mmol/L 136-145 [facility] Work Phone: [phone] WBC (Bld) [#/Vol] 8.0 10*3/uL 4.4-11.0 [facility] Work Phone: [phone] Blood erythrocytes count (nu mber/volume)on 01-07-2022 RBC (Bld) [#/Vol] 4.79 10*6/uL 4.6-6.2 [facility] Work Phone: Blood hemoglobin measurement (mass/volume)on 01-07-2022 Hemoglobin (Bld) [Mass/Vol] 15.2 g/dL 13.0-16.5 [facility] Work Phone: Blood lymphocytes/100 leukoc yteson 01-07-2022 Lymphocytes/100 WBC (Bld) 21.3 % 19-41 [facility] Work Phone: Blood monocytes/100 leukocyt eson 01-07-2022 Monocytes/100 WBC (Bld) 9.0 % 0-10 [facility] Work Phone: Blood platelet mean volumeon 01-07-2022 Platelet mean volume (Bld) [Entitic vol] 11.3 fL 6.2-12.0 [facility] Work Phone: Determination of erythrocyte mean corpuscular volume (MCV)on 01-07-2022 MCV (RBC) [Entitic vol] 91.4 fL 80-94 [facility] Work Phone: Erythrocyte sedimentation ra shana 01-07-2022 ESR (Bld) [Velocity] 3 mm/h 0-20 [facility] Work Phone: Hematocrit Auto (Bld) [Volum e fraction]on 01-07-2022 Hematocrit (Bld) [Volume fraction] 43.8 % 40-54 [facility] Work Phone: Laboratory - Chemistry and C hemistry - challengeon 01-07-2022 ALP [Catalytic activity/Vol] 65 U/L 45-117 [facility] Work Phone: ALT [Catalytic activity/Vol] 59 U/L 16-61 [facility] Work Phone: CO2 [Moles/Vol] 29.0 mmol/L 21.0-32.0 [facility] Work Phone: Globulin (S) [Mass/Vol] 3.1 g/dL 2.2-4.2 [facility] Work Phone: Urea nitrogen/Creatinine [Mass ratio] 19.0 mg/mg 10-20 [facility] Work Phone: Laboratory - Hematology and Cell countson 01-07-2022 Erythrocyte distribution width (RBC) [Entitic vol] 39.8 fL 35.1-43.9 [facility] Work Phone: Erythrocyte distribution width (RBC) [Ratio] 11.8 % 11.6-14.6 [facility] Work Phone: Immature granulocytes/100 WBC (Bld) 0.200 % 0.0-0.9 [facility] Work Phone: Comment on above: IG% - Immature Granu locytes (promyelocytes, myelocytes and metamyelocytes) > 1% indicates that a LEFT SHIFT is Present. MCH (RBC) [Entitic mass] 31.7 pg 27.0-32.0 [facility] Work Phone: Nucleated RBC/100 WBC (Bld) [Ratio] 0 % 0-5 [facility] Work Phone: MCHC Auto (RBC) [Mass/Vol]on 01-07-2022 MCHC (RBC) [Mass/Vol] 34.7 g/dL 32-36 [facility] Work Phone: No Panel Informationon 01-07 Estimated GFR (MDRD) Amer 104 mL/min >60 [facility] Work Phone: Comment on above: GFR Calc Estimated GFR (MDRD) Non-Af Amer 86 mL/min >60 [facility] Work Phone: Comment on above: Non- GFR Calc Platelets bldon 01-07-2022 Platelets (Bld) [#/Vol] 175 10*3/uL 150-450 [facility] Work Phone: Serum or plasma C reactive p rotein measurement (mass/volume)on 01-07-2022 CRP [Mass/Vol] mg/L 0.0-3.0 [facility] Work Phone: Comment on above: C-Reactive Protein ( CRP) provides useful information for thediagnosis, therapy and monitoring of inflammatory processesand associated diseases. For the evaluation of Relative Riskfor Cardiovascular Disease, a High Sensitivity CRP (HSCRP)should be ordered. Serum or plasma albumin geovanna urement (mass/volume)on 01-07-2022 Albumin [Mass/Vol] 3.9 g/dL 3.2-5.0 [facility] Work Phone: Serum or plasma albumin/glob ulin mass ratioon 01-07-2022 Albumin/Globulin [Mass ratio] 1.3 {ratio} 0.9-2.4 [facility] Work Phone: Serum or plasma calcium geovanna urement (mass/volume)on 01-07-2022 Calcium [Mass/Vol] 9.2 mg/dL 8.5-10.1 [facility] Work Phone: Serum or plasma creatinine m easurement (mass/volume)on 01-07-2022 Creatinine [Mass/Vol] 0.95 mg/dL 0.70-1.30 [facility] Work Phone: Comment on above: The validity of the calculated GFR & GFRAA in patients over 70 years has not been determined. Clinical correlation is essential. Serum or plasma urea nitroge n measurement (mass/volume)on 01-07-2022 Urea nitrogen [Mass/Vol] 18 mg/dL 7-18 [facility] Work Phone: Thin prep Papanicolaou smear with manual screeningon 01-07-2022 Thin prep Papanicolaou smear with manual screening 25 U/L 15-37 [facility] Work Phone: Thin prep Papanicolaou smear with manual screening 5 5-15 [facility] Work Phone: BMPon 08-23-2017 Anion gap 8 mmol/L Normal 5-16 [facility] Comment on above: Performed By: #### L 500.78916, L500.48737, L500.77656, L500.41483 ####[facility] [id number] [place], [place] [address]Tj# [phone] BUN/Creatinine Ratio 12 mg/mg Low 15-24 [facility] Comment on above: Performed By: #### L 500.65144, L500.72524, L500.20647, L500.88794 ####[facility] [id number] [place], [place] [address]Ec# [phone] Calcium 8.8 mg/dL Normal 8.5-10.1 [facility] Comment on above: Performed By: #### L 500.48865, L500.96541, L500.66511, L500.00646 ####[facility] [id number] [place], [place] [address]Rl# [phone] Chloride 107 mmol/L Normal 98-107 [facility] Comment on above: Performed By: #### L 500.18733, L500.65145, L500.68585, L500.05160 ####[facility] [id number] [place], [place] [address]Uj# [phone] CO2 28 mmol/L Normal 21-32 [facility] Comment on above: Performed By: #### L 500.10149, L500.58276, L500.41575, L500.96286 ####[facility] [id number] [place], [place] [address]Hk# [phone] Creatinine 0.882 mg/dL Normal 0.670-1.170 [facility] Comment on above: Result Comment: Ferda ents receiving either N-Acetylcysteine (NAC) orMetamizole prior to venipuncture, may have falsely depressedresults. Performed By: #### L 500.88753, L500.49342, L500.78272, L500.39479 ####[facility] [id number] [place], [place] [address]Pm# [phone] Glucose mass conc 104 mg/dL High 70-100 [facility] Comment on above: Result Comment: 70-1 00- Normal Fasting; 100-125 Impaired Fasting; greaterthan 126 on more than one result- Diabetes. ADA guidelines.Results may be falsely elevated after the administration ofSulfapyridine.Results may be falsely depressed after the administration ofSulfasalazine. Performed By: #### L 500.14169, L500.58278, L500.94116, L500.66767 ####[facility] [id number] [place], [place] [address]Rr# [phone] Potassium molar conc 4.4 mmol/L Normal 3.5-5.1 [facility] Comment on above: Performed By: #### L 500.70020, L500.92072, L500.73261, L500.40153 ####[facility] [id number] [place], [place] [address]Gk# [phone] Sodium 143 mmol/L Normal 136-145 [facility] Comment on above: Performed By: #### L 500.94220, L500.95551, L500.74007, L500.31884 ####[facility] [id number] [place], [place] [address]Al# [phone] Urea nitrogen 11 mg/dL Normal 7-26 [facility] Comment on above: Performed By: #### L 500.92441, L500.66598, L500.72448, L500.60075 ####[facility] [id number] [place], [place] [address]Mb# [phone] GFR ESTon 08-23-2017 IF AMER Greater than 60 Normal [facility] Comment on above: Performed By: #### L 500.82469, L500.28574, L500.05514, L500.73359 ####[facility] [id number] [place], [place] [address]Rx# [phone] IF non-AFR AMER Greater than 60 Normal [facility] Comment on above: Performed By: #### L 500.56854, L500.24848, L500.93829, L500.70405 ####[facility] [id number] [place], [place] [address]Ga# [phone] LIPIDon 08-23-2017 Cholesterol 129 mg/dL Normal 0-199 [facility] Comment on above: Performed By: #### L 500.51766, L500.75732, L500.03111, L500.45604 ####[facility] SPUUTPXUGS[address] [place], [place] [address]Wl# [phone] HDL Cholesterol 51 mg/dL Normal GREATER [place] 40 [facility] Comment on above: Result Comment: Freda ents receiving Metamizole prior to venipuncture, mayhave falsely depressed results. Performed By: #### L 500.09570, L500.22325, L500.67193, L500.61617 ####[facility] [id number] [place], [place] [address]Ul# [phone] LDL Cholesterol 60 MG/DL Normal 0-129 [facility] Comment on above: Result Comment: ___C HOLESTEROL/HDL RATIO RISK___ CHD RISK = Total CHOL LDL HDL (CHOL/HDL) -------Recommended <200 <130 >35 <3.4 -Borderline 200-239 130-159 3.4-4.99 -----High >240 >160 >5.0 - Performed By: #### L 500.51462, L500.42715, L500.99701, L500.03959 ####[facility] [id number] [place], [place] [address]Ep# [phone] Triglyceride 92 mg/dL Normal 30-149 [facility] Comment on above: Result Comment: Freda ents receiving either N-Acetylcysteine (NAC) orMetamizole prior to venipuncture, may have falsely depressedresults. Performed By: #### L 500.14853, L500.02770, L500.09326, L500.38242 ####[facility] [id number] [place], [place] [address]Yc# [phone] LIVERon 08-23-2017 Alanine aminotransferase (ALT) 40 U/L Normal 13-61 [facility] Comment on above: Result Comment: RESU LTS MAY BE FALSELY DEPRESSED AFTER THE ADMINISTRATION OFSULFASALAZINE AND/OR SULFAPYRIDINE. Performed By: #### L 500.18508, L500.17880, L500.70798, L500.22063 ####[facility] [id number] [place], [place] [address]Zf# [phone] Albumin 3.9 g/dL Normal 3.2-5.0 [facility] Comment on above: Performed By: #### L 500.98184, L500.98102, L500.17808, L500.27311 ####[facility] [id number] [place], [place] [address]Rx# [phone] Albumin/Globulin Ratio 1.4 {ratio} Normal 0.8-2.0 [facility] Comment on above: Performed By: #### L 500.25808, L500.65023, L500.56167, L500.15823 ####[facility] [id number] [place], [place] [address]Kh# [phone] ALK PHOS 65 U/L Normal 45-117 [facility] Comment on above: Performed By: #### L 500.90167, L500.38921, L500.65673, L500.53693 ####[facility] VJGXHKPELX9625 [place], [place] [address]Ss# [phone] BILI DIRECT 0.13 MG/DL Normal 0.00-0.20 [facility] Comment on above: Performed By: #### L 500.70634, L500.38728, L500.55387, L500.46218 ####[facility] V[address] [place] [id number]# [phone] BILI TOTAL 0.4 MG/DL Normal 0.2-1.0 [facility] Comment on above: Performed By: #### L 500.16824, L500.81023, L500.26373, L500.79736 ####[facility] E[address]JITAW[address] [place] [address]Ph# [phone] Globulin 2.8 g/dL Normal 2.2-4.2 [facility] Comment on above: Performed By: #### L 500.11196, L500.85546, L500.26774, L500.28597 ####[facility] QZWO[address]PVWCU[address]60 [place] [address]Ph# [phone] Protein 6.7 g/dL Normal 6.0-8.5 [facility] Comment on above: Performed By: #### L 500.05514, L500.99219, L500.10803, L500.66874 ####[facility] L[address]WQDNAYV2070 [place] [id number]# [phone] SGOT (AST) 17 U/L Normal 8-34 [facility] Comment on above: Result Comment: RESU LTS MAY BE FALSELY DEPRESSED AFTER THE ADMINISTRATION OFSULFASALAZINE AND/OR SULFAPYRIDINE. Performed By: #### L 500.47478, L500.28480, L500.49625, L500.35004 ####[facility] [id number] [place], [place] [address]Tn# [phone] Vital Signs Date Time Vital Sign Value Performing Clinician Sachin martin 08-19-2023 11:50-0500 Body height 182.9 cm Kemar Navarro MD Work Phone: [facility] 08-19-2023 11:50-0500 Body mass index (BMI) [Ratio] 43.53 kg/m2 Kemar Navarro MD Work Phone: [facility] 08-19-2023 11:50-0500 Body weight 145.6 kg Kemar Navarro MD Work Phone: [facility] 08-19-2023 11:50-0500 Diastolic blood pressure 90 mm[Hg] Kemar Navarro MD Work Phone: [facility] 08-19-2023 11:50-0500 Systolic blood pressure 150 mm[Hg] Kemar Navarro MD Work Phone: [facility] 08-05-2023 09:39-0500 Body height 182.9 cm Kemar Navarro MD Work Phone: [facility] 08-05-2023 09:39-0500 Body mass index (BMI) [Ratio] 43.55 kg/m2 Kemar Navarro MD Work Phone: [facility] 08-05-2023 09:39-0500 Body weight 145.65 kg Kemar Navarro MD Work Phone: [facility] 08-05-2023 09:39-0500 Diastolic blood pressure 90 mm[Hg] Kemar Navarro MD Work Phone: [facility] 08-05-2023 09:39-0500 Heart rate 72 /min Kemar Navarro MD Work Phone: [facility] 08-05-2023 09:39-0500 Systolic blood pressure 150 mm[Hg] Kemar Navarro MD Work Phone: [facility] 06-24-2023 10:50-0500 Diastolic blood pressure 57 mm[Hg] Jesse Trent MD Work Phone: [facility] 06-24-2023 10:50-0500 Heart rate 81 /min Jesse Trent MD Work Phone: [facility] 06-24-2023 10:50-0500 Respiratory rate 18 /min Jesse Trent MD Work Phone: [facility] 06-24-2023 10:50-0500 SaO2% (BldA) [Mass fraction] 94 % Jesse Trent MD Work Phone: [facility] 06-24-2023 10:50-0500 Systolic blood pressure 119 mm[Hg] Jesse Trent MD Work Phone: [facility] 06-24-2023 06:48-0500 Body temperature 97.7 [degF] Jesse Trent MD Work Phone: [facility] 06-23-2023 10:24-0500 Body height 182.9 cm Jesse Trent MD Work Phone: [facility] 06-23-2023 10:24-0500 Body mass index (BMI) [Ratio] 44.35 kg/m2 Jesse Trent MD Work Phone: [facility] 06-23-2023 10:24-0500 Body weight 148.33 kg Jesse Trent MD Work Phone: [facility] 05-18-2023 14:06-0400 Body height 182.9 cm Lucrecia Bustos MD Work Phone: [facility] 05-18-2023 14:06-0400 Body mass index (BMI) [Ratio] 44.35 kg/m2 Lucrecia Bustos MD Work Phone: [facility] 05-18-2023 14:06-0400 Body temperature 98.6 [degF] Lucrecia Bustos MD Work Phone: [facility] 05-18-2023 14:06-0400 Body weight 148.33 kg Lucrecia Bustos MD Work Phone: [facility] 05-18-2023 14:06-0400 Diastolic blood pressure 74 mm[Hg] Lucrecia Bustos MD Work Phone: [facility] 05-18-2023 14:06-0400 Heart rate 88 /min Lucrecia Bustos MD Work Phone: [facility] 05-18-2023 14:06-0400 Respiratory rate 16 /min Lucrecia Bustos MD Work Phone: [facility] 05-18-2023 14:06-0400 Systolic blood pressure 157 mm[Hg] Lucrecia Bustos MD Work Phone: [facility] 09-17-2022 11:28-0500 Body height 182.9 cm Hema Thorpeshalini DO Work Phone: [facility] 09-17-2022 11:28-0500 Body mass index (BMI) [Ratio] 43.4 kg/m2 Hema Pongonis DO Work Phone: [facility] 09-17-2022 11:28-0500 Body weight 145.15 kg Hema Thorpenis DO Work Phone: [facility] 05-01-2022 11:16-0400 Body height 182.9 cm Lucrecia Bustos MD Work Phone: [facility] 05-01-2022 11:16-0400 Body mass index (BMI) [Ratio] 44.35 kg/m2 Lucrecia Bustos MD Work Phone: [facility] 05-01-2022 11:16-0400 Body temperature 98.4 [degF] Lucrecia Bustos MD Work Phone: [facility] 05-01-2022 11:16-0400 Body weight 148.33 kg Lucrecia Bustos MD Work Phone: [facility] 05-01-2022 11:16-0400 Diastolic blood pressure 70 mm[Hg] Lucrecia Bustos MD Work Phone: [facility] 05-01-2022 11:16-0400 Heart rate 72 /min Lucrecia Bustos MD Work Phone: [facility] 05-01-2022 11:16-0400 Respiratory rate 16 /min Lucrecia Bustos MD Work Phone: [facility] 05-01-2022 11:16-0400 Systolic blood pressure 112 mm[Hg] Lucrecia Bustos MD Work Phone: [facility] 02-09-2022 10:06-0400 Body height 182.9 cm Tom Polk MD Work Phone: [facility] 02-09-2022 10:06-0400 Body mass index (BMI) [Ratio] 45.43 kg/m2 Tom Polk MD Work Phone: [facility] 02-09-2022 10:06-0400 Body weight 151.96 kg Tom Polk MD Work Phone: [facility] 02-09-2022 10:06-0400 Heart rate 68 /min Tom Polk MD Work Phone: [facility] 02-09-2022 10:06-0400 SaO2% (BldA) [Mass fraction] 94 % Tom Polk MD Work Phone: [facility] Encounters Encounter Date Encounter Type Care Provider Facility Start: 11-25-2023 ambulatory [facility] Facility:[facility] Start: 11-25-2023 End: 11-25-2023 ambulatory [facility] Work Phone: Start: 11-25-2023 End: 11-25-2023 Patient encounter procedure [facility], [facility] Work Phone: Start: 11-11-2023 End: 11-11-2023 Telephone encounter Gerri Walter RN [facility] [place] Comment on above: Medical Records Start: 11-10-2023 End: 11-10-2023 ambulatory [facility] Work Phone: Start: 11-10-2023 End: 11-10-2023 Patient encounter procedure [facility] Work Phone: Start: 10-28-2023 ambulatory KEMAR R ROSE Facility :[facility] Start: 09-16-2023 ambulatory KEMAR R LEE Facility :[facility] Start: 08-19-2023 ambulatory KEMAR R LEE Facility :[facility] Start: 08-19-2023 End: 08-19-2023 Subsequent hospital visit by physician Kemar Navarro MD Work Phone: [facility] [place] Start: 08-13-2023 ambulatory KEMAR R LEE Facility :[facility] Start: 08-13-2023 End: 08-13-2023 Subsequent hospital visit by physician Lucrecia Bustos MD Work Phone: [facility] Comment on above: Arrived Start: 08-10-2023 End: 08-10-2023 ambulatory [facility] Work Phone: Start: 08-10-2023 End: 08-10-2023 [facility] Start: 08-05-2023 ambulatory SELF SELF Facility:[facility] Start: 08-05-2023 End: 08-05-2023 Office outpatient visit 25 minutes Kemar Navarro MD Work Phone: [facility] [place] Comment on above: 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, unspecified whether ekl[place]na or transplanted heart (Primary Dx); Aortic root dilatation; Essential hypertension; Hyperlipidemia, unspecified hyperlipidemia type Start: 07-29-2023 ambulatory KEMAR LEE Facility :[facility] Start: 06-23-2023 End: 06-24-2023 ambulatory KEMAR LEE Facility:[facility] Start: 06-23-2023 End: 06-24-2023 Emergency department patient visit Jesse Trent MD Work Phone: [facility] Comment on above: Rheumatoid arthritis involving multiple sites with positive rheumatoid factor Start: 05-18-2023 ambulatory HEMA Mills y:[facility] Start: 05-18-2023 End: 05-18-2023 Office outpatient visit 25 minutes Lucrecia Bustos MD Work Phone: Occupational [facility] Comment on above: Post-traumatic arthr itis of ankle, left (Primary Dx); Closed displaced intra-articular fracture of left calcaneus, initial encounter; Displaced fracture of body of left calcaneus, sequela; Hammer toe of second toe of left foot; Traumatic arthropathy, left ankle and foot; Sprain of left ankle, unspecified ligament, initial encounter Start: 04-28-2023 End: 04-28-2023 ambulatory Kemar Lee Facility:[facility] Start: 04-28-2023 End: 04-28-2023 Patient encounter procedure [facility] Work Phone: Start: 03-12-2023 ambulatory HEMA Mills y:[facility] Start: 03-12-2023 End: 03-12-2023 Patient encounter procedure Lynnette Kwon Work Phone: [facility] [place] Comment on above: Sensorineural hearin g loss, bilateral (Primary Dx) Start: 02-19-2023 ambulatory BENSON GOTTLIEB Facility: [facility] Start: 02-18-2023 End: 02-18-2023 ambulatory Kemar Lee Facility:[facility] Start: 12-16-2022 End: 12-16-2022 ambulatory Kemar Lee Facility:[facility] Start: 09-17-2022 End: 09-17-2022 Office outpatient visit 15 minutes Hema Batista DO Work Phone: [facility] [place] Comment on above: Rheumatoid arthritis involving multiple sites, unspecified whether rheumatoid factor present (Primary Dx); Segmental and somatic dysfunction of thoracic region; Segmental and somatic dysfunction of lumbar region; Segmental and somatic dysfunction of sacral region Start: 09-16-2022 End: 09-16-2022 ambulatory [facility] Work Phone: Start: 09-16-2022 End: 09-16-2022 Patient encounter procedure [facility] Start: 07-22-2022 End: 07-22-[address] Kemar Lee Work Phone: [facility] Work Phone: Start: 07-22-2022 End: 07-22-[address] Kemar Lee Work Phone: [facility] Start: 05-27-2022 End: 05-28-[address] MOSHE MATTHEW Facility: Start: 05-19-2022 Non-patient / Non-visit Dr. Ravinder Lee Work Phone: [facility] Start: 05-19-2022 End: 05-19-[address] Kemar Lee Work Phone: [facility] Work Phone: Start: 05-19-2022 End: 05-19-[address] Kemar Lee Work Phone: [facility] Start: 05-01-2022 End: 05-01-2022 Office outpatient visit 15 minutes Lucrecia Bustos MD Work Phone: Occupational Medicine [facility] Comment on above: Post-traumatic arthr itis of ankle, left (Primary Dx); Closed displaced intra-articular fracture of left calcaneus, initial encounter; Displaced fracture of body of left calcaneus, sequela; Traumatic degenerative joint disease of foot, left; Traumatic arthropathy, left ankle and foot Start: 04-17-2022 End: 04-17-2022 Patient encounter procedure Lynnette Angelo AuD Work Phone: [facility] [place] Comment on above: Sensorineural hearin g loss, bilateral (Primary Dx) Start: 04-03-2022 End: 04-03-2022 Patient encounter procedure Lynnette Angelo Cher Work Phone: [facility] [place] Comment on above: Sensorineural hearin g loss, bilateral (Primary Dx) Start: 03-24-2022 End: 03-24-2022 ambulatory [facility] Work Phone: Start: 03-24-2022 End: 03-24-2022 Patient encounter procedure [facility] Start: 02-09-2022 Patient encounter procedure [facility] Provider [facility] Start: 02-09-2022 End: 02-09-2022 Office outpatient new 30 minutes Tom Polk MD Work Phone: [facility] [place] Comment on above: Asymmetrical hearing loss (Primary Dx) Start: 01-07-2022 End: 01-07-2022 Patient encounter procedure [facility] Start: 08-23-2017 Ambulatory Hema Pratt Facilit y:[facility] Procedures Date Procedure Procedure Detail Performing Clinician Start: 11-25-2023 Ultrasonography of abdomen Start: 08-19-2023 Echo tthrc r-t 2d w/ wom-mode compl spec&colr d Kemar Navarro MD Work Phone: Start: 08-13-2023 End: 08-13-2023 Ct lower extremity w/o contrast material Lucrecia Bustos MD Work Phone: Start: 06-23-2023 Echo tthrc r-t 2d w/ wo m-mode complete rest&st Estrellashakeel Flores NARCOTICS INVESTIGATOR-SENIOR ACCOUNTING MANAGER Work Phone: Start: 06-23-2023 Assay of troponin quantitative Jesse Trent MD Work Phone: Start: 06-23-2023 Lipid panel Estrella murphy NARCOTICS INVESTIGATOR-SENIOR ACCOUNTING MANAGER Work Phone: Start: 06-23-2023 Radiologic exam ches t 2 views Rainer Burns MD Work Phone: Start: 06-23-2023 CBC AND ELECTRONIC DIFF Rainer Burns MD Work Phone: Start: 06-23-2023 Complete blood count with white cell differential, automated Rainer Burns MD Work Phone: Start: 06-23-2023 Hemoglobin glycosylated a1c Estrella Flores NARCOTICS INVESTIGATOR-SENIOR ACCOUNTING MANAGER Work Phone: Start: 06-23-2023 LT BLUE TOP TUBE Shelia Burns MD Work Phone: Start: 06-23-2023 MINT GREEN TOP TUBE Dominic Burns MD Work Phone: Start: 06-23-2023 Lipid 1996 panel - S demetrius or Plasma Jesse Trent MD Work Phone: Plan of Treatment Date Care Activity Detail Author Start: 09-28-2028 Tetanus vaccination TETANUS [facility] Start: 06-23-2028 Lipid panel LIPID SCREENING [facility] Start: 06-23-2024 Potassium [Moles/volume] in Serum or Plasma POTASSIUM [facility] Start: 02-08-2024 End: 02-08-2024 Patient encounter procedure 02/08/2024 1:30 PM EDT Office Visit [facility] [address] [address] Kemar Navarro MD [address] [place] [id number] [facility] [place] Start: 12-17-2023 End: 12-17-2023 Telemedicine consultation with patient 12/17/2023 10:30 AM EDT Telemedicine Occupational Medicine [facility] [address] [place] [id number] Lucrecia Bustos MD [address] [place] [address] Occupational Medicine [facility] Start: 08-19-2023 End: 08-19-2023 Patient encounter procedure 08/19/2023 11:00 AM EST Appointment [facility] [address] [place], [place] [id number] Kemar Navarro MD [address] [place], [place] [id number] [facility] [place] Start: 08-13-2023 End: 08-13-2023 Patient encounter procedure Imaging [facility] Start: 08-05-2023 End: 08-05-2024 Echocardiography ECHOCARDIOGRAM Echocardiography Routine 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, unspecified whether ekl[place]na or transplanted heart Essential hypertension Hyperlipidemia, unspecified hyperlipidemia type Aortic root dilatation Expected: 08/05/2023, Expires: 08/05/2024 [facility] Comment on above: Expected: 08/05/2023, Expires: Start: 04-02-2023 COVID-19 VACCINE ( season) COVID-19 VACCINE ( season) [facility] Start: 04-02-2023 Influenza vaccination INFLUENZA VACCINE (#1) [facility] Start: 04-17-2022 End: 04-17-2022 Patient encounter procedure 04/17/2022 Office Visit Audiology Lynnette Angelo, AuD [address] [facility] [address] [place] [address] [facility] [place] Start: 04-02-2022 Influenza vaccination [facility] Start: 02-23-2022 End: 02-23-2022 Patient encounter procedure 02/23/2022 Office Visit Audiology Bing Bonilla, AuD [address] [address] [facility] [place] Start: 10-31-2021 COVID-19 VACCINE (4 - Booster for Pfizer series) COVID-19 VACCINE (4 - Booster for Pfizer series) [facility] Start: 08-27-2021 COVID-19 VACCINE (4 - Booster for Pfizer series) COVID-19 VACCINE (4 - Booster for Pfizer series) [facility] Start: 08-27-2021 COVID-19 VACCINE (4 - Pfizer series) COVID-19 VACCINE (4 - Pfizer series) [facility] Start: 05-02-2019 Potassium [Moles/volume] in Serum or Plasma POTASSIUM [facility] Start: 01-01-2019 Urine microalbumin profile DTAP,TDAP,TD (2 - Td or Tdap) [facility] Start: 01-10-2016 PROSTATE CANCER SCREENING DISCUSSION PROSTATE CANCER SCREENING DISCUSSION [facility] Start: 01-01-2014 LIPID SCREEN LIPID SCREEN [facility] Start: 01-02-2012 DIABETES SCREEN DIABETES SCREEN [facility] Start: 2011 Prostate specific antigen measurement PROSTATE CANCER SCREENING DISCUSSION [facility] Start: 2011 SHINGRIX VACCINE (1 of 2) SHINGRIX VACCINE (1 of 2) [facility] Start: 2011 Zoster vaccine hzv live for subcutaneous use ZOSTER (SHINGLES) VACCINE (1 of 2) [facility] Start: 2006 COLOGUARD (FIT-DNA) COLOGUARD (FIT-DNA) [facility] Start: 2006 Colonoscopy [facility] Start: 2006 COLORECTAL CANCER SCREENING COLORECTAL CANCER SCREENING [facility] Start: [address] COLONOGRAPHY [facility] Start: 2006 FECAL OCCULT BLOOD FECAL OCCULT BLOOD [facility] Start: 2006 Screening for malignant neoplasm of colon COLORECTAL CANCER SCREENING DISCUSSION [facility] Start: 2006 SIGMOIDOSCOPY SIGMOIDOSCOPY [facility] Start: 2001 Fasting lipid profile LIPID SCREENING [facility] Start: 2001 Lipid panel LIPID SCREENING [facility] Start: 01-10-1980 Third diphtheria, tetanus and acellular pertussis (DTaP) vaccination TDAP (ADULT) [facility] Start: 1979 HEPATITIS C SCREENING HEPATITIS C SCREENING [facility] Start: 1979 HIV SCREENING HIV SCREENING [facility] Start: 1979 Tetanus vaccination TETANUS [facility] Start: 01-10-1976 HIV screening HIV SCREENING DISCUSSION [facility] Start: 1973 Adult depression screening assessment DEPRESSION SCREENING [facility] Start: 1967 PNEUMOCOCCAL VACCINE SERIES (1 - PCV) PNEUMOCOCCAL VACCINE SERIES (1 - PCV) [facility] Start: 1967 PNEUMOCOCCAL VACCINE SERIES (1 of 2 - PCV) PNEUMOCOCCAL VACCINE SERIES (1 of 2 - PCV) [facility] Start: 1961 COVID-19 VACCINE (#1) COVID-19 VACCINE (#1) [facility] End: 06-23-2023 GOLD TOP TUBE [facility] Comment on above: Once for 1 Occurrences starting 06/23/20 until 06/23/2023 End: 06-23-2023 LAVENDER TOP TUBE [facility] Comment on above: Once for 1 Occurrences starting 06/23/20 until 06/23/2023 Osteopathic manipula tive tx 1-2 body regions [place] OSTEOPATHIC MANIP,1-2 BODY REGN [place] Charge Routine Segmental and somatic dysfunction of thoracic region Segmental and somatic dysfunction of lumbar region Segmental and somatic dysfunction of sacral region Ordered: 09/17/2022 [facility] Comment on above: Ordered: 09/17/2022 End: 06-23-2023 RAINBOW DRAW [facility] Work Phone: Comment on above: One Time for 1 Occurrences starting 06/03 until 06/23/2023 End: 11-22-2023 Standard ECG ECG ECG STAT One Time for 1 Occurrences starting 06/23/2023 until 06/23/2023 [facility] Comment on above: One Time for 1 Occurrences starting 06/03 until 06/23/2023 Immunizations Immunization Date Immunization Notes Care Provider Ashleigh villa 05-12-2022 influenza virus vaccine, unspecified formulation Lynnette Kwon Work Phone: [facility] 05-02-2021 influenza virus vaccine, unspecified formulation Tom Polk MD Work Phone: [facility] 05-01-2018 influenza, injectabl e, quadrivalent, preservative free Tom Polk MD Work Phone: [facility] 07-06-2016 influenza, injectabl e, quadrivalent, contains preservative Tom Polk MD Work Phone: [facility] 07-02-2014 influenza, seasonal, injectable Tom Polk MD Work Phone: [facility] 07-03-2013 influenza virus vaccine, whole virus Tom Polk MD Work Phone: [facility] 01-01-2009 tetanus toxoid, redu lin diphtheria toxoid, and acellular pertussis vaccine, adsorbed [facility] Provider [facility] Payers Date Payer Category Payer Self-pay [id number] 2022 Unknown [id number] 2014 Unknown [id number] 2012 Unknown [id number] 2012 Unknown [id number] 2008 Unknown [employer] HEALTH BENEFITS [id number] 2008-Present [address] [place] [address] Indemnity [id number] 1961 Unknown [id number] 1961 Unknown [id number] [id number] 1961 Unknown [id number] [id number] 1961 Unknown [id number] [id number] 1961 Unknown [id number] [id number] 1961 Unknown [id number] [id number] 1961 Unknown [id number] 2.16.840.1.815664.3.579.2.594 1961 Unknown [id number] 2.16.840.1.902718.3.579.2.594 1961 Unknown [id number] 2.16.840.1.070344.3.579.2.594 1961 Unknown [id number] 2.16.840.1.788871.3.579.2.594 1961 Unknown [id number] 2.16.840.1.430830.3.579.2.594 1961 Unknown [id number] [id number] 1959 Unknown [id number] SI Unknown [id number] [id number] Unknown [id number] [id number] Unknown [id number] [id number] Unknown [id number] 2.16.840.1.131221.3.579.2.462 Unknown [id number] [id number] Unknown [id number] Social History Date Type Detail Facility Start: 05-28-2014 End: 05-28-2014 Tobacco smoking status NHIS Unknown if ever smoked [facility] Start: 1960 Sex Assigned At Male [facility] End: 08-02-1998 History of tobacco use Chews Tobacco [facility] Start: 12-27-2009 End: 08-05-2023 Alcohol intake Current drinker of alcohol (finding) [facility] Start: 12-27-2009 End: 08-05-2023 Alcohol intake [facility] Start: 1960 Sex Assigned At Not on file [facility] Start: 01-16-2011 End: 08-05-2023 Tobacco smoking status NHIS Never smoked tobacco [facility] Start: 01-16-2011 End: 08-05-2023 Tobacco use and exposure Former smokeless tobacco user [facility] Start: 09-07-2022 End: 09-17-2022 Exposure to SARS-CoV-2 (event) Not sure [facility] Start: 09-17-2022 End: 08-05-2023 Tobacco use panel [facility] Gender identity Identifies as ma le gender (finding) [facility] Start: 08-05-2023 Tobacco Comment chewed loose l eaf years ago [facility] Medical Equipment Procedure Code Equipment Code Equipment Origin al Text Equipment Identifier Dates Suture [place] [employer] Pushlock 4.5 X28mm [id number] Start: 10-05-2013 Suture [place] [employer] Tripleplay 5.5 X 14.7mm [id number] Start: 10-05-2013 Clinical Notes 02-09-2022 to 11-11-2023 Telephone Encounter - Elsie Bourgeois RN - 11/11/2023 11:55 AM EDTTelephone Encounter - Elsie Bourgeois RN - 11/11/2023 11:55 AM Leny Iverson RN - 08/19/2023 11:00 AM ESTAttachments Note Date & Type Note Facility 11-11-2023 Telephone encounter Note Printed and re-faxed the ROW[facility] and ECG per request - to [phone] Urlist. [facility] 11-11-2023 Miscellaneous Notes Printed and re-faxed the ROWENA and ECG per request - to [phone] Urlist. [facility] note (08/05/23), EKG (06/23/23), Stress test (05/02/18), and echo (08/19/23) sent [phone] per request. documented in this encounter [facility] 11-11-2023 Telephone encounter Note ROWENA note (08/05/23), EKG (06/23/23), Stress test (05/02/18), and echo (08/19/23) sent [phone] per request. [facility] 08-19-2023 History of Present illness Narrative Definity [...] Adequate hemostasis achieved. documented in this encounter [facility] 08-05-2023 Evaluation + Plan note Associated Problem(s): Hyperlipidemia He will continue his atorvastatin at the 40 mg p.o. q.day at this time. He states that his primary care physician has been monitoring this. [facility] 08-05-2023 Evaluation + Plan note Associated Problem(s): Essential hypertension Again he states his blood pressure is usually better than what it is in the office today. He was asked to continue his medical therapy and monitor his blood pressure. If his blood pressure trends are found to be elevating over time then he may need further adjustment of his antihypertensive regimen. [facility] 08-05-2023 Miscellaneous Notes Associated Problem(s): Hyperlipidemia [...] time. Associated Problem(s): Atherosclerotic heart disease of eklut[place] coronary artery without angina pectoris He does [...] diagnostic cardiac catheterization. documented in this encounter [facility] 08-05-2023 Evaluation + Plan note Associated Problem(s): Aortic root dilatation His previous echocardiogram suggested an element of aortic root dilatation-mild. Thus would be prudent to obtain a formal echocardiogram to reassess his aortic root size, etc. and how it needs to be further followed over time. 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 [facility] 08-05-2023 History of Present illness Narrative Images from the original note were not included. Referring provider: Kemar Lee MD (General) Primary care provider: Kemar Lee MD (General) Dear Dr. Lee, I had the pleasure of seeing your patient, Delbert Szymanski, at the [facility] at [facility] on 08/05/2023. 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 He was evaluated in cardiovascular consultation on 06/24/2023 at [facility]. At that time he presented for chest [...] Diagnosis Date Arthritis Atherosclerotic heart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 Response Recorded Date/ Time Advance Directives No May 28, 2014 2:34pm Living Will No May 28 2:34pm Power of Carbon Coating Machine Operator No May 28, 2014 2:34pm Latest Code Status on File Code Status Date Activated Date Inactivated Comments Full Code 04/30/2018 11:37 PM Full Code 10/05/2013 8:46 PM 10/07/2013 2:42 PM Advance Directive Response Recorded Date/ Time Advance Directives No May 28, 2014 1:34pm Living Will No May 28 1:34pm Power of Carbon Coating Machine Operator No May 28, 2014 1:34pm Latest Code [...] Chief Complaint 2 ORDERING ZHANG 2DRS/ 2ORDERS Chief Complaint 2DRS/ 2ORDERS Chief Complaint 2DRS/ 2ORDERS ELEVATED LIVER ENZYMES Reason for Referral Specialty Diagnoses / Procedures Referred By Contac t Referred To Contact Diagnoses 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, unspecified whether eklutna or transplanted heart Essential hypertension Hyperlipidemia, unspecified hyperlipidemia type Aortic root dilatation Procedures ECHOCARDIOGRAM [place] ECHO HEART XTHORACIC,COMPLETE W DOPPLER Kemar Navarro MD [address] [place] [address] Referral ID Status Reason Start Date Expiration Date V isits Requested Visits Authorized [id number] Auth Not Needed 08/05/2023 08/29/2024 1 1 Specialty Diagnoses / Procedures Referred By Contac t Referred To Contact Diagnoses Post-traumatic arthritis of ankle, left Displaced fracture of body of left calcaneus, sequela Procedures CT FOOT LEFT WITHOUT CONTRAST [place] CT SCAN,LOWER EXTREMITY,W/O CONTRAST Lucrecia Bustos MD [address] [place] [phone] Referral ID Status Reason Start Date Expiration Date Visits Re quested Visits Authorized [id number] Closed 07/29/2023 08/22/2024 1 1 Specialty Diagnoses / Procedures Referred By Contac t Referred To Contact Diagnoses Post-traumatic arthritis of ankle, left Displaced fracture of body of left calcaneus, sequela Procedures CT ANKLE LEFT WITHOUT CONTRAST NJ CT SCAN,LOWER EXTREMITY,W/O CONTRAST Lucrecia Bustos MD [address] [place] [phone] Referral ID Status Reason Start Date Expiration Date Visits Re quested Visits Authorized [id number] Closed 07/29/2023 08/22/2024 1 1 Referral ID Status Reason Start Date Expiration Date Visits Re quested Visits Authorized [id number] Closed 08/05/2023 08/29/2024 1 1 Additional Source Comments (unrecognized sect ion and content) No Status Records FoundNo Status Records FoundNo Status Records FoundNo Status Records Found INFORMATION SOURCE (unrecogn ized section and content) DATE CREATED AUTHOR 01/24/2018 [facility] [place] DATE CREATED AUTHOR AUTHOR'S ORGANIZ ATION 05/31/2022 [facility] DATE CREATED AUTHOR AUTHOR'S ORGANIZ ATION 10/30/2023 [facility] DATE CREATED AUTHOR AUTHOR'S ORGANIZ ATION 11/25/2023 [facility] Goals (unrecognized section and content) Goals may [...] or prosecute any alcohol or drug abuse patient.[facility] Reason for Visit (unrecogniz ed section and [...] NEW PATIENT Self, Self Kemar Navarro MD [address] [place] [address] Referral ID Status Reason Start Date Expiration Date V isits Requested Visits Authorized [id number] New Request 08/05/2023 08/29/2024 1 1 Specialty Diagnoses / Procedures Referred By Ramana t Referred To Contact Diagnoses Post-traumatic arthritis of ankle, left Displaced fracture of body of left calcaneus, sequela Procedures CT FOOT LEFT WITHOUT CONTRAST [place] CT SCAN,LOWER EXTREMITY,W/O CONTRAST Lucrecia Bustos MD [address] [place] [phone] Referral ID Status Reason Start Date Expiration Date Visits Re quested Visits Authorized [id number] Closed 07/29/2023 08/22/2024 1 1 Specialty Diagnoses / Procedures Referred By Ramana t Referred To Contact Diagnoses Post-traumatic arthritis of ankle, left Displaced fracture of body of left calcaneus, sequela Procedures CT ANKLE LEFT WITHOUT CONTRAST [place] CT SCAN,LOWER EXTREMITY,W/O CONTRAST Lucrecia Bustos MD [address] [place] [phone] Referral ID Status Reason Start Date Expiration Date Visits Re quested Visits Authorized [id number] Closed 07/29/2023 08/22/2024 1 1 Specialty Diagnoses / Procedures Referred By Ramana t Referred To Contact Diagnoses 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, unspecified whether eklutna or transplanted heart Essential hypertension Hyperlipidemia, unspecified hyperlipidemia type Aortic root dilatation Procedures ECHOCARDIOGRAM [place] ECHO HEART XTHORACIC,COMPLETE W DOPPLER Kemar Navarro MD [address] [phone] Referral ID Status Reason Start Date Expiration Date Visits Re quested Visits Authorized [id number] Closed 08/05/2023 08/29/2024 1 1 Reason Onset Date Comments Medical Records 11/11/2023 Care Teams (unrecognized sec tion and content) Ship Worker Relationship Specialty Start Date End Date Aidan Pedro MD PCP - Referring 1 Pulmonary Disease 05/02/18 Willow Ramirez, NARCOTICS INVESTIGATOR-SENIOR ACCOUNTING MANAGER [address] [facility] [address] [place] [phone] PCP - Referring 2 Certified Nurse Practitioner 05/02/18 Alice Waters MD [address] [facility] [address] [place] [phone] PCP - Referring 3 Rheumatology 05/02/18 Bj Hodge MD [address] [place] [phone] PCP - Referring 4 Cardiovascular Medicine 05/02/18 Hema Pratt MD [address] [place] [phone] PCP - General Family Medicine 05/02/18 Ship Worker Relationship Specialty Start Date End Date Aidan Pedro MD PCP - Referring 1 Pulmonary Disease 05/02/18 Willow Ramirez, NARCOTICS INVESTIGATOR-SENIOR ACCOUNTING MANAGER [address] [facility] [address] [place] [phone] PCP - Referring 2 Certified Nurse Practitioner 05/02/18 Alice Waters MD [address] [facility] [address] [place] [phone] PCP - Referring 3 Rheumatology 05/02/18 Bj Hodge MD [address] [place] [phone] PCP - Referring 4 Cardiovascular Disease 05/02/18 Hema Pratt MD [address] [place] [address] PCP - General Family Medicine 05/02/18 Ship Worker Relationship Specialty Start Date End Date Aidan Pedro MD PCP - Referring 1 Pulmonary Disease 05/02/18 Willow Ramirez, NARCOTICS INVESTIGATOR-SENIOR ACCOUNTING MANAGER [address] [facility] [address] [place] [phone] PCP - Referring 2 Certified Nurse Practitioner 05/02/18 Alice Waters MD [address] [place] [phone] PCP - Referring 3 Rheumatology 05/02/18 Bj Hodge MD [address] [place] [phone] PCP - Referring 4 Cardiovascular Disease 05/02/18 Hema Pratt MD [address] [place] [phone] PCP - General Family Medicine 05/02/18 Ship Worker Relationship Specialty Start Date End Date Aidan Pedro MD PCP - Referring 1 Pulmonary Disease 05/02/18 Willow Ramirez, NARCOTICS INVESTIGATOR-SENIOR ACCOUNTING MANAGER [address] [facility] [address] [place] [address] PCP - Referring 2 Certified Nurse Practitioner 05/02/18 Alice Waters MD [address] [place] [phone] PCP - Referring 3 Rheumatology 05/02/18 Bj Hodge MD [address] [place] [address] PCP - Referring 4 Cardiovascular Disease 05/02/18 Hema Pratt MD [address] [place] [address] PCP - General Family Medicine 05/02/18 Ship Worker Relationship Specialty Start Date End Date Aidan Pedro MD PCP - Referring 1 Pulmonary Disease 05/02/18 Willow Ramirez, NARCOTICS INVESTIGATOR-SENIOR ACCOUNTING MANAGER [address] [facility] [address] [place] [phone] PCP - Referring 2 Certified Nurse Practitioner 05/02/18 Alice Waters MD [address] [place] [phone] PCP - Referring 3 Rheumatology 05/02/18 Bj Hodge MD [address] [place] [address] PCP - Referring 4 Cardiovascular Disease 05/02/18 Hema Pratt MD [address] [place] [address] PCP - General Family Medicine 05/02/18 Team Status: Active Member Role Status Dates Dr. Kemar Lee MD Family Provider Active Dr. Kemar Lee MD Primary Care Provider Active Team Status: Inactive Member Role Status Dates Dr. Kemar Lee MD Primary Care Provider Active Dr. Alice Waters MD Attending Provider Active Ship Worker Relationship Specialty Start Date End Date Aidan Pedro MD PCP - Referring 1 Pulmonary Disease 05/02/18 Willow Ramirez NARCOTICS INVESTIGATOR-SENIOR ACCOUNTING MANAGER [address] [facility] [address] [place] [phone] PCP - Referring 2 Certified Nurse Practitioner 05/02/18 Alice Waters MD [address] [facility] [address] [place] [address] PCP - Referring 3 Rheumatology 05/02/18 Bj Hodge MD [address] [place] [phone] PCP - Referring 4 Cardiovascular Disease 05/02/18 Hema Pratt MD [address] [place] [phone] PCP - General Family Medicine 05/02/18 Ship Worker Relationship Specialty Start Date End Date Aidan Pedro MD PCP - Referring 1 Pulmonary Disease 05/02/18 Willow Ramirez, NARCOTICS INVESTIGATOR-SENIOR ACCOUNTING MANAGER [address] [facility] [address] [place] [phone] PCP - Referring 2 Certified Nurse Practitioner 05/02/18 Alice Waters MD [address] [facility] [address] [place] [phone] PCP - Referring 3 Rheumatology 05/02/18 Bj Hodge MD [address] [place] [phone] PCP - Referring 4 Cardiovascular Disease 05/02/18 Hema Pratt MD [address] [place] [phone] PCP - General Family Medicine 05/02/18 Ship Worker Relationship Specialty Start Date End Date Aidan Pedro MD PCP - Referring 1 Pulmonary Disease 05/02/18 Willow Ramirez, NARCOTICS INVESTIGATOR-[facility] [address] [place] [address] PCP - Referring 2 Certified Nurse Practitioner 05/02/18 Alice Waters MD [address] [facility] [address] [place] [phone] PCP - Referring 3 Rheumatology 05/02/18 Bj Hodge MD [address] [place] [address] PCP - Referring 4 Cardiovascular Disease 05/02/18 Kemar Lee MD [address] [facility] [address] [place] [address] PCP - General Family Medicine 06/23/23 Ship Worker Relationship Specialty Start Date End Date Aidan Pedro MD PCP - Referring 1 Pulmonary Disease 05/02/18 Willow Ramirez NARCOTICS INVESTIGATOR-SENIOR ACCOUNTING MANAGER [address] [facility] [address] [place] [address] PCP - Referring 2 Certified Nurse Practitioner 05/02/18 Alice Waters MD [address] [facility] [address] [place] [phone] PCP - Referring 3 Rheumatology 05/02/18 Bj Hodge MD [address] [facility] [place] [phone] PCP - Referring 4 Cardiovascular Disease 05/02/18 Kemar Lee MD [address] [facility] [address] [place] [address] PCP - General Family Medicine 06/23/23 Team Status: Inactive Member Role Status Dates Dr. Kemar Lee MD Primary Care Provi donovan, Attending Provider, Referring Provider Active Dr. Alice Waters MD Other Provider Active Team Status: Inactive Member Role Status Dates Dr. Kemar Lee MD Primary Care Provider, Other Pro vider Active Dr. Alice Waters MD Attending Provider, Referring Provider Active Ship Worker Relationship Specialty Start Date End Date Aidan Pedro MD PCP - Referring 1 Pulmonary Disease 05/02/18 Willow Ramirez, NARCOTICS INVESTIGATOR-SENIOR ACCOUNTING MANAGER [address] [facility] [address] [place] [phone] PCP - Referring 2 Certified Nurse Practitioner 05/02/18 Alice Waters MD [address] [place] [phone] PCP - Referring 3 Rheumatology 05/02/18 Bj Hodge MD [address] [place] [address] PCP - Referring 4 Cardiovascular Disease 05/02/18 Kemar Lee MD [address] [facility] [address] [place] [address] PCP - General Family Medicine 06/23/23 Ship Worker Relationship Specialty Start Date End Date Aidan Pedro MD PCP - Referring 1 Pulmonary Disease 05/02/18 Willow Ramirez, NARCOTICS INVESTIGATOR-SENIOR ACCOUNTING MANAGER [address] [facility] [address] [place] [address] PCP - Referring 2 Certified Nurse Practitioner 05/02/18 Alice Waters MD [address] [place] [phone] PCP - Referring 3 Rheumatology 05/02/18 Bj Hodge MD [address] [facility] [place] [address] PCP - Referring 4 Cardiovascular Disease 05/02/18 Kemar Lee MD [address] [place] [address] PCP - General Family Medicine 06/23/23 Ship Worker Relationship Specialty Start Date End Date Aidan Pedro MD PCP - Referring 1 Pulmonary Disease 05/02/18 Willow Ramirez, NARCOTICS INVESTIGATOR-SENIOR ACCOUNTING MANAGER [address] [facility] [address] [place] [address] PCP - Referring 2 Certified Nurse Practitioner 05/02/18 Alice Waters MD [address] [facility] [address] [place] [address] PCP - Referring 3 Rheumatology 05/02/18 Bj Hodge MD [address] [facility] [place] [address] PCP - Referring 4 Cardiovascular Disease 05/02/18 Kemar Lee MD [address] [place], [place] [address] PCP - General Family Medicine 06/23/23 Team Status: Inactive Member Role Status Dates Dr. Kemar Lee MD Primary Care Provider Active Dr. Alice Waters MD Attending Provider, Referring Provider Active Scheduled Active and Recently Administ ered Medications (unrecognized section and content) Medication Order 06/22/2023 06/23/2023 06/24/2023 aspirin chewable tablet 243 mg (COMPLETED) 243 mg, Oral, ONCE, 1 dose, On Wed06/23/23 at 1245 1244 (Given - Provider: Princess Lew RN) aspirin chewable tablet 81 mg 81 mg, Oral, DAILY, First dose on Wed06/24/23 at 0900, Until Discontinued 0814 (Given - Provid er: Princess Lew RN) Atorvastatin (LIPITOR) tablet 40 mg 40 mg, Oral, DAILY AT BEDTIME, First dose (after last modification) on Wed06/23/23 at 2100, Until Discontinued 2008 (Given - Provider: Gabriela Ray RN) hydroCHLOROthiazide (HYDRODIURIL) tablet 25 mg 25 mg, Oral, DAILY, First dose on Wed06/23/23 at 1315, Until Discontinued 124 (Not Given - Provider: Princess Lew RN - Reason: Other) 813 (Given - Provider: Princess Lew RN) Hydroxychloroquine (PLAQUENIL) tablet 200 mg 200 mg, Oral, 2 TIMES DAILY, First dose (after last modification) on Wed06/23/23 at 2015, Until Discontinued 2102 (Given - Provider: Gabriela Ray RN) 08 (Given - Provider: Princess Lew RN) Losartan [...] 2102 (Given - Provider: Gabriela Ray RN) 08 (Given - Provider: Princess Lew RN) Continuous Medication Order 06/22/2023 06/23/2023 06/24/2023 DOBUTamine (DOBUTREX) 1 MG/ML premix infusion 10-40 mcg/kg/min 148.3 kg Order-specific weight (88.98-355.92 mL/hr, rounded to 89-355.9 mL/hr), Intravenous, CONTINUOUS, Starting on Wed06/23/23 at 1415, Until Aileen 06/24/23 at 1359, Initiate at 10mcg/kg/min and titrate to increase by 10 mcg/kg/min every 3 minutes to a maximum dose of 40 mcg/kg/min as directed by physician. , Intra-op/Intra-Proc 1408 ($$New Bag$$ - Provider : Carlene Hart RN)1412 (Rate/Dose Change - Provider: Carlene Hart, RN)1417 (Stopped - Provider: Carlene Hart RN) Sodium chloride 0.9% IV solution Intravenous, at 20 mL/hr, CONTINUOUS, Starting on Wed06/23/23 at 1415, Until Aileen 06/24/23 at 1359, Pre-op/Pre-Proc 1401 ($$New Bag$$ - Provider : Carlene Hart RN)1424 (Stopped - Provider: Carlene Hart, JEANNETTE) PRN Medication Order 06/22/2023 06/23/2023 06/24/2023 Acetaminophen [...] BE BASED ON THE PRIMARY CLINICAL RECORDS. [facility] [employer] [facility] provides no warranty or guarantee of the accuracy or completeness of information in this document.
[2023-12-02 06:22] LABS: Basophils Percent Auto 0.6 % (0.2-2.0); Eosinophils Absolute Auto 0.3 10^3/uL (0.0-0.7); Eosinophils Percent Auto 4.2 % (0.9-7.0); Hematocrit 40.5 % (42.0-54.0); Hemoglobin 13.9 g/dL (14.0-18.0); Immature Granulocytes Abs Auto 0.02 10^3/uL (0.00-0.03); Immature Granulocytes Pct Auto 0.3 % (0.0-0.5); Lymphocytes Absolute Auto 1.5 10^3/uL (1.2-3.8); Lymphocytes Percent Auto 22.6 % (20.5-60.0); Mean Corpuscular HGB Conc 34.3 g/dL (29.9-35.2); Mean Corpuscular Hemoglobin 33.6 pg (25.9-34.0); Mean Corpuscular Volume 97.8 fL (80.0-94.0); Mean Platelet Volume 11.3 fL (9.5-13.5); Monocytes Absolute Auto 0.6 10^3/uL (0.3-0.8); Monocytes Percent Auto 9.6 % (1.7-12.0); Neutrophils Absolute Auto 4.1 10^3/uL (1.4-6.5); Neutrophils Percent Auto 62.7 % (43.0-75.0); Platelet Count 157 10^3/uL (150-450); Red Blood Count 4.14 10^6/uL (4.70-6.10); Red Cell Distribution Width 11.8 % (11.0-15.0); White Blood Count 6.5 10^3/uL (4.0-11.0)
[2023-12-02 06:38] LABS: Glucometer 120 mg/dL (74-106)
[2023-12-02] MEDS: LACTATED RINGER'S SOLUTION 1,000 ML 50 ML IV ×2 (06:58→10:50)
[2023-12-02] MEDS: CLINDAMYCIN PHOSPHATE/D5W 900 MG/50 ML PIGGYBACK 100 MG IV (07:34)
[2023-12-02] MEDS: BUPIVACAINE HCL 0.5% PF 50 MG/10 ML VIAL 20 ML INJ (08:13)
[2023-12-02] MEDS: BETAMETHASONE ACE/BETAMETHASONE SOD PHOS 30 MG/5 ML 6 MG INJ (09:01)
--- NOTE | 2023-12-02 09:16 | PM.ORONB ---
Brief Operative Note Date of procedure: 12/02/23 Pre-op diagnosis general: left posttraumatic ankle arthritis, calcaneal fracture and peroneal tendon tear Procedure: PROCEDURES PERFORMED: 1. Ankle arthroplasty 2. removal of deep implanted orthopedic hardware 3. Peroneal tendon repair 4. stress examination under intraoperative fluoroscopy with all procedures performed on the LEFT ankle INDICATION FOR PROCEDURE: patient is 63-year-old male who is well-known to my practice and underwent ORIF of calcaneus fracture approximately eight years ago and is subsequently developed multiple issues including posterior traumatic hindfoot arthritis which eventually required fusion. He is now developed posttraumatic ankle arthritis and we discussed the potential risks and benefits of fusion versus replacement and given his joint space was fairly well-preserved we decided joint sparing procedure with ankle arthroscopy and debridement may extend the life of his joint. He is also having pain over the lateral wall the calcaneus associated with peroneal tendinopathy over the area of fixation of the calcaneal cuboid joint. Given his failure to respond to nonsurgical care he wished to undergo the above procedures INTRAOPERATIVE FINDINGS: moderate degenerative changes of the tibiotalar joint including the medial and lateral gutters. There was a significant amount of chronic synovitis. Cartilage thinning and joint space narrowing noted in the central aspects of the joint without osteochondral defect. Peroneal tendons were thickened and scarred over the area distal to the fibular malleolus extending to its insertion. Hypertrophic bone noted over the lateral wall the calcaneus and cuboid. Bone quality was within normal limits. PROCEDURE IN DETAIL: Patient was identified in pre op and consent was reviewed. Correct side and site were identified and marked. Pre-op antibiotics were started. Patient was brought to OR suite and place on table in a supine position. General anesthesia was administered. Tourniquet applied. Operative extremity was prepped and draped in usual sterile fashion. Formal time-out was performed and the foot/ankle were exsanguinated and tourniquet inflated. standard medial and lateral anterior ankle portals were created with a scalpel after identifying intermediate dorsal cutaneous nerve. All impingement and synovitic tissue was removed using a 3.5 mm aggressive shaver. debridement of the anterior tibia and dorsal talar neck was also performed with the shaver. No cartilage defect was noted however significant cartilage erosion and thinning noting impingement of the medial and lateral gutters. Arthroscopic instrumention was then removed. The portals were then extended slightly and blunt dissection allowed access to the medial and lateral portals allowing a rongeur to be used to further debride the gutters.range of motion of the ankle did improve and no crepitus was noted. Lateral ankle incision was made over the lateral wall the calcaneus extending from the tip of the fibula extending to the base of the 5th metatarsal. combination sharp and blunt dissection gained access to the peroneal tendons which were thickened and scarred to adjacent tissue. There was synovitis and low lying peroneal brevis muscle which was excised. the tendons were debrided. Then access was gained to the lateral wall the calcaneus and cuboid. A staple over the lateral aspect transfixing the joint was identified and removed with an osteotome. The calcaneocuboid joint was fused well and hardware was stable. Then a rasp was used to contour the lateral wall the calcaneus and the calcaneocuboid joint to avoid any further impingement or irritation on the peroneal tendons. The peroneal tendons were then fixed and repaired with absorbable suture. Artelon tendon wrap was then used to supplement the tendon repair and reduce scar formation. The allograft was sewn to the tendon. the ankle was placed through range of motion and smooth gliding of the tendons was noted. Then under intraoperative live fluoroscopy the ankle joint was stressed and was notably stable in varus, valgus and anterior drawer. Surgical sites were irrigated and the incision was closed in layers. A dry sterile dressing consisting of Xeroform on the incisions followed by 4 x 4 gauze, ABDs, and Kerlix were applied. Multiple layers of cast padding were then applied to ensure all bony prominences were well-padded. A plaster posterior splint was then applied which was held in place by Kevin wraps. Capillary refill time to all digits was evaluated and had appropriate response. POSTOPERATIVE PLAN: Discharge home under family's care Post op instructions provided verbally and written prescription(s) were placed in chart NWB operative foot/ankle x1 wks Follow-up in 1 week Implants: Artelon tendon wrap Surgeon: Mehrdad Rea Foster [facility] Therapist: Darnell Shah Estimated blood loss (mL): 10 Condition: stable Disposition: PACU
[2023-12-02] MEDS: SURGIFOAM GEL SPONGE SIZE 100 1 EACH TOPICAL (10:17)
[2023-12-02 11:50] LABS: Glucometer 134 mg/dL (74-106)
[2023-12-02] MEDS: OXYCODONE HCL/ACETAMINOPHEN 5MG/325MG 1 TAB PO (12:44)
--- NOTE | 2023-12-02 13:00 | PC.NURSE ---
1244- Medicated with Percocet for left foot pain of #6 as ordered.
== END 2023-12-02 13:47 | disposition home or self-care (01) ==
PROVIDERS: Anesthesiology; Visit Provider Podiatrist Foot & Ankle Surgery
PROC: (CPT 1470; principal; 2023-12-02 07:30)
DX: M19.172 Post-traumatic osteoarthritis, left ankle and foot (principal); S86.312A Strain of muscle(s) and tendon(s) of peroneal muscle group at lower leg level, left leg, initial encounter; I10 Essential (primary) hypertension; S92.012A Displaced fracture of body of left calcaneus, initial encounter for closed fracture; M25.372 Other instability, left ankle
CPT/HCPCS: 20680; 27675; 27700; 36415; 76000; 82948; 85025; C1763; J0702; J1094; J2704